=== PATIENT | male | born 1960 | race Caucasian/White ===

== ENCOUNTER 2017-12-19 15:18 | Inpatient (IN) | payer MEDICAID ==
[~2017-12-19] VITALS: Ht 172.7 cm; Wt 83.1 kg
[2017-12-19] MEDS ORDERED: NS IV 1000 ML 1,000 ML IV ONE ×2 (15:52→17:15)
[2017-12-19 16:07] LABS: BASOPHILS % (AUTO) 0 % (0-10); EOSINOPHILS # (AUTO) 0.1 10^3/uL (0.0-0.3); EOSINOPHILS % (AUTO) 1 % (0-10); HEMATOCRIT 43 % (40-54); HEMOGLOBIN 14.9 G/DL (13.3-17.7); LYMPHOCYTES # (AUTO) 0.7 X 10^3 (1.0-4.0); LYMPHOCYTES % (AUTO) 6 % (12-44); MEAN CORPUSCULAR HEMOGLOBIN 32 PG (25-34); MEAN CORPUSCULAR HGB CONC 35 G/DL (32-36); MEAN CORPUSCULAR VOLUME 91 FL (80-99); MEAN PLATELET VOLUME 11.5 FL (7.4-10.4); MONOCYTES # (AUTO) 1.5 X 10^3 (0.0-1.0); MONOCYTES % (AUTO) 13 % (0-12); NEUTROPHILS # (AUTO) 9.3 X 10^3 (1.8-7.8); NEUTROPHILS % (AUTO) 80 % (42-75); PLATELET COUNT 139 10^3/uL (130-400); RED BLOOD COUNT 4.66 10^6/uL (4.35-5.85); RED CELL DISTRIBUTION WIDTH 13.7 % (10.0-14.5); WHITE BLOOD COUNT 11.6 10^3/uL (4.3-11.0)
[2017-12-19 16:24] LABS: PROTHROMBIN TIME PATIENT 13.7 SEC (12.2-14.7)
--- NOTE | 2017-12-19 16:31 | Diagnostic Imaging Report ---
INDICATION: Preop for hip fracture. FINDINGS: Portable chest shows the lungs to be well-aerated. There are no infiltrates. Heart is not enlarged. No pulmonary edema. No hilar adenopathy. No pneumothorax or pleural effusion. IMPRESSION: Normal portable chest. Dictated by: Dictated on workstation # [id number]
[2017-12-19 16:32] LABS: ALANINE AMINOTRANSFERASE 11 U/L (0-55); ALBUMIN 3.6 GM/DL (3.2-4.5); ALKALINE PHOSPHATASE 57 U/L (40-136); BILIRUBIN,TOTAL 0.6 MG/DL (0.1-1.0); BUN/CREATININE RATIO 36; CALCIUM 9.6 MG/DL (8.5-10.1); CARBON DIOXIDE 27 MMOL/L (21-32); CHLORIDE 104 MMOL/L (98-107); CREATININE SERUM 0.78 MG/DL (0.60-1.30); GFR ESTIMATED > 60; GLUCOSE 128 MG/DL (70-105); SODIUM 141 MMOL/L (135-145)
[2017-12-19 16:34] LABS: EOSINOPHILS % (MANUAL) 2 %; LYMPHOCYTES % (MANUAL) 11 %; MONOCYTES % (MANUAL) 9 %; NEUTROPHILS % (MANUAL) 78 %; RBC MORPH NORMAL
[2017-12-19 16:35] LABS: BILIRUBIN,URINE NEGATIVE (NEGATIVE); CLARITY,URINE CLEAR; GLUCOSE, URINE (UA) NEGATIVE (NEGATIVE); KETONES,URINE 3+ (NEGATIVE); LEUKOCYTE ESTERASE ,URINE 1+ (NEGATIVE); NITRITE,URINE NEGATIVE (NEGATIVE); PH,URINE 6 (5-9); PROTEIN,URINE 2+ (NEGATIVE); UROBILINOGEN,URINE 1 MG/DL (NORMAL)
[2017-12-19 16:43] LABS: BACTERIA,URINE TRACE /HPF; COLOR,URINE ORANGE; WBC,URINE 0-2 /HPF
--- NOTE | 2017-12-19 18:04 | Diagnostic Imaging Report ---
PROCEDURE: CT head and CT cervical spine without contrast. TECHNIQUE: Multiple contiguous axial images were obtained through the brain and cervical spine without the use of intravenous contrast. Sagittal and coronal reformations through the cervical spine were then performed. INDICATION: Fall at half-way. FINDINGS: CT HEAD: There is no evidence of intracranial hemorrhage. There is no mass effect. There is generalized cortical atrophy. Ventricles are not dilated. Basal cisterns are clear. Mastoid air cells and paranasal sinuses are clear. No calvarial fractures. IMPRESSION: No acute intracranial abnormalities. CT CERVICAL SPINE. Sagittal and coronal images show good alignment. Body height is well maintained. Disc spaces are relatively well-maintained as well. Facets are in good alignment. The atlantoaxial joint appears normal. No fracture demonstrated. IMPRESSION: Mild degenerative changes with no acute abnormalities of the cervical spine. Dictated by: Dictated on workstation # [id number]
[2017-12-19 19:29] VITALS: BP 132/98
[2017-12-19] MEDS ORDERED: cefTRIAXone INJECTION 1,000 MG in NS (IVPB) 50 ML IV ONE (19:45)
--- NOTE | 2017-12-19 19:56 | ED Hip Pain/Injury ---
General Chief Complaint: Hip/Pelvic Problems Stated Complaint: L HIP FX Nursing Triage Note: PT TO ED FROM X-RAY PT HAD L HIP FX ON OUTPATIENT X-RAY. PT BROUGHT BY [facility] IN [place]/C. PT HAS POOR RESPONSE BY VERBAL, EYES CLOSED. [facility] STATES HAVE HAD PT FOR ONLY 3 DAYS LIVED AT HOME W BROTHER TAKING CARE OF HIM Source: patient, other ([place] staff) Exam Limitations: physical impairment (nonverbal, dementia with behavioral disturbances, schizophrenia, Parkinson's disease) History of Present Illness Date Seen by Provider: Dec 19, 2017 Allergies and Home Medications Allergies Coded Allergies: No Known Drug Allergies (Unverified , 12/19/17) Past [place]-Kwltar-Ehdmcb Hx Patient Social History Alcohol Use: Denies Use Recreational Drug Use: No Smoking Status: Unknown if Ever Smoked Recent Foreign Travel: No Contact w/Someone Who Travel: No Recent Infectious Disease Expo: No Recent Hopitalizations: No (unknown) Physical Abuse: No Sexual Abuse: No Seasonal Allergies Seasonal Allergies: No Psychosocial Suicide Risk Score: 0 Physical Exam Vital Signs Vital Signs - First Documented 12/19/17 12/19/17 15:43 19:29 Temp 100.3 Pulse 83 Resp 18 B/P (MAP) 133/81 (98) Pulse Ox 95 O2 Delivery Room Air Capillary Refill : Less Than 3 Seconds Progress/Results/Core Measures Results/Orders Lab Results Laboratory Tests Test 12/19/17 15:56 12/19/17 16:30 Range/Units White Blood Count 11.6 H 4.3-11.0 10^3/uL Red Blood Count 4.66 4.35-5.85 10^6/uL Hemoglobin 14.9 13.3-17.7 G/DL Hematocrit 43 40-54 % Mean Corpuscular Volume 91 80-99 FL Mean Corpuscular Hemoglobin 32 25-34 PG Mean Corpuscular Hemoglobin Concent 35 32-36 G/DL Red Cell Distribution Width 13.7 10.0-14.5 % Platelet Count 139 130-400 10^3/uL Mean Platelet Volume 11.5 H 7.4-10.4 FL Neutrophils (%) (Auto) 80 H 42-75 % Lymphocytes (%) (Auto) 6 L 12-44 % Monocytes (%) (Auto) 13 H 0-12 % Eosinophils (%) (Auto) 1 0-10 % Basophils (%) (Auto) 0 0-10 % Neutrophils # (Auto) 9.3 H 1.8-7.8 X 10^3 Lymphocytes # (Auto) 0.7 L 1.0-4.0 X 10^3 Monocytes # (Auto) 1.5 H 0.0-1.0 X 10^3 Eosinophils # (Auto) 0.1 0.0-0.3 10^3/uL Basophils # (Auto) 0.0 0.0-0.1 10^3/uL Neutrophils % (Manual) 78 % Lymphocytes % (Manual) 11 % Monocytes % (Manual) 9 % Eosinophils % (Manual) 2 % Blood Morphology Comment NORMAL Prothrombin Time 13.7 12.2-14.7 SEC INR Comment 1.0 0.8-1.4 Activated Partial Thromboplast Time 28 24-35 SEC Sodium Level 141 135-145 MMOL/L Potassium Level 4.0 3.6-5.0 MMOL/L Chloride Level 104 98-107 MMOL/L Carbon Dioxide Level 27 21-32 MMOL/L Anion Gap 10 5-14 MMOL/L Blood Urea Nitrogen 28 H 7-18 MG/DL Creatinine 0.78 0.60-1.30 MG/DL Estimat Glomerular Filtration Rate > 60 BUN/Creatinine Ratio 36 Glucose Level 128 H 70-105 MG/DL Lactic Acid Level 0.85 0.50-2.00 MMOL/L Calcium Level 9.6 8.5-10.1 MG/DL Magnesium Level 2.0 1.8-2.4 MG/DL Total Bilirubin 0.6 0.1-1.0 MG/DL Aspartate Amino Transf (AST/SGOT) 40 H 5-34 U/L Alanine Aminotransferase (ALT/SGPT) 11 0-55 U/L Alkaline Phosphatase 57 40-136 U/L C-Reactive Protein High Sensitivity 12.32 H 0.00-0.50 MG/DL Total Protein 7.0 6.4-8.2 GM/DL Albumin 3.6 3.2-4.5 GM/DL Valproic Acid (Depakene) Level 76.6 50.0-100.0 UG/ML Urine Color ORANGE Urine Clarity CLEAR Urine pH 6 5-9 Urine Specific [place] 1.025 H 1.016-1.022 Urine Protein 2+ H NEGATIVE Urine Glucose (UA) NEGATIVE NEGATIVE Urine Ketones 3+ H NEGATIVE Urine Nitrite NEGATIVE NEGATIVE Urine Bilirubin NEGATIVE NEGATIVE Urine Urobilinogen 1 NORMAL MG/DL Urine Leukocyte Esterase 1+ H NEGATIVE Urine RBC (Auto) 2+ H NEGATIVE Urine RBC NONE /HPF Urine WBC 0-2 /HPF Urine Squamous Epithelial Cells 2-5 /HPF Urine Crystals NONE /LPF Urine Bacteria TRACE /HPF Urine Casts NONE /LPF Urine Mucus LARGE H /LPF Urine Culture Indicated NO Micro Results Microbiology 12/19/17 Influenza Types A,B Antigen (ALLAN) - Final, Complete My Orders Orders - GRAZYNA CASPER Ns Iv 1000 Ml (Sodium Chloride 0.9%) (12/19/17 17:15) Valproic Acid (12/19/17 17:18) Ct Head/Cervical Spine Wo (12/19/17 17:21) Ceftriaxone Injection (Rocephin Injectio (12/19/17 19:45) Medications Given in ED Current Medications Medications Dose Ordered Sig/Ivelisse Route Start Time Stop Time Status Last Admin Dose Admin Ceftriaxone Sodium 1000 mg/ Sodium Chloride 50 ml @ 100 mls/hr ONCE ONCE IV 12/19/17 19:45 12/19/17 20:14 12/19/17 19:48 100 MLS/HR Sodium Chloride 1,000 ml @ 0 mls/hr Q0M ONCE IV 12/19/17 15:52 12/19/17 15:53 DC 12/19/17 16:10 1,000 MLS/HR Sodium Chloride 1,000 ml @ 0 mls/hr Q0M ONCE IV 12/19/17 17:15 12/19/17 17:16 DC 12/19/17 17:24 1,000 MLS/HR Vital Signs/I&O Vital Sign - Last 12Hours 12/19/17 12/19/17 15:43 19:29 Temp 100.3 Pulse 83 98 Resp 18 18 B/P (MAP) 133/81 (98) 132/98 (109) Pulse Ox 95 95 O2 Delivery Room Air Blood Pressure Mean: 109 Departure Impression Disposition: ADMITTED INPATIENT Condition: Stable Admissions Decision to Admit Reason: Admit from ER (General) Decision to Admit/Date: Dec 19, 2017 Time/Decision to Admit Time: 19:30 Departure-Patient Inst. Referrals: YOLY FAITH DO (PCP/Family) Primary Care Physician GRAZYNA CASPER Dec 19, 2017 19:56
[2017-12-19 21:12] VITALS: BP 152/92
[2017-12-19 21:24] VITALS: BP 152/92
[2017-12-19] MEDS ORDERED: ONDANSETRON 4 MG/2 ML (SDV) Z0FRAN IV PRN (21:30)
[2017-12-19] MEDS ORDERED: ACETAMINOPHEN 650 MG SUPP (TYLENOL) PR PRN (21:30)
[2017-12-19] MEDS: NS IV 1000 ML 1,000 ML IV SCH (22:43)
[2017-12-20] VITALS: BP 148/82
[2017-12-20] MEDS: morphine INJ 4 MG/ML 1 ML (VIAL/SYRINGE) IV PRN ×2 (02:24→20:24)
[2017-12-20 04:00] VITALS: BP 140/82
[2017-12-20] MEDS: NS IV 1000 ML 1,000 ML IV SCH ×4 (05:47→20:15)
[2017-12-20 06:21] LABS: BASOPHILS % (AUTO) 0 % (0-10); EOSINOPHILS # (AUTO) 0.1 10^3/uL (0.0-0.3); EOSINOPHILS % (AUTO) 2 % (0-10); HEMATOCRIT 39 % (40-54); HEMOGLOBIN 13.5 G/DL (13.3-17.7); LYMPHOCYTES # (AUTO) 0.5 X 10^3 (1.0-4.0); LYMPHOCYTES % (AUTO) 7 % (12-44); MEAN CORPUSCULAR HEMOGLOBIN 32 PG (25-34); MEAN CORPUSCULAR HGB CONC 35 G/DL (32-36); MEAN CORPUSCULAR VOLUME 92 FL (80-99); MEAN PLATELET VOLUME 11.7 FL (7.4-10.4); MONOCYTES # (AUTO) 1.1 X 10^3 (0.0-1.0); MONOCYTES % (AUTO) 14 % (0-12); NEUTROPHILS # (AUTO) 6.1 X 10^3 (1.8-7.8); NEUTROPHILS % (AUTO) 78 % (42-75); PLATELET COUNT 130 10^3/uL (130-400); RED BLOOD COUNT 4.24 10^6/uL (4.35-5.85); RED CELL DISTRIBUTION WIDTH 13.5 % (10.0-14.5); WHITE BLOOD COUNT 7.9 10^3/uL (4.3-11.0)
[2017-12-20 06:44] LABS: ALANINE AMINOTRANSFERASE 39 U/L (0-55); ALBUMIN 3.1 GM/DL (3.2-4.5); ALKALINE PHOSPHATASE 49 U/L (40-136); BILIRUBIN,TOTAL 0.7 MG/DL (0.1-1.0); BUN/CREATININE RATIO 33; CARBON DIOXIDE 22 MMOL/L (21-32); CHLORIDE 109 MMOL/L (98-107); GFR ESTIMATED > 60; GLUCOSE 95 MG/DL (70-105); POTASSIUM 3.9 MMOL/L (3.6-5.0); SODIUM 140 MMOL/L (135-145); TOTAL PROTEIN 5.9 GM/DL (6.4-8.2)
[2017-12-20] MEDS ORDERED: INFLUENZA TRIvalent 2017-2018 0.5 ML/45 MCG SYR IM ONE (07:30)
[2017-12-20 08:00] VITALS: BP 149/77
[2017-12-20] MEDS ORDERED: ceFAZolin 2 GM IV Premixed 50 ML IV ONE (08:00)
[2017-12-20] MEDS ORDERED: fentaNYL INJECTION 100 MCG/2 ML AMP ONE ×3 (08:14→10:19)
[2017-12-20] MEDS ORDERED: HYDROmorphone (DILAUDID) 2 MG/ML VIAL ONE (08:14)
[2017-12-20] MEDS ORDERED: morphine INJ 10 MG/ML 1ML (SYR OR VIAL) ONE (08:14)
[2017-12-20] MEDS ORDERED: LIDOCAINE PF 2% 5 ML (XYLOCAINE) VIAL ONE (08:17)
[2017-12-20] MEDS ORDERED: SEVOFLURANE (ULTANE) 15 ML INHAL SOLN ONE ×9 (08:17→11:26)
[2017-12-20] MEDS ORDERED: proPOfol 200 MG/20 ML (DIPRIVAN) VIAL IV ONE (08:17)
[2017-12-20] MEDS ORDERED: ONDANSETRON 4 MG/2 ML (SDV) Z0FRAN ONE (08:21)
[2017-12-20] MEDS ORDERED: DEXAMETHASONE 10 MG/ML (DECADRON) 1 ML VIAL ONE (08:21)
[2017-12-20] MEDS: FAMOTIDINE 20MG/2ML IV (PEPCID) IVP SCH ×2 (08:31→20:14)
--- NOTE | 2017-12-20 08:46 | Diagnostic Imaging Report ---
INDICATION: Fracture. FINDINGS: There is a displaced left femoral neck fracture without dislocation. Colonic fecal load elevated consistent with constipation. No small bowel dilatation. IMPRESSION: Displaced left femoral neck fracture and colonic constipation. Dictated by: Dictated on workstation # [id number]
--- NOTE | 2017-12-20 08:51 | History & Physical-Hospitalist ---
HPI History of Present Illness: HPI/Chief Complaint The patient is a 57-year-old white male with apparent schizophrenia recently admitted to a local senior care who apparently fell with progressive left hip pain. Upon presentation to the emergency room he had external rotation and foreshortening of the leg with a displaced intertrochanteric hip fracture. He is unable to give any meaningful history during the interview but does not appear to be in acute distress. He has no reported past history of cardiovascular or pulmonary disease. He is asking to be fed and wanting to go home. Date Seen 12/20/17 Time Seen by Provider: 07:30 Attending Physician Marko Logan Richard A DO Referring Physician Date of Admission Dec 19, 2017 at 20:41 Home Medications & Allergies Home Medications Reviewed patient Home Medication Reconciliation Form Allergies Allergies Coded Allergies No Known Drug Allergies (Unverified12/19/17) Past Ncnblbr-Dbbmmj-Ehhbcg Hx Patient Social History Alcohol Use: Denies Use Smoking Status: Unknown if Ever Smoked Recent Foreign Travel: No Contact w/other who traveled: No Recent Hopitalizations: No (unknown) Recent Infectious Disease Expo: No Seasonal Allergies Seasonal Allergies: No Cardiovascular Yes Neurological Yes Psychosocial Behavioral Health Disorders: Anxiety, Schizophrenia, Depression Blood Transfusions History of Blood Disorders: No Adverse Reaction to a Blood Tr: No Review of Systems Constitutional: no symptoms reported Physical Exam Physical Exam Vital Signs Vital Signs - First Documented 12/19/17 12/19/17 15:43 19:29 Temp 100.3 Pulse 83 Resp 18 B/P (MAP) 133/81 (98) Pulse Ox 95 O2 Delivery Room Air Capillary Refill : Less Than 3 SecondsLess Than 3 Seconds General Appearance: Anxious (Confused asking for food and states he wants help getting up.) Neck: Full Range of Motion, Normal Inspection, Non Tender, Supple Respiratory: Chest Non Tender, Lungs Clear, Normal Breath Sounds, No Accessory Muscle Use, No Respiratory Distress Cardiovascular: Regular Rate, Rhythm, No Edema, No Gallop, No JVD, No Murmur, Normal Peripheral Pulses Gastrointestinal: Normal Bowel Sounds, No Organomegaly, No Pulsatile Mass, Non Tender, Soft Extremity: No Pedal Edema, Other (Left lower extremity foreshortened and externally rotated with mild left hip swelling and no evidence for purpura extremities are warm normal capillary refill) Neurologic/Psychiatric: Disoriented x3 Results Results/Procedures Lab Laboratory Tests 12/19/17 15:56 12/20/17 06:07 Assessment/Plan Admission Diagnosis 1. Left displaced femoral neck fracture patient scheduled for repair per Dr. Strauss later today. There are no medical contraindications to proceeding with planned procedure. 2. Reported history of schizophrenia patient unable to give any history currently. We are still waiting on home medication list. We will review when available. No other information available this time. Clinical Quality Measures DVT/VTE Risk/Contraindication: Risk Factor Score Per Nursin RFS Level Per Nursing on Admit: 4+=Very High ANT AL MD Dec 20, 2017 08:51
--- NOTE | 2017-12-20 08:54 | Diagnostic Imaging Report ---
EXAM: HIP, LEFT (SINGLE VIEW) INDICATION: LEFT HIP FRACTURE, LATERAL VIEW ONLY COMPARISON: Left hip radiographs 12/19/2017. FINDINGS/IMPRESSION: The known subcapital left hip fracture is not well seen due to overlapping tissues. This could be better evaluated with repeat radiographs versus CT. Dictated by: Dictated on workstation # [id number]
[2017-12-20] MEDS ORDERED: ROCURONIUM 50 MG/5 ML (ZEMURON) VIAL IV ONE (09:36)
[2017-12-20] MEDS: LACTATED RINGERS 1,000 ML IV PRN ×2 (09:40→10:45)
[2017-12-20] MEDS ORDERED: MIDAZOLAM 2 MG/2 ML (VERSED) VIAL ONE (09:42)
--- NOTE | 2017-12-20 09:46 | Consultation ---
History of Present Illness History of Present Illness Patient Consulted On(india/time) 12/19/17 Date Seen by Provider: Dec 20, 2017 Time Seen by Provider: 07:20 Reason for Visit: Left hip fracture History of Present Illness Mr. Dumont is a 57 y/o male local [facility] resident with h/o dementia that sustained a mechanical GLF onto his Left hip approximately 3 days ago. History obtained from patient's family and medical record as patient is not a reliable historian secondary to his baseline mental status. The patient began c/o severe Left hip pain and an inability to ambulate on his LLE. He was transferred to a local urgent care for evaluation where XRs demonstrated a left femoral neck fracture. He was subsequently transferred to [facility] for definitive treatment. The patient c/o left hip pain. He has no other musculoskeletal complaints. Allergies and Home Medications Allergies Coded Allergies: No Known Drug Allergies (Unverified , 12/19/17) Past Qeuxsfn-Mwfhqc-Bbgmri Hx Patient Social History Alcohol Use: Denies Use Smoking Status: Unknown if Ever Smoked Recent Foreign Travel: No Contact w/Someone Who Travel: No Recent Infectious Disease Expo: No Recent Hopitalizations: No (unknown) Physical Abuse: No Sexual Abuse: No Seasonal Allergies Seasonal Allergies: No Cardiovascular History of Cardiac Disorders: Yes Neurological History of Neurological Disord: Yes Psychosocial Behavioral Health Disorders: Anxiety, Schizophrenia, Depression Suicide Risk Score: 0 Blood Transfusions History of Blood Disorders: No Adverse Reaction to a Blood Tr: No Review of Systems-General Constitutional: no symptoms reported EENTM: no symptoms reported Respiratory: no symptoms reported Cardiovascular: no symptoms reported Gastrointestinal: no symptoms reported Genitourinary: no symptoms reported Musculoskeletal: joint pain, other (Left hip pain) Skin: no symptoms reported Psychiatric/Neurological: Other (Dementia) Physical Exam-General Problems Physical Exam Vital Signs Vital Signs - First Documented 12/19/17 12/19/17 15:43 19:29 Temp 100.3 Pulse 83 Resp 18 B/P (MAP) 133/81 (98) Pulse Ox 95 O2 Delivery Room Air Capillary Refill : Less Than 3 SecondsLess Than 3 Seconds General Appearance: no apparent distress Eyes: Bilateral Eye Normal Inspection, Bilateral Eye PERRL, Bilateral Eye EOMI HEENT: normal ENT inspection Neck: full range of motion, supple Respiratory: no respiratory distress, no accessory muscle use Cardiovascular: normal peripheral pulses, regular rate, rhythm Peripheral Pulses: 3+ Femoral (L), 3+ Dorsalis Pedis (R) Gastrointestinal: non tender, soft Extremities: other (LLE: shortened/externally rotated; motor/sensation grossly intact, foot well perfused, skin intact, no open wounds) Skin: warm/dry Assessment/Plan Assessment/Plan Admission Diagnosis/Plan A/P: Displaced fracture Left femoral neck s/p mechanical GLF Unstable injury that will require surgical stabilization. Given the patient's physical/mental condition and the chronicity of the injury he is not a candidate for ORIF or total hip arthroplasty. As such I have recommended proceeding with bipolar arthroplasty. The surgical plan has been discussed in detail with the patient's brother/POA including the risks, benefits, potential complications and expected outcomes. All questions have been answered. Informed written consent has been obtained to proceed as planned. Clinical Quality Measures DVT/VTE Risk/Contraindication: Risk Factor Score Per Nursin RFS Level Per Nursing on Admit: 4+=Very High NYASIA MATIAS DO Dec 20, 2017 09:46
[2017-12-20] MEDS ORDERED: PROMETHAZINE INJ 25 MG/ML (PHENERGAN) AMP ONE (10:40)
[2017-12-20] MEDS ORDERED: ENTA200T6 PO (10:44)
[2017-12-20] MEDS ORDERED: PARO-49 PO (10:44)
[2017-12-20] MEDS ORDERED: TRAZ-28 PO (10:44)
[2017-12-20] MEDS ORDERED: DIVA500T15 PO ×2 (10:44)
[2017-12-20] MEDS ORDERED: CARB1TAB6 PO (10:44)
[2017-12-20] MEDS ORDERED: ACET325T38 PO (10:44)
[2017-12-20] MEDS ORDERED: DILT120T3 PO (10:44)
[2017-12-20] MEDS ORDERED: RISP0.5T21 PO (10:44)
[2017-12-20] MEDS ORDERED: PHENYLEPHRINE INJ 10 MG/ML (NEO-SYNEPHRINE 1%) ONE (11:25)
--- NOTE | 2017-12-20 11:30 | Progress Note-Post Operative ---
Post-Operative Progess Note Surgeon (s)/Human Relations Professor (s) Surgeon NYASIA MATIAS DO Human Relations Professor: Jeb Bruno PA-C Pre-Operative Diagnosis Displaced subcapital fracture Left femoral neck Post-Operative Diagnosis Same Procedure & Operative Findings Date of Procedure 12/20/17 Procedure Performed/Findings Uncemented bipolar hemiarthroplasty Left hip/as above Anesthesia Type General Estimated Blood Loss Estimated blood loss (mL): 250 mL Specimens/Packing Specimens Removed None NYASIA MATIAS DO Dec 20, 2017 11:30
[2017-12-20] MEDS ORDERED: ROPIVACAINE 5MG/ML 30ML VIAL ONE (11:32)
[2017-12-20] MEDS ORDERED: KETOROLAC 30 MG/ML VIAL ONE (11:32)
[2017-12-20 12:00] VITALS: BP 122/92
[2017-12-20] MEDS ORDERED: SINEMET 25/100 (CARBIDOPA/LEVODOPA) TAB PO SCH (12:00)
[2017-12-20] MEDS ORDERED: ONDANSETRON 4 MG/2 ML (SDV) Z0FRAN IVP PRN (12:15)
[2017-12-20] MEDS ORDERED: morphine INJ 10 MG/ML 1ML (SYR OR VIAL) IVP PRN (12:15)
[2017-12-20] MEDS ORDERED: KETOROLAC 30 MG/ML VIAL IVP ONE (12:15)
[2017-12-20] MEDS: DIVALPROEX 500 MG DELAYED RELEASE (DEPAKOTE) TAB PO SCH ×2 (12:20→20:14)
--- NOTE | 2017-12-20 12:47 | Diagnostic Imaging Report ---
EXAM: PELVIS INDICATION: Left hip fracture. COMPARISON: Left hip radiographs 12/19/2017. FINDINGS: Interval left total hip arthroplasty. Components appear intact and well seated on this single image. No radiopaque foreign bodies. No periprosthetic fractures. IMPRESSION: Left ELIZABETH. Negative for postoperative purposes. Dictated by: Dictated on workstation # [id number]
--- NOTE | 2017-12-20 13:40 | Physical Therapy Progress Note ---
Therapy Progress Note PT orders received. Pt currently in surgery. PT eval to be done 12/21/17 HALEY MON PT Dec 20, 2017 13:40
[2017-12-20] MEDS: SINEMET 25/100 (CARBIDOPA/LEVODOPA) TAB PO SCH ×2 (14:00→17:03)
[2017-12-20] MEDS ORDERED: ceFAZolin 2 GM/50 ML NS 50 ML IV SCH (15:30)
[2017-12-20 15:45] VITALS: BP 160/84
[2017-12-20] MEDS: RIVAROXABAN 10 MG TABLET (XARELTO) PO SCH (17:03)
[2017-12-20] MEDS: ceFAZolin 2 GM IV Premixed 50 ML IV SCH ×2 (17:04→22:10)
[2017-12-20 19:32] VITALS: BP 131/69
[2017-12-20] MEDS: risperiDONE 1 MG (RisperDAL) TAB PO SCH (20:14)
[2017-12-20] MEDS ORDERED: PATIENT MAY USE OWN MED,SINGLE MED PO SCH ×4 (21:00)
[2017-12-21] VITALS: BP 138/77
[2017-12-21 04:00] VITALS: BP 168/80
[2017-12-21] MEDS: NS IV 1000 ML 1,000 ML IV SCH ×3 (04:23→17:23)
[2017-12-21] MEDS: ceFAZolin 2 GM IV Premixed 50 ML IV SCH ×2 (04:23→09:39)
[2017-12-21] MEDS: morphine INJ 4 MG/ML 1 ML (VIAL/SYRINGE) IV PRN (04:32)
[2017-12-21 05:29] LABS: HEMOGLOBIN 12.3 G/DL (13.3-17.7)
[2017-12-21] MEDS: SINEMET 25/100 (CARBIDOPA/LEVODOPA) TAB PO SCH ×3 (05:37→17:23)
[2017-12-21 08:00] VITALS: BP 148/81
--- OUTSIDE RECORDS SUMMARY | 2017-12-21 09:27 | XMS REPORT ---
Author Author Terri Moon Organization [employer] Address Unknown Phone Unavailable Care Team Providers Care Edge Drummer Name Role Phone Terri Moon CP Unavailable Allergies No Known Allergies Problems Problem Type Condition Code Onset Dates Condition Status Problem Schizoaffective disorder, unspecified F25.9 Active Medications No Known Medications Results No Known Results Summary Purpose [employer] Submission
--- OUTSIDE RECORDS SUMMARY | 2017-12-21 09:28 | XMS REPORT ---
Author Terri More [facility] [employer] Address Unknown Phone Unavailable Care Team Providers Care Rail Equipment Operator Name Role Phone Terri Moon CP Unavailable Allergies, Adverse Reactions, Alerts Substance Reaction Event Type N.K.D.A. Info Not Available Non Drug Allergy Problems Problem Type Condition Code Onset Dates Condition Status Assessment Schizoaffective disorder, unspecified F25.9 Active Problem Schizoaffective disorder, unspecified F25.9 Active Medications Medication Code System Code Instructions Start Date End Date Status Dosage Dilt-CD [facility] [address]-45 120 MG Orally Once a day 1 capsule Docusate Sodium [facility] [address]-13 100 MG Orally twice daily 1 capsule as needed Folic Acid [facility] [address]-29 1 MG Orally Once a day 1 tablet Paroxetine HCl [facility] [address]-90 40 MG Orally Once a day 1 tablet in the morning Restoril [facility] [address]-30 15 MG Orally Once a day 1 capsule at bedtime as needed Carbidopa-Levodopa CR [facility] 0 by mouth twice daily one tablet Depakote [facility] [address]-05 500 MG Orally Twice a day 1 tablet Entacapone [facility] [address]-47 200 MG Orally Twice a day 1 tablet Seroquel [facility] [address]-07 200 MG Orally Twice a day 1 tablet Trihexyphenidyl HCl [facility] [address]-77 2 MG Orally Two times a day 1 tablet with meals Bisacodyl [facility] [address]-14 10 MG Rectal Once a day 1 suppository as needed Lorazepam [facility] [address]-09 1 MG Orally or injection every 6 hrs PRN 1 tablet Aricept [facility] [address]-47 10 MG Orally Once a day 1 tablet at bedtime Amantadine HCl [facility] [address]-59 100 MG Orally daily 1 capsule Sinemet [facility] [address]-71 25-100 MG Orally four times a day 2 tablets Quetiapine Fumarate [facility] [address]-45 100 MG Orally Once a day 1 tablet at bedtime MiraLax [facility] [address]-34 Orally Once a day 1 packet mixed with 8 ounces of fluid Tramadol HCl [facility] [address]-24 50 MG Orally every 6 hrs 1 tablet as needed Milk of Magnesia [facility] [address]-65 Orally daily as needed 30ml Procedures Procedure Coding System Code Date OFFICE VISIT, POACHER WRINGER OPERATOR-MOD. COMPLEXITY (45 MIN.) CPT-4 82302 Nov 14, 2015 Vital Signs Date/Time: Nov 14, 2015 Height 71.25 in Weight 198.75 lbs Temperature 97.6 F Blood Pressure Diastolic 76 mm Hg Blood Pressure Systolic 120 mm Hg Cardiac Monitoring Heart Rate 80 /min BMI 27.52 Index Respiratory Rate 20 /min Results No Known Results Summary Purpose [employer] Submission
--- OUTSIDE RECORDS SUMMARY | 2017-12-21 09:28 | XMS REPORT ---
Author Author GENERATED, SYSTEM Organization Unknown Address Unknown Phone Unavailable Care Team Providers Care Financial Reporting Accountant Name Role Phone PP Unavailable Reason For Visit Chief Complaint UA Social History Functional Status Vital Signs Results Problems Encounter Diagnosis No relevant problems exist. Encounters Encounter Diagnosis No relevant problems exist. Plan of Care Procedures No relevant procedures performed. Immunizations No immunizations administered or ordered. Hospital Course Hospital Discharge Instructions Allergies, Adverse Reactions, Alerts * Latex Allergy has not been assessed. * IV Contrast Allergy has not been assessed. Medication Medication reconciliation has not been performed.
--- OUTSIDE RECORDS SUMMARY | 2017-12-21 09:28 | XMS REPORT ---
Author Terri More [facility] [employer] Address Unknown Phone Unavailable Care Team Providers Care Product Support Engineer Name Role Phone Terri Moon Unavailable Allergies No Known Allergies Problems Problem Type Condition Code Onset Dates Condition Status Problem Parkinson's disease G20 Active Problem Schizoaffective disorder, bipolar type F25.0 Active Medications Medication Code System Code Instructions Start Date End Date Status Dosage MiraLax [facility] [address]-11 Orally Once a day 1 packet mixed with 8 ounces of fluid Folic Acid [facility] [address]-30 1 MG Orally Once a day 1 tablet Carbidopa-Levodopa [facility] [address]-60 25-100 MG Orally four times a day Jun 11, 2016 1 tablet Lorazepam [facility] [address]-89 1 MG Orally or injection every 6 hrs PRN 1 tablet Carbidopa-Levodopa ER [facility] [address]-67 50-200 MG Orally daily Jun 11, 2016 1 tablet Aricept [facility] [address]-02 10 MG Orally Once a day 1 tablet at bedtime Doxycycline Hyclate [facility] [address]-25 100 MG Orally Twice a day Jun 11, 2016 Jun 16, 2016 1 tablet on an empty stomach Amoxicillin [facility] [address]-48 500 MG Orally every 8 hrs Jun 11, 2016 Jun 15, 2016 1 capsule Restoril [facility] [address]-53 15 MG Orally Once a day 1 capsule at bedtime as needed Seroquel [facility] [address]-06 300 MG Orally Once a day May 06, 2016 1 tablet at bedtime Dilt-CD [facility] [address]-75 120 MG Orally Once a day 1 capsule Paroxetine HCl [facility] [address]-72 40 MG Orally Once a day 1 tablet at bedtime Nuplazid (pimavanserin) [facility] [address]-58 17mg oral daily (with or without food) Jun 12, 2016 Aug 11, 2016 2 tablets Docusate Sodium [facility] [address]-60 100 MG Orally twice daily 1 capsule as needed Tramadol HCl [facility] [address]-32 50 MG Orally every 6 hrs 1 tablet as needed Depakote [facility] [address]-93 500 MG Orally Twice a day 1 tablet Results No Known Results Summary Purpose [employer] Submission
--- OUTSIDE RECORDS SUMMARY | 2017-12-21 09:28 | XMS REPORT | Referral Summary ---
Author Author [facility] Organization [facility] Address Unknown Phone Unavailable Care Team Providers Care Insert Molding Operator Name Role Phone Joe Plasencia V PCP Encounter VC Date(s): 05/09/15 - 05/09/15 [facility] [address] [place] [address]- Discharge Diagnosis: Schizophrenia Discharge Diagnosis: Hypertension Discharge Diagnosis: Parkinson's disease Discharge Disposition: 01-Home or Self Care Attending Physician: Joe Plasencia MD Admitting Physician: Joe Plasencia MD Vital Signs Most recent to 1 oldest [Reference Range]: Temperature Tympanic 37.5 degC [36.6-38.1 degC] (05/09/15 10:16 AM) Peripheral Pulse 76 bpm Rate [60-100 bpm] (05/09/15 10:16 AM) Blood Pressure 118/84 mmHg [90-140/60-90 mmHg] (05/09/15 10:16 AM) Problem List Condition Effective Dates Status Health Status Informant Anxiety(Confirmed) < 06/27/14 Resolved Anxiety state Active (finding)(Confirmed) Hypertension(Confirm Active ed) Parkinson's(Confirme < 06/27/14 Resolved d) Parkinson's disease Active (disorder)(Confirmed ) Schizophrenia(Confir < 06/27/14 Resolved med) Schizophrenia Active (disorder)(Confirmed ) Allergies, Adverse Reactions, Alerts No Known Medication Allergies Medications amantadine 100 mg oral capsule 1 caps, Oral, Daily, # 30 caps, 0 Refill(s) Start Date: 02/06/15 Status: Ordered Aricept 10 mg oral tablet 1 tabs, Oral, Bedtime (once a day), # 30 tabs, 0 Refill(s) Start Date: 02/06/15 Status: Ordered Comtan 200 mg oral tablet See Instructions, Take 1 tablet (200 MG) by oral route 4 times every day in combination with carbidopa and levodopa, 0 Refill(s) Start Date: 06/27/14 Status: Ordered Depakote 250 mg oral delayed release tablet 250 mg 1 tabs, Oral, TID, 0 Refill(s) Start Date: 08/07/15 Status: Ordered Depakote 500 mg oral delayed release tablet 500 mg 1 tabs, Oral, BID, 0 Refill(s) Start Date: 08/07/15 Status: Ordered folic acid 1 mg oral tablet 1 mg 1 tabs, Oral, Daily, 0 Refill(s) Start Date: 08/07/15 Status: Ordered Mirapex 1 mg oral tablet See Instructions, TAKE ONE TABLET BY MOUTH 2 TIMES PER DAY AT 0800 AND NOON, # 56 tabs, 1 Refill(s), eRx: [facility], TAKE ONE TABLET BY MOUTH 2 TIMES PER DAY AT 0800 AND NOON Start Date: 04/28/14 Status: Ordered Paxil 40 mg oral tablet 40 mg 1 tabs, Oral, Daily, 0 Refill(s) Start Date: 08/07/15 Status: Ordered SEROquel 200 mg oral tablet 200 mg 1 tabs, Oral, Daily, 0 Refill(s) Start Date: 08/07/15 Status: Ordered Sinemet 25 mg-100 mg oral tablet 2 tabs, Oral, QID, 0 Refill(s) Start Date: 06/27/14 Status: Ordered Sinemet CR 50 mg-200 mg oral tablet, extended release See Instructions, Take 1 tablet by oral route at 10 am and 6 pm., 0 Refill(s) Start Date: 06/27/14 Status: Ordered Tiazac 120 mg/24 hours oral capsule, extended release See Instructions, TAKE ONE CAPSULE BY MOUTH EVERY MORNING AT 0800, # 28 caps, 0 Refill(s), Pharmacy: [facility], TAKE ONE CAPSULE BY MOUTH EVERY MORNING AT 0800 Start Date: 06/03/14 Status: Ordered trihexyphenidyl 2 mg oral tablet 1 tabs, Oral, BID, 0 Refill(s) Start Date: 06/27/14 Status: Ordered Results No data available for this section Immunizations Vaccine Date Refusal Reason tetanus/diphth/pertuss (Tdap) adult/adol 04/03/10 pneumococcal 23-polyvalent vaccine 04/03/10 Procedures Procedure Date Related Diagnosis Body Site Hernia repair 1980 Social History Social History Type Response Smoking Status Former smoker1 1dc 1989 Assessment and Plan Extracted from: Title: Office Visit Note Author: Joe Plasencia MD Date: 05/09/15 Assessment/Plan Hypertension Parkinson's disease Schizophrenia Overall he seems to be stable and we will mostly continue current medications. In the interest of reducing his pill burden, we changed both Colace and tramadol to when necessary dosing. Follow-up per assisted requirements, or otherwise when necessary. We will send copies of the dictation [place], Dr. Lima, and Dr. Cortez.
--- OUTSIDE RECORDS SUMMARY | 2017-12-21 09:28 | XMS REPORT | Referral Summary ---
Author Author [facility] Organization [facility] Address Unknown Phone Unavailable Care Team Providers Care Licensed Nursing Assistant Name Role Phone Joe Plasencia V PCP Encounter VC Date(s): 10/28/16 - 10/28/16 [facility], [address] [place] [id number] Discharge Diagnosis: Parkinson's disease Discharge Diagnosis: Schizophrenia Discharge Diagnosis: Chronic constipation Discharge Diagnosis: Urine frequency Discharge Disposition: 01-Home or Self Care Attending Physician: Joe Plasencia MD Admitting Physician: Joe Plasencia MD Vital Signs Most recent to 1 oldest [Reference Range]: Temperature Tympanic 36.3 degC [36.6-38.1 degC] *LOW* (10/28/16 10:41 AM) Peripheral Pulse 73 bpm Rate [60-100 bpm] (10/28/16 10:41 AM) Blood Pressure 113/79 mmHg [90-140/60-90 mmHg] (10/28/16 10:41 AM) Problem List Condition Effective Dates Status Health Status Informant Anxiety state Active (finding)(Confirmed) Anxiety(Confirmed) < 06/27/14 Resolved Hypertension(Confirm Active ed) Parkinson's(Confirme < 06/27/14 Resolved d) Parkinson's disease Active (disorder)(Confirmed ) Schizophrenia Active (disorder)(Confirmed ) Schizophrenia(Confir < 06/27/14 Resolved med) Chronic venous Active stasis dermatitis(Confirmed ) Allergies, Adverse Reactions, Alerts No Known Medication Allergies Medications Aricept 10 mg oral tablet 1 tabs, Oral, Bedtime (once a day), # 30 tabs, 0 Refill(s) Start Date: 02/06/15 Status: Ordered Ativan 1 mg oral tablet 1 mg 1 tabs, Oral, q6hr, as needed for anxiety, Fax to [facility], # 90 tabs, 0 Refill(s) Start Date: 06/06/16 Status: Ordered Colace 100 mg oral capsule 100 mg 1 caps, Oral, BID, as needed for constipation, # 20 caps, 0 Refill(s) Start Date: 11/30/15 Status: Ordered Comtan 200 mg oral tablet See Instructions, Take 1 tablet (200 MG) by oral route 2 times every day in combination with carbidopa and levodopa, 0 Refill(s) Start Date: 06/27/14 Status: Ordered divalproex sodium 500 mg oral delayed release tablet See Instructions, TAKE 1 TABLET BY MOUTH TWICE DAILY, # 56 tabs, 2 Refill(s), eRx: [facility], TAKE 1 TABLET BY MOUTH TWICE DAILY Start Date: 04/29/16 Status: Ordered folic acid 1 mg oral tablet 1 mg 1 tabs, Oral, Daily, 0 Refill(s) Start Date: 08/07/15 Status: Ordered MiraLax oral powder for reconstitution 17 g, Oral, Daily, dissolve in water before taking, # 255 g, 0 Refill(s) Start Date: 11/30/15 Status: Ordered PARoxetine 40 mg oral tablet See Instructions, TAKE 1 TABLET BY MOUTH DAILY AT BEDTIME, # 28 tabs, 2 Refill(s ), eRx: [facility], TAKE 1 TABLET BY MOUTH DAILY AT BEDTIME Start Date: 04/29/16 Status: Ordered Sinemet 25 mg-100 mg oral tablet 1 tabs, Oral, QID, 0 Refill(s) Start Date: [...] 0800, # 28 caps, 0 Refill(s), Pharmacy: [facility], TAKE ONE CAPSULE BY MOUTH EVERY MORNING AT 0800 Start Date: 06/03/14 Status: Ordered traMADol 50 mg oral tablet 50 mg 1 tabs, Oral, q6hr, Fax to [facility], # 90 tabs, 0 Refill(s) Start Date: 06/06/16 Status: Ordered Results Urinalysis Most recent to 1 oldest [Reference Range]: UA Color DkYellow (10/28/16 11:36 AM) UA Appear Clear (10/28/16 11:36 AM) UA pH [5.0-8.0] 6.0 (10/28/16 11:36 AM) UA Leuk Est Negative [Negative] (10/28/16 11:36 AM) UA Nitrite Negative [Negative] (10/28/16 11:36 AM) UA Protein Negative [Negative] (10/28/16 11:36 AM) UA Glucose Negative [Negative] (10/28/16 11:36 AM) UA Ketones Pos 1+ [Negative] *ABN* (10/28/16 11:36 AM) UA Urobilinogen 1.0 mg/dL [<1.0 mg/dL] (10/28/16 11:36 AM) UA Bili [Negative] Negative (10/28/16 11:36 AM) UA Blood [Negative] Negative (10/28/16 11:36 AM) UA Spec Grav 1.028 [1.003-1.030] (10/28/16 11:36 AM) Type Clean Catch (10/28/16 11:36 AM) Immunizations Given and Recorded Vaccine Date Status Refusal Reason tetanus/diphth/pertuss (Tdap) adult/adol 04/03/10 Recorded pneumococcal 23-polyvalent vaccine 04/03/10 Recorded Procedures Procedure Date Related Diagnosis Body Site Hernia repair 1980 Social History Social History Type Response Smoking Status Former smoker1 1d 1989 Assessment and Plan Extracted from: Title: CDM OV Author: Joe Plasencia MD Date: 10/28/16 Impression and Plan Diagnosis Chronic constipation ([id number]-JJ K59.09, Discharge, Medical). Parkinson's disease ([id number] G20, Discharge, Medical). Schizophrenia (VQY51-GT F20.9, Discharge, Medical). Urine frequency (COA97-ER R35.0, Discharge, Medical). Orders Orders (Selected) Outpatient Orders Ordered (Pending Collection) Urinalysis with Culture if Indicated: .
--- OUTSIDE RECORDS SUMMARY | 2017-12-21 09:28 | XMS REPORT | Referral Summary ---
Author Author [facility] Organization [facility] Address Unknown Phone Unavailable Care Team Providers Care Lead Driver Name Role Phone Joe Plasencia V PCP Encounter VC Date(s): 05/09/15 - 05/09/15 [facility] [address] [place] [address]- Discharge Diagnosis: Schizophrenia Discharge Diagnosis: Hypertension Discharge [...] 0800, # 28 caps, 0 Refill(s), Pharmacy: [facility], TAKE ONE CAPSULE [...] tramadol to when necessary dosing. Follow-up per group home requirements, or otherwise when necessary. We will send copies of the dictation [place], Dr. Lima, and Dr. Cortez.
--- OUTSIDE RECORDS SUMMARY | 2017-12-21 09:28 | XMS REPORT ---
Author Author GENERATED, SYSTEM Organization Unknown Address Unknown Phone Unavailable Care Team Providers Care Program Director Name Role Phone PP Unavailable Reason For Visit Chief Complaint G20, S81.809D, K59.00, F41.9, E56.9 Social History Functional Status Vital Signs Results Problems Encounter Diagnosis No relevant problems exist. Encounters Encounter Diagnosis No relevant problems exist. Plan of Care Procedures No relevant procedures performed. Immunizations No immunizations administered or ordered. Hospital Course Hospital Discharge Instructions Allergies, Adverse Reactions, Alerts This section is risk control field representative of the current allergy information, at the time of the CCD generation. In the case of regeneration of the CCD, the allergy information may not reflect the state of known allergies at the time of the CCD' s subject visit. * Latex Allergy has not been assessed. * IV Contrast Allergy has not been assessed. Medication Medication reconciliation has not been performed.
--- OUTSIDE RECORDS SUMMARY | 2017-12-21 09:28 | XMS REPORT ---
Author Author GENERATED, SYSTEM Organization Unknown Address Unknown Phone Unavailable Care Team Providers Care Director [place] Sales Name Role Phone PP Unavailable Reason For Visit Chief Complaint BILAT LEGS Social History Functional Status Vital Signs Results Chemistry from 07/20/2016 8:50 AMCHOLESTEROL 150 MG/DL (50-199 MG/DL) TRIGLYCERIDES 96 MG/DL (0-149 MG/DL) HDL CHOLESTEROL 42 MG/DL (40-60 MG/DL) *LDL (CALCULATED) CHOL 89 MG/DL (0-99 MG/DL) VALPROIC ACID 56 MCG/ML (50-100 MCG/ML) Problems Encounter Diagnosis No relevant problems exist. [...]
--- OUTSIDE RECORDS SUMMARY | 2017-12-21 09:29 | XMS REPORT ---
Author Author GENERATED, SYSTEM Organization Unknown Address Unknown Phone Unavailable Care Team Providers Care Check Writer Salesperson Name Role Phone PP Unavailable Reason For Visit Chief Complaint Z79.899 Social History Functional Status Vital Signs Results [...]
--- OUTSIDE RECORDS SUMMARY | 2017-12-21 09:29 | XMS REPORT | Referral Summary ---
Author Author [facility] Organization [facility] Address Unknown Phone Unavailable Care Team Providers Care Tensioning Machine Operator Name Role Phone Joe Plasencia V PCP Encounter VC Date(s): 07/16/16 - 07/16/16 [facility], [address] [place] [address] Discharge Diagnosis: Parkinson's disease Discharge Diagnosis: Pressure ulcer of left buttock, stage 2 Discharge Diagnosis: Schizophrenia Discharge Disposition: 01-Home or Self Care Attending Physician: Joe Plasencia MD Admitting Physician: Joe Plasencia MD Vital Signs Most recent to 1 oldest [Reference Range]: Temperature Tympanic 36.4 degC [36.6-38.1 degC] *LOW* (07/16/16 10:11 AM) Peripheral Pulse 68 bpm Rate [60-100 bpm] (07/16/16 10:11 AM) Blood Pressure 129/78 mmHg [90-140/60-90 mmHg] (07/16/16 10:11 AM) Problem List Condition Effective Dates Status [...] AT BEDTIME Start Date: 04/29/16 Status: Ordered Restoril 15 mg oral capsule 15 mg 1 caps, Oral, Bedtime (once a day), as needed for sleep, Fax to [facility], # 30 caps, 0 Refill(s) Start Date: 06/06/16 Status: Ordered Sinemet 25 mg-100 mg oral [...] 0800, # 28 caps, 0 Refill(s), Pharmacy: [facility], TAKE ONE CAPSULE BY MOUTH EVERY MORNING AT 0800 Start Date: 06/03/14 Status: Ordered traMADol 50 mg oral tablet 50 mg 1 tabs, Oral, q6hr, Fax to [facility], # 90 tabs, 0 Refill(s) Start Date: 06/06/16 Status: Ordered Results No data available for this section Immunizations Vaccine Date Refusal Reason tetanus/diphth/pertuss (Tdap) adult/adol 04/03/10 pneumococcal 23-polyvalent vaccine 04/03/10 Procedures Procedure Date Related Diagnosis Body Site Hernia repair 1980 Social History Social History Type Response Smoking Status Former smoker1 1d 1989 Assessment and Plan Extracted from: Title: OV-Acute Buttock Wound* Author: Joe Plasencia MD Date: 07/16/16 Impression and Plan Diagnosis Parkinson's disease ([id number] G20, Discharge, Medical). Pressure ulcer of left buttock, stage 2 ([id number]-BT L89.322, Discharge, Medical). Schizophrenia ([id number]-OB F20.9, Discharge, Medical).
--- OUTSIDE RECORDS SUMMARY | 2017-12-21 09:29 | XMS REPORT ---
Author Author GENERATED, SYSTEM Organization Unknown Address Unknown Phone Unavailable Care Team Providers Care Oracle Erp Architect Name Role Phone UNASSIGNED DOCTOR , DOCTOR PP Reason For Visit Reason for Visit from 09/27/2017 4:35 AM:* Pt Stated Reason for Adm : Pneymonia Chief Complaint PNA, SEPSIS, SCHIZOPHRENIA Social History Social History from 10/07/2017 1:29 PM:* Tobacco Use? : Unknown if Ever Smoked Social History from 09/27/2017 4:35 AM:* Tobacco Use? : Unknown if Ever Smoked Functional Status Functional Status from 10/07/2017 12:17 PM:* LOC : Alert * Oriented To : Unable to Assess * Weight Bearing Status : Full * Assist Level : Partial * # Assists : 1 Functional Status from 10/07/2017 9:29 AM:* # Assists : 2 Functional Status from 10/06/2017 10:07 PM:* LOC : Alert * Oriented To : Person * Weight Bearing Status : Full * Assist Level : Partial * # Assists : 2 Functional Status from 10/06/2017 4:15 PM:* LOC : Alert * Oriented To : Person * Weight Bearing Status : Full * Assist Level : Partial * # Assists : 2 Functional Status from 10/06/2017 2:04 PM:* Oriented To : Person Functional Status from 10/06/2017 9:16 AM:* Oriented To : Person,Place,Time Functional Status from 10/06/2017 8:45 AM:* # Assists : 2 Functional Status from 10/06/2017 7:05 AM:* LOC : Confused * Oriented To : Person * Weight Bearing Status : Partial * Assist Level : Partial * # Assists : 2 Functional Status from 10/05/2017 9:30 PM:* LOC : Alert * Oriented To : Person,Place * Weight Bearing Status : Full * Assist Level : Partial * # Assists : 2 Functional Status from 10/05/2017 9:09 AM:* # Assists : 2 Functional Status from 10/05/2017 7:28 AM:* LOC : Alert * Oriented To : Person,Place * Weight Bearing Status : Full * Assist Level : Partial * # Assists : 2 Functional Status from 10/04/2017 10:48 PM:* LOC : Alert * Oriented To : Person,Place * Weight Bearing Status : Full * Assist Level : Partial * # Assists : 2 Functional Status from 10/04/2017 12:32 PM:* # Assists : 2 Functional Status from 10/04/2017 7:40 AM:* LOC : Alert * Oriented To : Other - See Comments * Weight Bearing Status : Full * Assist Level : Partial * # Assists : 1 Functional Status from 10/03/2017 8:30 PM:* LOC : Alert * Oriented To : Person,Place,Time * Weight Bearing Status : Full * Assist Level : Dependent * # Assists : 2 Functional Status from 10/03/2017 9:30 AM:* LOC : Confused * Oriented To : Person * Weight Bearing Status : Full * Assist Level : Partial * # Assists : 1 Functional Status from 10/03/2017 8:15 AM:* # Assists : 3 Functional Status from 10/02/2017 7:15 PM:* LOC : Confused * Oriented To : Unable to Assess * Weight Bearing Status : No wt bearing * Assist Level : Dependent * # Assists : 2 Functional Status from 10/02/2017 1:00 PM:* # Assists : 2 Functional Status from 10/02/2017 10:12 AM:* # Assists : 2 Functional Status from 10/02/2017 8:15 AM:* # Assists : 2 Functional Status from 10/02/2017 7:34 AM:* LOC : Alert * Oriented To : Other - See Comments * Weight Bearing Status : Full * Assist Level : Partial * # Assists : 2 Functional Status from 10/01/2017 8:00 PM:* LOC : Alert * Oriented To : Person * Weight Bearing Status : Full * Assist Level : Partial * # Assists : 2 Functional Status from 10/01/2017 9:18 AM:* LOC : Confused * Oriented To : Person * Weight Bearing Status : Full * Assist Level : Partial * # Assists : 3 Functional Status from 09/30/2017 8:56 PM:* LOC : Alert * Oriented To : Person * Weight Bearing Status : Full * Assist Level : Partial * # Assists : 2 Functional Status from 09/30/2017 6:58 PM:* # Assists : 3 Functional Status from 09/30/2017 4:45 PM:* # Assists : 2 Functional Status from 09/30/2017 4:38 PM:* # Assists : 3 Functional Status from 09/30/2017 9:05 AM:* # Assists : 3 Functional Status from 09/30/2017 9:04 AM:* # Assists : 2 Functional Status from 09/30/2017 8:37 AM:* LOC : Confused * Oriented To : Person * Weight Bearing Status : Full * Assist Level : Partial * # Assists : 2 Functional Status from 09/30/2017 8:21 AM:* # Assists : 2 Functional Status from 09/29/2017 8:50 PM:* LOC : Confused * Oriented To : Person * Weight Bearing Status : Full * Assist Level : Partial * # Assists : 2 Functional Status from 09/29/2017 7:38 AM:* LOC : Confused * Oriented To : Other - See Comments * Weight Bearing Status : Full * Assist Level : Partial * # Assists : 2 Functional Status from 09/28/2017 8:22 PM:* LOC : Alert * Oriented To : Person,Place * Weight Bearing Status : Full * Assist Level : Partial * # Assists : 1 Functional Status from 09/28/2017 8:33 AM:* LOC : Alert * Oriented To : Person,Place * Weight Bearing Status : Full * Assist Level : Partial * # Assists : 2 Functional Status from 09/27/2017 8:06 PM:* LOC : Alert * Oriented To : Person,Place,Event * Weight Bearing Status : Full * Assist Level : Partial * # Assists : 1 Functional Status from 09/27/2017 4:19 PM:* # Assists : 2 Functional Status from 09/27/2017 1:03 PM:* # Assists : 2 Functional Status from 09/27/2017 10:54 AM:* # Assists : 2 Functional Status from 09/27/2017 10:41 AM:* LOC : Alert * Oriented To : Person,Place * Weight Bearing Status : Full * Assist Level : Partial * # Assists : 2 Functional Status from 09/27/2017 9:07 AM:* # Assists : 2 Functional Status from 09/27/2017 4:35 AM:* LOC : Drowsy * Oriented To : Person,Place * Weight Bearing Status : Other (See reason in Comments) * Assist Level : Dependent * # Assists : 2 Vital Signs Hospital Vital Signs from 10/07/2017 2:37 PM:* Height : 6/1 ft,in * Temperature : 97.9 F * Pulse : 100 * Respirations : 18 * BP : 136/80 Hospital Vital Signs from 10/07/2017 11:20 AM:* Height : 6/1 ft,in * Temperature : 95.6 F * Pulse : 95 * Respirations : 18 * BP : 158/91 Hospital Vital Signs from 10/07/2017 7:56 AM:* Height : 6/1 ft,in * Temperature : 97.6 F * Pulse : 79 * Respirations : 18 * BP : 111/67 Hospital Vital Signs from 10/07/2017 6:35 AM:* Weight : 85.2/ kg * Height : 6/1 ft,in Hospital Vital Signs from 10/07/2017 2:59 AM:* Height : 6/1 ft,in * Temperature : 97.3 F * Pulse : 101 * Respirations : 18 * BP : 162/98 Hospital Vital Signs from 10/06/2017 11:24 PM:* Height : 6/1 ft,in * Temperature : 96.6 F * Pulse : 83 * Respirations : 18 * BP : 135/79 Hospital Vital Signs from 10/06/2017 6:32 PM:* Height : 6/1 ft,in * Temperature : 97.8 F * Pulse : 108 * Respirations : 18 * BP : 148/85 Hospital Vital Signs from 10/06/2017 3:30 PM:* Height : 6/1 ft,in * Temperature : 97.7 F * Pulse : 84 * Respirations : 18 * BP : 131/75 Hospital Vital Signs from 10/06/2017 12:04 PM:* Height : 6/1 ft,in * Temperature : 96.9 F * Pulse : 99 * Respirations : 18 * BP : 142/74 Hospital Vital Signs from 10/06/2017 8:43 AM:* Height : 6/1 ft,in * Temperature : 96.4 F * Pulse : 105 * Respirations : 18 * BP : 175/90 Hospital Vital Signs from 10/06/2017 12:53 AM:* Weight : 88.6/ kg * Height : 6/1 ft,in Hospital Vital Signs from 10/05/2017 11:07 PM:* Height : 6/1 ft,in * Temperature : 98.5 F * Pulse : 99 * Respirations : 20 * BP : 132/90 Hospital Vital Signs from 10/05/2017 8:00 PM:* Height : 6/1 ft,in * Temperature : 98.7 F * Pulse : 92 * Respirations : 20 * BP : 110/78 Hospital Vital Signs from 10/05/2017 4:39 PM:* Height : 6/1 ft,in * Temperature : 98.4 F * Pulse : 87 * Respirations : 18 * BP : 111/79 Hospital Vital Signs from 10/05/2017 11:48 AM:* Height : 6/1 ft,in * Temperature : 98.1 F * Pulse : 98 * Respirations : 18 * BP : 138/90 Hospital Vital Signs from 10/05/2017 9:06 AM:* Height : 6/1 ft,in * Temperature : 98.0 F * Pulse : 79 * Respirations : 16 * BP : 123/70 Hospital Vital Signs from 10/04/2017 10:32 PM:* Height : 6/1 ft,in * Temperature : 97.6 F * Pulse : 88 * Respirations : 18 * BP : 131/78 Hospital Vital Signs from 10/04/2017 7:29 PM:* Height : 6/1 ft,in * Temperature : 98.4 F * Pulse : 92 * Respirations : 18 * BP : 136/90 Hospital Vital Signs from 10/04/2017 4:02 PM:* Height : 6/1 ft,in * Temperature : 98.8 F * Pulse : 97 * Respirations : 18 * BP : 113/65 Hospital Vital Signs from 10/04/2017 8:00 AM:* Height : 6/1 ft,in * Temperature : 97.4 F * Pulse : 81 * Respirations : 17 * BP : 121/78 Hospital Vital Signs from 10/03/2017 8:01 PM:* Height : 6/1 ft,in * Temperature : 97.4 F * Pulse : 84 * Respirations : 18 * BP : 129/74 Hospital Vital Signs from 10/03/2017 2:16 PM:* Height : 6/1 ft,in * Temperature : 97.2 F * Pulse : 86 * Respirations : 18 * BP : 159/89 Hospital Vital Signs from 10/03/2017 7:25 AM:* Height : 6/1 ft,in * Temperature : 98.4 F * Pulse : 76 * Respirations : 18 * BP : 148/76 Hospital Vital Signs from 10/03/2017 12:13 AM:* Weight : 89.1/ kg * Height : 6/1 ft,in Hospital Vital Signs from 10/02/2017 10:56 PM:* Height : 6/1 ft,in * Temperature : 97.5 F * Pulse : 79 * Respirations : 20 * BP : 128/79 Hospital Vital Signs from 10/02/2017 6:19 PM:* Height : 6/1 ft,in * Temperature : 97.3 F * Pulse : 91 * Respirations : 18 * BP : 128/71 Hospital Vital Signs from 10/02/2017 2:11 PM:* Height : 6/1 ft,in * Temperature : 98.4 F * Pulse : 89 * Respirations : 18 * BP : 158/93 Hospital Vital Signs from 10/02/2017 11:26 AM:* Height : 6/1 ft,in * Temperature : 98.6 F * Pulse : 92 * Respirations : 18 * BP : 165/99 Hospital Vital Signs from 10/02/2017 7:29 AM:* Height : 6/1 ft,in * Temperature : 98.0 F * Pulse : 91 * Respirations : 18 * BP : 136/80 Hospital Vital Signs from 10/02/2017 3:05 AM:* Weight : 88.0/ kg * Height : 6/1 ft,in Hospital Vital Signs from 10/01/2017 9:26 PM:* Height : 6/1 ft,in * Temperature : 97.5 F * Pulse : 91 * Respirations : 16 * BP : 136/74 Hospital Vital Signs from 10/01/2017 7:06 PM:* Height : 6/1 ft,in * Temperature : 97.9 F * Pulse : 84 * Respirations : 16 * BP : 127/69 Hospital Vital Signs from 10/01/2017 2:49 PM:* Height : 6/1 ft,in * Temperature : 98.0 F * Pulse : 84 * Respirations : 18 * BP : 139/81 Hospital Vital Signs from 10/01/2017 10:22 AM:* Height : 6/1 ft,in * Temperature : 98.9 F * Pulse : 85 * Respirations : 18 * BP : 141/85 Hospital Vital Signs from 10/01/2017 9:18 AM:* Heart Rate : 88 Hospital Vital Signs from 10/01/2017 8:42 AM:* Weight : 87.7/ kg * Height : 6/1 ft,in Hospital Vital Signs from 10/01/2017 7:37 AM:* Height : 6/1 ft,in * Temperature : 97.2 F * Pulse : 80 * Respirations : 18 * BP : 118/68 Hospital Vital Signs from 10/01/2017 3:06 AM:* Height : 6/1 ft,in * Temperature : 97.1 F * Pulse : 84 * Respirations : 18 * BP : 131/84 Hospital Vital Signs from 10/01/2017 12:44 AM:* Weight : 87.7/ kg * Height : 6/1 ft,in Hospital Vital Signs from 09/30/2017 10:09 PM:* Height : 6/1 ft,in * Temperature : 98.1 F * Pulse : 93 * Respirations : 18 * BP : 150/84 Hospital Vital Signs from 09/30/2017 7:36 PM:* Height : 6/1 ft,in * Temperature : 98.3 F * Pulse : 92 * Respirations : 18 * BP : 113/59 Hospital Vital Signs from 09/30/2017 4:17 PM:* Height : 6/1 ft,in * Temperature : 100.6 F * Pulse : 98 * Respirations : 18 * BP : 95/55 Hospital Vital Signs from 09/30/2017 3:16 PM:* Temperature : 100.6 F Hospital Vital Signs from 09/30/2017 10:15 AM:* Height : 6/1 ft,in * Temperature : 100.1 F * Pulse : 100 * Respirations : 18 * BP : 139/70 Hospital Vital Signs from 09/30/2017 8:37 AM:* Heart Rate : 110 Hospital Vital Signs from 09/30/2017 7:00 AM:* Height : 6/1 ft,in * Temperature : 99.1 F * Pulse : 93 * Respirations : 20 * BP : 127/70 Hospital Vital Signs from 09/30/2017 2:12 AM:* Height : 6/1 ft,in * Temperature : 99.6 F * Pulse : 101 * Respirations : 20 * BP : 138/86 Hospital Vital Signs from 09/29/2017 10:44 PM:* Height : 6/1 ft,in * Temperature : 102.2 F * Pulse : 103 * Respirations : 20 * BP : 130/70 Hospital Vital Signs from 09/29/2017 9:19 PM:* Height : 6/1 ft,in * Temperature : 101.3 F Hospital Vital Signs from 09/29/2017 7:01 PM:* Height : 6/1 ft,in * Temperature : 100.7 F * Pulse : 109 * Respirations : 18 * BP : 149/85 Hospital Vital Signs from 09/29/2017 3:10 PM:* Height : 6/1 ft,in * Temperature : 102.5 F * Pulse : 48 * Respirations : 18 * BP : 182/72 Hospital Vital Signs from 09/29/2017 11:21 AM:* Height : 6/1 ft,in * Temperature : 100.8 F * Pulse : 89 * Respirations : 20 * BP : 151/88 Hospital Vital Signs from 09/29/2017 8:18 AM:* Weight : 87.5/ kg * Height : 6/1 ft,in Hospital Vital Signs from 09/29/2017 7:23 AM:* Height : 6/1 ft,in * Temperature : 100.3 F * Pulse : 97 * Respirations : 20 * BP : 143/78 Hospital Vital Signs from 09/29/2017 2:59 AM:* Weight : 87.5/ kg * Height : 6/1 ft,in * Temperature : 100.4 F * Pulse : 94 * Respirations : 20 * BP : 131/81 Hospital Vital Signs from 09/28/2017 10:24 PM:* Height : 6/1 ft,in * Temperature : 100.6 F * Pulse : 98 * Respirations : 20 * BP : 135/87 Hospital Vital Signs from 09/28/2017 6:02 PM:* Height : 6/1 ft,in * Temperature : 101.3 F * Pulse : 94 * Respirations : 18 * BP : 109/57 Hospital Vital Signs from 09/28/2017 4:00 PM:* Height : 6/1 ft,in * Temperature : 101.5 F * Pulse : 110 * Respirations : 22 * BP : 143/73 Hospital Vital Signs from 09/28/2017 1:56 PM:* Height : 6/1 ft,in * Temperature : 99.4 F * Pulse : 95 * Respirations : 18 * BP : 127/71 Hospital Vital Signs from 09/28/2017 10:48 AM:* Height : 6/1 ft,in * Temperature : 100.4 F * Pulse : 107 * Respirations : 18 * BP : 123/82 Hospital Vital Signs from 09/28/2017 7:21 AM:* Height : 6/1 ft,in * Temperature : 98.9 F * Pulse : 106 * Respirations : 18 * BP : 135/81 Hospital Vital Signs from 09/27/2017 11:01 PM:* Height : 6/1 ft,in * Temperature : 98.7 F * Pulse : 98 * Respirations : 16 * BP : 125/65 Hospital Vital Signs from 09/27/2017 7:40 PM:* Height : 6/1 ft,in * Temperature : 99.0 F * Pulse : 69 * Respirations : 18 * BP : 107/58 Hospital Vital Signs from 09/27/2017 4:02 PM:* Height : 6/1 ft,in * Temperature : 99.8 F Hospital Vital Signs from 09/27/2017 2:39 PM:* Height : 6/1 ft,in * Temperature : 97.4 F * Pulse : 100 * Respirations : 18 * BP : 126/82 Hospital Vital Signs from 09/27/2017 1:01 PM:* Height : 6/1 ft,in * Temperature : 100.4 F * Pulse : 112 * Respirations : 18 * BP : 156/85 Hospital Vital Signs from 09/27/2017 6:50 AM:* Height : 6/1 ft,in * Temperature : 98.5 F * Pulse : 85 * Respirations : 18 * BP : 139/81 Hospital Vital Signs from 09/27/2017 4:59 AM:* Weight : 91.3/ kg * Height : 6/1 ft,in * Temperature : 98.9 F * Pulse : 89 * Respirations : 16 * BP : 139/82 Hospital Vital Signs from 09/27/2017 4:35 AM:* Weight : 91.3/ kg * Height : 6/1 ft,in Results Blood Gas from 09/28/2017 4:39 PM*ARTERIAL PH 7.487 H (7.350-7.450 ) *ARTERIAL PC02 33.1 MM HG L (35.0-45.0 MM HG) *ART. PO2 63 MM HG L (80-95 MM HG) *ART. TOTAL CO2 21.3 mmol/L (20.0-30.0 mmol/L) *ART. BICARBONATE 24.8 MEQ/L (19.0-29.0 MEQ/L) *ART. BASE EXCESS 2.4 (-2.5-2.5 ) ART. O2 SATURATION 92.5 % (91.0-97.0 %) *PATIENT ATMOSPHERE ROOM AIR (Reference Range: not available) *SPECIMEN SITE ARTERIAL (Reference Range: not available) Chemistry from 10/04/2017 1:31 PMSODIUM 137 MMOL/L (136-145 MMOL/L) POTASSIUM 3.6 MMOL/L (3.5-5.1 MMOL/L) CHLORIDE 102 MMOL/L (98-107 MMOL/L) TCO2 25.2 MMOL/L (21.0-32.0 MMOL/L) *ANION GAP 9.8 MMOL/L (8.0-16.0 MMOL/L) BUN 15 MG/DL (7-18 MG/DL) CREATININE 0.69 MG/DL L (0.70-1.30 MG/DL) *BUN/CREATININE RATIO 21.7 H (9.1-17.0 ) GLUCOSE 132 MG/DL H (65-99 MG/DL) *GFR EST NON AFR MALTESE >90 ML/MIN (Reference Range: not available) *GFR EST AFR AMER >90 ML/MIN (Reference Range: not available) CALCIUM 8.8 MG/DL (8.5-10.1 MG/DL) BILIRUBIN TOTAL 0.30 MG/DL (0.20-1.00 MG/DL) TOTAL PROTEIN 6.7 GM/DL (6.4-8.2 GM/DL) ALBUMIN 2.6 GM/DL L (3.4-5.0 GM/DL) *GLOBULIN 4.1 GM/DL H (2.3-3.5 GM/DL) *A/G RATIO 0.6 L (1.5-2.2 ) ALK PHOS 45 U/L L (46-116 U/L) ALT (SGPT) 48 U/L (14-59 U/L) AST (SGOT) 59 U/L H (15-37 U/L) Chemistry from 09/30/2017 6:07 AMSODIUM 138 MMOL/L (136-145 MMOL/L) POTASSIUM 4.3 MMOL/L (3.5-5.1 MMOL/L) CHLORIDE 101 MMOL/L (98-107 MMOL/L) TCO2 28.2 MMOL/L (21.0-32.0 MMOL/L) *ANION GAP 8.8 MMOL/L (8.0-16.0 MMOL/L) BUN 21 MG/DL H (7-18 MG/DL) CREATININE 0.83 MG/DL (0.70-1.30 MG/DL) *BUN/CREATININE RATIO 25.3 H (9.1-17.0 ) GLUCOSE 113 MG/DL H (65-99 MG/DL) *GFR EST NON AFR MALTESE >90 ML/MIN (Reference Range: not available) *GFR EST AFR AMER >90 ML/MIN (Reference Range: not available) CALCIUM 9.1 MG/DL (8.5-10.1 MG/DL) MAGNESIUM 2.1 MG/DL (1.8-2.4 MG/DL) Chemistry from 09/29/2017 1:39 PMPROCALCITONIN 0.49 NG/ML (0.05-0.50 NG/ML) Chemistry from 09/28/2017 7:06 AMSODIUM 134 MMOL/L L (136-145 MMOL/L) POTASSIUM 3.9 MMOL/L (3.5-5.1 MMOL/L) CHLORIDE 98 MMOL/L (98-107 MMOL/L) TCO2 25.7 MMOL/L (21.0-32.0 MMOL/L) *ANION GAP 10.3 MMOL/L (8.0-16.0 MMOL/L) BUN 14 MG/DL (7-18 MG/DL) CREATININE 0.73 MG/DL (0.70-1.30 MG/DL) *BUN/CREATININE RATIO 19.2 H (9.1-17.0 ) GLUCOSE 114 MG/DL H (65-99 MG/DL) *GFR EST NON AFR MALTESE >90 ML/MIN (Reference Range: not available) *GFR EST AFR AMER >90 ML/MIN (Reference Range: not available) CALCIUM 8.6 MG/DL (8.5-10.1 MG/DL) ALBUMIN 3.2 GM/DL L (3.4-5.0 GM/DL) MAGNESIUM 1.8 MG/DL (1.8-2.4 MG/DL) PHOSPHORUS 2.4 MG/DL L (2.6-4.7 MG/DL) Hematology from 10/04/2017 1:32 PMWBC 8.5 X10e3/UL (3.6-11.2 X10e3/UL) RBC 4.62 X10e6/UL (4.06-5.63 X10e6/UL) HEMOGLOBIN 14.7 G/DL (12.5-16.3 G/DL) HEMATOCRIT 42.7 % (36.7-47.1 %) *MCV 92.4 FL (80.0-100.0 FL) *MCH 31.7 PG (27.0-33.0 PG) *MCHC 34.3 G/DL (32.0-36.0 G/DL) *RDW 14.0 % (12.3-17.0 %) *RDWSD 45.5 (37.1-47.8 ) PLATELET 287 X10e3/UL (159-386 X10e3/UL) *MPV 8.7 FL (7.4-10.4 FL) Hematology from 10/01/2017 5:33 AMWBC 5.9 X10e3/UL (3.6-11.2 X10e3/UL) RBC 4.43 X10e6/UL (4.06-5.63 X10e6/UL) HEMOGLOBIN 13.9 G/DL (12.5-16.3 G/DL) HEMATOCRIT 41.0 % (36.7-47.1 %) *MCV 92.5 FL (80.0-100.0 FL) *MCH 31.5 PG (27.0-33.0 PG) *MCHC 34.0 G/DL (32.0-36.0 G/DL) *RDW 13.9 % (12.3-17.0 %) *RDWSD 45.1 (37.1-47.8 ) PLATELET 147 X10e3/UL L (159-386 X10e3/UL) *MPV 9.7 FL (7.4-10.4 FL) AUTOMATED DIFF PERFORMED (Reference Range: not available) SEGS 85.5 % (Reference Range: not available) *LYMPHOCYTES 5.4 % (Reference Range: not available) *MONOCYTES 8.9 % (Reference Range: not available) *EOSINOPHILS 0.1 % (Reference Range: not available) *BASOPHILS 0.1 % (Reference Range: not available) *ABSOLUTE NEUTROPHILS 5.10 X10e3/UL (1.80-7.80 X10e3/UL) *ABSOLUTE LYMPHOCYTES 0.30 X10e3/UL L (1.00-3.00 X10e3/UL) *ABSOLUTE MONOCYTES 0.50 X10e3/UL (0.30-1.00 X10e3/UL) *ABSOLUTE EOSINOPHILS 0.00 X10e3/UL (0.00-0.50 X10e3/UL) *ABSOLUTE BASOPHILS 0.00 X10e3/UL (0.00-0.20 X10e3/UL) Hematology from 09/30/2017 6:07 AMWBC 11.4 X10e3/UL H (3.6-11.2 X10e3/UL) RBC 4.77 X10e6/UL (4.06-5.63 X10e6/UL) HEMOGLOBIN 15.1 G/DL (12.5-16.3 G/DL) HEMATOCRIT 44.2 % (36.7-47.1 %) *MCV 92.5 FL (80.0-100.0 FL) *MCH 31.6 PG (27.0-33.0 PG) *MCHC 34.1 G/DL (32.0-36.0 G/DL) *RDW 13.8 % (12.3-17.0 %) *RDWSD 44.2 (37.1-47.8 ) PLATELET 142 X10e3/UL L (159-386 X10e3/UL) *MPV 9.1 FL (7.4-10.4 FL) Reference Lab from 09/30/2017 1:10 PMLEGIONELLA PNEUMO URINE AG Negative ( Negative ) DX Radiology from 10/01/2017 5:14 AMCHEST 1 VIEW History: Pneumonia Priors: Chest x-ray dated 09/28/2017 Findings: There has been mild interval improvement in right upper right lower lobe infiltrates. There has been slight interval progression in a left basilar infiltrate. No significant pleural effusion or pneumothorax is seen. The heart size and pulmonary vasculature are within normal limits. Impression: Improving right upper and right lower lobe pneumonia and slight interval progression in left basilar infiltrate, suspicious for pneumonia. Electronically signed by: Reva Botello MD Dictated: 10/01/2017 08:10 (Reference Range: not available) DX Radiology from 09/28/2017 4:36 PMCHEST 1 VIEW History: tachypnea Priors: Chest x-ray dated 09/27/2017 Findings: Since the prior study there has been interval progression in a right upper lobe infiltrate and development of a right basilar infiltrate, suggestive of pneumonia. There has also been development of a subtle left basilar infiltrate. No significant pleural effusion or pneumothorax is seen. Impression: Worsening right upper lobe pneumonia and development of right basilar pneumonia. Development of a mild left basilar infiltrate which may reflect atelectasis versus additional pneumonia. Electronically signed by: Reva Botello MD Dictated: 09/29/2017 07:51 (Reference Range: not available) Problems Encounter Diagnosis * Mobility Impairment Status:Active. * Nutritional Deficiency Status:Active. Encounters Encounter Diagnosis * Mobility Impairment Status:Active. * Nutritional Deficiency Status:Active. Plan of Care Treatment Plan from 10/07/2017 3:52 PM:* Care Management Note : BODY,TD,TH, BUTTON,INPUT,SELECT,TEXTAREA{FONT-SIZE: 10pt; FONT-FAMILY: [place],Helvetica; COLOR: black;} P,DIV,UL,OL,BLOCKQUOTE{MARGIN-BOTTOM: 0px; MARGIN-TOP: 0px;} BODY {MARGIN: 5px;} [facility] called back, stating they will be here around 1615 to pick up man patient to take back to their facility. I left voice message for patient's brother, Jayesh, to inform him. Treatment Plan from 10/07/2017 2:45 PM:* Care Management Note : BODY,TD,TH, BUTTON,INPUT,SELECT,TEXTAREA{FONT-SIZE: 10pt; FONT-FAMILY: [place],Helvetica; COLOR: black;} P,DIV,UL,OL,BLOCKQUOTE{MARGIN-BOTTOM: 0px; MARGIN-TOP: 0px;} BODY {MARGIN: 5px;} Patient's dpoa, Jayesh, called and gave me permission to make referral to [facility] in [place], [place], stating "I guess this is the next step". [facility] administrator did not call me this a.m so I contacted her at 1030. She asked if I made referral. I requested contact info to facility so referral can be made. I asked her what plan is if that facility will not accept today since patient has discharge orders since yesterday. She stated, "I guess we have no choice but to take him back". I then called and left voice message with Nikki at [facility] at [phone] requesting she call me back. I then faxed referral info and have confirmation it was sent at 1119. I then called again at 1400 and left another voice message with Nikki asking her to call me regarding referral. At 1430 I contacted [facility] to inform them I have not received any call back from [facility]. Ripsaw Operator, Trinity, stated that [place] called them and can take patient tomorrow because they did not receive my fax until 1345 today. I informed Trinity this was inaccurate info. I asked that they take patient back today and then he can transfer tomorrow to [place]. She stated she is between a rock and a hard place because facility will probably be cited regardless of what decision they make. She states she will be talking to HAND HARDENER about what to do and will call me right back. Treatment Plan from 10/07/2017 1:00 PM:* Care Management Note : BODY,TD,TH, BUTTON,INPUT,SELECT,TEXTAREA{FONT-SIZE: 10pt; FONT-FAMILY: [place],Helvetica; COLOR: black;} P,DIV,UL,OL,BLOCKQUOTE{MARGIN-BOTTOM: 0px; MARGIN-TOP: 0px;} BODY {MARGIN: 5px;} Patient discharging back to [facility]. Rekha with [facility] notified. Treatment Plan from 10/06/2017 4:18 PM:* Care Management Note : BODY,TD,TH, BUTTON,INPUT,SELECT,TEXTAREA{FONT-SIZE: 10pt; FONT-FAMILY: [place],Helvetica; COLOR: black;} P,DIV,UL,OL,BLOCKQUOTE{MARGIN-BOTTOM: 0px; MARGIN-TOP: 0px;} BODY {MARGIN: 5px;} [facility] check on status of [facility] returning since they did not call back. I was informed by district court administrator that they cannot accept today, that they are still awaiting to hear from [facility]. When I asked why they have not given a 30 day notice if this has been an ongoing issue, I was told that it wouldn't do any good because no place will take patient. Ripsaw Operator also stated they spoke with vida who is not giving permission to make referral to any agency at this time. At this time, dismissal for today will not occur and district court administrator will call me tomorrow after she hears from [facility]. Due to this issue, report filed with [facility]. Treatment Plan from 10/06/2017 2:45 PM:* Care Management Note : BODY,TD,TH, BUTTON,INPUT,SELECT,TEXTAREA{FONT-SIZE: 10pt; FONT-FAMILY: [place],[employer]; COLOR: black;} P,DIV,UL,OL,BLOCKQUOTE{MARGIN-BOTTOM: 0px; MARGIN-TOP: 0px;} BODY {MARGIN: 5px;} I have not heard back from [facility] so left voice mail on district court administrator's phone to call me. I also called patient's brother, Jayesh, to see if he was aware of situation that [facility]. He stated he just found this out today and said Sherry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
--- OUTSIDE RECORDS SUMMARY | 2017-12-21 09:29 | XMS REPORT ---
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
--- OUTSIDE RECORDS SUMMARY | 2017-12-21 09:29 | XMS REPORT ---
Author Terri More [facility] eClinicalWorks Address Unknown Phone Unavailable Care Team Providers Care Senior Geotechnical Engineer Name Role Phone Terri Moon Unavailable Allergies No Known Allergies Problems Problem Type Condition Code Onset Dates Condition Status Problem Parkinson's disease G20 Active Problem Schizoaffective disorder, bipolar type F25.0 Active Medications Medication Code System Code Instructions Start Date End Date Status Dosage Folic Acid [facility] [address]-47 1 MG Orally Once a day 1 tablet MiraLax [facility] [address]-45 Orally Once a day 1 packet mixed with 8 ounces of fluid Tramadol HCl [facility] [address]-47 50 MG Orally every 6 hrs 1 tablet as needed Restoril [facility] [address]-91 15 MG Orally Once a day 1 capsule at bedtime as needed Carbidopa-Levodopa [facility] [address]-41 25-100 MG Orally four times a day Jun 11, 2016 1 tablet Dilt-CD [facility] [address]-23 120 MG Orally Once a day 1 capsule Nuplazid (pimavanserin) [facility] [address]-34 17mg oral daily (with or without food) Jun 12, 2016 Aug 11, 2016 2 tablets Docusate Sodium [facility] [address]-45 100 MG Orally twice daily 1 capsule as needed Lorazepam [facility] [address]-33 1 MG Orally or injection every 6 hrs PRN 1 tablet Doxycycline Hyclate [facility] [address]-34 100 MG Orally Twice a day Jun 11, 2016 Jun 16, 2016 1 tablet on an empty stomach Carbidopa-Levodopa ER [facility] [address]-89 50-200 MG Orally daily Jun 11, 2016 1 tablet Paroxetine HCl [facility] [address]-17 40 MG Orally Once a day 1 tablet at bedtime Depakote [facility] [address]-71 500 MG Orally Twice a day 1 tablet Amoxicillin [facility] [address]-12 500 MG Orally every 8 hrs Jun 11, 2016 Jun 15, 2016 1 capsule Aricept [facility] [address]-59 10 MG Orally Once a day 1 tablet at bedtime Seroquel [facility] [address]-66 300 MG Orally Once a day May 06, 2016 1 tablet at bedtime Results No Known Results Summary Purpose eClinicalWorks Submission
--- OUTSIDE RECORDS SUMMARY | 2017-12-21 09:29 | XMS REPORT ---
Author Terri More [facility] eClinicalWorks Address Unknown Phone Unavailable Care Team Providers Care President [employer] Name Role Phone Terri Moon Unavailable Allergies, Adverse Reactions, Alerts Substance Reaction Event Type N.K.D.A. Info Not Available Non Drug Allergy Problems Problem Type Condition Code Onset Dates Condition Status Assessment Schizoaffective disorder, unspecified F25.9 Active Problem Schizoaffective disorder, unspecified F25.9 Active Medications Medication Code System Code Instructions Start Date End Date Status Dosage Restoril [facility] [address]-57 15 MG Orally Once a day 1 capsule at bedtime as needed Amantadine HCl [facility] [address]-31 100 MG Orally daily 1 capsule Depakote [facility] [address]-81 500 MG Orally Twice a day 1 tablet Bisacodyl [facility] [address]-62 10 MG Rectal Once a day 1 suppository as needed Folic Acid [facility] [address]-44 1 MG Orally Once a day 1 tablet Trihexyphenidyl HCl [facility] [address]-64 2 MG Orally Two times a day 1 tablet with meals Sinemet [facility] [address]-80 25-100 MG Orally four times a day 2 tablets Paroxetine HCl [facility] [address]-95 40 MG Orally Once a day 1 tablet in the morning Milk of Magnesia [facility] [address]-13 Orally daily as needed 30ml Docusate Sodium [facility] [address]-83 100 MG Orally twice daily 1 capsule as needed Entacapone [facility] [address]-35 200 MG Orally Twice a day 1 tablet Aricept [facility] [address]-50 10 MG Orally Once a day 1 tablet at bedtime Lorazepam [facility] [address]-73 1 MG Orally or injection every 6 hrs PRN 1 tablet Quetiapine Fumarate [facility] [address]-74 100 MG Orally Twice a day (in the PM- take with 200mg tab) 1 tablet Tramadol HCl [facility] [address]-95 50 MG Orally every 6 hrs 1 tablet as needed MiraLax [facility] [address]-89 Orally Once a day 1 packet mixed with 8 ounces of fluid Carbidopa-Levodopa CR NDC 0 by mouth twice daily one tablet Seroquel [facility] [address]-00 200 MG Orally Once a day at bedtime 1 tablet Dilt-CD [facility] [address]-44 120 MG Orally Once a day 1 capsule Procedures Procedure Coding System Code Date OFFICE VISIT, EST-MOD. COMPLEXITY (25 MIN) CPT-4 30906 Dec 12, 2015 Vital Signs Date/Time: Dec 12, 2015 Height 71.25 in Weight 209 lbs Temperature 98.4 F Blood Pressure Diastolic 80 mm Hg Blood Pressure Systolic 128 mm Hg Cardiac Monitoring Heart Rate 78 /min BMI 28.94 Index Respiratory Rate 20 /min Results No Known Results Summary Purpose eClinicalWorks Submission
--- OUTSIDE RECORDS SUMMARY | 2017-12-21 09:30 | XMS REPORT ---
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
--- OUTSIDE RECORDS SUMMARY | 2017-12-21 09:30 | XMS REPORT ---
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
--- OUTSIDE RECORDS SUMMARY | 2017-12-21 09:30 | XMS REPORT ---
Author Author Terri Moon Organization eClinicalWorks Address Unknown Phone Unavailable Care Team Providers Care Frit Mixer Name Role Phone Terri Moon CP Unavailable Allergies No Known Allergies Problems Problem Type Condition Code Onset Dates Condition Status Problem Parkinson's disease G20 Active Problem Schizoaffective disorder, bipolar type F25.0 Active Medications No Known Medications Results No Known Results Summary Purpose eClinicalWorks Submission
--- OUTSIDE RECORDS SUMMARY | 2017-12-21 09:30 | XMS REPORT | Summary of Care ---
Author Author Garrett Amezquita M.D. Organization Unknown Address [address] [place] [address] [place] [address] Phone Unavailable Care Team Providers Care Subcontracts Manager Name Role Phone Garrett Amezquita M.D. Unavailable Unavailable Joe Plasencia Unavailable Unavailable Functional Status Name Dates Details Functional status health issues are not documented Status: Name Dates Details Cognitive status health issues are not documented Status: Problems Name Dates Details Anxiety (300.00, F41.9) Status: Active Chronic venous stasis dermatitis (454.1, I83.10) Status: Active Hypertension (401.9, I10) Status: Active Schizophrenia (295.90, F20.9) Status: Active Chronic constipation (564.00, K59.09) Status: Active Vitamin deficiency (269.2, E56.9) Status: Active Nocturia (788.43, R35.1) Status: Active Parkinson disease, symptomatic (332.0, G20) Status: Active Suprapubic pain (789.09, R10.2) Status: Active Incomplete bladder emptying (788.21, R33.9) Status: Active Increased urinary frequency (788.41, R35.0) Status: Active Medications Name Dates Details Aricept 10 MG Oral Tablet TAKE 1 TABLET DAILY DIRECTED. Alirio Jefferson.Sarah Beth.Garrett * Start 26-Dec-2016 Active Ativan 1 MG Oral Tablet TAKE 1 TABLET EVERY 6 TO 8 HOURS NEEDED NAUSEA. * Refills: 0 Cho M.D., Garrett * Start 26-Dec-2016 Active Colace 100 MG Oral Capsule TAKE 1 CAPSULE TWICE DAILY NEEDED. * Refills: 0 Cho M.D., Garrett * Start 26-Dec-2016 Active Comtan 200 MG Oral Tablet TAKE 1 TABLET 3 TIMES DAILY. * Refills: 0 Cho M.D., Garrett * Start 26-Dec-2016 Active Divalproex Sodium 500 MG Oral Tablet Delayed Release TAKE 1 TABLET 3 TIMES DAILY AFTER MEALS. * Refills: 0 Cho M.D., Garrett * Start 26-Dec-2016 Active Folic Acid 1 MG Oral Tablet ONE TABLET BY MOUTH DAILY * Quantity: 90 Refills: 1 Cho M.D., Garrett * Start 26-Dec-2016 Active MiraLax Oral Powder MIX 1 CAPFUL (17GM) IN 8 OUNCES OF WATER, JUICE, OR TEA AND DRINK DAILY. * Quantity: 527 Refills: 11 Cho M.D., Garrett * Start 26-Dec-2016 Active PARoxetine HCl - 40 MG Oral Tablet TAKE 1 TABLET DAILY DIRECTED. * Refills: 0 Cho M.D., Garrett * Start 26-Dec-2016 Active Restoril 15 MG Oral Capsule TAKE 1 CAPSULE AT BEDTIME NEEDED FOR SLEEP. * Refills: 0 Cho M.D., Garrett * Start 26-Dec-2016 Active Sinemet 25-100 MG Oral Tablet Take 1 tablet daily * Refills: 0 Cho M.D., Garrett * Start 26-Dec-2016 Active Sinemet CR 50-200 MG Oral Tablet Extended Release TAKE 1 TABLET 3 TIMES DAILY. * Refills: 0 Cho M.D., Garrett * Start 26-Dec-2016 Active Tiazac 120 MG Oral Capsule Extended Release 24 Hour TAKE 1 CAPSULE EVERY MORNING DAILY. * Refills: 0 Cho M.D., Garrett * Start 26-Dec-2016 Active TraMADol HCl - 50 MG Oral Tablet TAKE 1 TABLET EVERY 6 HOURS NEEDED FOR PAIN. * Refills: 0 Cho M.D., Garrett * Start 26-Dec-2016 Active DiltiaZEM CD 120 MG Oral Capsule Extended Release 24 Hour TAKE 1 CAPSULE ONCE DAILY. * Refills: 0 Cho M.D., Garrett * Start 30-Dec-2016 Active Tylenol 325 MG Oral Tablet TAKE 1 TO 2 TABLETS EVERY 4 HOURS NEEDED * Refills: 0 Cho M.D., Garrett * Start 30-Dec-2016 Active Allergies and Adverse Reactions Name Dates Details No Known Drug Allergies (Allergy) Status: Active Procedures Procedure Dates Details History of Hernia Repair Procedures not documented Immunization Name Dates Details Immunizations not documented Family History Name Dates Details Family history of cerebrovascular accident (CVA) (V17.1, Z82.3) Status: Active Name Dates Details Family history of cardiac disorder (V17.49, Z82.49) Status: Active Family history of Coronary artery disease (414.00, I25.10) Status: Active Name Dates Details Family history of hypertension (V17.49, Z82.49) Status: Active Family history of malignant neoplasm of breast (V16.3, Z80.3) Status: Active Family history of diabetes mellitus (V18.0, Z83.3) Status: Active Name Dates Details Family history of hypertension (V17.49, Z82.49) Status: Active Family history of depression (V17.0, Z81.8) Status: Active Family history of malignant neoplasm of prostate (V16.42, Z80.42) Status: Active Name Dates Details Family history of malignant neoplasm of uterus (V16.49, Z80.49) Status: Active Social History Name Dates Details - Status: Name Dates Details Former smoker Vital Signs Date Test Result Details 30-Dec-2016 13:10 BP Systolic 116 mm[Hg] Status: Comments: Location: ; Position: BP Diastolic 60 mm[Hg] Status: Comments: Location: ; Position: Heart Rate 72 /min Status: Comments: Location: ; Weight 196 lb Status: Results Date Description Value Details 13-Jan-2017 16:40 CT AB/ PEL WITHOUT IV CONTRAST (FOR KIDNEY STONE) Comments : Exam Date: 01/13/2017 14:27Dictation Date: 01/13/2017 16:40 XC ABD PEL W/O (RENAL STONE) Plan of Care Name Dates Details Planned Observations Planned Goals not documented Instructions Name Dates Details Instructions not documented Encounters Appointment; Garrett Amezquita M.D. Encounter Diagnosis: Problem not documented On 06-Jan-2017 13:15 Appointment; Garrett Amezquita M.D. Encounter Diagnosis: Problem not documented On 30-Dec-2016 13:15
--- OUTSIDE RECORDS SUMMARY | 2017-12-21 09:30 | XMS REPORT | Summary of Care ---
Author Author Garrett Amezquita M.D. Organization Unknown Address [address] [place] [address] [place] [address] Phone Unavailable Care Team Providers Care Grain Merchandising Manager Name Role Phone Garrett Amezquita M.D. [...] Active Vitamin deficiency (269.2, E56.9) Status: Active Suprapubic pain (789.09, R10.2) Status: Active Increased urinary frequency (788.41, R35.0) Status: Active Nocturia (788.43, R35.1) Status: Active Parkinson disease, symptomatic (332.0, G20) Status: Active Incomplete bladder emptying (788.21, R33.9) Status: Active Medications Name Dates Details Aricept [...] Procedure Dates Details History of Hernia Repair CT AB/ PEL WITHOUT IV CONTRAST (FOR KIDNEY STONE) Ordered: 06-Jan-2017 Immunization Name Dates Details Immunizations not documented [...] lb Status: Results Date Description Value Details Results not documented Plan of Care Name Dates Details Planned Observations Planned Goals not documented Instructions Name Dates Details Instructions not documented Encounters Appointment; Garrett Amezquita M.D. Encounter Diagnosis: Problem not documented On 30-Dec-2016 13:15
--- OUTSIDE RECORDS SUMMARY | 2017-12-21 09:30 | XMS REPORT ---
Author Author Terri Moon Organization e[employer] Address Unknown Phone Unavailable Care Team Providers Care Motorcycle Maker Name Role Phone Terri Moon Unavailable Allergies No Known Allergies Problems Problem Type Condition Code Onset Dates Condition Status Problem Parkinson's disease G20 Active Problem Schizoaffective disorder, bipolar type F25.0 Active Medications Medication Code System Code Instructions Start Date End Date Status Dosage Seroquel [facility] [address]-16 50 MG Orally Twice a day May 21, 2016 1 tablet at breakfast and lunch Results No Known Results Summary Purpose eClinicalWorks Submission
--- OUTSIDE RECORDS SUMMARY | 2017-12-21 09:30 | XMS REPORT | Referral Summary ---
Author Author [facility] Organization [facility] Address Unknown Phone Unavailable Care Team Providers Care Demographic Analyst Name Role Phone Amy Moy PCP Encounter VC Date(s): 05/09/15 - 05/09/15 [facility] [address] [place] [address]- Discharge Diagnosis: Schizophrenia Discharge Diagnosis: Hypertension Discharge Diagnosis: Parkinson's disease Discharge Disposition: 01-Home or Self Care Attending Physician: Joe Plasnecia MD Admitting Physician: Joe Plasencia MD Vital [...] (disorder)(Confirmed ) Schizophrenia(Confir < 06/27/14 Resolved med) Allergies, Adverse Reactions, Alerts No Known Medication [...] NOON, # 56 tabs, 1 Refill(s), eRx: [facility], TAKE ONE TABLET BY [...] 0 Refill(s) Start Date: 06/27/14 Status: Ordered temazepam 7.5 mg oral capsule 7.5 mg 1 caps, Oral, Bedtime (once a day), # 30 caps, 0 Refill(s) Start Date: 10/24/15 Status: Ordered Tiazac 120 mg/24 hours oral capsule, extended release See Instructions, TAKE ONE CAPSULE BY MOUTH EVERY MORNING AT 0800, # 28 caps, 0 Refill(s), Pharmacy: [facility], TAKE ONE CAPSULE BY MOUTH EVERY MORNING AT 0800 Start Date: 06/03/14 Status: Ordered traMADol 50 mg oral tablet 50 mg 1 tabs, Oral, q6hr, [phone], # 120 tabs, 0 Refill(s) Start Date: 11/14/15 Status: Ordered trihexyphenidyl 2 mg oral tablet [...] tramadol to when necessary dosing. Follow-up per longterm requirements, or otherwise when necessary. We will send copies of the dictation to [facility], Dr. Lima, and Dr. Cortez.
--- OUTSIDE RECORDS SUMMARY | 2017-12-21 09:30 | XMS REPORT | Summary of Care ---
Author Author Carlos A CARLSON, Tran Organization Unknown Address [address], [place] [id number] Phone Unavailable Care Team Providers Care Supervisor Power Reactor Name Role Phone Garrett Amezquita M.D. Unavailable Unavailable Joe Plasencia Unavailable Unavailable Functional Status Name Dates Details Functional status health issues are not documented Status: Name Dates Details Cognitive status health issues are not documented Status: Problems Name Dates Details Anxiety (300.00, F41.9) Status: Active Chronic venous stasis dermatitis (454.1, I87.2) Status: Active Hypertension (401.9, I10) Status: Active Schizophrenia (295.90, F20.9) Status: Active Chronic constipation (564.00, K59.09) Status: Active Vitamin deficiency (269.2, E56.9) Status: Active Nocturia (788.43, R35.1) Status: Active Parkinson disease, symptomatic (332.0, G20) Status: Active Incomplete bladder emptying (788.21, R33.9) Status: Active Increased urinary frequency (788.41, R35.0) Status: Active Inflammation of bladder (595.9, N30.90) Status: Active Suprapubic pain (789.09, R10.2) Status: Active Medications Name Dates Details Aricept 10 MG Oral Tablet TAKE 1 TABLET DAILY DIRECTED. Alirio M.D.Garrett Start 26-Dec-2016 Active Ativan 1 MG Oral Tablet TAKE 1 TABLET EVERY 6 TO 8 HOURS NEEDED NAUSEA. * Refills: 0 Cho M.D., Garrett Quintanilla Start 26-Dec-2016 Active Colace 100 MG Oral Capsule TAKE 1 CAPSULE TWICE DAILY NEEDED. * Refills: 0 Cho M.D., Garrett Quintanilla Start 26-Dec-2016 Active Comtan 200 MG Oral Tablet TAKE 1 TABLET 3 TIMES DAILY. * Refills: 0 Cho M.D., Garrett Quintanilla Start 26-Dec-2016 Active Divalproex Sodium 500 MG Oral Tablet Delayed Release TAKE 1 TABLET 3 TIMES DAILY AFTER MEALS. * Refills: 0 Cho M.D., Garrett Quintanilla Start 26-Dec-2016 Active Folic Acid 1 MG [...] DAILY. * Refills: 0 Cho M.D., Garrett Quintanilla Start 26-Dec-2016 Active TraMADol HCl - 50 MG Oral Tablet TAKE 1 TABLET EVERY 6 HOURS NEEDED FOR PAIN. * Refills: 0 Cho M.D., Garrett * Start 26-Dec-2016 Active DilTIAZem CD 120 MG Oral Capsule Extended Release 24 Hour TAKE 1 CAPSULE ONCE DAILY. * Refills: 0 Cho M.D., Garrett * Start 30-Dec-2016 Active Tylenol 325 MG Oral Tablet TAKE 1 TO 2 TABLETS EVERY 4 HOURS NEEDED * Refills: 0 Cho M.D., Garrett Start 30-Dec-2016 Active Allergies and Adverse Reactions Name Dates Details No Known Drug Allergies (Allergy) Status: Active Procedures Procedure Dates Details History of Hernia Repair History of Cystoscopy With Biopsy Procedures not documented Immunization Name Dates Details [...] smoker Vital Signs Date Test Result Details No Known Vitals to report Results Date Description Value Details Results not documented Plan of Care Name Dates Details Planned Observations Planned Goals not documented Instructions Name Dates Details Instructions not documented Encounters Appointment; Garrett Amezquita M.D. Encounter Diagnosis: Problem not documented On 27-Jan-2017 14:30 Appointment; Garrett Amezquita M.D. Encounter Diagnosis: Problem not documented On 06-Jan-2017 13:15 Appointment; Garrett Amezquita M.D. Encounter Diagnosis: Problem not documented On 30-Dec-2016 13:15
--- OUTSIDE RECORDS SUMMARY | 2017-12-21 09:31 | XMS REPORT ---
Author Author GENERATED, SYSTEM Organization Unknown Address Unknown Phone Unavailable Care Team Providers Care Mental Health Consultant Name Role Phone UNASSIGNED DOCTOR , DOCTOR PP Reason For Visit Chief Complaint CONFUSION/AGITATION Social History Functional Status Vital Signs Results Problems Encounter Diagnosis No relevant problems exist. Additional Problems * Mobility Impairment Comment:Problem resolved by [facility] Workflow upon Discharge, Status:Resolved. * Nutritional Deficiency Comment:Problem resolved by [facility] Work[employer] upon Discharge, Status:Resolved. Encounters Encounter Diagnosis No relevant problems exist. Plan of Care Procedures No relevant procedures performed. Immunizations No immunizations administered or ordered. Hospital Course Hospital Discharge Instructions Allergies, Adverse Reactions, Alerts This section is accounts receivable representative of the current allergy information, at the time of the CCD generation. In the case of regeneration of the CCD, the allergy information may not reflect the state of known allergies at the time of the CCD' s subject visit. * Latex Allergy has not been assessed. * IV Contrast Allergy has not been assessed. * No Known Drug Allergies. Medication Medication reconciliation has not been performed.
--- OUTSIDE RECORDS SUMMARY | 2017-12-21 09:31 | XMS REPORT | Referral Summary ---
Author Author [facility] Organization [facility] Address Unknown Phone Unavailable Care Team Providers Care Coffee Shop Attendant Name Role Phone Joe Plasencia V PCP Encounter VC Date(s): 05/07/16 - 05/07/16 [facility] [address] [place] [address] Discharge Diagnosis: Chronic venous stasis dermatitis Discharge Diagnosis: Cellulitis of right lower leg Discharge Diagnosis: Parkinson's disease Discharge Diagnosis: Schizophrenia Discharge Disposition: 01-Home or Self Care Attending Physician: Joe Plasencia MD Admitting Physician: Joe Plasencia MD Vital Signs Most recent to 1 oldest [Reference Range]: Temperature Tympanic 36.4 degC [36.6-38.1 degC] *LOW* (05/07/16 9:15 AM) Peripheral Pulse 60 bpm Rate [60-100 bpm] (05/07/16 9:15 AM) Blood Pressure 135/70 mmHg [90-140/60-90 mmHg] (05/07/16 9:15 AM) Problem List Condition Effective Dates Status [...] tabs, Oral, q6hr, as needed for anxiety, 0 Refill(s) Start Date: 11/30/15 Status: Ordered Colace 100 mg oral capsule [...] 0 Refill(s) Start Date: 08/07/15 Status: Ordered Milk of Magnesia 30 mL, Oral, Bedtime (once a day), 0 Refill(s) Start Date: 11/30/15 Status: Ordered MiraLax oral powder for reconstitution [...] AT BEDTIME Start Date: 04/29/16 Status: Ordered QUEtiapine 100 mg oral tablet 100 mg 1 tabs, Oral, Daily, 0 Refill(s) Start Date: 11/30/15 Status: Ordered Restoril 15 mg oral capsule 15 mg 1 caps, Oral, Bedtime (once a day), as needed for sleep, 0 Refill(s) Start Date: 11/30/15 Status: Ordered SEROquel 300 mg oral tablet 300 mg 1 tabs, Oral, Daily, 0 Refill(s) Start Date: 12/29/15 Status: Ordered Sinemet 25 mg-100 mg oral [...] 0800, # 28 caps, 0 Refill(s), Pharmacy: [facility], TAKE ONE CAPSULE BY MOUTH EVERY MORNING AT 0800 Start Date: 06/03/14 Status: Ordered traMADol 50 mg oral tablet 50 mg 1 tabs, Oral, q6hr, [facility] [phone], # 120 tabs, 0 Refill(s) Start Date: 11/14/15 Status: Ordered trihexyphenidyl 2 mg oral tablet See Instructions, TAKE 1 TABLET BY MOUTH TWICE DAILY, # 56 tabs, 2 Refill(s), eRx: [facility], TAKE 1 TABLET BY MOUTH TWICE DAILY Start Date: 04/29/16 Status: Ordered Results No data available for this section Immunizations Vaccine Date Refusal Reason tetanus/diphth/pertuss (Tdap) adult/adol 04/03/10 pneumococcal 23-polyvalent vaccine 04/03/10 Procedures Procedure Date Related Diagnosis Body Site Hernia repair 1980 Social History Social History Type Response Smoking Status Former smoker1 1d 1989 Assessment and Plan Extracted from: Title: Office Visit Note Author: Joe Plasencia MD Date: 05/07/16 Assessment/Plan 1.Schizophrenia 2.Left inguinal hernia 3.Chronic venous stasis dermatitis 4.Cellulitis of right lower leg 5.Parkinson's disease We discussed venous stasis dermatitis and I recommended compression devices. He refuses compression stockings and we talked about ABELARDO wraps as an alternative but he declines that for now too . I advised close observation of the open wound. He is certainly at risk for poor healing and developing a more significant wound. Advised that controlling edema as part of what is needed to help allow this to heal more quickly. I extended his cephalexin for a full 10 days because of probable mild cellulitis. We changed docusate to when necessary because of the loose stools. We will send a copy of the dictation to [facility].
--- OUTSIDE RECORDS SUMMARY | 2017-12-21 09:31 | XMS REPORT ---
Author Author GENERATED, SYSTEM Organization Unknown Address Unknown Phone Unavailable Care Team Providers Care Public Relations Manager Name Role Phone PP Unavailable Reason For Visit Chief Complaint F25.9, F06.0 Social History Functional Status Vital Signs Results Problems Encounter Diagnosis No relevant problems exist. Encounters Encounter Diagnosis No relevant problems exist. Plan of Care Procedures No relevant procedures performed. Immunizations No immunizations administered or ordered. Hospital Course Hospital Discharge Instructions Allergies, Adverse Reactions, Alerts This section is pharmaceutical sales representative of the current allergy information, at [...]
--- OUTSIDE RECORDS SUMMARY | 2017-12-21 09:31 | XMS REPORT ---
Author Author GENERATED, SYSTEM Organization Unknown Address Unknown Phone Unavailable Care Team Providers Care Water Analyst Name Role Phone PP Unavailable Reason For [...]
--- OUTSIDE RECORDS SUMMARY | 2017-12-21 09:31 | XMS REPORT | Summary of Care ---
Author Author Garrett Amezquita M.D. Organization Unknown Address [address] [place] [address] [place] [address] Phone Unavailable Care Team Providers Care Crown And Bridge Technician Name Role Phone Garrett Amezquita M.D. Unavailable [...] to report Results Date Description Value Details 13-Jan-2017 16:40 CT AB/ PEL WITHOUT IV CONTRAST (FOR KIDNEY STONE) Comments : Exam Date: 01/13/2017 14:27Dictation Date: 01/13/2017 16:40 XC ABD PEL W/O (RENAL STONE) 27-Jan-2017 17:09 CYTOLOGY - URINE [id number] CYTOLOGY Specimen referred to [facility]. Report to follow. Plan of Care Name Dates Details Planned Observations Planned Goals not documented Instructions Name Dates Details Instructions not documented Encounters Appointment; Garrett Amezquita M.D. Encounter Diagnosis: Problem not documented On 27-Jan-2017 14:30 Appointment; Garrett Amezquita M.D. Encounter Diagnosis: Problem not documented On 06-Jan-2017 13:15 Appointment; Garrett Amezquita M.D. Encounter Diagnosis: Problem not documented On 30-Dec-2016 13:15
--- OUTSIDE RECORDS SUMMARY | 2017-12-21 09:31 | XMS REPORT | Referral Summary ---
Author Author [facility] Organization [facility] Address Unknown Phone Unavailable Care Team Providers Care Podiatry Assistant Name Role Phone Joe Plasencia V PCP Encounter VC Date(s): 12/29/15 - 12/29/15 [facility], [address] [place] [address]- Discharge Disposition: 01-Home or Self Care Attending Physician: Juan Carlos Diaz APRN Admitting Physician: Juan Carlos Diaz APRN Vital Signs Most recent to 1 oldest [Reference Range]: Peripheral Pulse 64 bpm Rate [60-100 bpm] (12/29/15 10:10 AM) Respiratory Rate 18 br/min [14-20 br/min] (12/29/15 10:10 AM) Blood Pressure 120/80 mmHg [90-140/60-90 mmHg] (12/29/15 10:10 AM) SpO2 97 % (12/29/15 10:10 AM) Problem List Condition Effective Dates Status [...] Refill(s) Start Date: 06/27/14 Status: Ordered Depakote 500 mg oral delayed [...] 0 Refill(s) Start Date: 11/30/15 Status: Ordered Paxil 40 mg oral tablet 40 mg 1 tabs, Oral, Daily, 0 Refill(s) Start Date: 08/07/15 Status: Ordered QUEtiapine 100 mg oral tablet [...] # 28 caps, 0 Refill(s), Pharmacy: [facility], TAKE ONE CAPSULE BY MOUTH EVERY MORNING AT 0800 Start Date: 06/03/14 Status: Ordered traMADol 50 mg oral tablet 50 mg 1 tabs, Oral, q6hr, [facility] [phone], # 120 tabs, 0 Refill(s) Start Date: [...] Former smoker1 1dc 1989 Assessment and Plan No data available for this section
--- OUTSIDE RECORDS SUMMARY | 2017-12-21 09:31 | XMS REPORT ---
Author Terri More [facility] eClinicalWorks Address Unknown Phone Unavailable Care Team Providers Care Ore Digger Name Role Phone Terri Moon Unavailable Allergies, Adverse Reactions, Alerts Substance Reaction Event Type N.K.D.A. 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 Problem Parkinson's disease G20 Active Assessment Parkinson's disease G20 Active Assessment Schizoaffective disorder, bipolar type F25.0 Active Medications Medication Code System Code Instructions Start Date End Date Status Dosage Carbidopa-Levodopa [facility] [address]-02 25-100 MG Orally four times a day Jun 11, 2016 1 tablet Aricept [facility] [address]-17 10 MG Orally Once a day 1 tablet at bedtime Carbidopa-Levodopa ER [facility] [address]-52 50-200 MG Orally Twice a day Jun 1 tablet Dilt-CD [facility] [address]-56 120 MG Orally Once a day 1 capsule Docusate Sodium [facility] [address]-87 100 MG Orally twice daily 1 capsule as needed Tramadol HCl [facility] [address]-43 50 MG Orally every 6 hrs 1 tablet as needed Folic Acid [facility] [address]-81 1 MG Orally Once a day 1 tablet Lorazepam [facility] [address]-78 1 MG Orally or injection every 6 hrs PRN 1 tablet Seroquel [facility] [address]-75 100 MG Orally Once a day May 06, 2016 1 tablet at bedtime Nuplazid (pimavanserin) [facility] [address]-76 17mg oral daily (with or without food) Jun 12, 2016 Aug 11, 2016 2 tablets MiraLax [facility] [address]-22 Orally Once a day 1 packet mixed with 8 ounces of fluid Depakote [facility] [address]-48 500 MG Orally Twice a day 1 tablet Paroxetine HCl [facility] [address]-33 40 MG Orally Once a day 1 tablet at bedtime Restoril [facility] [address]-08 15 MG Orally Once a day 1 capsule at bedtime as needed Procedures Procedure Coding System Code Date OFFICE VISIT, EST-LOW COMPLEXITY (15 MIN.) CPT-4 21473 Jul 02, 2016 Vital Signs Date/Time: Jul 02, 2016 Temperature 98.7 F Height 71.25 in Weight 204.7 lbs Blood Pressure Diastolic 72 mm Hg Blood Pressure Systolic 132 mm Hg Cardiac Monitoring Heart Rate 82 /min BMI 28.35 Index Respiratory Rate 20 /min Results No Known Results Summary Purpose eClinicalWorks Submission
--- OUTSIDE RECORDS SUMMARY | 2017-12-21 09:31 | XMS REPORT | Referral Summary ---
Author Author [facility] Organization [facility] Address Unknown Phone Unavailable Care Team Providers Care Charter Pilot Name Role Phone Joe Plasencia V PCP Encounter VC Date(s): 07/24/15 - 07/24/15 [facility] [address] [place] [address]- Discharge Diagnosis: Schizophrenia Discharge Diagnosis: Parkinson's disease Discharge Diagnosis: Hypertension Discharge Disposition: 01-Home or Self Care Attending Physician: Joe Plasencia MD Admitting Physician: Joe Plasencia MD Vital Signs Most recent to 1 oldest [Reference Range]: Temperature Tympanic 36.5 degC [36.6-38.1 degC] *LOW* (07/24/15 10:12 AM) Peripheral Pulse 66 bpm Rate [60-100 bpm] (07/24/15 10:12 AM) Blood Pressure 118/64 mmHg [90-140/60-90 mmHg] (07/24/15 10:12 AM) Problem List Condition Effective Dates Status [...] 0800, # 28 caps, 0 Refill(s), Pharmacy: [facility], TAKE ONE CAPSULE BY MOUTH EVERY MORNING AT 0800 Start Date: 06/03/14 Status: Ordered traMADol 50 mg oral tablet 50 mg 1 tabs, Oral, q6hr, [facility] [phone], # 120 tabs, 0 Refill(s) Start Date: [...] Visit Note Author: Joe Plasencia MD Date: 07/24/15 Assessment/Plan Hypertension Parkinson's disease Schizophrenia My overall perception is that things are pretty stable. Many of these same concerns were voiced at his previous visits and I'm not sure how many are new or different. Stand feels that he is tone down his behaviors after chencho talked to him about the inappropriateness of these. We decided not to do any new medication at this time. Rather, we'll observe and hopefully the counseling/talking to will help him to control behaviors. I think he should have ongoing psychiatric care and neurology care. I encouraged appointment set both Prair[facility] and with Dr. Cortez. We will send a copy of this dictation to [facility], Dr. Cortez, and 2 per
--- OUTSIDE RECORDS SUMMARY | 2017-12-21 09:31 | XMS REPORT ---
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
--- OUTSIDE RECORDS SUMMARY | 2017-12-21 09:31 | XMS REPORT ---
Author Author GENERATED, SYSTEM Organization Unknown Address Unknown Phone Unavailable Care Team Providers Care Tire Mold Engraver Name Role Phone PP Unavailable Reason For [...]
--- OUTSIDE RECORDS SUMMARY | 2017-12-21 09:32 | XMS REPORT | Summary of Care ---
Author Author Garrett Amezquita M.D. Organization Unknown Address [address] [place] [address] [place] [address] Phone Unavailable Care Team Providers Care Spray Drier Operator Name Role Phone Garrett Amezquita M.D. Unavailable Unavailable Joe Plasencia Unavailable Unavailable Functional Status Name Dates Details Functional status health issues are not documented Status: Name Dates Details Cognitive status health issues are not documented Status: Problems Name Dates Details Parkinson disease, symptomatic (332.0, G20) Status: Active Anxiety (300.00, F41.9) Status: Active Chronic venous stasis dermatitis (454.1, I83.10) Status: Active Hypertension (401.9, I10) Status: Active Schizophrenia (295.90, F20.9) Status: Active Chronic constipation (564.00, K59.09) Status: Active Vitamin deficiency (269.2, E56.9) Status: Active Suprapubic pain (789.09, R10.2) Status: Active Increased urinary frequency (788.41, R35.0) Status: Active Nocturia (788.43, R35.1) Status: Active Medications Name Dates Details Aricept 10 MG Oral Tablet TAKE 1 TABLET DAILY DIRECTED. Alirio Jefferson.Garrett Flores Start 26-Dec-2016 Active Ativan 1 MG Oral [...] Quantity: 90 Refills: 1 Cho M.D., Garrett Quintanilla Start 26-Dec-2016 Active MiraLax Oral Powder MIX [...] PAIN. * Refills: 0 Cho M.D., Garrett Quintanilla Start 26-Dec-2016 Active DiltiaZEM CD 120 MG Oral Capsule Extended Release 24 Hour TAKE 1 CAPSULE ONCE DAILY. * Refills: 0 Cho M.D., Garrett Quintanilla Start 30-Dec-2016 Active Tylenol 325 MG Oral Tablet TAKE 1 TO 2 TABLETS EVERY 4 HOURS NEEDED * Refills: 0 Cho M.D., Garrett Quintanilla Start 30-Dec-2016 Active Allergies and Adverse Reactions [...] Details Planned Observations Planned Goals not documented Planned Encounters Appointment; Provider: Garrett Amezquita M.D. On 06-Jan-2017 13:15 Instructions Name Dates Details Instructions not documented Encounters Appointment; Garrett Amezquita M.D. Encounter Diagnosis: Problem not documented On 30-Dec-2016 13:15
--- OUTSIDE RECORDS SUMMARY | 2017-12-21 09:32 | XMS REPORT ---
Author Author GENERATED, SYSTEM Organization Unknown Address Unknown Phone Unavailable Care Team Providers Care Mechanical Maintenance Engineer Name Role Phone PP Unavailable Reason For Visit Chief Complaint 07/05/16 LE EDEMA Social History Functional Status Functional Status from 07/23/2016 12:14 PM:* Oriented To : Person,Place,Time, Event Vital Signs Results Problems Encounter Diagnosis No [...]
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
--- OUTSIDE RECORDS SUMMARY | 2017-12-21 09:32 | XMS REPORT | Referral Summary ---
Author Author [facility] Organization [facility] Address Unknown Phone Unavailable Care Team Providers Care Associate Counsel Name Role Phone Joe Plasencia V PCP Encounter VC Date(s): 02/27/16 - 02/27/16 [facility] [address] [place] [address]- Discharge Diagnosis: Parkinson's disease Discharge Diagnosis: Healing skin ulcer Discharge Disposition: 01-Home or Self Care Attending Physician: Joe Plasencia MD Admitting Physician: Joe Plasencia MD Vital Signs Most recent to 1 oldest [Reference Range]: Temperature Tympanic 36.6 degC [36.6-38.1 degC] (02/27/16 2:49 PM) Peripheral Pulse 66 bpm Rate [60-100 bpm] (02/27/16 2:49 PM) Blood Pressure 119/74 mmHg [90-140/60-90 mmHg] (02/27/16 2:49 PM) Problem List Condition Effective Dates Status Health [...] 0800, # 28 caps, 0 Refill(s), Pharmacy: [facility], TAKE ONE CAPSULE BY MOUTH EVERY MORNING AT 0800 Start Date: 06/03/14 Status: Ordered traMADol 50 mg oral tablet 50 mg 1 tabs, Oral, q6hr, [facility] [phone], # 120 tabs, 0 Refill(s) Start Date: [...] Visit Note Author: Joe Plasencia MD Date: 02/27/16 Assessment/Plan Healing skin ulcer Parkinson's disease Overall he is doing well and I think we should just continue present care and follow how this heels. Regarding other aspects of care this also seems to be stable. Follow-up in 2 months/per detention requirements , or as needed. We will send a copy of the dictation to [facility] and [facility].
--- OUTSIDE RECORDS SUMMARY | 2017-12-21 09:33 | XMS REPORT ---
Author Author GENERATED, SYSTEM Organization Unknown Address Unknown Phone Unavailable Care Team Providers Care Share Dairy Farmer Name Role Phone PP Unavailable Reason For Visit Chief Complaint No relevant chief complaints exist. Social History Functional Status Vital Signs Results [...]
--- OUTSIDE RECORDS SUMMARY | 2017-12-21 09:33 | XMS REPORT ---
Author Author Terri Moon Organization [employer] Address Unknown Phone Unavailable Care Team Providers Care Manager Transport Name Role Phone Terri Moon CP Unavailable Allergies No Known Allergies Problems Problem Type Condition Code Onset Dates Condition Status Problem Parkinson's disease G20 Active Problem Schizoaffective disorder, bipolar type F25.0 Active Medications No Known Medications Results No Known Results Summary Purpose [employer] Submission
--- OUTSIDE RECORDS SUMMARY | 2017-12-21 09:33 | XMS REPORT | Summary of Care ---
Author Author Garrett Amezquita M.D. Organization Unknown Address [address] [place] [address] [place] [address] Phone Unavailable Care Team Providers Care Cougar Hunter Name Role Phone Garrett Amezquita M.D. Unavailable [...] Encounters Appointment; Provider: Garrett Amezquita M.D. On 27-Jan-2017 14:30 Instructions Name Dates Details Instructions not documented Encounters Appointment; Garrett Amezuqita M.D. Encounter Diagnosis: Problem not documented On 06-Jan-2017 13:15 Appointment; Garrett Amezquita M.D. Encounter Diagnosis: Problem not documented On 30-Dec-2016 13:15
--- OUTSIDE RECORDS SUMMARY | 2017-12-21 09:33 | XMS REPORT | Referral Summary ---
Author Author [facility] Organization [facility] Address Unknown Phone Unavailable Care Team Providers Care Ep Technologist Name Role Phone Joe Plasencia V PCP Encounter VC Date(s): 11/30/15 - 11/30/15 [facility] [address] [place] [id number]- Discharge Disposition: 01-Home or Self Care Attending Physician: Juan Carlos Diaz APRN Admitting Physician: Juan Carlos Diaz APRN Vital Signs Most recent to 1 oldest [Reference Range]: Peripheral Pulse 75 bpm Rate [60-100 bpm] (11/30/15 10:51 AM) Respiratory Rate 18 br/min [14-20 br/min] (11/30/15 10:51 AM) Blood Pressure 132/74 mmHg [90-140/60-90 mmHg] (11/30/15 10:51 AM) SpO2 97 % (11/30/15 10:51 AM) Problem List Condition Effective Dates Status [...] Refill(s) Start Date: 11/30/15 Status: Ordered SEROquel 200 mg oral tablet 200 mg 1 tabs, Oral, BID, 0 Refill(s) [...] 0800, # 28 caps, 0 Refill(s), Pharmacy: [facility], TAKE ONE CAPSULE BY MOUTH EVERY MORNING AT 0800 Start Date: 06/03/14 Status: Ordered traMADol 50 mg oral tablet 50 mg 1 tabs, Oral, q6hr, [facility] [phone], # 120 tabs, 0 Refill(s) Start Date: [...]
--- OUTSIDE RECORDS SUMMARY | 2017-12-21 09:33 | XMS REPORT ---
Author Author Terri Moon Organization [employer] Address Unknown Phone Unavailable Care Team Providers Care Insights Strategist Name Role Phone Terri Moon CP Unavailable Allergies No Known Allergies Problems Problem Type Condition Code Onset Dates Condition Status Problem Parkinson's disease G20 Active Problem Schizoaffective disorder, bipolar type F25.0 Active Medications No Known Medications Results No Known Results Summary Purpose [employer] Submission
--- OUTSIDE RECORDS SUMMARY | 2017-12-21 09:33 | XMS REPORT ---
Author Author GENERATED, SYSTEM Organization Unknown Address Unknown Phone Unavailable Care Team Providers Care Rn Delivery Name Role Phone PP Unavailable Reason For [...]
--- OUTSIDE RECORDS SUMMARY | 2017-12-21 09:33 | XMS REPORT | Referral Summary ---
Author Author [facility] Organization [facility] Address Unknown Phone Unavailable Care Team Providers Care Gastroenterology Teacher Name Role Phone Joe Plasencia V PCP Encounter VC Date(s): 05/09/15 - 05/09/15 [facility] [address] [place] [phone]- Discharge Diagnosis: Schizophrenia Discharge Diagnosis: Hypertension Discharge [...] 0800, # 28 caps, 0 Refill(s), Pharmacy: [facility], TAKE ONE CAPSULE BY [...] tramadol to when necessary dosing. Follow-up per [place] [facility] requirements, or otherwise when necessary. We will send copies of the dictation to [place] [facility] [place], Dr. Lima, and Dr. Cortez.
--- OUTSIDE RECORDS SUMMARY | 2017-12-21 09:34 | XMS REPORT | Continuity of Care Document ---
Author Author [facility] Organization [facility] Address Unknown Phone Unavailable Allergies Active Description Code Type Severity Reaction Onset Reported/Identified Relationship to Patient Clinical Status Yes No Known Medication Allergies NKMA N/A N/A 06/28/2014 Medications There is no data. 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 05/07/2016 Marquis Plasencia V Final L03.115 Cellulitis of right lower limb 07/16/2016 Marquis Plasencia V Final F20.9 Schizophrenia, unspecified 07/16/2016 Marquis Plasencia V Final G20 Parkinson''s disease 07/16/2016 Marquis Plasencia V Final L89.322 Pressure ulcer of left buttock, stage 2 08/09/2016 MARQUIS PLASENCIA I872 Venous insufficiency (chronic) (peripheral) 08/09/2016 MARQUIS PLASENCIA R600 Localized edema 10/28/2016 Marquis Plasencia V Final F20.9 Schizophrenia, unspecified 10/28/2016 Marquis Plasencia V Final G20 Parkinson''s disease 10/28/2016 Marquis Plasencia V Final K59.09 Other constipation 10/28/2016 Marquis Plasencia V Final R35.0 Frequency of micturition 02/10/2017 Marquis Plasencia V Final F20.9 Schizophrenia, unspecified 02/10/2017 Marquis Plasencia V Final F41.1 Generalized anxiety disorder 02/10/2017 Marquis Plasencia V Final G20 Parkinson''s disease 02/10/2017 Marquis Plasencia V Final I10 Essential (primary) hypertension 02/10/2017 Marquis Plasencia V Final L81.9 Disorder of pigmentation, unspecified 02/10/2017 Marquis Plasencia V Final Z51.81 Encounter for therapeutic drug level monitoring 07/22/2017 Marquis Plasencia V Final F20.9 Schizophrenia, unspecified 07/22/2017 Marquis Plasencia V Final G20 Parkinson''s disease 07/22/2017 Marquis Plasencia V Final S63.502A Unspecified sprain of left wrist, initial encounter 07/22/2017 Marquis Plasencia V Final F03.90 Unspecified dementia without behavioral disturbance 10/14/2017 ROBERT YIN D696 Thrombocytopenia, unspecified 10/14/2017 ROBERT YIN E870 Hyperosmolality and hypernatremia 10/14/2017 ROBERT YIN 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 10/14/2017 ROBERT YIN F209 Schizophrenia, unspecified 10/14/2017 ROBERT YIN F329 Major depressive disorder, single episode, unspecified 10/14/2017 ROBERT YIN F419 Anxiety disorder, unspecified 10/14/2017 ROBERT YIN F919 Conduct disorder, unspecified 10/14/2017 ROBERT YIN G20 Parkinson's disease 10/14/2017 ROBERT YIN I119 Hypertensive heart disease without heart failure 10/14/2017 ROBERT YIN J123 Human metapneumovirus pneumonia 10/14/2017 ROBERT YIN J159 Unspecified bacterial pneumonia 10/14/2017 ROBERT YIN Z23 Encounter for immunization 10/15/2017 ROBERT YIN D696 Thrombocytopenia, unspecified 10/15/2017 ROBERT YIN E870 Hyperosmolality and hypernatremia 10/15/2017 ROBERT YIN 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 10/15/2017 ROBERT YIN F209 Schizophrenia, unspecified 10/15/2017 ROBERT YIN F329 Major depressive disorder, single episode, unspecified 10/15/2017 ROBERT YIN F419 Anxiety disorder, unspecified 10/15/2017 ROBERT YIN F919 Conduct disorder, unspecified 10/15/2017 ROBERT YIN G20 Parkinson's disease 10/15/2017 ROBERT YIN I119 Hypertensive heart disease without heart failure 10/15/2017 ROBERT YIN J123 Human metapneumovirus pneumonia 10/15/2017 ROBERT YIN J159 Unspecified bacterial pneumonia 10/15/2017 ROBERT YIN Z23 Encounter for immunization Procedures Code Description [place] [address] Office or other outpatient visit for the evaluation and management of an established patient, which requires at least 2 of these 3 holland components: A detailed history; A detailed examination; Medical d 05/07/201624196 Office or other outpatient visit for the evaluation and management of an established patient, which requires at least 2 of these 3 holland components: An expanded problem focused history; An expanded prob 07/16/201619760 Office or other outpatient visit for the evaluation and management of an established patient, which requires at least 2 of these 3 holland components: An expanded problem focused history; An expanded prob 10/28/2016 63342 Excision, benign lesion including margins, except skin tag (unless listed elsewhere), trunk, arms or legs; excised diameter 1.1 to 2.0 cm 2016 32415 Level IV - Surgical pathology, gross and microscopic examination - spontaneous/missed Artery, biopsy Bone marrow, biopsy Bone exostosis Brain/meninges, other than for tumor resection Breast, 02/10/201765677 Office or other outpatient visit for the evaluation and management of an established patient, which requires at least 2 of these 3 holland components: A detailed history; A detailed examination; Medical d 02/10/2017 22646 Radiologic examination, wrist; complete, minimum of 3 views [id number] Office or other outpatient visit for the evaluation and management of an established patient, which requires at least 2 of these 3 holland components: A detailed history; A detailed examination; Medical d 07/22/2017 [id number] 09/28/2017 Results Test Result Range URINALYSIS (CULTURE PRN) - 09/17/16 16:05 *URINE APPEARANCE CLEAR CLEAR *URINE BILIRUBIN NEGATIVE NEGATIVE *URINE BLOOD NEGATIVE NEGATIVE *URINE GLUCOSE NEGATIVE NEGATIVE *URINE KETONES TRACE NEGATIVE *URINE LEUKOCYTES NEGATIVE NEGATIVE *URINE NITRITES NEGATIVE NEGATIVE URINE PH 6.0 5.0-8.0 *URINE PROTEIN NEGATIVE NEGATIVE URINE SPECIFIC GRAVITY >1.030 <=1.005->=1.030 *URINE UROBILINOGEN 0.2 0.2-1.0 *URINE COLOR YELLOW STRAW/YELL/DK YELL URINALYSIS (CULTURE PRN) - 11/01/16 15:30 *URINE APPEARANCE CLOUDY CLEAR *URINE BILIRUBIN NEGATIVE NEGATIVE *URINE BLOOD NEGATIVE NEGATIVE *URINE GLUCOSE NEGATIVE NEGATIVE *URINE KETONES 15 NEGATIVE *URINE LEUKOCYTES NEGATIVE NEGATIVE *URINE NITRITES NEGATIVE NEGATIVE URINE PH 7.5 5.0-8.0 *URINE PROTEIN NEGATIVE NEGATIVE URINE SPECIFIC GRAVITY 1.020 <=1.005->=1.030 *URINE UROBILINOGEN 1.0 0.2-1.0 *URINE COLOR YELLOW STRAW/YELL/DK YELL CULTURE URINE - 11/01/16 15:30 CULTURE URINE No growth at 48 hrs NRG URINALYSIS, AUTOMATED WITH MICROSCOPY - 11/20/16 10:20 *URINE APPEARANCE CLEAR CLEAR *URINE BILIRUBIN NEGATIVE NEGATIVE *URINE BLOOD NEGATIVE NEGATIVE *URINE GLUCOSE NEGATIVE NEGATIVE *URINE KETONES TRACE NEGATIVE *URINE LEUKOCYTES NEGATIVE NEGATIVE *URINE NITRITES NEGATIVE NEGATIVE URINE PH 6.0 5.0-8.0 *URINE PROTEIN NEGATIVE NEGATIVE URINE SPECIFIC GRAVITY >1.030 <=1.005->=1.030 *URINE UROBILINOGEN 1.0 0.2-1.0 *URINE COLOR STRAW STRAW/YELL/DK YELL VALPROIC ACID - 02/14/17 08:54 VALPROIC ACID 46 50-100 LIPID PANEL W/O REFLEX - 07/15/17 14:45 TRIGLYCERIDES 73 0-149 CHOLESTEROL 140 50-199 HDL CHOLESTEROL 49 40-60 LDL (CALCULATED CHOL 76 0-99 CBC WITH PLATELET AND DIFFERENTIAL - 09/26/17 22:00 SEGS 80.5 % NRG *BASOPHILS 0.7 % NRG *EOSINOPHILS 0.0 % NRG AUTOMATED DIFF PERFORMED NRG *LYMPHOCYTES 5.8 % NRG *MONOCYTES 13.0 % NRG *ABSOLUTE BASOPHILS 0.10 10*3/uL 0.00-0.20 *ABSOLUTE EOSINOPHILS 0.00 10*3/uL 0.00-0.50 *ABSOLUTE LYMPHOCYTES 0.40 10*3/uL 1.00-3.00 *ABSOLUTE MONOCYTES 1.00 10*3/uL 0.30-1.00 *ABSOLUTE NEUTROPHILS 6.00 10*3/uL 1.80-7.80 MPV 9.7 fL 7.4-10.4 PLATELETS 145 10*3/uL 159-386 WBC 7.4 10*3/uL 3.6-11.2 RBC 4.38 4.06-5.63 HEMOGLOBIN 13.8 12.5-16.3 HEMATOCRIT 40.0 % 36.7-47.1 MCV 91.4 fL 80.0-100.0 MCH 31.5 pg 27.0-33.0 MCHC 34.5 32.0-36.0 RDW 13.8 % 12.3-17.0 RDWSD 44.2 37.1-47.8 COMPREHENSIVE METABOLIC PANEL - 09/26/17 22:00 BILIFUBIN TOTAL 0.40 0.20-1.00 TOTAL PROTEIN 6.8 6.4-8.2 ALBUMIN 3.5 3.4-5.0 *GLOBULIN 3.3 2.3-3.5 *A/G RATIO 1.1 1.5-2.2 ALK PHOS 59 U/L 46-116 ALT (SGPT) 9 U/L 14-59 AST (SGOT) 21 U/L 15-37 GFR ESTIMATION - 09/26/17 22:00 *GFR EST NON AFR TRINIDADIAN >90 mL/min NRG *GRFA EST AFR AMER >90 mL/min NRG DRUG SCREEN PLASMA - 09/26/17 22:00 ALCOHOL <0.003 NRG ACETAMINOPHEN <2 10-30 SALICYLATE 1.6 2.8-20.0 TSH - 09/26/17 22:00 TSH 0.758 u[IU]/L 0.340-4.820 MAGNESIUM - 09/26/17 22:00 MAGNESIUM 1.7 1.8-2.4 LIPASE - 09/26/17 22:00 LIPASE 131 U/L 73-393 URINALYSIS (CULTURE PRN) - 09/27/17 00:25 *URINE APPEARANCE CLEAR CLEAR *URINE BILIRUBIN NEGATIVE NEGATIVE *URINE BLOOD TRACE-INTACT NEGATIVE *URINE GLUCOSE NEGATIVE NEGATIVE *URINE KETONES TRACE NEGATIVE *URINE LEUKOCYTES NEGATIVE NEGATIVE *URINE NITRITES NEGATIVE NEGATIVE URINE PH 7.0 5.0-8.0 *URINE PROTEIN NEGATIVE NEGATIVE URINE SPECIFIC GRAVITY 1.015 <=1.005->=1.030 *URINE UROBILINOGEN 0.2 0.2-1.0 *URINE COLOR YELLOW STRAW/YELL/DK YELL URINE MICROSCOPIC - 09/27/17 00:25 WBC 0-1 /[HPF] 0-5 RBC 0-1 /[HPF] 0-1 MUCOUS THREADS FEW /[LPF] NEGATIVE MICROSCOPIC EXAM PERFORMED PERFORMED [facility] LACTIC ACID - 09/27/17 00:40 LACTIC ACID 0.8 0.9-1.7 CULTURE BLOOD - 09/27/17 00:40 CULTURE BLOOD No growth after 5 days of incubation. NRG CULTURE BLOOD - 09/27/17 00:52 CULTURE BLOOD No growth after 5 days of incubation. NR GFR ESTIMATION - 09/28/17 07:06 *GFR EST NON AFR TRINIDADIAN >90 mL/min NR *GRFA EST AFR AMER >90 mL/min [facility] RENAL FUNCTION PANEL - 09/28/17 07:06 SODIUM 134 mmol/L 136-145 POTASSIUM 3.9 mmol/L 3.5-5.1 CHLORIDE 98 mmol/L 98-107 TCO2 25.7 mmol/L 21.0-32.0 *ANION GAP 10.3 mmol/L 8.0-16.0 BUN 14 7-18 CREATININE 0.73 0.70-1.30 *BUN/CREATININE RATIO 19.2 9.1-17.0 GLUCOSE 114 65-99 CALCIUM 8.6 8.5-10.1 ALBUMIN 3.2 3.4-5.0 PHOSPHORUS 2.4 2.6-4.7 MAGNESIUM - 09/28/17 07:06 MAGNESIUM 1.8 1.8-2.4 ARTERIAL BLOOD GAS - 09/28/17 16:39 *ART. BASE EXCESS 2.4 -2.5-2.5 *ART. BICARBONATE 24.8 meq/L 19.0-29.0 ART. O2 SATURATION 92.5 % 91.0-97.0 *ART. PO2 63 mm[Hg] 80-95 *ART. TOTAL CO2 21.3 20.0-30.0 *ARTERIAL PC02 33.1 mm[Hg] 35.0-45.0 *ARTERIAL PH 7.487 7.350-7.450 PROCALCITONIN - 09/29/17 13:39 PROCALCITONIN 0.49 ng/mL 0.05-0.50 CBC WITH PLATELET NO DIFFERENTIAL - 09/30/17 06:07 MPV 9.1 fL 7.4-10.4 PLATELETS 142 10*3/uL 159-386 WBC 11.4 10*3/uL 3.6-11.2 RBC 4.77 4.06-5.63 HEMOGLOBIN 15.1 12.5-16.3 HEMATOCRIT 44.2 % 36.7-47.1 MCV 92.5 fL 80.0-100.0 MCH 31.6 pg 27.0-33.0 MCHC 34.1 32.0-36.0 RDW 13.8 % 12.3-17.0 RDWSD 44.2 37.1-47.8 BASIC METABOLIC PANEL - 09/30/17 06:07 SODIUM 138 mmol/L 136-145 POTASSIUM 4.3 mmol/L 3.5-5.1 CHLORIDE 101 mmol/L 98-107 TCO2 28.2 mmol/L 21.0-32.0 *ANION GAP 8.8 mmol/L 8.0-16.0 BUN 21 7-18 CREATININE 0.83 0.70-1.30 *BUN/CREATININE RATIO 25.3 9.1-17.0 GLUCOSE 113 65-99 CALCIUM 9.1 8.5-10.1 MAGNESIUM - 09/30/17 06:07 MAGNESIUM 2.1 1.8-2.4 GFR ESTIMATION - 09/30/17 06:07 *GFR EST NON AFR TRINIDADIAN >90 mL/min NRG *GRFA EST AFR AMER >90 mL/min NRG LEGIONELLA PNEUMO URINE AG - 09/30/17 13:10 LEGIONELLA PNEUMO URINE AG Negative Negative CBC WITH PLATELET AND DIFFERENTIAL - 10/01/17 05:33 SEGS 85.5 % NRG *BASOPHILS 0.1 % NRG *EOSINOPHILS 0.1 % NRG AUTOMATED DIFF PERFORMED NRG *LYMPHOCYTES 5.4 % NRG *MONOCYTES 8.9 % NRG *ABSOLUTE BASOPHILS 0.00 10*3/uL 0.00-0.20 *ABSOLUTE EOSINOPHILS 0.00 10*3/uL 0.00-0.50 *ABSOLUTE LYMPHOCYTES 0.30 10*3/uL 1.00-3.00 *ABSOLUTE MONOCYTES 0.50 10*3/uL 0.30-1.00 *ABSOLUTE NEUTROPHILS 5.10 10*3/uL 1.80-7.80 MPV 9.7 fL 7.4-10.4 PLATELETS 147 10*3/uL 159-386 WBC 5.9 10*3/uL 3.6-11.2 RBC 4.43 4.06-5.63 HEMOGLOBIN 13.9 12.5-16.3 HEMATOCRIT 41.0 % 36.7-47.1 MCV 92.5 fL 80.0-100.0 MCH 31.5 pg 27.0-33.0 MCHC 34.0 32.0-36.0 RDW 13.9 % 12.3-17.0 RDWSD 45.1 37.1-47.8 COMPREHENSIVE METABOLIC PANEL - 10/04/17 13:31 SODIUM 137 mmol/L 136-145 POTASSIUM 3.6 mmol/L 3.5-5.1 CHLORIDE 102 mmol/L 98-107 TCO2 25.2 mmol/L 21.0-32.0 *ANION GAP 9.8 mmol/L 8.0-16.0 BUN 15 7-18 CREATININE 0.69 0.70-1.30 *BUN/CREATININE RATIO 21.7 9.1-17.0 GLUCOSE 132 65-99 CALCIUM 8.8 8.5-10.1 BILIFUBIN TOTAL 0.30 0.20-1.00 TOTAL PROTEIN 6.7 6.4-8.2 ALBUMIN 2.6 3.4-5.0 *GLOBULIN 4.1 2.3-3.5 *A/G RATIO 0.6 1.5-2.2 ALK PHOS 45 U/L 46-116 ALT (SGPT) 48 U/L 14-59 AST (SGOT) 59 U/L 15-37 GFR ESTIMATION - 10/04/17 13:31 *GFR EST NON AFR TRINIDADIAN >90 mL/min NRG *GRFA EST AFR AMER >90 mL/min NRG CBC WITH PLATELET NO DIFFERENTIAL - 10/04/17 13:32 MPV 8.7 fL 7.4-10.4 PLATELETS 287 10*3/uL 159-386 WBC 8.5 10*3/uL 3.6-11.2 RBC 4.62 4.06-5.63 HEMOGLOBIN 14.7 12.5-16.3 HEMATOCRIT 42.7 % 36.7-47.1 MCV 92.4 fL 80.0-100.0 MCH 31.7 pg 27.0-33.0 MCHC 34.3 32.0-36.0 RDW 14.0 % 12.3-17.0 RDWSD 45.5 37.1-47.8 Encounters ACCT No. Visit Date/Time Discharge Status Pt. 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 [id number] 05/07/2016 09:09:00 05/07/2016 23:59:00 DIS Outpatient GoMarquis beal V [facility] New FM 60 day follow up from 4-19 [id number] 02/27/2016 14:45:00 02/27/2016 23:59:00 DIS Outpatient Marquis Plasencia V [facility] New FM sore in his croxsis [id number] 12/29/2015 10:01:00 12/29/2015 23:59:00 DIS Outpatient Juan Carlos Diaz [facility] New FM lower leg adema [id number] 11/30/2015 10:42:00 11/30/2015 23:59:00 DIS Outpatient Juan Carlos Diaz [facility] New FM 2 week follow up post hospital [id number] 07/24/2015 10:05:00 07/24/2015 23:59:00 DIS Outpatient GoMarquis beal V [facility] New FM SOV [id number] 05/09/2015 10:01:00 05/09/2015 23:59:00 DIS Outpatient GoMarquis beal V [facility] New FM 3MTH RCK [facility] [id number] 02/19/2016 13:10:00 Document Registration [id number] 02/14/2017 08:37:00 02/15/2017 03:30:00 DIS Outpatient SHELLYMARQUIS Parker F25.9, F06.0, [id number] 11/20/2016 12:04:00 11/20/2016 12:05:41 DIS Outpatient MARQUIS PLASENCIA V UA [id number] 11/01/2016 15:24:00 11/01/2016 15:25:14 DIS Outpatient MARQUIS PLASENCIA V UA [id number] 09/18/2016 09:55:00 09/18/2016 09:59:27 DIS Outpatient CARL PLASENCIAALL Parker [id number] 08/19/2016 14:12:00 08/19/2016 23:59:59 CLS Outpatient CABRERA CRUZ Z79.899 [id number] 07/11/2016 00:01:00 08/09/2016 08:44:16 DIS Outpatient MIRZA JOHNSON BILER[facility]O LEGS [id number] 07/23/2016 10:25:00 08/07/2016 10:44:36 DIS Outpatient MARQUIS PLASENCIA V <PV2.3.2>Localized edema</PV2.3.2><PV2.3.2>07/05/16 LE EDEMA </PV2.3.2><PV2.3.2>Localized edema</PV2.3.2><PV2.3.2>Venous insufficiency ( chronic) (peripheral)</PV2.3.2> [id number] 07/20/2016 08:30:00 07/21/2016 03:30:00 DIS Outpatient RAHAT RAMIREZ Z79.899 [id number] 06/26/2016 10:21:00 07/11/2016 00:14:54 DIS Outpatient MIRZA JOHNSON [facility] LEGS [id number] 09/26/2017 19:45:00 10/08/2017 16:39:49 DIS Outpatient UNASSIGNED DOCTOR, DOCTOR CONFUSION/AGITATION [id number] 09/27/2017 03:51:00 10/07/2017 18:13:23 DIS Inpatient ROBERT YIN <PV2.3.2>Human metapneumovirus pneumonia</PV2.3.2><PV2.3.2>PNA, SEPSIS, SCHIZOPHRENIA</PV2.3.2><PV2.3.2>Human metapneumovirus pneumonia</PV2.3.2 ><PV2.3.2>Hyperosmolality and hypernatremia</PV2.3.2><PV2.3.2>Unspecified bacterial pneumonia</PV2.3.2><PV2.3.2>Parkinson's disease</PV2.3.2><PV2.3.2> Dementia in oth diseases classd elswhr w/o behavrl disturb</PV2.3.2><PV2.3.2> Hypertensive heart disease without heart failure</PV2.3.2><PV2.3.2>Schizophrenia , unspecified</PV2.3.2><PV2.3.2>Anxiety disorder, unspecified</PV2.3.2><PV2.3.2> Major depressive disorder, single episode, unspecified</PV2.3.2><PV2.3.2> Conduct disorder, unspecified</PV2.3.2><PV2.3.2>Encounter for immunization</ PV2.3.2><PV2.3.2>Thrombocytopenia, unspecified</PV2.3.2> [id number] 07/15/2017 14:28:00 07/16/2017 03:30:00 DIS Outpatient CABRERA CRUZ <PV2.3.2>G20, S81.809D, K59.00, F41.9, E56.9,</PV2.3.2><PV2.3.2 >G47.00, F32.9, I10, F25.9, F06.0</PV2.3.2>
[2017-12-21] MEDS: FAMOTIDINE 20MG/2ML IV (PEPCID) IVP SCH ×2 (09:36→20:24)
[2017-12-21] MEDS: risperiDONE 1 MG (RisperDAL) TAB PO SCH ×2 (09:36→20:24)
[2017-12-21] MEDS: DIVALPROEX 500 MG DELAYED RELEASE (DEPAKOTE) TAB PO SCH ×2 (09:37→20:35)
[2017-12-21] MEDS: RIVAROXABAN 10 MG TABLET (XARELTO) PO SCH (09:37)
[2017-12-21] MEDS: oxyCODONE/APAP 5/325MG (PERCOCET 5) TABLET PO PRN ×2 (09:52→17:22)
--- OUTSIDE RECORDS SUMMARY | 2017-12-21 10:46 | XMS REPORT | Continuity of Care Document ---
Author Author [facility] Organization [facility] Address Unknown Phone Unavailable Allergies [...] Procedures Code Description [place] [address] Office or other outpatient visit for the evaluation and management of an established patient, which requires at least 2 of these 3 holland components: A detailed history; A detailed examination; Medical d 05/07/201642318 Office or other outpatient visit for the evaluation and management of an established patient, which requires at least 2 of these 3 holland components: An expanded problem focused history; An expanded prob 07/16/201618967 Office or other outpatient visit for the evaluation and management of an established patient, which requires at least 2 of these 3 holland components: An expanded problem focused history; An expanded prob 10/28/2016 72803 Excision, benign lesion including margins, except skin tag (unless listed elsewhere), trunk, arms or legs; excised diameter 1.1 to 2.0 cm 2016 77054 Level IV - Surgical pathology, gross and microscopic examination - spontaneous/missed Artery, biopsy Bone marrow, biopsy Bone exostosis Brain/meninges, other than for tumor resection Breast, 02/10/201782450 Office or other outpatient visit for the evaluation and management of an established patient, which requires at least 2 of these 3 holland components: A detailed history; A detailed examination; Medical d 02/10/2017 83007 Radiologic examination, wrist; complete, minimum of 3 views [id number] Office or other outpatient visit for the evaluation and management of an established patient, which requires at least 2 of these 3 holland components: A detailed history; A detailed examination; Medical d 07/22/2017 [id number] 09/28/2017 Results Test Result Range URINALYSIS (CULTURE [...] - 09/26/17 22:00 *GFR EST NON AFR SCOTTISH >90 mL/min NRG *GRFA EST AFR AMER [...] FEW /[LPF] NEGATIVE MICROSCOPIC EXAM PERFORMED PERFORMED [facility] LACTIC ACID - 09/27/17 00:40 LACTIC ACID 0.8 0.9-1.7 CULTURE BLOOD - 09/27/17 00:40 CULTURE BLOOD No growth after 5 days of incubation. NRG CULTURE BLOOD - 09/27/17 00:52 CULTURE BLOOD No growth after 5 days of incubation. NR GFR ESTIMATION - 09/28/17 07:06 *GFR EST NON AFR SCOTTISH >90 mL/min NR *GRFA EST AFR AMER >90 mL/min [facility] RENAL FUNCTION PANEL - 09/28/17 07:06 SODIUM [...] - 09/30/17 06:07 *GFR EST NON AFR SCOTTISH >90 mL/min NRG *GRFA EST AFR AMER [...] - 10/04/17 13:31 *GFR EST NON AFR SCOTTISH >90 mL/min NRG *GRFA EST AFR AMER [...] Status Pt. 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 [id number] 05/07/2016 09:09:00 05/07/2016 23:59:00 DIS Outpatient GoMarquis beal V [facility] FM 60 day follow up from 4-19 [id number] 02/27/2016 14:45:00 02/27/2016 23:59:00 DIS Outpatient Marquis Plasencia V [facility] FM sore in his croxsis [id number] 12/29/2015 10:01:00 12/29/2015 23:59:00 DIS Outpatient Juan Carlos Diaz [facility] FM lower leg adema [id number] 11/30/2015 10:42:00 11/30/2015 23:59:00 DIS Outpatient Juan Carlos Diaz [facility] FM 2 week follow up post hospital [id number] 07/24/2015 10:05:00 07/24/2015 23:59:00 DIS Outpatient GoMarquis beal V [facility] FM SOV [id number] 05/09/2015 10:01:00 05/09/2015 23:59:00 DIS Outpatient GoMarquis beal V [facility] FM 3MTH RCK [facility] [id number] 02/19/2016 13:10:00 Document Registration [id number] 02/14/2017 08:37:00 02/15/2017 03:30:00 DIS Outpatient SHELLYMARQUIS Parker F25.9, F06.0, [id number] 11/20/2016 12:04:00 11/20/2016 12:05:41 DIS Outpatient MARQUIS PLASENCIA V UA [id number] 11/01/2016 15:24:00 11/01/2016 15:25:14 DIS Outpatient MARQUIS PLASENCIA V UA [id number] 09/18/2016 09:55:00 09/18/2016 09:59:27 DIS Outpatient CARL PLASENCIAALL Parker [id number] 08/19/2016 14:12:00 08/19/2016 23:59:59 CLS Outpatient CABRERA CRUZ Z79.899 [id number] 07/11/2016 00:01:00 08/09/2016 08:44:16 DIS Outpatient MIRZA JOHNSON [facility] LEGS [id number] 07/23/2016 10:25:00 08/07/2016 10:44:36 DIS Outpatient MARQUIS PLASENCIA V <PV2.3.2>Localized edema</PV2.3.2><PV2.3.2>07/05/16 LE EDEMA </PV2.3.2><PV2.3.2>Localized edema</PV2.3.2><PV2.3.2>Venous insufficiency ( chronic) (peripheral)</PV2.3.2> [id number] 07/20/2016 08:30:00 07/21/2016 03:30:00 DIS Outpatient RAHAT RAMIREZ Z79.899 [id number] 06/26/2016 10:21:00 07/11/2016 00:14:54 DIS Outpatient MIRZA JOHNSON [facility] [id number] 09/26/2017 19:45:00 10/08/2017 16:39:49 DIS Outpatient UNASSIGNED DOCTOR, DOCTOR CONFUSION/AGITATION [id number] 09/27/2017 03:51:00 10/07/2017 18:13:23 DIS Inpatient ROBERT YIN <PV2.3.2>Human metapneumovirus pneumonia</PV2.3.2><PV2.3.2>PNA, SEPSIS, SCHIZOPHRENIA</PV2.3.2><PV2.3.2>Human metapneumovirus pneumonia</PV2.3.2 ><PV2.3.2>Hyperosmolality and hypernatremia</PV2.3.2><PV2.3.2>Unspecified bacterial pneumonia</PV2.3.2><PV2.3.2>Parkinson's disease</PV2.3.2><PV2.3.2> Dementia in oth diseases classd elswhr w/o behavrl disturb</PV2.3.2><PV2.3.2> Hypertensive heart disease without heart failure</PV2.3.2><PV2.3.2>Schizophrenia , unspecified</PV2.3.2><PV2.3.2>Anxiety disorder, unspecified</PV2.3.2><PV2.3.2> Major depressive disorder, single episode, unspecified</PV2.3.2><PV2.3.2> Conduct disorder, unspecified</PV2.3.2><PV2.3.2>Encounter for immunization</ PV2.3.2><PV2.3.2>Thrombocytopenia, unspecified</PV2.3.2> [id number] 07/15/2017 14:28:00 07/16/2017 03:30:00 DIS Outpatient CABRERA CRUZ <PV2.3.2>G20, S81.809D, K59.00, F41.9, E56.9,</PV2.3.2><PV2.3.2 >G47.00, F32.9, I10, F25.9, F06.0</PV2.3.2>
--- NOTE | 2017-12-21 11:14 | Progress Note-Hospitalist ---
Subjective HPI/CC On Admission Date Seen by Provider: Dec 21, 2017 Time Seen by Provider: 08:00 The patient is a 57-year-old white male with apparent schizophrenia recently admitted to a local halfway who apparently fell with progressive left hip pain. Upon presentation to the emergency room he had external rotation and foreshortening of the leg with a displaced intertrochanteric hip fracture. He is unable to give any meaningful history during the interview but does not appear to be in acute distress. He has no reported past history of cardiovascular or pulmonary disease. He is asking to be fed and wanting to go home. Subjective/Events-last exam Patient awake and alert but does not respond to verbal cueing. He was eating solids without difficulty and appeared to be in no acute distress. Objective Exam Vital Signs Vital Signs Date Time Temp Pulse Resp B/P (MAP) Pulse Ox O2 Delivery O2 Flow Rate FiO2 12/19/17 15:43 100.3 83 18 133/81 (98) 95 12/19/17 19:29 Room Air 12/20/17 15:34 2.00 Capillary Refill : Less Than 3 SecondsLess Than 3 Seconds General Appearance: No Apparent Distress Respiratory: Chest Non Tender, Lungs Clear, Normal Breath Sounds, No Accessory Muscle Use, No Respiratory Distress Cardiovascular: Regular Rate, Rhythm, No Edema, No Gallop, No JVD, No Murmur, Normal Peripheral Pulses Extremity: Other (Normal amount of postoperative left hip swelling with trace pedal edema on the left none on the right.) Results/Procedures Lab Laboratory Tests 12/21/17 05:13 Assessment/Plan Assessment and Plan Assess & Plan/Chief Complaint 1. Postop day 1 status post left total hip replacement for femoral neck fracture doing well. 2. 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 ANT AL MD Dec 21, 2017 11:14
[2017-12-21 12:00] VITALS: BP 155/80
--- NOTE | 2017-12-21 12:02 | Physical Therapy Evaluation ---
PT Evaluation-General Medical Diagnosis Admission Date Dec 19, 2017 at 20:41 Medical Diagnosis: left hip fracture Onset Date: Dec 20, 2017 Therapy Diagnosis Therapy Diagnosis: weakness Height/Weight Height (Feet): 5 Height (Inches): 8.00 Weight (Pounds): 183 Weight (Ounces): 3.0 Precautions Precautions/Isolations: Fall Prevention Weight Bear Status Right Lower Extremity: Right Full Weight Bearing Left Lower Extremity: Left Weight Bearing/Tolerated Referral Physician: Carlos A Reason for Referral: Evaluation/Treatment Referral Comments wBAT left; anterior hip precautions Medical History Additional Medical History anxiety, schizophrenia, depression Current History Pt sustained a fall at [facility]. It was found that he had a left hip fracture. Post repair Uncemented bipolar hemiarthroplasty Left hip Reviewed History: Yes Social History Home: [facility] (recent admit) Prior/Core FIM Prior Level of Function Functional [place] Measure 0=Not Assessed/NA 4=Minimal Assistance 1=Total Assistance 5=Supervision or Setup 2=Maximal Assistance 6=Modified [place] 3=Moderate Assistance 7=Complete [place] Phoned the NH from which he was admitted. He was a new resident there and the nurse indicated that he fell within the first 30 minutes of arrival to the facility. She is unsure of his exact prior mobility level but notes his family reported he was able to ambulate with assist. PT Evaluation-Current Subjective Eyes closed through most of treatment. no verbalization Objective Patient Orientation: Unable to Assess Problem Solving: Poor Attachments: [place] Catheter, IV ROM/Strength ROM Lower Extremities WFL--stiff through all ranges Strength Lower Extremities unable to test Integumentary/Posture Integumentary refer to nursing notes Bladder Incontinence: [place] Cath Posture unable to assess Neuromuscular (Tone, Coordination, Reflexes) unable to assess Transfers Functional [place] Measure 0=Not Assessed/NA 4=Minimal Assistance 1=Total Assistance 5=Supervision or Setup 2=Maximal Assistance 6=Modified [place] 3=Moderate Assistance 7=Complete [place] Transfers (B, C, W/C) (FIM): 1 Dependent of 2 to transfer sup to/from sit EOB. Pt sat EOB x 15 minutes with max assist. While sitting, pt ate his lunch with full assist to feed him. Unsafe to attempt standing or transfer to the chair. Pt in bed post treatment with SCD's in place, and needs met. Gait Comments/Gait Description unable to test Balance Sitting Static: Poor Sitting Dynamic: Poor Treatment Sat EOB to eat; max assist to sit with heavy lean to his right. Dep for feeding. Assessment/Needs Post repair of left hip fracture. Limited ability to communicate or actively participate with skilled therapy. Will beneift from PT to follow to address and define best transfer technique. Rehab Potential: Fair PT Correction Goals Internet Marketing Director Goals PT Correction Goals Time Frame: Dec 26, 2017 Transfers (B,C,W/C) (FIM): 3 PT Plan Problem List Problem List: Activity Tolerance, Functional Strength, Safety, Balance, Gait, Transfer, Bed Mobility Treatment/Plan Treatment Plan: Continue Plan of Care Treatment Plan: Bed Mobility, Education, Functional Activity [place], Functional Strength, Gait, Safety, Therapeutic Exercise, Transfers Treatment Duration: Dec 26, 2017 Frequency: 6 times per week Estimated Hrs Per Day: .5 hour per day Patient and/or Family Agrees t: Yes Safety Risks/Education Spoke with pt throughout treatment regarding the need for therapy and participation; pt does not seem to understand Discharge Recommendations Therapy D/C Recommendations: [facility] ([facility] Time/GCodes Time In: 1130 Time Out: 1155 Total Billed Treatment Time: 25 Total Billed Treatment visit HALEY MEZA PT Dec 21, 2017 12:02
--- NOTE | 2017-12-21 15:33 | Anesthesia-General Post-Op ---
General Patient Condition Mental Status/LOC: Same as Preop Cardiovascular: Satisfactory Nausea/Vomiting: Absent Respiratory: Satisfactory Pain: Controlled Complications: Absent Post Op Complications Complications None Follow Up Care/Instructions Patient Instructions None needed. Anesthesia/Patient Condition Patient Condition Patient is sleeping upon me entering the room. Appears to be comfortable and without acute distress. From report, I know the patient has a history of schizophrenia and dementia, thus has a hard time communicating. Rather than wake the patient up, if I was unlikely to gather much information from talking with him, I spoke to PHOENIX Braswell who has taken care of him today. She states the patient doesn't appear to be in pain but is stiff and PT helped her get him up to the side of the bed and feed him, but they were unable to do other therapy with him today. She confirmed that it would not be helpful to wake him up at this time. We will be available for further consultation if needed. MANJEET CHEUNG CRNA Dec 21, 2017 15:33
[2017-12-21 16:00] VITALS: BP 137/77
--- NOTE | 2017-12-21 16:54 | Progress Note (SOAP) ---
Subjective Date Seen by Provider: Dec 21, 2017 Time Seen by Provider: 16:48 Subjective/Events-last exam Pt DEWAYNE, pain controlled, no complaints Objective Exam Vital Signs Date Time Temp Pulse Resp B/P (MAP) Pulse Ox O2 Delivery O2 Flow Rate FiO2 12/21/17 16:00 99.6 102 17 137/77 (97) 96 Room Air 12/21/17 12:00 99.4 113 16 155/80 (105) 95 Room Air 12/21/17 09:00 Room Air 12/21/17 08:00 99.0 112 16 148/81 (103) 93 Room Air 12/21/17 04:00 99.5 112 20 168/80 (109) 95 Room Air 12/21/17 00:00 98.2 103 12 138/77 (97) 93 Room Air 12/20/17 21:00 Room Air 12/20/17 19:32 98.4 98 16 131/69 (89) 93 Room Air I & O 12/21/17 06:59 Intake Total 2390 ml Output Total 2025 ml Balance 365 ml Capillary Refill : Less Than 3 SecondsLess Than 3 Seconds General Appearance: No Apparent Distress HEENT: Normal ENT Inspection Neck: Normal Inspection Respiratory: No Accessory Muscle Use, No Respiratory Distress Cardiovascular: Regular Rate, Rhythm, Normal Peripheral Pulses Gastrointestinal: non tender, soft Extremity: Other (LLE: dressings left hip c/d/i, all compartments soft, motor/ sensation grossly intact, foot well perfused.) Results Lab Laboratory Tests 12/21/17 05:13: Hemoglobin 12.3L, Hematocrit 35L Microbiology 12/19/17 Blood Culture - Preliminary, Resulted No growth 12/19/17 MRSA Screen - Final, Complete Assessment/Plan Assessment/Plan Assess & Plan/Chief Complaint A/P: Displaced fracture Left femoral neck secondary mechanical GLF, s/p bipolar hemiarthroplasty Left hip POD #1 Post-op pelvic XR reviewed, stable Left hip prosthesis Orthopedically stable PT/OT, WBAT LLE, anterior hip precautions as able Current pain control regimen Xarelto 10mg q day for 3 weeks for VTE prophylaxis Case management for d/c planning Clinical Quality Measures DVT/VTE Risk/Contraindication: Risk Factor Score Per Nursin RFS Level Per Nursing on Admit: 4+=Very High NYASIA MATIAS DO Dec 21, 2017 16:54
[2017-12-21] MEDS: MUPIROCIN 2% OINT 22 GM (BACTROBAN) TUBE NSEACH SCH (17:18)
[2017-12-22] VITALS: BP 148/84
[2017-12-22] MEDS: NS IV 1000 ML 1,000 ML IV SCH ×4 (00:34→18:30)
[2017-12-22] MEDS: oxyCODONE/APAP 5/325MG (PERCOCET 5) TABLET PO PRN ×3 (00:52→20:36)
[2017-12-22] MEDS: SINEMET 25/100 (CARBIDOPA/LEVODOPA) TAB PO SCH ×3 (05:41→16:34)
[2017-12-22 08:00] VITALS: BP 160/75
--- NOTE | 2017-12-22 08:08 | Progress Note (SOAP) ---
Subjective Time Seen by Provider: 08:05 Subjective/Events-last exam Patient awake today. Patient unable to give any history. Displaced left femoral hip fracture. Dementia. Schizophrenia. MRSA positive. Patient stable Objective Exam Vital Signs Date Time Temp Pulse Resp B/P (MAP) Pulse Ox O2 Delivery O2 Flow Rate FiO2 12/22/17 00:00 99.6 94 18 148/84 (105) 93 Room Air 12/21/17 21:00 Room Air 12/21/17 16:00 99.6 102 17 137/77 (97) 96 Room Air 12/21/17 12:00 99.4 113 16 155/80 (105) 95 Room Air 12/21/17 09:00 Room Air I & O 12/22/17 07:00 Intake Total 2785 ml Output Total 725 ml Balance 2060 ml Capillary Refill : Less Than 3 SecondsLess Than 3 Seconds General Appearance: No Apparent Distress, WD/WN HEENT: Normal ENT Inspection Neck: Full Range of Motion, Normal Inspection Cardiovascular: Regular Rate, Rhythm, No Murmur Gastrointestinal: non tender, soft Results Lab Microbiology 12/19/17 Blood Culture - Preliminary, Resulted No growth 12/19/17 MRSA Screen - Final, Complete Assessment/Plan Assessment/Plan Assess & Plan/Chief Complaint Left hip fracture. Dementia. Schizophrenia. Unable to get any history from patient. Patient stable Clinical Quality Measures DVT/VTE Risk/Contraindication: Risk Factor Score Per Nursin RFS Level Per Nursing on Admit: 4+=Very High YOLY FAITH DO Dec 22, 2017 08:08
--- NOTE | 2017-12-22 08:10 | OPERATIVE REPORT ---
DATE OF SERVICE: 12/20/2017 PREOPERATIVE DIAGNOSIS: Displaced subcapital fracture of left femoral neck. POSTOPERATIVE DIAGNOSIS: Displaced subcapital fracture of left femoral neck. PROCEDURE PERFORMED: Uncemented bipolar hemiarthroplasty, left hip. IMPLANTS USED: 1. The DePuy Synthes uncemented femoral stem, a size #9 with standard offset. 2. The DePuy Synthes bipolar femoral head, size 53 mm. 3. The DePuy Synthes ARTICUL/MATILDE femoral head, size 28 mm with a standard offset. ATTENDING SURGEON: Dr. Nyasia Matias. MOUNTER CLARINETS: Jeb Bruno PA-C; Mr. Bruno's assistance was required secondary to the complexity of the case, in order to hold retractors for vital neurovascular structures, and to increase the efficiency and efficacy of the case. ANESTHESIA: General. ESTIMATED BLOOD LOSS: 250 mL. COMPLICATIONS: None. SPECIMENS: None. DRAINS: None. BRIEF HISTORY AND INDICATIONS: The patient is a 57-year-old male who has been residing in a local long term facility secondary to mental disability, who apparently sustained a mechanical ground level fall landing on to his left hip. He began complaining of severe left hip pain and inability to ambulate or bear weight on his left lower extremity. He was taken to a local urgent care center where plain radiographs of the patient's left hip demonstrated a left femoral neck fracture. As such, he was transferred to [facility] for definitive management of his injury. Upon presentation, the patient complained of only left hip pain, there was no evidence of any additional musculoskeletal injuries. Orthopedic Services were consulted for definitive management of his injury after the patient was admitted to the hospital under the hospitalist medicine service. On exam preoperatively, the patient had difficulty participating in an exam secondary to his mental disability. His left lower extremity was shortened and externally rotated. Skin was intact, there were no open wounds. There was significant pain with any attempt at range of motion of the left hip, motor and sensory function was grossly intact throughout and all compartments were soft. I did review the images of the left hip preoperatively, which demonstrated a completely displaced subcapital fracture of the left femoral neck. I did not believe the patient was a good candidate for primary fixation secondary to the complete displacement and chronicity of the injury which apparently had occurred at least 3 days prior to his presentation to the hospital. Also, I did not believe the patient was an appropriate candidate for total hip arthroplasty secondary to his mental disability. As such, I recommended bipolar hemiarthroplasty of the left hip. I discussed the operative plan in detail with the patient's power of assistant prosecuting attorney which included the risks, benefits, potential complications and expected outcomes. All questions were answered to the satisfaction of the POA and informed written consent was obtained to proceed as planned with the procedure. PROCEDURE NOTE: After correctly identifying the patient up in the preoperative holding area and after his left hip was appropriately marked, he was transferred to the operating room. Once in the operating room, he had successful induction of general anesthesia, the knee was transferred to a standard OR table and placed in the lateral recumbent position with left hip up and right hip down. Soft axillary roll was placed on the right-sided chest wall. All bony prominences were meticulously padded. The left leg was then prepped and draped in the routine sterile fashion. Prior to beginning the case, we completed an operating room timeout with all parties involved in the case in agreement and verified appropriate infusion of prophylactic antibiotics. Using a 10-blade scalpel, I made an incision centered over the greater trochanter of the left hip incising through the skin and subcutaneous tissue. Bovie cautery was then used to dissect through the fascia of the IT band and the gluteus penny to gain access to the gluteus medius. I then dissected through the anterior one-third of the gluteus medius bluntly to expose the fascia of the gluteus minimus. Fascia of the gluteus minimus was then dissected using Bovie cautery and this dissection was extended distally releasing the abductors off the anterolateral aspect of the proximal femur. A full-thickness myofascial and capsular flap was made in the dissection and tagged with #1 Vicryl stitch. The leg was then externally rotated to deliver the subcapital femoral neck fracture into the wound. Standard femoral neck osteotomy was then completed with oscillating bone saw approximately 10 mm proximal to the lesser trochanter. The fractured femoral head was then removed from the acetabulum and measured to be approximately 53 mm. A bipolar femoral head trial was placed in the acetabulum, size 53 mm and this fit perfectly, so we decided to go with that for the final bipolar head size. Inspection of the acetabular cartilage revealed it to be stable with no significant articular surface damage. I then began to prepare the proximal femur for the uncemented femoral stem. This was first accomplished by using box osteotome to lateralize the proximal femur followed by sequential broaches preparing the femoral canal until we were getting very good fit and fill with a size #9 broach. As such, we decided to go with this as the final prosthesis size. The final uncemented femoral stem was then inserted into the femoral canal with light taps of the mallet to the appropriate position and depth. We then trialled with a size 53 bipolar head with standard offset and this recreated the leg lengths quite well and provided very good stability. Therefore, we decided to go with these femoral heads for the final implants. The final bipolar implant was inserted on to the trunnion of the femoral stem and Hall taper mechanism was secured with light taps of the mallet. The prosthesis was then reduced into the acetabulum without complications and then final range of motion testing confirmed very good stability of the prosthesis and the leg lengths had been recreated adequately. The wound was then irrigated with copious amounts of sterile saline followed by closure. Closure was completed by using an Ethibond stitch for the anterolateral capsulotomy. The abductors were repaired back to the proximal femur with Ethibond stitch through bone tunnels in the greater trochanter. Fascia of the gluteus penny and IT band was repaired with #1 Vicryl, 2-0 Vicryl for the subcutaneous tissue and rosa for the skin. The patient has sterile dressing applied and then was awakened from general anesthesia without complications. He was then transferred to the PACU in stable condition. All counts were correct at the end of the case and the patient tolerated the procedure quite well. Job ID: [id number] DocumentID: [id number] Dictated Date: 12/21/2017 17:19:40 Fish Icer Date: 12/22/2017 00:58:32 Dictated By: NYASIA MATIAS
[2017-12-22] MEDS: FAMOTIDINE 20MG/2ML IV (PEPCID) IVP SCH (09:02)
[2017-12-22] MEDS: MUPIROCIN 2% OINT 22 GM (BACTROBAN) TUBE NSEACH SCH ×2 (09:02→20:36)
[2017-12-22] MEDS: risperiDONE 1 MG (RisperDAL) TAB PO SCH ×2 (09:03→20:35)
[2017-12-22] MEDS: RIVAROXABAN 10 MG TABLET (XARELTO) PO SCH (09:03)
[2017-12-22] MEDS: DIVALPROEX 500 MG DELAYED RELEASE (DEPAKOTE) TAB PO SCH ×2 (09:08→20:35)
--- NOTE | 2017-12-22 10:29 | Physical Therapy Daily Note ---
PT Daily Note-Current Subjective No verbalization. Eyes closed throughout most of treatment. Mental Status Patient Orientation: Unable to Assess Attachments: IV Transfers Functional [place] Measure 0=Not Assessed/NA 4=Minimal Assistance 1=Total Assistance 5=Supervision or Setup 2=Maximal Assistance 6=Modified [place] 3=Moderate Assistance 7=Complete IndependenceIRFPAI Quality Coding Scale 6 Independent with activity with or without an assistive device 5 Patient requires set up or clean up by helper. Patient completes activity by themselves 4 Supervision or touching assist (CGA). Rush provide cues , steadying assist 3 The helper provides less than half the effort to complete the activity 2 The helper provides more than half the effort to complete the activity 1 Dependent. The helper does all the effort to complete an activity 7 Patient refused to complete or attempt activity 9 The patient did not perform the activity before the current illness or injury 88 Not attempted due to Medical conditions or safety concerns Weight Bearing Right Lower Extremity: Right Full Weight Bearing Left Lower Extremity: Left Weight Bearing/Tolerated Treatments Pt incont of urine. Changed depend, cleaned pt. Pt was dep for rolling and scooting in bed. Dep to transfer to sit EOB and dep to maintain seated balance. Used the sit to stand lift to transfer to the chair. Pt did initiate holding onto the left and was able to stand to participate in the transfer. Pt up in chair with pillow to support UE, chair alarm, reclined and feet elevated. Nurse and nurse tech notified that he is up in chair. Assessment Limited ability to actively participate with skilled PT intervnetion; however he does benefit from PT to assist with transfers to allow position changes, OOB activity with hopes that his awareness will improve and his ability to partciipate will increase. PT Prison Goals Plastic Battery Assembler Goals PT Plastic Battery Assembler Goals Time Frame: Dec 26, 2017 Transfers (B,C,W/C) (FIM): 3 PT Plan Problem List Problem List: Activity Tolerance, Functional Strength, Safety Treatment/Plan Treatment Plan: Continue Plan of Care Treatment Plan: Bed Mobility, Education, Functional Activity [place], Functional Strength, Gait, Safety, Therapeutic Exercise, Transfers Treatment Duration: Dec 26, 2017 Frequency: 6 times per week Estimated Hrs Per Day: .5 hour per day Patient and/or Family Agrees t: Yes Safety Risks/Education Talked pt through the steps of the transfer and educated on what our plan is but do not think he understands. Time/GCodes Time In: 940 Time Out: 1005 Total Billed Treatment Time: 25 Total Billed Treatment visit FA 25 HALEY MON PT Dec 22, 2017 10:29
--- NOTE | 2017-12-22 15:50 | Occ Therapy Progress Note ---
Therapy Progress Note Pt seen in room this afternoon. He is able to mumble his name but not follow directions foe simple task of washing face. he could get a drink of water when it was handed to him but had difficulty letting go of device. Per PT notes, he is incontinent, dependant for transfers and dependant for eating. Unable to follow directions for any UE movement. No skilled needs identified at this time. Should his status change, I would be happy to reassess him. BINTA OT. JOHN DEVI OT Dec 22, 2017 15:50
[2017-12-22 16:25] VITALS: BP 155/89
[2017-12-22 23:55] VITALS: BP 159/85
[2017-12-23] MEDS: oxyCODONE/APAP 5/325MG (PERCOCET 5) TABLET PO PRN (03:59)
[2017-12-23] MEDS: SINEMET 25/100 (CARBIDOPA/LEVODOPA) TAB PO SCH ×3 (05:44→18:31)
[2017-12-23 08:00] VITALS: BP 154/98
--- NOTE | 2017-12-23 08:03 | Progress Note (SOAP) ---
Subjective Time Seen by Provider: 08:00 Subjective/Events-last exam Patient having congestion in his chest this a.m. Patient having confusion more according to his brother. Tests ordered. Objective Exam Vital Signs Date Time Temp Pulse Resp B/P (MAP) Pulse Ox O2 Delivery O2 Flow Rate FiO2 12/22/17 23:55 99.8 102 16 159/85 (109) 97 Room Air 12/22/17 20:30 Room Air 12/22/17 16:25 99.0 98 20 155/89 (111) 96 Room Air 12/22/17 09:00 95 Room Air 12/22/17 08:00 99.9 106 24 160/75 (103) 95 Room Air I & O 12/23/17 07:00 Intake Total 4075 ml Balance 4075 ml Capillary Refill : Less Than 3 SecondsLess Than 3 Seconds General Appearance: No Apparent Distress, WD/WN HEENT: Normal ENT Inspection Neck: Normal Inspection Respiratory: Other (Chest congestion) Cardiovascular: Regular Rate, Rhythm, No Murmur Gastrointestinal: non tender, soft Results Lab Microbiology 12/19/17 Blood Culture - Preliminary, Resulted No growth 12/19/17 MRSA Screen - Final, Complete Assessment/Plan Assessment/Plan Assess & Plan/Chief Complaint Left hip fracture. Dementia. Schizophrenia. Unable to get any history from patient. Patient stable. . 12/23/17. Left hip fracture. Dementia. Schizophrenia. Brother feels patient is not as lucid as before area Patient has some congestion in his chest Patient needs further evaluation Clinical Quality Measures DVT/VTE Risk/Contraindication: Risk Factor Score Per Nursin RFS Level Per Nursing on Admit: 4+=Very High YOLY FAITH DO Dec 23, 2017 08:02
[2017-12-23 08:25] LABS: BASOPHILS % (AUTO) 0 % (0-10); EOSINOPHILS # (AUTO) 0.1 10^3/uL (0.0-0.3); EOSINOPHILS % (AUTO) 1 % (0-10); HEMATOCRIT 35 % (40-54); HEMOGLOBIN 12.6 G/DL (13.3-17.7); LYMPHOCYTES # (AUTO) 0.5 X 10^3 (1.0-4.0); LYMPHOCYTES % (AUTO) 6 % (12-44); MEAN CORPUSCULAR HEMOGLOBIN 32 PG (25-34); MEAN CORPUSCULAR HGB CONC 36 G/DL (32-36); MEAN CORPUSCULAR VOLUME 89 FL (80-99); MEAN PLATELET VOLUME 10.8 FL (7.4-10.4); MONOCYTES % (AUTO) 12 % (0-12); NEUTROPHILS # (AUTO) 7.3 X 10^3 (1.8-7.8); NEUTROPHILS % (AUTO) 81 % (42-75); PLATELET COUNT 208 10^3/uL (130-400); RED BLOOD COUNT 3.97 10^6/uL (4.35-5.85); RED CELL DISTRIBUTION WIDTH 12.9 % (10.0-14.5)
[2017-12-23] MEDS: MUPIROCIN 2% OINT 22 GM (BACTROBAN) TUBE NSEACH SCH ×2 (08:36→20:19)
[2017-12-23] MEDS: risperiDONE 1 MG (RisperDAL) TAB PO SCH ×2 (08:38→20:19)
[2017-12-23] MEDS: FAMOTIDINE 20 MG (PEPCID) TABLET PO SCH (08:38)
[2017-12-23] MEDS: DIVALPROEX 500 MG DELAYED RELEASE (DEPAKOTE) TAB PO SCH ×2 (08:38→20:19)
[2017-12-23] MEDS: RIVAROXABAN 10 MG TABLET (XARELTO) PO SCH (08:38)
[2017-12-23 08:42] LABS: BUN/CREATININE RATIO 22; CALCIUM 8.8 MG/DL (8.5-10.1); CARBON DIOXIDE 23 MMOL/L (21-32); CHLORIDE 102 MMOL/L (98-107); CREATININE SERUM 0.54 MG/DL (0.60-1.30); GFR ESTIMATED > 60; GLUCOSE 108 MG/DL (70-105); SODIUM 135 MMOL/L (135-145)
[2017-12-23] MEDS ORDERED: FUROSEMIDE 40 MG/4 ML INJ (LASIX) IVP NR (09:00)
--- NOTE | 2017-12-23 09:32 | Diagnostic Imaging Report ---
INDICATION: Worsening breath sounds. COMPARISON: 12/19/2017 FINDINGS: Single frontal view of the chest demonstrates normal heart size and pulmonary vascularity. The lungs are well aerated and clear. No large pleural effusion or pneumothorax is seen. The visualized osseous structures show no acute abnormalities. IMPRESSION: 1. No acute cardiopulmonary process. Dictated by: Dictated on workstation # [id number]
--- NOTE | 2017-12-23 11:38 | Physical Therapy Daily Note ---
PT Daily Note-Current Subjective Patient is in bed and incontinent urine requiring dependent assist to change and cleanse. Pain Numeric Pain Scale: 0-No Pain Location: No Pain Reported Mental Status Patient Orientation: Confused, Mumbles, Listless Transfers Functional [place] Measure 0=Not Assessed/NA 4=Minimal Assistance 1=Total Assistance 5=Supervision or Setup 2=Maximal Assistance 6=Modified [place] 3=Moderate Assistance 7=Complete IndependenceIRFPAI Quality Coding Scale 6 Independent with activity with or without an assistive device 5 Patient requires set up or clean up by helper. Patient completes activity by themselves 4 Supervision or touching assist (CGA). [place] provide cues , steadying assist 3 The helper provides less than half the effort to complete the activity 2 The helper provides more than half the effort to complete the activity 1 Dependent. The helper does all the effort to complete an activity 7 Patient refused to complete or attempt activity 9 The patient did not perform the activity before the current illness or injury 88 Not attempted due to Medical conditions or safety concerns Transfers (B, C, W/C) (FIM): 1 Scootin Rollin Supine to/from Sit: 1 Sit to/from Stand: 1 Bed to/from Chair: 1 dependent assist with all mobility and sit to stand transfer with sit to stand lift bed to recliner. Weight Bearing Right Lower Extremity: Right Full Weight Bearing Left Lower Extremity: Left Weight Bearing/Tolerated Assessment Patient is resistive with all movement due to lethargy and confusion. Patient requires dependent assist with all and is up in recliner with needs met. PT [facility] Goals Patient Escort Goals PT Patient Escort Goals Time Frame: Dec 26, 2017 Transfers (B,C,W/C) (FIM): 3 PT Plan Treatment/Plan Treatment Plan: Continue Plan of Care Treatment Plan: Bed Mobility, Education, Functional Activity [place], Functional Strength, Gait, Safety, Therapeutic Exercise, Transfers Treatment Duration: Dec 26, 2017 Frequency: 6 times per week Estimated Hrs Per Day: .5 hour per day Patient and/or Family Agrees t: Yes Time/GCodes Time In: 1057 Time Out: 1121 Total Billed Treatment Time: 23 Total Billed Treatment 1 visit FA x 2 23 min WADE AMBROCIO PT Dec 23, 2017 11:38
[2017-12-23 16:00] VITALS: BP 146/84
[2017-12-23] MEDS ORDERED: cefTRIAXone 1 GM (ROCEPHIN) VIAL ONE (21:19)
[2017-12-23] MEDS ORDERED: D5W 100 ML IVPB 100 ML IV ONE (21:20)
[2017-12-23] MEDS: morphine INJ 4 MG/ML 1 ML (VIAL/SYRINGE) IV PRN (21:41)
[2017-12-23 22:04] LABS: BASOPHILS % (AUTO) 0 % (0-10); EOSINOPHILS # (AUTO) 0.1 10^3/uL (0.0-0.3); EOSINOPHILS % (AUTO) 1 % (0-10); HEMATOCRIT 36 % (40-54); HEMOGLOBIN 12.8 G/DL (13.3-17.7); LYMPHOCYTES # (AUTO) 0.6 X 10^3 (1.0-4.0); LYMPHOCYTES % (AUTO) 6 % (12-44); MEAN CORPUSCULAR HEMOGLOBIN 32 PG (25-34); MEAN CORPUSCULAR HGB CONC 35 G/DL (32-36); MEAN CORPUSCULAR VOLUME 90 FL (80-99); MEAN PLATELET VOLUME 10.8 FL (7.4-10.4); MONOCYTES # (AUTO) 1.4 X 10^3 (0.0-1.0); MONOCYTES % (AUTO) 15 % (0-12); NEUTROPHILS # (AUTO) 7.4 X 10^3 (1.8-7.8); NEUTROPHILS % (AUTO) 78 % (42-75); PLATELET COUNT 229 10^3/uL (130-400); RED BLOOD COUNT 4.06 10^6/uL (4.35-5.85); RED CELL DISTRIBUTION WIDTH 13.2 % (10.0-14.5); WHITE BLOOD COUNT 9.6 10^3/uL (4.3-11.0)
[2017-12-23] MEDS: NS IV 1000 ML 1,000 ML IV SCH (22:31)
[2017-12-23 22:35] LABS: BAND NEUTROPHILS 0 %; BASOPHILS % (MANUAL) 0 %; EOSINOPHILS % (MANUAL) 4 %; LYMPHOCYTES % (MANUAL) 7 %; MONOCYTES % (MANUAL) 8 %; NEUTROPHILS % (MANUAL) 81 %; RBC MORPH NORMAL
[2017-12-23 23:03] VITALS: BP 145/85
[2017-12-23 23:09] VITALS: BP 146/84
[2017-12-23] MEDS ORDERED: RT-ALBUTEROL SULF 2.5 MG/3 ML PRE-MIX VIAL INH PRN (23:30)
[2017-12-24 00:57] VITALS: BP 156/75
[2017-12-24 01:36] VITALS: BP 147/80
[2017-12-24 02:20] VITALS: BP 143/86
[2017-12-24 04:20] VITALS: BP 131/71
[2017-12-24 06:08] LABS: BASOPHILS % (AUTO) 0 % (0-10); EOSINOPHILS # (AUTO) 0.2 10^3/uL (0.0-0.3); EOSINOPHILS % (AUTO) 2 % (0-10); HEMATOCRIT 34 % (40-54); HEMOGLOBIN 11.9 G/DL (13.3-17.7); LYMPHOCYTES # (AUTO) 0.6 X 10^3 (1.0-4.0); LYMPHOCYTES % (AUTO) 7 % (12-44); MEAN CORPUSCULAR HEMOGLOBIN 32 PG (25-34); MEAN CORPUSCULAR HGB CONC 35 G/DL (32-36); MEAN CORPUSCULAR VOLUME 91 FL (80-99); MEAN PLATELET VOLUME 10.6 FL (7.4-10.4); MONOCYTES # (AUTO) 1.1 X 10^3 (0.0-1.0); MONOCYTES % (AUTO) 13 % (0-12); NEUTROPHILS # (AUTO) 6.4 X 10^3 (1.8-7.8); NEUTROPHILS % (AUTO) 78 % (42-75); PLATELET COUNT 211 10^3/uL (130-400); RED BLOOD COUNT 3.73 10^6/uL (4.35-5.85); RED CELL DISTRIBUTION WIDTH 13.1 % (10.0-14.5); WHITE BLOOD COUNT 8.2 10^3/uL (4.3-11.0)
[2017-12-24 06:26] LABS: ALANINE AMINOTRANSFERASE 21 U/L (0-55); ALBUMIN 2.6 GM/DL (3.2-4.5); ALKALINE PHOSPHATASE 46 U/L (40-136); BILIRUBIN,TOTAL 0.6 MG/DL (0.1-1.0); BUN/CREATININE RATIO 33; CALCIUM 8.4 MG/DL (8.5-10.1); CARBON DIOXIDE 24 MMOL/L (21-32); CHLORIDE 104 MMOL/L (98-107); CREATININE SERUM 0.54 MG/DL (0.60-1.30); GFR ESTIMATED > 60; GLUCOSE 103 MG/DL (70-105); POTASSIUM 4.3 MMOL/L (3.6-5.0); SODIUM 136 MMOL/L (135-145); TOTAL PROTEIN 4.8 GM/DL (6.4-8.2)
[2017-12-24] MEDS: SINEMET 25/100 (CARBIDOPA/LEVODOPA) TAB PO SCH ×3 (06:53→14:31)
[2017-12-24] MEDS: RT-ALBUTEROL SULF 2.5 MG/3 ML PRE-MIX VIAL INH SCH ×2 (07:14→19:34)
--- NOTE | 2017-12-24 07:19 | Diagnostic Imaging Report ---
INDICATION: Decreased O2 sat. Comparison with 12/23/2017. FINDINGS: Portable chest show the lungs to be well-aerated. There are no infiltrates or masses. Heart is not enlarged. There is no pulmonary edema. No hilar adenopathy. No pneumothorax or pleural effusion. IMPRESSION: Normal portable chest. Dictated by: Dictated on workstation # [id number]
[2017-12-24 08:00] VITALS: BP 152/8
--- NOTE | 2017-12-24 08:00 | Progress Note (SOAP) ---
Subjective Time Seen by Provider: 07:55 Subjective/Events-last exam Patient spiked a fever last night. Patient's pulse ox went down. Patient was gurgly in the neck and chest. X-rays and blood tests normal. Patient is morning much clearer in the chest. Patient to be evaluated today for aspiration by speech therapy Objective Exam Vital Signs Date Time Temp Pulse Resp B/P (MAP) Pulse Ox O2 Delivery O2 Flow Rate FiO2 12/24/17 07:20 98 Nasal Cannula 1.00 12/24/17 04:20 98.2 89 16 131/71 (91) 97 Nasal Cannula 2.00 12/24/17 02:20 98.0 97 16 143/86 (105) 97 Nasal Cannula 2.00 12/24/17 01:36 98.1 82 18 147/80 (102) 96 Nasal Cannula 2.00 12/24/17 00:57 97.6 75 17 156/75 (102) 97 Nasal Cannula 2.00 12/23/17 23:21 98 Nasal Cannula 1.00 12/23/17 23:09 101 98 12/23/17 23:03 99.7 103 22 145/85 (105) 97 Nasal Cannula 2.00 12/23/17 22:42 99.8 12/23/17 21:30 100.3 12/23/17 21:00 93 Room Air 12/23/17 20:35 101.5 12/23/17 16:00 99.0 101 17 146/84 (104) 96 Room Air 12/23/17 09:00 93 Room Air 12/23/17 08:00 98.2 101 20 154/98 (116) 93 Room Air I & O 12/24/17 07:00 Intake Total 1112 ml Balance 1112 ml Capillary Refill : Less Than 3 SecondsLess Than 3 Seconds General Appearance: No Apparent Distress, WD/WN HEENT: Normal ENT Inspection Neck: Normal Inspection Respiratory: Lungs Clear, Normal Breath Sounds, No Accessory Muscle Use, No Respiratory Distress Cardiovascular: Regular Rate, Rhythm, No Murmur Gastrointestinal: non tender, soft Results Lab Laboratory Tests 12/23/17 08:17 12/23/17 21:48 12/24/17 06:00 Laboratory Tests 12/23/17 08:17: White Blood Count 9.0, Red Blood Count 3.97L, Hemoglobin 12.6L, Hematocrit 35L, Mean Corpuscular Volume 89, Mean Corpuscular Hemoglobin 32, Mean Corpuscular Hemoglobin Concent 36, Red Cell Distribution Width 12.9, Platelet Count 208, Mean Platelet Volume 10.8H, Neutrophils (%) (Auto) 81H, Lymphocytes (%) (Auto) 6L, Monocytes (%) (Auto) 12, Eosinophils (%) (Auto) 1, Basophils (%) (Auto) 0, Neutrophils # (Auto) 7.3, Lymphocytes # (Auto) 0.5L, Monocytes # (Auto) 1.0, Eosinophils # (Auto) 0.1, Basophils # (Auto) 0.0, Sodium Level 135, Potassium Level 4.0, Chloride Level 102, Carbon Dioxide Level 23, Anion Gap 10, Blood Urea Nitrogen 12, Creatinine 0.54L, Estimat Glomerular Filtration Rate > 60, BUN /Creatinine Ratio 22, Glucose Level 108H, Calcium Level 8.8, B-Type Natriuretic Peptide 30.2, Valproic Acid (Depakene) Level 60.7 12/23/17 21:48: White Blood Count 9.6, Red Blood Count 4.06L, Hemoglobin 12.8L, Hematocrit 36L, Mean Corpuscular Volume 90, Mean Corpuscular Hemoglobin 32, Mean Corpuscular Hemoglobin Concent 35, Red Cell Distribution Width 13.2, Platelet Count 229, Mean Platelet Volume 10.8H, Neutrophils (%) (Auto) 78H, Lymphocytes (%) (Auto) 6L, Monocytes (%) (Auto) 15H, Eosinophils (%) (Auto) 1, Basophils (%) (Auto) 0, Neutrophils # (Auto) 7.4, Lymphocytes # (Auto) 0.6L, Monocytes # (Auto) 1.4H, Eosinophils # (Auto) 0.1, Basophils # (Auto) 0.0, Neutrophils % (Manual) 81, Lymphocytes % (Manual) 7, Monocytes % (Manual) 8, Eosinophils % (Manual) 4, Basophils % (Manual) 0, Band Neutrophils 0, Blood Morphology Comment NORMAL, Lactic Acid Level 1.23 12/24/17 06:00: White Blood Count 8.2, Red Blood Count 3.73L, Hemoglobin 11.9L, Hematocrit 34L, Mean Corpuscular Volume 91, Mean Corpuscular Hemoglobin 32, Mean Corpuscular Hemoglobin Concent 35, Red Cell Distribution Width 13.1, Platelet Count 211, Mean Platelet Volume 10.6H, Neutrophils (%) (Auto) 78H, Lymphocytes (%) (Auto) 7L, Monocytes (%) (Auto) 13H, Eosinophils (%) (Auto) 2, Basophils (%) (Auto) 0, Neutrophils # (Auto) 6.4, Lymphocytes # (Auto) 0.6L, Monocytes # (Auto) 1.1H, Eosinophils # (Auto) 0.2, Basophils # (Auto) 0.0, Sodium Level 136, Potassium Level 4.3, Chloride Level 104, Carbon Dioxide Level 24, Anion Gap 8, Blood Urea Nitrogen 18, Creatinine 0.54L, Estimat Glomerular Filtration Rate > 60, BUN/ Creatinine Ratio 33, Glucose Level 103, Calcium Level 8.4L, Total Bilirubin 0.6 , Aspartate Amino Transf (AST/SGOT) 28, Alanine Aminotransferase (ALT/SGPT) 21, Alkaline Phosphatase 46, Total Protein 4.8L, Albumin 2.6L Microbiology 12/19/17 Blood Culture - Preliminary, Resulted No growth 12/19/17 MRSA Screen - Final, Complete Assessment/Plan Assessment/Plan Assess & Plan/Chief Complaint Left hip fracture. Dementia. Schizophrenia. Unable to get any history from patient. Patient stable. . 12/23/17. Left hip fracture. Dementia. Schizophrenia. Brother feels patient is not as lucid as before area Patient has some congestion in his chest Patient needs further evaluation. . 12/24/17. Left hip fracture. Dementia. Schizophrenia. Patient running an elevated temperature last night and pulse ox lower. Patient needs speech therapy for aspiration. Patient this morning sounds better than yesterday and looks better Clinical Quality Measures DVT/VTE Risk/Contraindication: Risk Factor Score Per Nursin RFS Level Per Nursing on Admit: 4+=Very High YOLY FAITH DO Dec 24, 2017 08:00
[2017-12-24] MEDS: RIVAROXABAN 10 MG TABLET (XARELTO) PO SCH (08:27)
[2017-12-24] MEDS: MUPIROCIN 2% OINT 22 GM (BACTROBAN) TUBE NSEACH SCH ×2 (08:27→22:28)
[2017-12-24] MEDS: FAMOTIDINE 20 MG (PEPCID) TABLET PO SCH (08:27)
[2017-12-24] MEDS: risperiDONE 1 MG (RisperDAL) TAB PO SCH ×2 (08:27→22:29)
[2017-12-24] MEDS: DIVALPROEX 500 MG DELAYED RELEASE (DEPAKOTE) TAB PO SCH ×2 (08:41→22:28)
[2017-12-24] MEDS: oxyCODONE/APAP 5/325MG (PERCOCET 5) TABLET PO PRN ×2 (09:33→14:32)
--- NOTE | 2017-12-24 10:02 | Physical Therapy Daily Note ---
PT Daily Note-Current Subjective Pt sitting up in bed upon arrival. Pt very lethargic and nonverbal for TECHNICIAN when asking for tx. Pt still running temp. presently. Pain Location: No Pain Reported Mental Status Patient Orientation: Person, Unresponsive Transfers Functional [place] Measure 0=Not Assessed/NA 4=Minimal Assistance 1=Total Assistance 5=Supervision or Setup 2=Maximal Assistance 6=Modified [place] 3=Moderate Assistance 7=Complete IndependenceIRFPAI Quality Coding Scale 6 Independent with activity with or without an assistive device 5 Patient requires set up or clean up by helper. Patient completes activity by themselves 4 Supervision or touching assist (CGA). [place] provide cues , steadying assist 3 The helper provides less than half the effort to complete the activity 2 The helper provides more than half the effort to complete the activity 1 Dependent. The helper does all the effort to complete an activity 7 Patient refused to complete or attempt activity 9 The patient did not perform the activity before the current illness or injury 88 Not attempted due to Medical conditions or safety concerns Weight Bearing Right Lower Extremity: Right Full Weight Bearing Left Lower Extremity: Left Weight Bearing/Tolerated Exercises Supine Ex: Ankle pumps, Quad Set, Heel Slides, Straight leg raise, Hip abd/add Supine Reps: 15 Treatments Pt is very lethargic and unresponsive during most of tx. TECHNICIAN completes Supine Ex in bed at [facility]. Pt rests in bed at end of tx with all needs met. Assessment Current Status: Fair Progress Pt is very lethargic and doesn't assist much with EX. PT Dish Washer Goals [facility] Goals PT [facility] Goals Time Frame: Dec 26, 2017 Transfers (B,C,W/C) (FIM): 3 PT Plan Problem List Problem List: Activity Tolerance, Functional Strength, Safety, Balance, Gait, Transfer, Bed Mobility, ROM Treatment/Plan Treatment Plan: Continue Plan of Care Treatment Plan: Bed Mobility, Education, Functional Activity [place], Functional Strength, Gait, Safety, Therapeutic Exercise, Transfers Treatment Duration: Dec 26, 2017 Frequency: 6 times per week Estimated Hrs Per Day: .5 hour per day Patient and/or Family Agrees t: Yes Safety Risks/Education Patient Education: Correct Positioning, Safety Issues Teaching Recipient: Patient Teaching Methods: Discussion Response to Teaching: Reinforcement Needed Time/GCodes Time In: 916 Time Out: 936 Total Billed Treatment Time: 20 Total Billed Treatment 1, EX (20m) CAYDEN MARIA TECHNICIAN Dec 24, 2017 10:02
--- NOTE | 2017-12-24 10:13 | ST Dysphagia Evaluation ---
Speech Evaluation-General Medical Diagnosis left hip fracture Onset Date: Dec 20, 2017 Therapy Diagnosis Therapy Diagnosis: Mild Oral Dysphagia Precautions Precautions: Aspiration Precautions/Isolations: Fall Prevention Referral Referring Physician: Dr. Marko Logan Reason for Referral: Evaluation/Treatment Clinical Bedside Swallowing Evaluation Medical History Pertinent Medical History: Dementia Schizophrenia Current History The patient was recently admitted with a left hip fracture. Throughout the evening, the patient demonstrated increased congestion, "gurgly" throat sounds, and a spiked fever. Due to this, the physician requested a clinical bedside swallowing evaluation to evaluate for possible aspiration. Reviewed History: Yes Speech PLF/Current-Dysphagia Prior Level of Function The patient was unable to provide prior level of function information to the clinician. Subjective The patient was seated upright in bed upon entrance. The patient kept his eyes shut throughout the evaluation, however, did mumble and attempt conversation with the clinician. The patient did not open eyes regardless of maximum prompting. 12/23/2017: Normal portable chest. Cognitive Status The patient did not respond to orientation questions. Oral Motor Skills Dentition: Natural (Sparse, poor condition.) Current Food Consistancy: Regular, Thin Liquids Ability to Follow Directions: Poor Oral Expression Ability: Severe Impairment Voice Voice Phonatory-Based Quality: Normal Voice Pitch: Normal Voice Loudness: Normal Face Facial Symmetry: Symmetrical The patient did not follow prompts for completion of the oral mechanism examination. Due to this, the patient's oral lingual strength and range of motion were evaluated informally throughout the session. Oral-Facial Assessment Oral-Facial Dentition: Normal Labial Seal Description: Normal Volitional Dry Swallow: Yes Dysphagia Evaluation Consistencies Presented: Regular, Thin Liquid, Pureed Oral Phase: Absent Oral Transit (Solid), Reduced Oral Transit (Solid) The patient was unable to masticate the cracker and allowed the cracker to fall anteriorly from the mouth. - No pharyngeal impairments were noted throughout the evaluation. - Thin Liquid (straw, teaspoon), Puree, Solid: No signs/symptoms of aspiration were demonstrated with multiple boluses of thin liquid (via teaspoon or straw drink), puree, or solid consistencies tested. Dietary Recommendations: Mechanical Soft (Due to reduced mastication ability.) Liquid Recommendations: Thin Crush medication and place in puree for administration. Swallowing Precautions: Small Bites and Sips, Sitting 90 Degrees 30 Post Intake Dysphagia Evaluation Summary The patient demonstrated mild oral dysphagia characterized by reduced mastication of solid consistencies. Barriers to Learning Cognition Speech-Plan Treatment Plan Speech Therapy Treatment Plan: Discontinue ST Evaluation, only. Frequency: 1 time per week Estimated Hrs Per Day: Other Rehab Potential: Fair Safety Risks/Education Teaching Recipient: Patient (Patient's RN) Teaching Methods: Discussion Response to Teaching: Unable to Comprehend Education Topics Provided: Results, Recommendations, Plan of Care, Signs/Symptoms of Aspiration Time Speech Therapy Time In: 08:55 Speech Therapy Time Out: 09:10 Total Billed Time: 15 Billed Treatment Time 1GIFTY ELIZABETH ST Dec 24, 2017 10:13
[2017-12-24] MEDS ORDERED: DIVA500T7 PO ×2 (14:18)
[2017-12-24] MEDS: NS IV 1000 ML 1,000 ML IV SCH (15:00)
[2017-12-24 16:32] VITALS: BP 112/63
[2017-12-24] MEDS ORDERED: cefTRIAXone INJECTION 1,000 MG in NS (IVPB) 50 ML IV SCH (21:00)
[2017-12-25] VITALS: BP 130/69
[2017-12-25] MEDS: SINEMET 25/100 (CARBIDOPA/LEVODOPA) TAB PO SCH ×2 (06:17→12:53)
[2017-12-25 06:22] LABS: BASOPHILS % (AUTO) 0 % (0-10); EOSINOPHILS # (AUTO) 0.2 10^3/uL (0.0-0.3); EOSINOPHILS % (AUTO) 3 % (0-10); HEMATOCRIT 34 % (40-54); HEMOGLOBIN 11.6 G/DL (13.3-17.7); LYMPHOCYTES # (AUTO) 0.7 X 10^3 (1.0-4.0); LYMPHOCYTES % (AUTO) 10 % (12-44); MEAN CORPUSCULAR HEMOGLOBIN 32 PG (25-34); MEAN CORPUSCULAR HGB CONC 34 G/DL (32-36); MEAN CORPUSCULAR VOLUME 92 FL (80-99); MEAN PLATELET VOLUME 10.8 FL (7.4-10.4); MONOCYTES # (AUTO) 1.1 X 10^3 (0.0-1.0); MONOCYTES % (AUTO) 16 % (0-12); NEUTROPHILS # (AUTO) 4.8 X 10^3 (1.8-7.8); NEUTROPHILS % (AUTO) 71 % (42-75); PLATELET COUNT 281 10^3/uL (130-400); RED BLOOD COUNT 3.68 10^6/uL (4.35-5.85); RED CELL DISTRIBUTION WIDTH 13.5 % (10.0-14.5); WHITE BLOOD COUNT 6.7 10^3/uL (4.3-11.0)
[2017-12-25] MEDS: RT-ALBUTEROL SULF 2.5 MG/3 ML PRE-MIX VIAL INH SCH (06:52)
[2017-12-25 07:02] LABS: BUN/CREATININE RATIO 38; CALCIUM 8.7 MG/DL (8.5-10.1); CARBON DIOXIDE 22 MMOL/L (21-32); CHLORIDE 105 MMOL/L (98-107); CREATININE SERUM 0.56 MG/DL (0.60-1.30); GFR ESTIMATED > 60; GLUCOSE 107 MG/DL (70-105); POTASSIUM 4.3 MMOL/L (3.6-5.0); SODIUM 139 MMOL/L (135-145)
--- NOTE | 2017-12-25 07:12 | Progress Note-Standard ---
Standard Progress Note Progress Notes/Assess & Plan Date Seen by Provider: Dec 25, 2017 Time Seen by Provider: 07:09 Progress/Assessment & Plan Pt DEWAYNE, appears at baseline MS, barely participates in exam, appears stable. VSSAF LLE: incision left hip c/d/i; all compartments soft/NT, motor/sensation grossly intact, foot well perfused. S/P Bipolar Hemiarthroplasty Left Hip, POD #5 Orthopedically stable Continue to mobilize OOB with PT/OT daily, anterior hip precautions as able, WBAT LLE Xarelto for 3 weeks for VTE prophylaxis Current pain control regimen Follow-up outpatient in 2 weeks. NYASIA MATIAS DO Dec 25, 2017 07:12
[2017-12-25 08:00] VITALS: BP 129/70
--- NOTE | 2017-12-25 08:06 | Progress Note (SOAP) ---
Subjective Time Seen by Provider: 08:05 Subjective/Events-last exam Left hip fracture. Patient resting comfortably. Patient to be discharged today Objective Exam Vital Signs Date Time Temp Pulse Resp B/P (MAP) Pulse Ox O2 Delivery O2 Flow Rate FiO2 12/25/17 06:50 Room Air 12/25/17 00:00 98.9 92 20 130/69 (89) 94 Room Air 12/24/17 20:00 94 Room Air 1.00 12/24/17 19:34 96 Room Air 12/24/17 16:32 98.2 102 16 112/63 (79) 93 Room Air 12/24/17 09:00 95 Nasal Cannula 1.00 I & O 12/25/17 07:00 Intake Total 880 ml Balance 880 ml Capillary Refill : Less Than 3 SecondsLess Than 3 Seconds General Appearance: No Apparent Distress, WD/WN Results Lab Laboratory Tests 12/25/17 05:25 Laboratory Tests 12/25/17 05:25: White Blood Count 6.7, Red Blood Count 3.68L, Hemoglobin 11.6L, Hematocrit 34L, Mean Corpuscular Volume 92, Mean Corpuscular Hemoglobin 32, Mean Corpuscular Hemoglobin Concent 34, Red Cell Distribution Width 13.5, Platelet Count 281, Mean Platelet Volume 10.8H, Neutrophils (%) (Auto) 71, Lymphocytes (%) (Auto) 10L, Monocytes (%) (Auto) 16H, Eosinophils (%) (Auto) 3, Basophils (%) (Auto) 0 , Neutrophils # (Auto) 4.8, Lymphocytes # (Auto) 0.7L, Monocytes # (Auto) 1.1H, Eosinophils # (Auto) 0.2, Basophils # (Auto) 0.0, Sodium Level 139, Potassium Level 4.3, Chloride Level 105, Carbon Dioxide Level 22, Anion Gap 12, Blood Urea Nitrogen 21H, Creatinine 0.56L, Estimat Glomerular Filtration Rate > 60, BUN/Creatinine Ratio 38, Glucose Level 107H, Calcium Level 8.7 Microbiology 12/23/17 Blood Culture - Preliminary, Resulted No growth 12/19/17 MRSA Screen - Final, Complete Assessment/Plan Assessment/Plan Assess & Plan/Chief Complaint Left hip fracture. Dementia. Schizophrenia. Unable to get any history from patient. Patient stable. . 12/23/17. Left hip fracture. Dementia. Schizophrenia. Brother feels patient is not as lucid as before area Patient has some congestion in his chest Patient needs further evaluation. . 12/24/17. Left hip fracture. Dementia. Schizophrenia. Patient running an elevated temperature last night and pulse ox lower. Patient needs speech therapy for aspiration. Patient this morning sounds better than yesterday and looks better. . 12/25/17. Left hip fracture. Dementia. Schizophrenic. Patient resting comfortably. Patient be discharged today area Patient to be 3 weeks on blood thinners Clinical Quality Measures DVT/VTE Risk/Contraindication: Risk Factor Score Per Nursin RFS Level Per Nursing on Admit: 4+=Very High YOLY FAITH DO Dec 25, 2017 08:06
[2017-12-25] MEDS: risperiDONE 1 MG (RisperDAL) TAB PO SCH (09:04)
[2017-12-25] MEDS: MUPIROCIN 2% OINT 22 GM (BACTROBAN) TUBE NSEACH SCH (09:07)
[2017-12-25] MEDS: FAMOTIDINE 20 MG (PEPCID) TABLET PO SCH (09:07)
[2017-12-25] MEDS: RIVAROXABAN 10 MG TABLET (XARELTO) PO SCH (09:07)
[2017-12-25] MEDS: DIVALPROEX 500 MG DELAYED RELEASE (DEPAKOTE) TAB PO SCH (09:07)
[2017-12-25] MEDS: NS IV 1000 ML 1,000 ML IV SCH (09:08)
[2017-12-25] MEDS ORDERED: RIVA10TA PO (09:38)
--- NOTE | 2017-12-25 11:03 | Physical Therapy Daily Note ---
PT Daily Note-Current Subjective Pt sitting up in bed but is slumped toward R side upon arrival. Aide asked for MOLD YARN SUPERVISOR assist to transfer to EOB to clean up. Mental Status Patient Orientation: Person, Mumbles Transfers Functional [place] Measure 0=Not Assessed/NA 4=Minimal Assistance 1=Total Assistance 5=Supervision or Setup 2=Maximal Assistance 6=Modified [place] 3=Moderate Assistance 7=Complete IndependenceIRFPAI Quality Coding Scale 6 Independent with activity with or without an assistive device 5 Patient requires set up or clean up by helper. Patient completes activity by themselves 4 Supervision or touching assist (CGA). [place] provide cues , steadying assist 3 The helper provides less than half the effort to complete the activity 2 The helper provides more than half the effort to complete the activity 1 Dependent. The helper does all the effort to complete an activity 7 Patient refused to complete or attempt activity 9 The patient did not perform the activity before the current illness or injury 88 Not attempted due to Medical conditions or safety concerns Scootin Rollin Supine to/from Sit: 1 Sit to/from Stand: 1 Bed to/from Chair: 1 Weight Bearing Right Lower Extremity: Right Full Weight Bearing Left Lower Extremity: Left Weight Bearing/Tolerated Treatments MOLD YARN SUPERVISOR & Aide assist pt at Max A from Supine to EOB to wipe down & change gown before using Sit to Stand lift to transfer to recliner. Pt positioned & recliner in recliner at end of transfer with all needs met. Assessment Current Status: Poor Progress Pt fought/pushed back against transferring from supine to EOB and sitting at EOB. MOLD YARN SUPERVISOR sees this as both weakness and behavioral. PT Retirement Goals Plant Floor Automation Manager Goals PT Retirement Goals Time Frame: Dec 26, 2017 Transfers (B,C,W/C) (FIM): 3 PT Plan Problem List Problem List: Activity Tolerance, Functional Strength, Safety, Balance, Gait, Transfer, Bed Mobility, ROM Treatment/Plan Treatment Plan: Continue Plan of Care Treatment Plan: Bed Mobility, Education, Functional Activity [place], Functional Strength, Gait, Safety, Therapeutic Exercise, Transfers Treatment Duration: Dec 26, 2017 Frequency: 6 times per week Estimated Hrs Per Day: .5 hour per day Patient and/or Family Agrees t: Yes Safety Risks/Education Patient Education: Correct Positioning, Safety Issues Teaching Recipient: Patient Teaching Methods: Discussion Response to Teaching: Reinforcement Needed Time/GCodes Time In: 940 Time Out: 1000 Total Billed Treatment Time: 20 Total Billed Treatment 1, FA (20m) CAYDEN MARIA MOLD YARN SUPERVISOR Dec 25, 2017 11:03
== END 2017-12-25 16:40 | DRG 470 ==
LOC: EDUNIT# 15:18 → ER 15:19 → 4TH 20:41
PROVIDERS: ADMIT Internal Medicine; ATTEND Family Medicine
PROC: 0SRB0JA Replacement of Left Hip Joint with Synthetic Substitute, Uncemented, Open Approach (ICD-10-PCS; principal; 2017-12-21)
DX: S72.012A Unspecified intracapsular fracture of left femur, initial encounter for closed fracture (principal); F31.9 Bipolar disorder, unspecified; F41.9 Anxiety disorder, unspecified; F03.90 Unspecified dementia, unspecified severity, without behavioral disturbance, psychotic disturbance, mood disturbance, and anxiety; G20 Parkinson's disease; R09.89 Other specified symptoms and signs involving the circulatory and respiratory systems; Z66 Do not resuscitate; W19.XXXA Unspecified fall, initial encounter; Y92.129 Unspecified place in nursing home as the place of occurrence of the external cause
CPT/HCPCS: 36415; 51702; 70450; 71045; 72125; 72170; 73501; 73502; 74019; 80048; 80053; 80164; 81000; 83605; 83735; 83880; 85007; 85014; 85018; 85025; 85027; 85610; 85730; 86141; 87040; 87070; 87081; 87205; 87804; 93005; 94640; 94664; 94760; 96361; 96365

== ENCOUNTER → 2017-12-19 | Outpatient (CLI) | payer MEDICAID ==
[~2017-12-19] MED LIST: ACET325T38 PO; CARB1TAB6 PO; DILT120T3 PO; DIVA500T15 PO; ENTA200T6 PO; PARO-49 PO; RISP0.5T21 PO; TRAZ-28 PO
--- NOTE | 2017-12-19 17:00 | Diagnostic Imaging Report ---
EXAMINATION: Left hip radiographs, two views. COMPARISON: None. HISTORY: 57-year-old male, fall. Left hip pain. FINDINGS: There is a displaced left femoral neck fracture. The primary distal fracture fragment is displaced superiorly by approximately 1.8 cm. The left hip is not dislocated. There is no pronounced joint space loss of the left hip, osteophyte formation, or subchondral cystic change. The pubic symphysis is normally aligned. There is no identified radiopaque foreign body. IMPRESSION: 1. Displaced fracture of the left femoral neck. Report was called to nurse Dee in the [facility] ER at 4:59 p.m., by carlos (for KATTY). Dictated by: Dictated on workstation # [id number]
== END ==
LOC: RAD 14:33
PROVIDERS: ATTEND Family Medicine
DX: S72.002A Fracture of unspecified part of neck of left femur, initial encounter for closed fracture (principal); W19.XXXA Unspecified fall, initial encounter
CPT/HCPCS: 73502

== ENCOUNTER → 2019-08-03 | Outpatient (CLI) | payer MEDICAID ==
[~2019-08-03] MED LIST changes: +DIVA-76 PO; +RIVA10T PO; +TRAZ-222 PO; -TRAZ-28 PO
--- NOTE | 2019-08-03 16:13 | Diagnostic Imaging Report ---
INDICATION: Cellulitis of the left elbow. COMPARISON: None. FINDINGS: Three radiographic views of the left elbow were obtained and show asymmetric soft tissue swelling posterior to the distal humerus. Underlying osseous structures appear to be intact without evidence of convincing osteolysis. There is no evidence of acute fracture or dislocation. Joint spaces are maintained. No unexpected radiopaque foreign bodies are seen. IMPRESSION: 1. Soft tissue swelling over the posterior left elbow. Correlation with underlying cellulitis is recommended. 2. No convincing evidence of an osteolytic process to suggest osteomyelitis. Please note, however, that osteomyelitis cannot be excluded based on radiographs alone. If there is concern for osteomyelitis, MRI is recommended. Dictated by: Dictated on workstation # [id number]
== END ==
LOC: RAD 14:33
PROVIDERS: ATTEND Family Medicine
DX: L03.114 Cellulitis of left upper limb (principal)
CPT/HCPCS: 73080; 87070; 87077; 87186; 87205

== ENCOUNTER 2020-07-02 16:41 | Inpatient (IN) | payer MEDICAID ==
[~2020-07-02] VITALS: Ht 180 cm; Wt 78.4 kg
[~2020-07-02 16:41] MED LIST changes: -TRAZ-222 PO; +TRZ50T PO
[2020-07-02] MEDS ORDERED: LACTATED RINGERS 1,000 ML IV ONE ×2 (16:53→20:46)
--- NOTE | 2020-07-02 17:01 | ED General ---
General Stated Complaint: COUGH/FEVER Source of Information: EMS Exam Limitations: Physical Impairments History of Present Illness Date Seen by Provider: Jul 02, 2020 Time Seen by Provider: 16:49 Initial Comments To ER by EMS from [facility] with reports of a cough and fever. There are currently no COVID cases at [facility] and he hasn't traveled and they're not allowing visitors. Patient is unable to contribute to history of present illness. PCP is Dr Faith, he is DNR status. Timing/Duration: 1-2 Days Associated Systoms: Cough Allergies and Home Medications Allergies Coded Allergies: No Known Drug Allergies (Unverified , 12/19/17) Home Medications Acetaminophen 325 Mg Tablet, 650 MG PO Q4H PRN for PAIN-MILD, (Reported) TAKES 2 (325 MG) TABLETS Carbidopa/Levodopa 1 Each Tablet, 1 TAB PO TID, (Reported) Diltiazem HCl 120 Mg Tablet, 120 MG PO DAILY, (Reported) Divalproex Sodium 500 Mg Tablet.dr, 500 MG PO HS, (Reported) Divalproex Sodium 500 Mg Tablet.dr, 1,000 MG PO DAILY, (Reported) Entacapone 200 Mg Tablet, 200 MG PO BID, (Reported) Paroxetine HCl 20 Mg Tablet, 20 MG PO DAILY, (Reported) Risperidone 0.5 Mg Tablet, 0.5 MG PO BID, (Reported) Rivaroxaban 10 Mg Tablet, 10 MG PO DAILY x 3 weeks, then stop Prescribed by: SUBHA ZAMAN on 12/25/17 0938 Trazodone HCl 50 Mg Tablet, 50 MG PO HS, (Reported) Patient Home Medication List Home Medication List Reviewed: Yes Review of Systems Review of Systems Constitutional: see HPI, other (Unable unable to obtain due to baseline dementia +/- acute delirium) Past Qornofq-Qlckdo-Ogrwqx Hx Patient Social History Recent Hopitalizations: No (unknown) Seasonal Allergies Seasonal Allergies: No Past Medical History Respiratory: No Cardiac: No Neurological: Yes Dementia, Parkinson's Disease Gastrointestinal: No Musculoskeletal: No Psychosocial: Yes (MANIPULATIVE BEHAVIORS, SEXUAL INAPROPRIATENESS) Schizophrenia Blood Disorders: No Adverse Reaction/Blood Tranf: No Family Medical History No Pertinent Family Hx Physical Exam Vital Signs Vital Signs - First Documented 07/02/20 07/02/20 07/02/20 16:45 16:57 18:20 Temp 37.3 Pulse 96 Resp 18 B/P (MAP) 120/81 (94) Pulse Ox 93 O2 Delivery Room Air O2 Flow Rate 2.00 Capillary Refill : Height, Weight, BMI Height: 5'8.00" Weight: 183lbs. 3.0oz. 83.230933jh; 27.9 BMI Method:Estimated General Appearance: No Apparent Distress, WD/WN, Other (then. Bedridden. Mumbles incoherently. Lungs are clear with good air movement except for the left base which is diminished.) Respiratory: Normal Breath Sounds, No Accessory Muscle Use, No Respiratory Distress, Other (95% on room air) Cardiovascular: Regular Rate, Rhythm, Normal Peripheral Pulses Gastrointestinal: Normal Bowel Sounds, Non Tender, Soft Extremity: Normal Capillary Refill, Normal Inspection Neurologic/Psychiatric: Alert, Other (eyes open looking around the room, does not follow commands, mumbles incoherently. ) Skin: Normal Color, Warm/Dry Focused Exam Lactate Level 07/02/20 16:54: Lactic Acid Level 1.10 Lactic Acid Level Laboratory Tests Test 07/02/20 16:54 Lactic Acid Level 1.10 MMOL/L (0.50-2.00) Progress/Results/Core Measures Suspected Sepsis SIRS Temperature: Pulse: Respiratory Rate: Laboratory Tests 07/02/20 16:54: White Blood Count 10.5 Blood Pressure / Mean: 07/02/20 16:54: Lactic Acid Level 1.10 Laboratory Tests 07/02/20 16:54: Creatinine 0.66, INR Comment 1.2, Platelet Count 456H, Total Bilirubin 0.3 Results/Orders Lab Results Laboratory Tests Test 07/02/20 16:54 07/02/20 17:22 07/02/20 20:15 Range/Units White Blood Count 10.5 4.3-11.0 10^3/uL Red Blood Count 3.90 L 4.35-5.85 10^6/uL Hemoglobin 11.8 L 13.3-17.7 G/DL Hematocrit 35 L 40-54 % Mean Corpuscular Volume 90 80-99 FL Mean Corpuscular Hemoglobin 30 25-34 PG Mean Corpuscular Hemoglobin Concent 34 32-36 G/DL Red Cell Distribution Width 13.7 10.0-14.5 % Platelet Count 456 H 130-400 10^3/uL Mean Platelet Volume 10.0 7.4-10.4 FL Neutrophils (%) (Auto) 73 42-75 % Lymphocytes (%) (Auto) 11 L 12-44 % Monocytes (%) (Auto) 14 H 0-12 % Eosinophils (%) (Auto) 3 0-10 % Basophils (%) (Auto) 0 0-10 % Neutrophils # (Auto) 7.7 1.8-7.8 X 10^3 Lymphocytes # (Auto) 1.1 1.0-4.0 X 10^3 Monocytes # (Auto) 1.5 H 0.0-1.0 X 10^3 Eosinophils # (Auto) 0.3 0.0-0.3 10^3/uL Basophils # (Auto) 0.0 0.0-0.1 10^3/uL Prothrombin Time 15.2 H 12.2-14.7 SEC INR Comment 1.2 0.8-1.4 Activated Partial Thromboplast Time 39 H 24-35 SEC Sodium Level 137 135-145 MMOL/L Potassium Level 4.5 3.6-5.0 MMOL/L Chloride Level 104 98-107 MMOL/L Carbon Dioxide Level 22 21-32 MMOL/L Anion Gap 11 5-14 MMOL/L Blood Urea Nitrogen 18 7-18 MG/DL Creatinine 0.66 0.60-1.30 MG/DL Estimat Glomerular Filtration Rate > 60 BUN/Creatinine Ratio 27 Glucose Level 123 H 70-105 MG/DL Lactic Acid Level 1.10 0.50-2.00 MMOL/L Calcium Level 8.8 8.5-10.1 MG/DL Corrected Calcium 9.5 8.5-10.1 MG/DL Total Bilirubin 0.3 0.1-1.0 MG/DL Aspartate Amino Transf (AST/SGOT) 34 5-34 U/L Alanine Aminotransferase (ALT/SGPT) 24 0-55 U/L Alkaline Phosphatase 141 H 40-136 U/L Lactate Dehydrogenase 367 H 125-220 U/L B-Type Natriuretic Peptide 18.4 <100.0 PG/ML Total Protein 6.9 6.4-8.2 GM/DL Albumin 3.1 L 3.2-4.5 GM/DL Procalcitonin 0.05 <0.10 NG/ML Urine Color ORANGE Urine Clarity CLEAR Urine pH 6.5 5-9 Urine Specific [place] 1.020 1.016-1.022 Urine Protein TRACE H NEGATIVE Urine Glucose (UA) NEGATIVE NEGATIVE Urine Ketones TRACE H NEGATIVE Urine Nitrite NEGATIVE NEGATIVE Urine Bilirubin NEGATIVE NEGATIVE Urine Urobilinogen 4.0 < = 1.0 MG/DL Urine Leukocyte Esterase NEGATIVE NEGATIVE Urine RBC (Auto) NEGATIVE NEGATIVE Urine RBC NONE /HPF Urine WBC RARE /HPF Urine Squamous Epithelial Cells NONE /HPF Urine Crystals NONE /LPF Urine Bacteria NEGATIVE /HPF Urine Casts NONE /LPF Urine Mucus SMALL H /LPF Urine Culture Indicated CULTURE PENDING My Orders Orders - GYPSY DUNLAP DONOR SUPPORT TECHNICIAN Cbc With Automated Diff (07/02/20 16:53) Comprehensive Metabolic Panel (07/02/20 16:53) Blood Culture (07/02/20 16:53) Sputum Culture (07/02/20 16:53) Urinalysis (07/02/20 16:53) Urine Culture (07/02/20 16:53) Protime With Inr (07/02/20 16:53) Partial Thromboplastin Time (07/02/20 16:53) Chest 1 View, Ap/Pa Only (07/02/20 16:53) Ed Iv/Invasive Line Start (07/02/20 16:53) Ed Iv/Invasive Line Start (07/02/20 16:53) Vital Signs Adult Sepsis Patie Q15M (07/02/20 16:53) O2 (07/02/20 16:53) Remove Rings In Anticipation O (07/02/20 16:53) Lactic Acid Analyzer (07/02/20 16:53) Lactated Ringers (Lr 1000 Ml Iv Solution (07/02/20 16:53) Coronavirus Sars-Cov-2 So 2019 (07/02/20 17:09) Procalcitonin (Pct) (07/02/20 17:56) Ct Angio Chest W (07/02/20 17:59) Fentanyl Injection (Sublimaze Injection (07/02/20 18:15) Iohexol Injection (Omnipaque 350 Mg/Ml 1 (07/02/20 18:15) Received Contrast (Hold Metformin- Contr (07/02/20 18:15) Ns (Ivpb) (Sodium Chloride 0.9% Ivpb Bag (07/02/20 18:15) Ceftriaxone For Iv Use (Rocephin For I (07/02/20 18:45) Fentanyl Injection (Sublimaze Injection (07/02/20 19:00) Lidocaine/Epi 2% 1:100,000 (Xylocaine/Ep (07/02/20 19:00) Cefepime Injection (Maxipime Injection) (07/02/20 19:00) Body Fluid Ph (07/02/20 19:12) Body Fluid Culture (07/02/20 19:12) Body Fluid Cell Count (07/02/20 19:12) Body Fluid Collection (07/02/20 19:12) Ldh,Body Fluid (07/02/20 19:12) Total Protein,Body Fluid (07/02/20 19:12) Glucose,Body Fluid (07/02/20 19:12) BNP (07/02/20 19:12) LDH (07/02/20 19:12) Lorazepam Injection (Ativan Injection) (07/02/20 19:45) Chest 1 View, Ap/Pa Only (07/02/20 20:25) Medications Given in ED Current Medications Medications Dose Ordered Sig/Ivelisse Route Start Time Stop Time Status Last Admin Dose Admin Fentanyl Citrate 25 mcg ONCE PRN IVP 07/02/20 18:15 07/02/20 18:18 25 MCG Iohexol 100 ml ONCE ONCE IV 07/02/20 18:15 07/02/20 18:16 DC 07/02/20 18:39 74 ML Lactated Ringer's 1,000 ml @ 0 mls/hr Q0M ONCE IV 07/02/20 16:53 07/02/20 16:54 DC 07/02/20 17:14 0 MLS/HR Sodium Chloride 100 ml ONCE ONCE IV 07/02/20 18:15 07/02/20 18:16 DC 07/02/20 18:39 80 ML Vital Signs/I&O 07/02/20 07/02/20 07/02/20 16:45 16:57 18:20 Temp 37.3 Pulse 96 Resp 18 B/P (MAP) 120/81 (94) Pulse Ox 93 98 O2 Delivery Room Air Room Air Nasal Cannula O2 Flow Rate 2.00 Capillary Refill : Diagnostic Imaging Diagonstic Imaging: CT Comments NAME: DORIAN VIDAL [facility] REC#: [id number] PT STATUS: REG ER : 1960 PHYSICIAN: GYPSY DUNLAP DONOR SUPPORT TECHNICIAN ADMIT DATE: 07/02/20/ER Draft Date of Exam:07/02/20 CT ANGIO CHEST W Clinical indication: Patient presents to ED via EMS for fever, cough and generalized weakness. Exam: CT angiogram of the chest performed with 74 cc Omnipaque 350 IV contrast. Coronal and oblique MIP images of the vasculature were created to better evaluate anatomy. Auto Exposure Controls were utilized during the CT exam to meet ALARA standards for radiation dose reduction. Comparison: Chest x-ray dated 07/02/2020. Chest x-ray dated 12/23/2017. Findings: There is a large left pleural effusion with significant compressive atelectasis involving the left lung. All of the left lower lobe, middle lobe and a significant portion of the left upper lobe is atelectatic and consolidated. There is associated left right midline shift of the mediastinal structures due to this pleural effusion. There is minimal high density layering in the costophrenic angle region posteriorly and anteriorly. There is no nodular pleural mass seen. There is no gross lung parenchymal mass, mediastinal mass or hilar mass seen. There is no significant axillary or mediastinal lymphadenopathy. There is atelectasis involving the middle lobe and right lower lobe region. There is minimal atelectasis/consolidation involving the posterior aspect of the right lower lobe. There is no right pleural effusion. There is no pneumothorax. There is no thoracic aortic aneurysm or dissection. There is dense contrast bolus within the superior vena cava which causes streak artifact obscuring portions of the aortic arch and pulmonary vasculature and mediastinal structures. There is also breathing motion artifact limiting evaluation. The left and right main pulmonary arteries are patent with no evidence of pulmonary embolism. There is no gross evidence of pulmonary embolism involving the proximal left segmental and subsegmental pulmonary arteries. The left pulmonary arteries are limited regarding evaluation due to atelectasis. There is significant motion and streak artifact obscuring the right pulmonary arteries making evaluation of the right pulmonary arteries distal to the right main pulmonary artery uninterpretable. Partially visualized 11 mm cyst involving the midportion of the left kidney. Otherwise visualized upper abdominal structures are unremarkable. There are degenerative spurs involving the thoracic spine. Impression: 1: There is a large left pleural effusion which causes left to right mediastinal shift. There is a small amount of high density material layering in the costophrenic angle regions anteriorly and posteriorly. There is no measurable pleural mass seen. Thoracentesis with fluid analysis would better evaluate. 2: There is no lung mass, mediastinal mass, or lymphadenopathy seen on this exam. 3: There is near complete atelectasis/collapse of the left lung with sparing of some of the left upper lobe. 4: There is no definite evidence of pulmonary embolism seen on this exam. Of note, this exam is greatly limited due to motion/breathing artifact and atelectasis in the left lung, as described above. Dictated on workstation # [id number] Dict: 07/02/201849 Trans: 07/02/201914 [facility] [id number] Interpreted by: ELVIN RICCI MD Electronically signed by: Departure Communication (Admissions) Time/Spoke to Admitting Phy: 19:[address] Langston, we'll admit. I spoke with Dr. Conner, he'll be down to do thoracentesis at the bedside. I did obtain phone consent from the patient's sister Haydee Templeton. Attempted to contact brother Ebenezer and brother Yaw but no answer. 2026-Dr Conner here, has done left thoracentesis, 2500ml dark tea colored pleural fluid obtained. Impression Primary Impression: Pleural effusion, left Disposition: ADMITTED INPATIENT Condition: Stable Admissions Decision to Admit Reason: Admit from ER (General) Decision to Admit/Date: Jul 02, 2020 Time/Decision to Admit Time: 19:08 Departure-Patient Inst. Referrals: YOLY FAITH DO (PCP) Primary Care Physician GYPSY DUNLAP APRN Jul 02, 2020 17:01
[2020-07-02 17:05] LABS: BASOPHILS % (AUTO) 0 % (0-10); EOSINOPHILS # (AUTO) 0.3 10^3/uL (0.0-0.3); EOSINOPHILS % (AUTO) 3 % (0-10); HEMATOCRIT 35 % (40-54); HEMOGLOBIN 11.8 G/DL (13.3-17.7); LYMPHOCYTES # (AUTO) 1.1 X 10^3 (1.0-4.0); LYMPHOCYTES % (AUTO) 11 % (12-44); MEAN CORPUSCULAR HEMOGLOBIN 30 PG (25-34); MEAN CORPUSCULAR HGB CONC 34 G/DL (32-36); MEAN CORPUSCULAR VOLUME 90 FL (80-99); MONOCYTES # (AUTO) 1.5 X 10^3 (0.0-1.0); MONOCYTES % (AUTO) 14 % (0-12); NEUTROPHILS # (AUTO) 7.7 X 10^3 (1.8-7.8); NEUTROPHILS % (AUTO) 73 % (42-75); PLATELET COUNT 456 10^3/uL (130-400); RED CELL DISTRIBUTION WIDTH 13.7 % (10.0-14.5); WHITE BLOOD COUNT 10.5 10^3/uL (4.3-11.0)
[2020-07-02 17:15] LABS: INR 1.2 (0.8-1.4); PROTHROMBIN TIME PATIENT 15.2 SEC (12.2-14.7)
[2020-07-02 17:22] LABS: ALANINE AMINOTRANSFERASE 24 U/L (0-55); ALBUMIN 3.1 GM/DL (3.2-4.5); ALKALINE PHOSPHATASE 141 U/L (40-136); BILIRUBIN,TOTAL 0.3 MG/DL (0.1-1.0); BUN/CREATININE RATIO 27; CALCIUM 8.8 MG/DL (8.5-10.1); CARBON DIOXIDE 22 MMOL/L (21-32); CHLORIDE 104 MMOL/L (98-107); CREATININE SERUM 0.66 MG/DL (0.60-1.30); GFR ESTIMATED > 60; GLUCOSE 123 MG/DL (70-105); POTASSIUM 4.5 MMOL/L (3.6-5.0); SODIUM 137 MMOL/L (135-145); TOTAL PROTEIN 6.9 GM/DL (6.4-8.2)
[2020-07-02 17:28] LABS: BILIRUBIN,URINE NEGATIVE (NEGATIVE); CLARITY,URINE CLEAR; COLOR,URINE ORANGE; GLUCOSE, URINE (UA) NEGATIVE (NEGATIVE); KETONES,URINE TRACE (NEGATIVE); LEUKOCYTE ESTERASE ,URINE NEGATIVE (NEGATIVE); NITRITE,URINE NEGATIVE (NEGATIVE); PH,URINE 6.5 (5-9); PROTEIN,URINE TRACE (NEGATIVE)
[2020-07-02 17:40] LABS: BACTERIA,URINE NEGATIVE /HPF; WBC,URINE RARE /HPF
[2020-07-02] MEDS ORDERED: IOHEXOL 350 MG/ML 100 ML (OMNIPAQUE 350) VIAL IV ONE (18:15)
[2020-07-02] MEDS ORDERED: NS 100 ML (IVPB) BAG IV ONE (18:15)
[2020-07-02] MEDS ORDERED: fentaNYL INJECTION 100 MCG/2 ML AMP IVP PRN (18:15)
[2020-07-02] MEDS ORDERED: HOLD METFORMIN - RECEIVED CONTRAST 20 ML VIAL IV SCH (18:15)
--- NOTE | 2020-07-02 18:37 | Diagnostic Imaging Report ---
Clinical indication: Patient with cough. Exam: Portable chest x-ray upright view. Comparisons: Chest x-ray dated 12/23/2017. Findings: There is interval development of near complete consolidation of the left hemithorax. There are air filled portions of the left upper lobe. This is concerning for large left pleural effusion. Evaluation for lung pathology in this left hemithorax region is limited. There is no right pleural effusion. There is no pneumothorax. There is interval cardiomegaly. There is no significant pulmonary vascular congestion. Impression: 1: Interval development of a large left-sided pleural effusion. Due to the pleural effusion, evaluation of left lung pathology is limited. CT scan of the chest with contrast is suggested for further evaluation. 2: There is interval cardiomegaly with no significant pulmonary vascular congestion. Dictated by: Dictated on workstation # [id number]
[2020-07-02] MEDS ORDERED: cefTRIAXone FOR IV USE 1,000 MG in WATER (STERILE) FOR INJECTION 10 ML IV ONE (18:45)
[2020-07-02] MEDS ORDERED: CEFEPIME INJECTION 2,000 MG in WATER (STERILE) FOR INJECTION 20 ML IV ONE (19:00)
[2020-07-02] MEDS ORDERED: fentaNYL INJECTION 100 MCG/2 ML AMP IVP ONE (19:00)
[2020-07-02] MEDS ORDERED: LIDOCAINE/EPI 2% 1:100,00 (XYLOCAINE) 20 ML VIAL INJ ONE (19:00)
--- NOTE | 2020-07-02 19:00 | NUR ---
Oliverio DUNLAP APRN OBTAINED PHONE CONSENT FOR LEFT THORACENTESIS FROM PT SISTER DEVIN AND WITNESSED BY Namita PIZANO RN.
--- NOTE | 2020-07-02 19:16 | Diagnostic Imaging Report ---
Clinical indication: Patient presents to ED via EMS for fever, cough and generalized weakness. Exam: CT angiogram of the chest performed with 74 cc Omnipaque 350 IV contrast. Coronal and oblique MIP images of the vasculature were created to better evaluate anatomy. Auto Exposure Controls were utilized during the CT exam to meet ALARA standards for radiation dose reduction. Comparison: Chest x-ray dated 07/02/2020. Chest x-ray dated 12/23/2017. Findings: There is a large left pleural effusion with significant compressive atelectasis involving the left lung. All of the left lower lobe, middle lobe and a significant portion of the left upper lobe is atelectatic and consolidated. There is associated left right midline shift of the mediastinal structures due to this pleural effusion. There is minimal high density layering in the costophrenic angle region posteriorly and anteriorly. There is no nodular pleural mass seen. There is no gross lung parenchymal mass, mediastinal mass or hilar mass seen. There is no significant axillary or mediastinal lymphadenopathy. There is atelectasis involving the middle lobe and right lower lobe region. There is minimal atelectasis/consolidation involving the posterior aspect of the right lower lobe. There is no right pleural effusion. There is no pneumothorax. There is no thoracic aortic aneurysm or dissection. There is dense contrast bolus within the superior vena cava which causes streak artifact obscuring portions of the aortic arch and pulmonary vasculature and mediastinal structures. There is also breathing motion artifact limiting evaluation. The left and right main pulmonary arteries are patent with no evidence of pulmonary embolism. There is no gross evidence of pulmonary embolism involving the proximal left segmental and subsegmental pulmonary arteries. The left pulmonary arteries are limited regarding evaluation due to atelectasis. There is significant motion and streak artifact obscuring the right pulmonary arteries making evaluation of the right pulmonary arteries distal to the right main pulmonary artery uninterpretable. Partially visualized 11 mm cyst involving the midportion of the left kidney. Otherwise visualized upper abdominal structures are unremarkable. There are degenerative spurs involving the thoracic spine. Impression: 1: There is a large left pleural effusion which causes left to right mediastinal shift. There is a small amount of high density material layering in the costophrenic angle regions anteriorly and posteriorly. There is no measurable pleural mass seen. Thoracentesis with fluid analysis would better evaluate. 2: There is no lung mass, mediastinal mass, or lymphadenopathy seen on this exam. 3: There is near complete atelectasis/collapse of the left lung with sparing of some of the left upper lobe. 4: There is no definite evidence of pulmonary embolism seen on this exam. Of note, this exam is greatly limited due to motion/breathing artifact and atelectasis in the left lung, as described above. Dictated by: Dictated on workstation # [id number]
[2020-07-02] MEDS ORDERED: LORazepam INJ 2 MG/ML (ATIVAN) VIAL IVP PRN (19:45)
--- NOTE | 2020-07-02 20:15 | NUR ---
2014- PLEURX DRAINS CONTAINING A TOTAL OF 2500ML PLEURAL FLUID COLLECTED BY DR. RING WITH ASSIST OF Oliverio DUNLAP APRN AND THIS PSYCHOLOGICAL OPERATIONS/RN DURING THORACENTESIS AND TAKEN TO LAB BY Oliverio DUNLAP APRN.
[2020-07-02 20:44] LABS: BODY FLUID APPEARENCE CLEAR; BODY FLUID COLOR YELLOW; BODY FLUID SOURCE THORACENTESIS
[2020-07-02 21:00] VITALS: BP 131/84
[2020-07-02 21:06] LABS: GLUCOSE,BODY FLUID 106 MG/DL; LDH,BODY FLUID 338 U/L; TOTAL PROTEIN,BODY FLUID 4.6 G/DL
[2020-07-02 21:15] VITALS: BP 90/58
--- NOTE | 2020-07-02 21:24 | Diagnostic Imaging Report ---
Clinical indication: Postthoracentesis. Exam: Portable chest x-ray upright view. Comparisons: Chest x-ray dated 07/02/2020. Findings: There is interval significant decrease in the previously seen large left pleural effusion with small to moderate amount remaining. There is no pneumothorax. There is groundglass opacification involving the left lung and left lung base patchy airspace opacities. These findings may be related to atelectasis and/or infiltrate. Right lung is clear. There is cardiomegaly with no significant pulmonary vascular congestion. The remainder of this exam shows no significant interval change compared to the prior study of comparison. Impression: 1: Interval decreased size of the left pleural effusion with small to moderate amount remaining. There is no pneumothorax. 2: There is residual left lung atelectasis and/or infiltrate. 3: Stable cardiomegaly with no significant pulmonary vascular congestion. Dictated by: Dictated on workstation # [id number]
[2020-07-02 21:30] VITALS: BP 88/57
[2020-07-02 21:45] VITALS: BP 91/62
[2020-07-02] MEDS ORDERED: IBUPROFEN 600 MG (MOTRIN) TAB PO PRN (21:45)
[2020-07-02] MEDS ORDERED: ACETAMINOPHEN 325 MG TABLET PO PRN (21:45)
[2020-07-02 21:52] LABS: BODY FLUID RBC COUNT 2750 /uL; BODY FLUID WBC TOTAL COUNT 875 /uL; LYMPHOCYTES,BODY FLUID 34 %
[2020-07-02 22:00] VITALS: BP 93/62
[2020-07-02] MEDS: LACTATED RINGERS 1,000 ML IV SCH (22:00)
[2020-07-02] MEDS ORDERED: fentaNYL INJECTION 100 MCG/2 ML AMP IV PRN (22:00)
[2020-07-02] MEDS: CEFEPIME 1,000 MG/SWFI 10 ML IV PUSH IV SCH ×2 (22:24)
[2020-07-02 23:00] VITALS: BP 109/78
[2020-07-03] VITALS (9 sets, daily range): BP systolic 90–118; BP diastolic 55–79
--- NOTE | 2020-07-03 03:35 | OPERATIVE REPORT ---
DATE OF SERVICE: 07/02/2020 PREOPERATIVE DIAGNOSIS: Left pleural effusion. POSTOPERATIVE DIAGNOSIS: Left pleural effusion. PROCEDURE: Ultrasound-guided left thoracentesis. SURGEON: Chris Conner DO. ANESTHESIA: A 1% lidocaine. ESTIMATED BLOOD LOSS: Minimal. COMPLICATIONS: None. INDICATIONS: The patient is a 59-year-old male with large left pleural effusion that is symptomatic. He understands risks and benefits of procedure. Consent was obtained for procedure. DESCRIPTION OF PROCEDURE: The patient was placed in the supine position with the left arm elevated above his head. The ultrasound was used to isolate the largest pocket to be visualized, left mid axillary line approximately nipple line level was the best pocket visualized, the area was then prepped and draped and local anesthetic was infiltrated. An 11 blade scalpel was used to make a small skin incision and the [id number] needle and catheter were advanced through the chest wall until straw-colored fluid was withdrawn and the catheter was inserted. The needle was removed. A total of 2500 mL of straw-colored fluid was able to be withdrawn and once removed, the catheter was then removed and sterile bandage was applied. The patient tolerated procedure well without any complications. Chest x-ray pending. Job ID: [id number] DocumentID: [id number] Dictated Date: 07/02/2020 21:26:28 Merchandise Flow Team Member Date: 07/03/2020 01:11:19 Dictated By: CHRIS CONNER DO
[2020-07-03 04:01] LABS: BASOPHILS % (AUTO) 0 % (0-10); EOSINOPHILS # (AUTO) 0.2 10^3/uL (0.0-0.3); EOSINOPHILS % (AUTO) 2 % (0-10); HEMATOCRIT 30 % (40-54); LYMPHOCYTES # (AUTO) 0.9 X 10^3 (1.0-4.0); LYMPHOCYTES % (AUTO) 11 % (12-44); MEAN CORPUSCULAR HEMOGLOBIN 30 PG (25-34); MEAN CORPUSCULAR HGB CONC 33 G/DL (32-36); MEAN CORPUSCULAR VOLUME 91 FL (80-99); MEAN PLATELET VOLUME 9.9 FL (7.4-10.4); MONOCYTES # (AUTO) 1.3 X 10^3 (0.0-1.0); MONOCYTES % (AUTO) 15 % (0-12); NEUTROPHILS # (AUTO) 6.1 X 10^3 (1.8-7.8); NEUTROPHILS % (AUTO) 72 % (42-75); PLATELET COUNT 380 10^3/uL (130-400); RED CELL DISTRIBUTION WIDTH 13.5 % (10.0-14.5); WHITE BLOOD COUNT 8.4 10^3/uL (4.3-11.0)
[2020-07-03 04:20] LABS: ALANINE AMINOTRANSFERASE 50 U/L (0-55); ALBUMIN 2.4 GM/DL (3.2-4.5); ALKALINE PHOSPHATASE 107 U/L (40-136); BILIRUBIN,TOTAL 0.3 MG/DL (0.1-1.0); BUN/CREATININE RATIO 33; CARBON DIOXIDE 23 MMOL/L (21-32); CHLORIDE 105 MMOL/L (98-107); CREATININE SERUM 0.55 MG/DL (0.60-1.30); GFR ESTIMATED > 60; GLUCOSE 114 MG/DL (70-105); POTASSIUM 3.9 MMOL/L (3.6-5.0); SODIUM 136 MMOL/L (135-145); TOTAL PROTEIN 5.4 GM/DL (6.4-8.2)
[2020-07-03] MEDS: CEFEPIME 1,000 MG/SWFI 10 ML IV PUSH IV SCH ×6 (05:47→18:01)
[2020-07-03] MEDS: LACTATED RINGERS 1,000 ML IV SCH ×2 (05:50→12:59)
[2020-07-03] MEDS ORDERED: DIVA125C10 PO (08:53)
[2020-07-03] MEDS ORDERED: BISA10SU8 RC (08:53)
[2020-07-03] MEDS ORDERED: RISP0.5T3 PO (08:53)
[2020-07-03] MEDS ORDERED: DOCU100C37 PO (08:53)
[2020-07-03] MEDS ORDERED: LOPE2TAB34 PO (08:53)
[2020-07-03] MEDS ORDERED: NA P133E22 RC (08:53)
[2020-07-03] MEDS ORDERED: MUPI22OI2 TP (08:53)
[2020-07-03] MEDS ORDERED: DIVA125C PO (08:53)
[2020-07-03] MEDS ORDERED: MOM10U PO (08:53)
--- NOTE | 2020-07-03 08:55 | NUR ---
MED REC WAS ENTERED USING THE ORDER SUMMARY REPORT FROM [facility]
--- NOTE | 2020-07-03 09:48 | History & Physical-Hospitalist ---
History of Present Illness HPI/Chief Complaint Pt is a 59yoCM with a PMH of advanced dementia who presented to the ER due to cough and fever. He is unable to provide me any history. He was able to say "I'm working on it." when asked how he was doing but otherwise only mumbled or did not respond to verbal cues. All history is obtained from the chart. Apparently he lives at [facility], [place] and was noticed to have a cough and fever. I am unsure for how long or how high of a fever. He was swabbed for COVID in the ER but has not had any exposures or cases at [facility]. He was found to have a large left pleural effusion and was admitted for PNA. Thoracentesis was done in the ER with 2500mL of fluid drained. Exam Limitations: clinical condition Date Seen 07/03/20 Time Seen by a Provider: 08:30 Attending Physician Fara Langston MD PCP Marko Logan DO Referring Physician Date of Admission Jul 02, 2020 at 18:51 Home Medications & Allergies Home Medications Reviewed patient Home Medication Reconciliation performed by pharmacy medication reconciliations termite control technician and/or nursing. Patients Allergies have been reviewed. Allergies Allergies Coded Allergies No Known Drug Allergies (Unverified12/19/17) Past Nsiyedv-Cvjtfk-Qytmqx Hx Past Med/Social Hx: Reviewed Nursing Past Med/Soc Hx Patient Social History Employed/Student: unemployed Alcohol Use: Denies Use Recreational Drug Use: No Smoking Status: Unknown if Ever Smoked Recent Foreign Travel: No Contact w/other who traveled: No Recent Hopitalizations: No (unknown) Recent Infectious Disease Expo: No Seasonal Allergies Seasonal Allergies: No Past Medical History Neurological: Dementia, Parkinson's Disease Gastrointestinal: Chronic Constipation Psychosocial: Schizophrenia, Depression History of Blood Disorders: No Adverse Reaction to Blood Alvarado: No Family History Reviewed Nursing Family Hx No Pertinent Family Hx Review of Systems ROS-Unable to Obtain: limited by dementia Constitutional: fever Respiratory: cough Physical Exam Physical Exam Vital Signs Vital Signs - First Documented 07/02/20 07/02/20 07/02/20 16:45 16:57 18:20 Temp 37.3 Pulse 96 Resp 18 B/P (MAP) 120/81 (94) Pulse Ox 93 O2 Delivery Room Air O2 Flow Rate 2.00 Capillary Refill : Less Than 3 Seconds Height, Weight, BMI Height: 5'8.00" Weight: 183lbs. 3.0oz. 83.696888jv; 23.88 BMI Method:Estimated General Appearance: No Apparent Distress, Chronically ill HEENT: PERRL/EOMI, Moist Mucous Membranes; No Scleral Icterus (L), No Scleral Icterus (R) Neck: Normal Inspection, Supple Respiratory: No Accessory Muscle Use, No Respiratory Distress Cardiovascular: Regular Rate, Rhythm, No Murmur Gastrointestinal: Normal Bowel Sounds, Non Tender, Soft Extremity: No Calf Tenderness, No Pedal Edema, Other (right great toe with dressing on it, no underlying wound) Neurologic/Psychiatric: Disoriented, Other (arouses to verbal stimuli, answered one question appropriately) Skin: Normal Color, Warm/Dry; No Mottled Results Results/Procedures Labs Laboratory Tests 07/04/20 04:40 Patient resulted labs reviewed. Imaging: Reviewed Imaging Report Imaging [facility], [place] NAME: DORIAN VIDAL [facility] REC#: [id number] PT STATUS: ADM IN : 1960 PHYSICIAN: GYPSY DUNLAP APRN ADMIT DATE: 07/02/20/ICU Signed Date of Exam:07/02/20 CT ANGIO CHEST W Clinical indication: Patient presents to ED via EMS for fever, cough and generalized weakness. Exam: CT angiogram of the chest performed with 74 cc Omnipaque 350 IV contrast. Coronal and oblique MIP images of the vasculature were created to better evaluate anatomy. Auto Exposure Controls were utilized during the CT exam to meet ALARA standards for radiation dose reduction. Comparison: Chest x-ray dated 07/02/2020. Chest x-ray dated 12/23/2017. Findings: There is a large left pleural effusion with significant compressive atelectasis involving the left lung. All of the left lower lobe, middle lobe and a significant portion of the left upper lobe is atelectatic and consolidated. There is associated left right midline shift of the mediastinal structures due to this pleural effusion. There is minimal high density layering in the costophrenic angle region posteriorly and anteriorly. There is no nodular pleural mass seen. There is no gross lung parenchymal mass, mediastinal mass or hilar mass seen. There is no significant axillary or mediastinal lymphadenopathy. There is atelectasis involving the middle lobe and right lower lobe region. There is minimal atelectasis/consolidation involving the posterior aspect of the right lower lobe. There is no right pleural effusion. There is no pneumothorax. There is no thoracic aortic aneurysm or dissection. There is dense contrast bolus within the superior vena cava which causes streak artifact obscuring portions of the aortic arch and pulmonary vasculature and mediastinal structures. There is also breathing motion artifact limiting evaluation. The left and right main pulmonary arteries are patent with no evidence of pulmonary embolism. There is no gross evidence of pulmonary embolism involving the proximal left segmental and subsegmental pulmonary arteries. The left pulmonary arteries are limited regarding evaluation due to atelectasis. There is significant motion and streak artifact obscuring the right pulmonary arteries making evaluation of the right pulmonary arteries distal to the right main pulmonary artery uninterpretable. Partially visualized 11 mm cyst involving the midportion of the left kidney. Otherwise visualized upper abdominal structures are unremarkable. There are degenerative spurs involving the thoracic spine. Impression: 1: There is a large left pleural effusion which causes left to right mediastinal shift. There is a small amount of high density material layering in the costophrenic angle regions anteriorly and posteriorly. There is no measurable pleural mass seen. Thoracentesis with fluid analysis would better evaluate. 2: There is no lung mass, mediastinal mass, or lymphadenopathy seen on this exam. 3: There is near complete atelectasis/collapse of the left lung with sparing of some of the left upper lobe. 4: There is no definite evidence of pulmonary embolism seen on this exam. Of note, this exam is greatly limited due to motion/breathing artifact and atelectasis in the left lung, as described above. Dictated by: Dictated on workstation # [id number] Dict: 07/02/20 185 Trans: 07/02/[id number] [facility] [id number] Interpreted by: ELVIN RICCI MD Electronically signed by: ELVIN RICCI MD 07/02/20 8900 Assessment/Plan Admission Diagnosis Pneumonia with pleural effusion Admission Status: Inpatient Order (span 2 midnights) Reason for Inpatient Admission: see below Assessment and Plan Pneumonia Pleural Effusion Not sepsis s/p thoracentesis in ER with 2500mL - fluid consistent with exudative effusion Await cultures from fluid Continue abx COVID pending Parkinson's Dementia Dysphagia Seizure disorder Rn reports difficulty swallowing OIM CONSULTANT consulted placed Attempted to call family to address baseline mentation and goals of care, awaiting response Continue home meds after swallow eval HTN Continue home meds Clinical Quality Measures DVT/VTE Risk/Contraindication: Risk Factor Score Per Nursin RFS Level Per Nursing on Admit: 4+=Very High ANISA ORTIZ MD Jul 03, 2020 09:48
[2020-07-03] MEDS ORDERED: ACETAMINOPHEN 325 MG TABLET PO PRN (10:15)
[2020-07-03] MEDS ORDERED: BISACODYL 10 MG SUPP (DULCOLAX) RC PRN (10:15)
--- NOTE | 2020-07-03 10:23 | Consultation - Surgery ---
History of Present Illness History of Present Illness Patient Consulted On(india/time) 07/02/20 20:18 Date Seen by Provider: Jul 02, 2020 Time Seen by Provider: 20:18 History of Present Illness Consult requested by Austen Walsh for left pleural effusion. Seen and evaluated in ED. Patient not able to provide any history has advanced dementia. Patient in [facility]. Reported to have cough and fever. He had chest x ray and ct scan that found to have large left pleural effusion. No care providers present with him. Allergies and Home Medications Allergies Coded Allergies: No Known Drug Allergies (Unverified , 12/19/17) Home Medications Acetaminophen 325 Mg Tablet, 650 MG PO Q4H PRN for PAIN-MILD, (Reported) TAKES 2 (325 MG) TABLETS Bisacodyl 10 Mg Supp.rect, 10 MG RC DAILY PRN for CONSTIPATION-4TH LINE, (Reported) USE IF NO BM IN 3 DAYS IF MOM NOT EFFECTIVE Carbidopa/Levodopa 1 Each Tablet, 1 TAB PO TID, (Reported) Diltiazem HCl 120 Mg Tablet, 120 MG PO DAILY, (Reported) Divalproex Sodium 125 Mg Cap.sprink, 250 MG PO BID, (Reported) TAKES 2 (125MG) CAPS Divalproex Sodium 125 Mg Cap, 125 MG PO 1400, (Reported) Docusate Sodium 100 Mg Capsule, 100 MG PO DAILY, (Reported) Entacapone 200 Mg Tablet, 200 MG PO BID, (Reported) Loperamide HCl 2 Mg Tablet, 2-4 MG PO TID PRN for DIARRHEA, (Reported) GIVE 2 TABS NEEDED AFTER LOOSE STOOL, THEN 1 TAB AFTER EACH LOOSE STOOL Magnesium Hydroxide 2,400 Mg/10 Ml Oral.susp, 30 ML PO DAILY PRN for CONSTIPATION-7TH LINE, (Reported) Mupirocin 22 Gm Oint...g., 1 APPLIC TP BID, (Reported) APPLY TO THE RIGHT GREAT TOE AND WRAP WITH GAUZE DRESSING Na Phos,M-B/Na Phos,Di-Ba 133 Ml Enema, 133 ML RC DAILY PRN for CONSTIPATION-8TH LINE, (Reported) GIVE IF NO BM IN 5 DAYS Paroxetine HCl 20 Mg Tablet, 20 MG PO DAILY, (Reported) Risperidone 0.5 Mg Tablet, 0.5 MG PO DAILY, (Reported) Patient Home Medication List Home Medication List Reviewed: Yes Past Zzfaydx-Kfndrm-Sgjlxm Hx Patient Social History Alcohol Use: Denies Use Recreational Drug Use: No Smoking Status: Unknown if Ever Smoked Recent Foreign Travel: No Contact w/Someone Who Travel: No Recent Infectious Disease Expo: No Recent Hopitalizations: No (unknown) Seasonal Allergies Seasonal Allergies: No Respiratory History of Respiratory Disorde: No Cardiovascular History of Cardiac Disorders: No Neurological History of Neurological Disord: Yes Neurological Disorders: Dementia, Parkinson's Disease Gastrointestinal History of Gastrointestinal Di: Yes Gastrointestinal Disorders: Chronic Constipation Musculoskeletal History of Musculoskeletal Dis: No Psychosocial History of Psychiatric Problem: Yes (MANIPULATIVE BEHAVIORS, SEXUAL INAPROPRIATENESS) Behavioral Health Disorders: Schizophrenia, Depression Blood Transfusions History of Blood Disorders: No Adverse Reaction to a Blood Tr: No Reviewed Nursing Assessment Reviewed/Agree w Nursing PMH: Yes Family Medical History Significant Family History: No Pertinent Family Hx Review of Systems-General ROS-Unable to Obtain: patient unable to provide due to medical condition Physical Exam-General Problems Physical Exam Vital Signs Vital Signs - First Documented 07/02/20 07/02/20 07/02/20 16:45 16:57 18:20 Temp 37.3 Pulse 96 Resp 18 B/P (MAP) 120/81 (94) Pulse Ox 93 O2 Delivery Room Air O2 Flow Rate 2.00 Capillary Refill : Less Than 3 Seconds General Appearance: mild distress HEENT: PERRL/EOMI, normal ENT inspection Neck: non-tender, supple Respiratory: chest non-tender, other (slightly labored breathing) Cardiovascular: regular rate, rhythm, no edema Gastrointestinal: non tender, soft Rectal: deferred Back: normal inspection, no CVA tenderness Extremities: non-tender, normal inspection, other (some rigidity in range of motion) Neurologic/Psychiatric: alert Skin: normal color, warm/dry Lymphatic: no adenopathy Data Review Labs Laboratory Tests 07/02/20 16:54: White Blood Count 10.5, Red Blood Count 3.90L, Hemoglobin 11.8L, Hematocrit 35L, Mean Corpuscular Volume 90, Mean Corpuscular Hemoglobin 30, Mean Corpuscular Hemoglobin Concent 34, Red Cell Distribution Width 13.7, Platelet Count 456H, Mean Platelet Volume 10.0, Neutrophils (%) (Auto) 73, Lymphocytes (%) (Auto) 11L , Monocytes (%) (Auto) 14H, Eosinophils (%) (Auto) 3, Basophils (%) (Auto) 0, Neutrophils # (Auto) 7.7, Lymphocytes # (Auto) 1.1, Monocytes # (Auto) 1.5H, Eosinophils # (Auto) 0.3, Basophils # (Auto) 0.0, Prothrombin Time 15.2H, INR Comment 1.2, Activated Partial Thromboplast Time 39H, Sodium Level 137, Potassium Level 4.5, Chloride Level 104, Carbon Dioxide Level 22, Anion Gap 11, Blood Urea Nitrogen 18, Creatinine 0.66, Estimat Glomerular Filtration Rate > 60, BUN/Creatinine Ratio 27, Glucose Level 123H, Lactic Acid Level 1.10, Calcium Level 8.8, Corrected Calcium 9.5, Total Bilirubin 0.3, Aspartate Amino Transf (AST/SGOT) 34, Alanine Aminotransferase (ALT/SGPT) 24, Alkaline Phosphatase 141H , Lactate Dehydrogenase 367H, B-Type Natriuretic Peptide 18.4, Total Protein 6.9, Albumin 3.1L, Procalcitonin 0.05 07/02/20 17:22: Urine Color ORANGE, Urine Clarity CLEAR, Urine pH 6.5, Urine Specific [place] 1.020, Urine Protein TRACEH, Urine Glucose (UA) NEGATIVE, Urine Ketones TRACEH, Urine Nitrite NEGATIVE, Urine Bilirubin NEGATIVE, Urine Urobilinogen 4.0, Urine Leukocyte Esterase NEGATIVE, Urine RBC (Auto) NEGATIVE, Urine RBC NONE, Urine WBC RARE, Urine Squamous Epithelial Cells NONE, Urine Crystals NONE, Urine Bacteria NEGATIVE, Urine Casts NONE, Urine Mucus SMALLH, Urine Culture Indicated CULTURE PENDING 07/02/20 20:15: Body Fluid Source THORACENTESIS, Body Fluid Color YELLOW, Body Fluid Appearance CLEAR, Body Fluid pH 8.0, Body Fluid WBC 875, Body Fluid RBC 2750, Body Fluid Polynuclear WBCs 52, Body Fluid Mononuclear WBCs 14, Body Fluid Lymphocytes 34, Body Fluid Other Cells NA, Body Fluid Glucose 106, Body Fluid Total Protein 4.6, Body Fluid Lactate Dehydrogenase 338 07/03/20 03:30: White Blood Count 8.4, Red Blood Count 3.32L, Hemoglobin 10.0L, Hematocrit 30L, Mean Corpuscular Volume 91, Mean Corpuscular Hemoglobin 30, Mean Corpuscular Hemoglobin Concent 33, Red Cell Distribution Width 13.5, Platelet Count 380, Mean Platelet Volume 9.9, Neutrophils (%) (Auto) 72, Lymphocytes (%) (Auto) 11L, Monocytes (%) (Auto) 15H, Eosinophils (%) (Auto) 2, Basophils (%) (Auto) 0, Neutrophils # (Auto) 6.1, Lymphocytes # (Auto) 0.9L, Monocytes # (Auto) 1.3H, Eosinophils # (Auto) 0.2, Basophils # (Auto) 0.0, Sodium Level 136, Potassium Level 3.9, Chloride Level 105, Carbon Dioxide Level 23, Anion Gap 8, Blood Urea Nitrogen 18, Creatinine 0.55L, Estimat Glomerular Filtration Rate > 60, BUN/Creatinine Ratio 33, Glucose Level 114H, Calcium Level 8.0L, Corrected Calcium 9.3, Total Bilirubin 0.3, Aspartate Amino Transf (AST/SGOT) 17, Alanine Aminotransferase (ALT/SGPT) 50, Alkaline Phosphatase 107, Total Protein 5.4L, Albumin 2.4L Assessment/Plan Assessment/Plan Assessment/Plan cough fever large left pleural effusion needs left u/s guided thoracentesis will do at bedside consent was obtained will send for analysis and cytology admitted to medicine, will sign off, if needed please call Clinical Quality Measures DVT/VTE Risk/Contraindication: Risk Factor Score Per Nursin RFS Level Per Nursing on Admit: 4+=Very High CHRIS RING DO Jul 03, 2020 10:23
[2020-07-03] MEDS ORDERED: IOHEXOL 350 MG/ML 100 ML (OMNIPAQUE 350) VIAL IV ONE (11:15)
[2020-07-03] MEDS ORDERED: NS 100 ML (IVPB) BAG IV ONE (11:15)
[2020-07-03] MEDS ORDERED: HOLD METFORMIN - RECEIVED CONTRAST 20 ML VIAL IV SCH (11:15)
--- NOTE | 2020-07-03 11:16 | Pulmonary Consultation ---
History of Present Illness History of Present Illness Date Seen by Provider: Jul 03, 2020 Time Seen by Provider: 11:14 Date of Admission Allergies and Home Medications Allergies Coded Allergies: No Known Drug Allergies (Unverified , 12/19/17) Home Medications Acetaminophen 325 Mg Tablet, 650 MG PO Q4H PRN for PAIN-MILD, (Reported) TAKES 2 (325 MG) TABLETS Bisacodyl 10 Mg Supp.rect, 10 MG RC DAILY PRN for CONSTIPATION-4TH LINE, (Reported) USE IF NO BM IN 3 DAYS IF MOM NOT EFFECTIVE Carbidopa/Levodopa 1 Each Tablet, 1 TAB PO TID, (Reported) Diltiazem HCl 120 Mg Tablet, 120 MG PO DAILY, (Reported) Divalproex Sodium 125 Mg Cap.sprink, 250 MG PO BID, (Reported) TAKES 2 (125MG) CAPS Divalproex Sodium 125 Mg Cap, 125 MG PO 1400, (Reported) Docusate Sodium 100 Mg Capsule, 100 MG PO DAILY, (Reported) Entacapone 200 Mg Tablet, 200 MG PO BID, (Reported) Loperamide HCl 2 Mg Tablet, 2-4 MG PO TID PRN for DIARRHEA, (Reported) GIVE 2 TABS NEEDED AFTER LOOSE STOOL, THEN 1 TAB AFTER EACH LOOSE STOOL Magnesium Hydroxide 2,400 Mg/10 Ml Oral.susp, 30 ML PO DAILY PRN for CONSTIPATION-7TH LINE, (Reported) Mupirocin 22 Gm Oint...g., 1 APPLIC TP BID, (Reported) APPLY TO THE RIGHT GREAT TOE AND WRAP WITH GAUZE DRESSING Na Phos,M-B/Na Phos,Di-Ba 133 Ml Enema, 133 ML RC DAILY PRN for CONSTIPATION-8TH LINE, (Reported) GIVE IF NO BM IN 5 DAYS Paroxetine HCl 20 Mg Tablet, 20 MG PO DAILY, (Reported) Risperidone 0.5 Mg Tablet, 0.5 MG PO DAILY, (Reported) Past Yzowunh-Jmtckl-Otyfol Hx Patient Social History Alcohol Use: Denies Use Recreational Drug Use: No Smoking Status: Unknown if Ever Smoked Recent Foreign Travel: No Contact w/Someone Who Travel: No Recent Infectious Disease Expo: No Recent Hopitalizations: No (unknown) Seasonal Allergies Seasonal Allergies: No Past Medical History Respiratory: No Cardiac: No Neurological: Yes Dementia, Parkinson's Disease Gastrointestinal: Yes Chronic Constipation Musculoskeletal: No Psychosocial: Yes (MANIPULATIVE BEHAVIORS, SEXUAL INAPROPRIATENESS) Schizophrenia, Depression Blood Disorders: No Adverse Reaction/Blood Tranf: No Family Medical History No Pertinent Family Hx Review of Systems Time Seen by Provider: 11:15 Sepsis Event Evaluation Height, Weight, BMI Height: 5'8.00" Weight: 183lbs. 3.0oz. 83.962028lo; 23.88 BMI Method:Estimated Exam Exam Vital Signs Date Time Temp Pulse Resp B/P (MAP) Pulse Ox O2 Delivery O2 Flow Rate FiO2 07/03/20 10:35 Nasal Cannula 3.00 07/03/20 09:00 96 Nasal Cannula 3.00 07/03/20 08:00 94 Nasal Cannula 2.00 07/03/20 08:00 78 14 92/55 (67) 95 Nasal Cannula 2.00 07/03/20 06:44 79 07/03/20 04:00 94 Nasal Cannula 2.00 07/03/20 04:00 36.0 07/03/20 04:00 77 19 90/57 (68) 93 Nasal Cannula 2.00 07/03/20 03:25 83 14 107/76 (86) 94 Nasal Cannula 2.00 07/03/20 02:14 76 35 97/69 (78) 95 Nasal Cannula 2.00 07/03/20 01:00 96 13 105/74 (84) 93 Nasal Cannula 2.00 07/03/20 01:00 101 07/03/20 00:00 93 Nasal Cannula 2.00 07/03/20 00:00 98 19 118/79 (92) 92 Nasal Cannula 2.00 07/02/20 23:00 81 22 109/78 (88) 95 Nasal Cannula 2.00 07/02/20 22:31 Nasal Cannula 2.00 07/02/20 22:00 76 9 93/62 (72) 95 Nasal Cannula 2.00 07/02/20 22:00 76 9 93/62 (72) 95 Nasal Cannula 2.00 07/02/20 21:45 77 15 91/62 (72) 95 Nasal Cannula 2.00 07/02/20 21:30 77 16 88/57 (67) 94 Nasal Cannula 2.00 07/02/20 21:15 80 20 90/58 (69) 95 Nasal Cannula 2.00 07/02/20 21:01 99 07/02/20 21:01 99 07/02/20 21:00 36.1 97 20 131/84 (100) 96 Nasal Cannula 2.00 07/02/20 21:00 98 131/84 (100) Nasal Cannula 2.00 07/02/20 20:44 37.3 86 16 103/65 (94) 100 Nasal Cannula 2.00 07/02/20 18:20 98 Nasal Cannula 2.00 07/02/20 16:57 37.3 96 18 120/81 (94) 93 Room Air 07/02/20 16:45 Room Air I & O 07/03/20 07:00 Intake Total 1020 ml Balance 1020 ml Height & Weight Height: 5'8.00" Weight: 183lbs. 3.0oz. 83.767593yk; 23.88 BMI Method:Estimated General Appearance: No Apparent Distress, Chronically ill HEENT: PERRL/EOMI, Moist Mucous Membranes; No Scleral Icterus (L), No Scleral Icterus (R) Neck: Normal Inspection, Supple Respiratory: No Accessory Muscle Use, No Respiratory Distress Cardiovascular: Regular Rate, Rhythm, No Murmur Capillary Refill: Less Than 3 Seconds Gastrointestinal: non tender, soft Extremity: No Calf Tenderness, No Pedal Edema, Other (right great toe with dressing on it, no underlying wound) Neurologic/Psychiatric: Disoriented, Other (arouses to verbal stimuli, answered one question appropriately) Skin: Normal Color, Warm/Dry; No Mottled Results Lab Laboratory Tests 07/02/20 16:54 07/03/20 03:30 Assessment/Plan Assessment/Plan Pneumonia with large Left pleural effusion -S/p Thoracentesis per Dr. Conner this morning -Await cytology and analysis -Continue Abx -COVID is pending -Repeat CT of chest today with contrast to r/o mass Parkinson's Dementia Dysphagia Seizure disorder Continue home meds after swallow eval HTN Continue home meds INDIO ZHANG DO Jul 03, 2020 11:16
--- NOTE | 2020-07-03 12:35 | Diagnostic Imaging Report ---
CT CHEST W TECHNIQUE: Multiple contiguous axial images were obtained through the chest with the use of intravenous contrast. All CT scans use one or more of the following dose optimizing techniques: automated exposure control, MA and/or KvP adjustment based on a patient size and exam type, or iterative reconstruction. INDICATION: Postthoracentesis. Shortness of breath. COMPARISON: CTA chest of 07/02/2020 FINDINGS: Lungs and airway: There remains slightly improved aeration within the left lung, although the entirety of the left lower lobe and portion of the lingula remain atelectatic due to the persistent large left pleural effusion. Respiratory motion artifact limits assessment of fine detail. Subpleural opacities on the right are unchanged and likely due to atelectasis. Pleura: Decreased size of the persistent large left pleural effusion. The degree of mass effect on the left hemithorax due to pleural effusion has decreased. No right pleural effusion. No pneumothorax. Heart and mediastinum: No supraclavicular or axillary lymphadenopathy. No appreciable mediastinal or juxtaphrenic lymphadenopathy. Compressive atelectasis in the left hilar region limits assessment for hilar lymphadenopathy. Unchanged bore line cardiomegaly with trace pericardial fluid. Normal caliber thoracic aorta without dissection. Upper abdomen: Stable hypodense lesion in the left kidney which meets criteria for simple cyst requiring no dedicated followup imaging. Musculoskeletal: No worrisome focal osseous lesions, allowing for motion artifact. IMPRESSION: 1. While the left-sided pleural effusion has decreased in size, there still remains a large volume of left pleural fluid resulting in complete atelectasis left lower lobe and portions of the lingula. The atelectatic lung enhances suggesting that there is no underlying mass lesion, although a small pulmonary mass cannot be entirely excluded on this exam due to the effusion. 2. No appreciable lymphadenopathy. Dictated by: Dictated on workstation # [id number]
[2020-07-03] MEDS: SINEMET 25/100 (CARBIDOPA/LEVODOPA) TAB PO SCH ×2 (12:58→20:07)
[2020-07-03] MEDS: DIVALPROX SPRINKLE 125 MG (DEPAKOTE) CAP PO SCH ×2 (12:58→20:07)
--- NOTE | 2020-07-03 13:52 | ST Dysphagia Evaluation ---
Speech Evaluation-General Medical Diagnosis Pneumonia Onset Date: Jul 03, 2020 Therapy Diagnosis Therapy Diagnosis: Oropharyngeal Dysphagia Precautions Precautions: Aspiration Referral Referring Physician: Dr. Terrazas Medical History Pertinent Medical History: Dementia Reviewed History: Yes Social History Home: [facility] Speech PLF/Current-Dysphagia Prior Level of Function Patient is a [facility]iary [facility] where he receives assistance with all of his daily needs. Subjective Patient was cooperative with the Bedside Dysphagia Evaluation. Cognitive Status Patient Orientation: Unable to Assess, Non-Verbal/Aphasic Patient has advanced stage dementia. Oral Motor Skills Dentition: Natural, Tumbled Current Food Consistancy: Mechanical Soft, Thin Liquids Ability to Follow Directions: Fair Oral Expression Ability: Severe Impairment Face Facial Symmetry: Symmetrical Oral-Facial Assessment Oral-Facial Dentition: Normal Labial Seal Description: Normal Lingual Protrusion: Normal Lingual ROM: Normal Lingual Strength: Normal Pharynx Velopharyngeal Move.: Normal Volitional Dry Swallow: Yes Dysphagia Evaluation Consistencies Presented: Regular, Thin Liquid, Mechanical Soft, Ground, Pureed Oral Phase: Reduced Oral Transit Reduced A to P transfer for regular texture only Pharyngeal Phase: Delayed Swallow Delayed swallow with regular texture only. Dietary Recommendations: Mechanical Soft Liquid Recommendations: Thin Swallowing Precautions: Alternate Liquids/Solids, Decreased Bolus 1/2 Tsp, Liquids from Straw, Liquids from Spoon, Small Bites and Sips, Sitting Upright 90 Degrees, Sitting 90 Degrees 30 Post Intake Dysphagia Evaluation Summary Patient was evaluated at bedside per physician order. Patient has advanced stage dementia and was non verbal outside of a few mumbles noted throughout the evaluation. Patient was placed on a Dysphagia II diet level prior to evaluation. Patient's breakfast was sitting in his room, untouched when I entered his room. I assisted him with intake of the meal without difficulty noted. He was also presented a trial of regular texture with decreased A to P transfer as well as delay in swallow noted. He tolerated the Dysphagia II diet level with thin without s/s of aspiration note. Patient utilized the straw without cues. Patient is recommended to continue on the Dysphagia II diet level with thin liquids. Speech-Plan Patient/Family Goals Patient/Family Goals: Patient will return to the NH upon discharge. Treatment Plan Speech Therapy Treatment Plan: Discontinue ST Treatment Duration: Jul 03, 2020 Frequency: 1 time per week Estimated Hrs Per Day: .5 hour per day Rehab Potential: Poor Barriers to Learning: Patient has advanced stage dementia Pt/Family Agrees to Plan: Yes Safety Risks/Education Teaching Recipient: Patient Teaching Methods: Discussion Response to Teaching: Reinforcement Needed Education Topics Provided: Diet level and safety strategies for intake Time Speech Therapy Time In: 10:30 Speech Therapy Time Out: 11:00 Total Billed Time: 30 Billed Treatment Time 1GIFTY DYST No WHORTON, BETHANIA ST Jul 03, 2020 13:52
--- NOTE | 2020-07-03 14:56 | NUR ---
"RD ASSESSMENT PMHx: dementia; Parkinson's disease; chronic constipation; schizophrenia PT INTERACTION: Note pt has dementia and is COVID-pending, per chart review. Note all diet history information gathered per chart review. Note avg PO intake <25% x2meal. Note no BM has been recorded, and pt currently on bowel regimen of bisacodyl PRN. Note unable to determine recent wt hx. Note pt is currently receiving diet order of DYS2 Mechanically Altered diet, for aspiration precautions. ABNORMAL NUTRITION-RELATED LAB VALUES LOW: cr 0.55; Ca 8.0; Pro 5.4; alb 2.4 HIGH: glu 114 Est. kcal needs: 1950 kcal | 25 kcal/kg Est. Pro needs: 62 g Pro | 0.8 g Pro/kg PES STATEMENT: Inadequate oral intake (NI-2.1) related to loss of appetite as evidenced by chart review | avg PO intake <25% x2meal INTERVENTION: Continue with current diet order of DYS2 Mechanically Altered diet. Continue with current supplementation order of Ensure Enlive (vary) with meals TID, for increased kcal intake. Provides 350 kcal and 13 g Pro per serving. Will continue to follow and reassess as pt needs, intake, and status change. MONITOR/EVALUATE: PO Intake; Plan of Care; Hydration Status; Weight Status; Lab Values Braxton Lambert, MS, RD, LD"
[2020-07-03] MEDS: MUPIROCIN 2% OINT 22 GM (BACTROBAN) TUBE TP SCH (20:08)
[2020-07-03] MEDS ORDERED: ENTACAPONE 200 MG PO SCH (21:00)
[2020-07-04] VITALS (8 sets, daily range): BP systolic 104–134; BP diastolic 67–86
[2020-07-04] MEDS: CEFEPIME 1,000 MG/SWFI 10 ML IV PUSH IV SCH ×10 (00:25→23:58)
[2020-07-04] MEDS: LACTATED RINGERS 1,000 ML IV SCH (00:30)
[2020-07-04 04:52] LABS: BASOPHILS % (AUTO) 0 % (0-10); EOSINOPHILS # (AUTO) 0.3 10^3/uL (0.0-0.3); EOSINOPHILS % (AUTO) 4 % (0-10); HEMATOCRIT 31 % (40-54); HEMOGLOBIN 10.3 G/DL (13.3-17.7); LYMPHOCYTES # (AUTO) 0.7 X 10^3 (1.0-4.0); LYMPHOCYTES % (AUTO) 9 % (12-44); MEAN CORPUSCULAR HEMOGLOBIN 30 PG (25-34); MEAN CORPUSCULAR HGB CONC 33 G/DL (32-36); MEAN CORPUSCULAR VOLUME 91 FL (80-99); MEAN PLATELET VOLUME 9.9 FL (7.4-10.4); MONOCYTES # (AUTO) 0.8 X 10^3 (0.0-1.0); MONOCYTES % (AUTO) 12 % (0-12); NEUTROPHILS # (AUTO) 5.3 X 10^3 (1.8-7.8); NEUTROPHILS % (AUTO) 75 % (42-75); PLATELET COUNT 403 10^3/uL (130-400); RED CELL DISTRIBUTION WIDTH 13.6 % (10.0-14.5); WHITE BLOOD COUNT 7.1 10^3/uL (4.3-11.0)
[2020-07-04 05:10] LABS: BUN/CREATININE RATIO 20; CALCIUM 8.2 MG/DL (8.5-10.1); CARBON DIOXIDE 22 MMOL/L (21-32); CHLORIDE 105 MMOL/L (98-107); CREATININE SERUM 0.56 MG/DL (0.60-1.30); GFR ESTIMATED > 60; GLUCOSE 94 MG/DL (70-105); MAGNESIUM 1.9 MG/DL (1.6-2.4); PHOSPHORUS 3.1 MG/DL (2.3-4.7); POTASSIUM 4.3 MMOL/L (3.6-5.0); SODIUM 136 MMOL/L (135-145)
--- NOTE | 2020-07-04 05:39 | Pulmonary Progress Note ---
Subjective Time Seen by a Provider: 05:34 Sepsis Event Evaluation Height, Weight, BMI Height: 5'8.00" Weight: 183lbs. 3.0oz. 83.604015dy; 23.88 BMI Method:Estimated Focused Exam Lactate Level 07/02/20 16:54: Lactic Acid Level 1.10 Exam Exam Vital Signs Date Time Temp Pulse Resp B/P (MAP) Pulse Ox O2 Delivery O2 Flow Rate FiO2 07/04/20 04:00 35.5 75 24 111/68 (82) 93 Room Air 07/04/20 03:40 93 Room Air 07/04/20 01:00 97 07/04/20 00:24 62 16 109/74 (86) 95 Room Air 07/03/20 23:00 36.2 Room Air 07/03/20 23:00 96 Room Air 07/03/20 21:00 94 Room Air 07/03/20 20:10 36.8 79 20 116/72 (87) 93 Room Air 07/03/20 20:00 85 27 116/72 (87) 92 Nasal Cannula 2.00 07/03/20 20:00 94 Room Air 07/03/20 19:00 88 07/03/20 16:00 96 Room Air 0.00 07/03/20 16:00 94 21 90 Nasal Cannula 2.00 07/03/20 12:36 73 07/03/20 12:00 94 Nasal Cannula 2.00 07/03/20 12:00 100/61 (74) 07/03/20 10:35 Nasal Cannula 3.00 07/03/20 09:00 96 Nasal Cannula 3.00 07/03/20 08:00 94 Nasal Cannula 2.00 07/03/20 08:00 78 14 92/55 (67) 95 Nasal Cannula 2.00 07/03/20 06:44 79 I & O 07/04/20 07:00 Intake Total 1155 ml Balance 1155 ml Height & Weight Height: 5'8.00" Weight: 183lbs. 3.0oz. 83.136045cw; 23.88 BMI Method:Estimated General Appearance: No Apparent Distress, Chronically ill HEENT: PERRL/EOMI, Moist Mucous Membranes; No Scleral Icterus (L), No Scleral Icterus (R) Neck: Normal Inspection, Supple Respiratory: No Accessory Muscle Use, No Respiratory Distress Cardiovascular: Regular Rate, Rhythm, No Murmur Capillary Refill: Less Than 3 Seconds Gastrointestinal: non tender, soft Extremity: No Calf Tenderness, No Pedal Edema, Other (right great toe with dressing on it, no underlying wound) Neurologic/Psychiatric: Disoriented, Other (arouses to verbal stimuli, answered one question appropriately) Skin: Normal Color, Warm/Dry; No Mottled Results Lab Laboratory Tests 07/02/20 16:54 07/03/20 03:30 07/04/20 04:40 Assessment/Plan Assessment/Plan Pneumonia with large Left pleural effusion -S/p Thoracentesis per Dr. Conner this morning -Await cytology and analysis -Continue Abx -COVID is pending -Repeat CT of chest - reviewed -Check BNP Parkinson's Dementia Dysphagia Seizure disorder Continue home meds after swallow eval HTN Continue home meds INDIO ZHANG DO Jul 04, 2020 05:39
--- NOTE | 2020-07-04 07:21 | NUR ---
SWAB RESULTED NEGATIVE. RECEIVED ORDER FROM DR. ZHANG TO REMOVE PATIENT FROM ISOLATION.
[2020-07-04] MEDS: PARoxetine 20 MG (PAXIL) TAB PO SCH (08:40)
[2020-07-04] MEDS: SINEMET 25/100 (CARBIDOPA/LEVODOPA) TAB PO SCH ×3 (08:40→20:26)
[2020-07-04] MEDS: risperiDONE 1 MG (RisperDAL) TAB PO SCH (08:41)
[2020-07-04] MEDS: DIVALPROX SPRINKLE 125 MG (DEPAKOTE) CAP PO SCH ×3 (08:44→20:29)
[2020-07-04] MEDS: MUPIROCIN 2% OINT 22 GM (BACTROBAN) TUBE TP SCH ×2 (08:44→20:29)
--- NOTE | 2020-07-04 08:55 | Progress Note - Hospitalist ---
Subjective HPI/CC On Admission Date Seen by Provider: Jul 04, 2020 Time Seen by Provider: 08:52 Pt is a 59yoCM with a PMH of advanced dementia who presented to the ER due to cough and fever. He is unable to provide me any history. He was able to say "I'm working on it." when asked how he was doing but otherwise only mumbled or did not respond to verbal cues. All history is obtained from the chart. Apparently he lives at [facility] and was noticed to have a cough and fever. I am unsure for how long or how high of a fever. He was swabbed for COVID in the ER but has not had any exposures or cases at [facility]. He was found to have a large left pleural effusion and was admitted for PNA. Thoracentesis was done in the ER with 2500mL of fluid drained. Subjective/Events-last exam Pt awake and alert. Still mostly mumbles. I wasn't able to understand any of the mumbles today. Focused Exam Lactate Level 07/02/20 16:54: Lactic Acid Level 1.10 Objective Exam Vital Signs Vital Signs Date Time Temp Pulse Resp B/P (MAP) Pulse Ox O2 Delivery O2 Flow Rate FiO2 07/04/20 08:00 95 Room Air 07/04/20 08:00 81 16 123/86 (98) 07/04/20 04:00 35.5 07/03/20 20:00 2.00 Capillary Refill : Less Than 3 Seconds General Appearance: No Apparent Distress, Chronically ill Respiratory: No Accessory Muscle Use, Decreased Breath Sounds (left) Cardiovascular: Regular Rate, Rhythm, No Murmur Gastrointestinal: Normal Bowel Sounds, Non Tender, Soft Neurologic/Psychiatric: Alert, Aphasia Results/Procedures Lab Laboratory Tests 07/04/20 04:40 Patient resulted labs reviewed. Imaging: Reviewed Imaging Report Assessment/Plan Assessment and Plan Assess & Plan/Chief Complaint Pneumonia Pleural Effusion Not sepsis s/p thoracentesis in ER with 2500mL - fluid consistent with exudative effusion Await cultures from fluid- still pending Blood culture with GPC- ?contaminant but will send for ID Continue abx COVID negative Parkinson's Dementia Dysphagia Seizure disorder Rn reports difficulty swallowing [employer] consulted placed- recommends soft diet with thin liquids Continue home meds after swallow eval Would likely benefit from hospice or palliative bridge program upon discharge HTN Continue home meds DVT ppx: lovenox Diagnosis/Problems Diagnosis/Problems (1) Pleural effusion, left Status: Acute (2) Dementia (3) Essential (primary) hypertension Clinical Quality Measures DVT/VTE Risk/Contraindication: Risk Factor Score Per Nursin RFS Level Per Nursing on Admit: 4+=Very High ANISA ORTIZ MD Jul 04, 2020 08:55
[2020-07-04] MEDS: ENOXAPARIN 40 MG/0.4 ML (LOVENOX) SYR SQ SCH (09:45)
--- NOTE | 2020-07-04 10:29 | Physical Therapy Evaluation ---
PT Evaluation-General Medical Diagnosis Admission Date Jul 02, 2020 at 18:51 Medical Diagnosis: Pneumonia Onset Date: Jul 03, 2020 Therapy Diagnosis Therapy Diagnosis: debility Height/Weight Height (Feet): 5 Height (Inches): 8.00 Weight (Pounds): 183 Weight (Ounces): 3.0 Precautions Precautions/Isolations: Airborne Isolation, Aspiration, Fall Prevention Weight Bear Status Right Lower Extremity: Right Weight Bearing/Tolerated Left Lower Extremity: Left Weight Bearing/Tolerated Referral Physician: iNni Reason for Referral: Evaluation/Treatment Medical History Pertinent Medical History: Dementia (advanced), Parkinson's (advanced) Additional Medical History schizophrenia Current History ER secondary to cough Reviewed History: Yes Social History Home: [facility] Prior Prior Level of Function SCALE: Activities may be completed with or without assistive devices. 3-Bedghqfrcs-nzfzntf completes the activity by him/herself with no assistance from a helper. 5-Set-up or Clean-up Assistance-helper sets up or cleans up; patient completes activity. [place] assists only prior to or following the activity. 4-Supervision or Touching Assistance-helper provides verbal cues and/or touching/steadying and/or contact guard assistance as patient completes activity. Assistance may be provided throughout the activity or intermittently. 3-Partial/Moderate Assistance-helper does LESS THAN HALF the effort. [place] lifts, holds or supports trunk or limbs, but provides less than half the effort. 2-Substantial/Maximal Assistance-helper does MORE THAN HALF the effort. [place] lifts or holds trunk or limbs and provides more than half the effort. 3-Ucpsymias-pqnwnt does ALL the effort. Patient does none of the effort to complete the activity. Or, the assistance of 2 or more helpers is required for the patient to complete the activity. If activity was not attempted, code reason: 7-Patient Refused. 9-Not Applicable-not attempted and the patient did not perform the activity before the current illness, exacerbation or injury. 10-Not Attempted due to Environmental Limitations-(lack of equipment, weather restraints, etc.). 88-Not Attempted due to Medical Conditions or Safety Concerns. Bed Mobility: 1 Transfers (B,C,W/C): 1 Gait: 9 Stairs: 9 Wheelchair Mobility: 1 Indoor Mobility (Ambulation): Dependent Stairs: Not Applicalbe PT Evaluation-Current Subjective Mumbles Objective Patient Orientation: Confused, Mumbles Attachments: IV ROM/Strength ROM Lower Extremities severely rigid due to advanced Parkinson's (PT unable to break tone) Strength Lower Extremities unable to test due to advanced dementia and Parkinson's Integumentary/Posture Integumentary refer to nursing notes Bowel Incontinence: Yes Bladder Incontinence: Yes Posture rigid Neuromuscular (Tone, Coordination, Reflexes) Parkinson's Sensory Vision: Unable to Assess Hearing: Unable to Assess Transfers Roll Left to Right (QC): 1 (x 2) Sit to Lying (QC): 1 (x 2) Lying to Sitting/Side of Bed(Q: 1 (x 2) Sit to Stand (QC): 1 (x 2) completely dependent with all mobility Gait Does the Patient Walk?: No and Walking Goal NOT indicated Balance Sitting Static: Poor Sitting Dynamic: Poor Standing Static: Poor Standing Dynamic: Poor Assessment/Needs 59 y.o. male, with advanced dementia and Parkinson's, is currently at OF of complete dependency with all gross motor skills and mobility. No skilled therapy indicated. Rehab Potential: Poor PT Plan Treatment/Plan Treatment Plan: Discontinue PT, goals met Treatment Duration: Jul 04, 2020 Frequency: 1 time per week Estimated Hrs Per Day: .5 hour per day Time/GCodes Time In: 1000 Time Out: 1021 Total Billed Treatment Time: 21 Total Billed Treatment 1 visit [facility] 21 min WADE AMBROCIO PT Jul 04, 2020 10:29
--- NOTE | 2020-07-04 11:30 | Occupational Therapy Eval ---
OT Evaluation-General/PLF Medical Diagnosis Admission Date Jul 02, 2020 at 18:51 Medical Diagnosis: Pneumonia Onset Date: Jul 03, 2020 Therapy Diagnosis Therapy Diagnosis: Debility Height/Weight Height (Feet): 5 Height (Inches): 8.00 Weight (Pounds): 183 Weight (Ounces): 3.0 Precautions Precautions/Isolations: Airborne Isolation, Aspiration, Fall Prevention Referral Physician: Nini Referral Reason: Activity Tolerance, Self Care, Evaluation/Treatment, S trengthening/ROM Medical History Pertinent Medical History: Dementia (advanced), Parkinson's (advanced) Additional Medical History Seizure disorder, [place] resident Current History Pt. came to ER with reports of coughing/SOA. Found to have pneumonia. Thoracentesis performed with 2500mL drained. Reviewed History: Yes Social History Home: Skilled Nursing Current Living Status: 24 hour Entry Into Home: Level Entry ADL-Prior Level of Function SCALE: Activities may be completed with or without assistive devices. 5-Xvvvguuvwp-natlbvt completes the activity by him/herself with no assistance from a helper. 5-Set-up or Clean-up Assistance-helper sets up or cleans up; patient completes activity. [place] assists only prior to or following the activity. 4-Supervision or Touching Assistance-helper provides verbal cues and/or touching/steadying and/or contact guard assistance as patient completes activity. Assistance may be provided throughout the activity or intermittently. 3-Partial/Moderate Assistance-helper does LESS THAN HALF the effort. [place] lifts, holds or supports trunk or limbs, but provides less than half the effort. 2-Substantial/Maximal Assistance-helper does MORE THAN HALF the effort. [place] lifts or holds trunk or limbs and provides more than half the effort. 4-Dmcrmprrj-nsrfsf does ALL the effort. Patient does none of the effort to complete the activity. Or, the assistance of 2 or more helpers is required for the patient to complete the activity. If activity was not attempted, code reason: 7-Patient Refused. 9-Not Applicable-not attempted and the patient did not perform the activity before the current illness, exacerbation or injury. 10-Not Attempted due to Environmental Limitations-(lack of equipment, weather restraints, etc.). 88-Not Attempted due to Medical Conditions or Safety Concerns. ADL PLOF Comments It was reported to this therapist that pt. is at previous baseline functionally. Self Care: Dependent Functional Cognition: Dependent OT Current Status Subjective Pt. keeps eyes closed throughout evaluation. Does not speak or answer questions. Does not stimulate to sternal rubs or PROM of UE. Mental Status/Objective Patient Orientation: Unresponsive Attachments: IV ADL-Treatment Pt. in bed asleep. OT attempts different methods to arouse him for occupational therapy evaluation. Pt. does not open eyes or attend in any way. OT completes sternal rubs with no awareness. OT performed bilateral UE PROM to all joints, with moderate spasticity noted. Pt's face cleansed with washcloth. Pt. still does not open eyes. OT re-positioned head/neck for comfort. No other treatment provided. Pt. not appropriate at this time for skilled therapy needs, as he is unable to attend or participate, and is at reported PLOF. Education OT Patient Education: Correct positioning, Exercise program, Rehab process Teaching Recipient: Patient Teaching Methods: Demonstration, Discussion Response to Teaching: Unable to Return Demonstration, Unable to Comprehend OT Shelter Goals Shelter Goals Time Frame: Jul 04, 2020 1=Demonstrate adherence to instructed precautions during ADL tasks. 2=Patient will verbalize/demonstrate understanding of assistive devices/modifications for ADL. 3=Patient will improve strength/tolerance for activity to enable patient to perform ADL's. No OT skilled needs identified at this time as pt. was at dependent level previously. OT Education/Plan Problem List/Assessment Assessment: No Skilled OT Needs ID'd Discharge Recommendations Plan/Recommendations: Discontinue OT Therapy Discharge Recommendati: 24 Hour Supervision Treatment Plan/Plan of Care Plan of Care: OTHER (No treatment at this time.) Treatment Duration: Jul 04, 2020 Frequency: 1 time per week Estimated Hrs Per Day: .25 hour per day Agreement: No Rehab Potential: Poor Time/GCodes Start Time: 10:50 Stop Time: 11:00 Total Time Billed (hr/min): 10 Billed Treatment Time 1, KEMAR GAITAN OT Jul 04, 2020 11:30
--- NOTE | 2020-07-04 11:40 | NUR ---
CM/SS visited with patient for discharge planning. The patient was lying in bed at time of visit. CM/SS asked how the patient was doing today, he reported "I'm just fine". The patient was able to mumble in attempt to answer this sw questions but this sw was unable to make out most the mumbles. Facility: The patient is a resident of [facility]. CM/SS attempted to contact Ange from the facility. She was unavailable at that time. Will try again later. DPOA: CM/SS contacted Jayesh the patient's power of trade mark attorney to give an update and a time frame for possible discharge back to facility. He verbalized understanding. He had questions regarding medical updates and how to speak with patient on the phone. CM/SS informed him to contact the main hospital line and be transferred to the ICU to speak with Nurse for update/ phone call. He verbalized understanding. No further questions at this time. CM/SS will continue to follow for discharge planning
--- NOTE | 2020-07-04 13:58 | NUR ---
Patient arrived to room 408 from ICU 6. Patient lying in bed at this time, voices no concerns, call light within reach. I agree with previous RN's assessment and will continue to monitor.
[2020-07-05] VITALS: BP 113/66
[2020-07-05 04:33] VITALS: BP 130/88
[2020-07-05] MEDS: CEFEPIME 1,000 MG/SWFI 10 ML IV PUSH IV SCH ×4 (06:08→13:22)
[2020-07-05 08:00] VITALS: BP 110/62
[2020-07-05] MEDS: risperiDONE 1 MG (RisperDAL) TAB PO SCH (08:47)
[2020-07-05] MEDS: PARoxetine 20 MG (PAXIL) TAB PO SCH (08:47)
[2020-07-05] MEDS: SINEMET 25/100 (CARBIDOPA/LEVODOPA) TAB PO SCH ×2 (08:47→13:22)
[2020-07-05] MEDS: ENOXAPARIN 40 MG/0.4 ML (LOVENOX) SYR SQ SCH (08:48)
[2020-07-05] MEDS: DIVALPROX SPRINKLE 125 MG (DEPAKOTE) CAP PO SCH ×2 (08:51→13:22)
[2020-07-05] MEDS: MUPIROCIN 2% OINT 22 GM (BACTROBAN) TUBE TP SCH (08:52)
--- NOTE | 2020-07-05 09:17 | NUR ---
Palliative Care RN in to see patient. He is resting with eyes closed. He responds to verbal cues. He is verbal but not intelligibly. Plan is for return to [facility] today. Dr. Terrazas to discuss with his family that hospice would be beneficial as he progresses in the dementia process.
--- NOTE | 2020-07-05 11:35 | Discharge Summary ---
Diagnosis/Chief Complaint Date of Admission Jul 02, 2020 at 18:51 Date of Discharge Admission Diagnosis Pneumonia with pleural effusion Primary Care Marko Logan Jonah DO Discharge Diagnosis (1) Pleural effusion, left Status: Acute (2) Dementia (3) Essential (primary) hypertension Discharge Summary Procedures/Consulations Dr Serrano- Pulm Dr Conner- Surgery Discharge Physical Exam Allergies: Coded Allergies: No Known Drug Allergies (Unverified , 12/19/17) Vitals & I&Os Vital Signs Date Time Temp Pulse Resp B/P (MAP) Pulse Ox O2 Delivery O2 Flow Rate FiO2 07/05/20 12:00 37.2 72 20 120/76 (91) 94 Room Air 07/03/20 20:00 2.00 General Appearance: No Apparent Distress, Chronically ill Respiratory: Lungs Clear, No Respiratory Distress Neurologic/Psychiatric: Alert, Disoriented Hospital Course Pt is a 59yoCM with a PMH of Parkinson's Dementia who presented to the ER due to low oxygen levels and was admitted due to pneumonia. He underwent thoracentesis and 2500mL was drained. He was treated with IV antibiotics and responded well. He was titrated off of oxygen. There was concern regarding aspiration and he was seen by ENVIRONMENTAL LABORATORY TECHNICIAN who recommended dysphagia 2 diet with thin liquids. I did discuss this with family and placed orders accordingly for the fdc. Discussed that if difficulties with swallowing continue or worsen could be a sign of advancing dementia and that hospice could be beneficial at that point. Labs (last 24 hrs) Microbiology 07/02/20 Gram Stain - Final, Resulted 07/02/20 Body Fluid Culture - Preliminary, Resulted No growth 07/02/20 Urine Culture - Final, Complete NO GROWTH 07/02/20 Blood Culture - Preliminary, Resulted Staphylococcus hominis Patient resulted labs reviewed. Imaging: Reviewed Imaging Report Discussion & Recommendations Discharge Planning: >30 minutes discharge planning Discharge Home Medications: Active Scripts Active Keflex (Cephalexin) 500 Mg Capsule 500 Mg PO BID Reported Bisacodyl 10 Mg Supp.rect 10 Mg RC DAILY PRN USE IF NO BM IN 3 DAYS IF MOM NOT EFFECTIVE Docusate Sodium 100 Mg Capsule 100 Mg PO DAILY Depakote Sprinkle (Divalproex Sodium) 125 Mg Cap 125 Mg PO 1400 Divalproex Sodium 125 Mg Cap.sprink 250 Mg PO BID TAKES 2 (125MG) CAPS Mupirocin 22 Gm Oint...g. 1 Applic TP BID APPLY TO THE RIGHT GREAT TOE AND WRAP WITH GAUZE DRESSING Risperidone 0.5 Mg Tablet 0.5 Mg PO DAILY Milk of Magnesia (Magnesium Hydroxide) 2,400 Mg/10 Ml Oral.susp 30 Ml PO DAILY PRN Loperamide (Loperamide HCl) 2 Mg Tablet 2-4 Mg PO TID PRN MDD 6 TABS GIVE 2 TABS NEEDED AFTER LOOSE STOOL, THEN 1 TAB AFTER EACH LOOSE STOOL Fleet Enema (Na Phos,M-B/Na Phos,Di-Ba) 133 Ml Enema 133 Ml RC DAILY PRN GIVE IF NO BM IN 5 DAYS Tylenol (Acetaminophen) 325 Mg Tablet 650 Mg PO Q4H PRN TAKES 2 (325 MG) TABLETS Sinemet 25-100 mg Tablet (Carbidopa/Levodopa) 1 Each Tablet 1 Tab PO TID Paxil (Paroxetine HCl) 20 Mg Tablet 20 Mg PO DAILY Entacapone 200 Mg Tablet 200 Mg PO BID Diltiazem HCl 120 Mg Tablet 120 Mg PO DAILY Instructions to patient/family Please see electronic discharge instructions given to patient. Clinical Quality Measures DVT/VTE Risk/Contraindication: Risk Factor Score Per Nursin RFS Level Per Nursing on Admit: 4+=Very High ANISA ORTIZ MD Jul 05, 2020 11:35
[2020-07-05 12:00] VITALS: BP 120/76
--- NOTE | 2020-07-05 12:09 | NUR ---
LULÚ/MELISSA discharge. Plan: The patient will return to [facility]. LULÚ/SS unsure if patient will leave with hospice at this time. The patient's physician has attempted to get in touch with Jayesh (SANDRINE) to discuss hospice as an option. She left voice mail. CM/SS attempted to contact Jayesh, no answer. LULÚ/MELISSA contacted [facility] and spoke with Ange to inform them of patient's discharge to facility. LULÚ/MELISSA discussed with Ange that physician still is planning to discuss Hospice with Jayesh. She verbalized understanding. LULÚ/SS set up a late crab picker time for 3:00 p.m. This time is subject to change depending on discussion with [facility]PRAE. CM/SS faxed updated clinical and will sent discharge when available. Addendum: 07/05/20 at 1502 by DANNI BARFIELD Update: Patient will not be discharging with hospice at this time. Finalized orders faxed to facility.
--- NOTE | 2020-07-05 13:39 | Discharge Inst-Simple/Standard ---
Discharge Inst-Standard Patient Instructions/Follow Up Plan of Care/Instructions/FU: Please continue to take your medicatons as written. Please follow up with your primary care doctor to follow up this hospital stay. Activity as Tolerated: Yes Discharge Diet: Soft Diet (Dysphagia level 2, mechanically altered with thin liquids) Return to The Hospital For: Chest pain, shortness of breath, fever, confusion, low oxygen saturations, if you feel you are getting worse. Planned Outpatient Orders/Ref. Pneu Vac Indicated: Yes ANISA ORTIZ MD Jul 05, 2020 13:37
[2020-07-05] MEDS ORDERED: CEPH-507 PO (13:42)
[2020-07-05 15:35] VITALS: BP 133/71
== END 2020-07-05 16:20 | DRG 194 ==
LOC: EDUNIT# 16:41 → ER 16:43 → ICU 18:51 → 4TH 07-04 13:30
PROVIDERS: ADMIT Internal Medicine; ATTEND Internal Medicine
PROC: 0W9B3ZZ Drainage of Left Pleural Cavity, Percutaneous Approach (ICD-10-PCS; principal; 2020-07-02)
DX: J18.9 Pneumonia, unspecified organism (principal); J91.8 Pleural effusion in other conditions classified elsewhere; F02.81 Dementia in other diseases classified elsewhere, unspecified severity, with behavioral disturbance; G20 Parkinson's disease; Z66 Do not resuscitate; K59.09 Other constipation; F20.9 Schizophrenia, unspecified; F32.9 Major depressive disorder, single episode, unspecified; G40.909 Epilepsy, unspecified, not intractable, without status epilepticus; I10 Essential (primary) hypertension; R13.10 Dysphagia, unspecified; Z20.828 Contact with and (suspected) exposure to other viral communicable diseases
CPT/HCPCS: 36415; 51701; 71045; 71260; 71275; 80048; 80053; 81000; 82945; 83605; 83615; 83735; 83880; 83986; 84100; 84145; 84157; 85025; 85610; 85730; 87040; 87070; 87077; 87088; 87186; 87205; 87635; 88112; 88305; 89051

== ENCOUNTER 2020-08-14 20:28 | Inpatient (IN) | payer MEDICAID ==
[~2020-08-14] VITALS: Ht 182 cm; Wt 71.7 kg
[~2020-08-14 20:28] MED LIST changes: +BISA10SU8 RC; +CEPH-507 PO; +DIVA125C PO; +DIVA125C10 PO; +DOCU100C37 PO; +LOPE2TAB34 PO; +MOM10U PO; +MUPI22OI2 TP; +NA P133E22 RC; +RISP0.5T3 PO
[2020-08-14] MEDS ORDERED: LACTATED RINGERS 1,000 ML IV ONE ×2 (20:36→23:16)
[2020-08-14 20:39] VITALS: BP 141/88
--- NOTE | 2020-08-14 20:49 | ED General ---
General Chief Complaint: General Problems/Pain Stated Complaint: FEVER Nursing Triage Note: PT ARRIVES BY EMS FROM [facility] WITH C/O FEVER. COVID + KNOWN. PT IS NON- VERBAL. Nursing Sepsis Screen: No Definite Risk Source of Information: Patient Exam Limitations: No Limitations History of Present Illness Date Seen by Provider: Aug 14, 2020 Time Seen by Provider: 20:25 Initial Comments Here by EMS from [facility] with report of increasing fever. Patient is COVID-19 positive for at least the last few days. He is certainly symptomatic with fever. Has underlying advanced dementia as well as Parkinson's disease and is nonverbal currently and is not answering questions. Apparently he is not far from baseline although his diet is thickened soft diet and apparently does feed self with assistance. Patient is unable to provide any information. Go to sleep Timing/Duration: 2-3 Days Severity: Moderate Associated Systoms: Cough, Fever/Chills; No Shortness of Air; Weakness Allergies and Home Medications Allergies Coded Allergies: No Known Drug Allergies (Unverified , 12/19/17) Home Medications Acetaminophen 325 Mg Tablet, 650 MG PO Q4H PRN for PAIN-MILD, (Reported) TAKES 2 (325 MG) TABLETS Bisacodyl 10 Mg Supp.rect, 10 MG RC DAILY PRN for CONSTIPATION-4TH LINE, (Reported) USE IF NO BM IN 3 DAYS IF MOM NOT EFFECTIVE Carbidopa/Levodopa 1 Each Tablet, 1 TAB PO TID, (Reported) Cephalexin 500 Mg Capsule, 500 MG PO BID Prescribed by: ANISA ORTIZ on 07/05/20 1342 Diltiazem HCl 120 Mg Tablet, 120 MG PO DAILY, (Reported) Divalproex Sodium 125 Mg Cap.sprink, 250 MG PO BID, (Reported) TAKES 2 (125MG) CAPS Divalproex Sodium 125 Mg Cap, 125 MG PO 1400, (Reported) Docusate Sodium 100 Mg Capsule, 100 MG PO DAILY, (Reported) Entacapone 200 Mg Tablet, 200 MG PO BID, (Reported) Loperamide HCl 2 Mg Tablet, 2-4 MG PO TID PRN for DIARRHEA, (Reported) GIVE 2 TABS NEEDED AFTER LOOSE STOOL, THEN 1 TAB AFTER EACH LOOSE STOOL Magnesium Hydroxide 2,400 Mg/10 Ml Oral.susp, 30 ML PO DAILY PRN for CONSTIPATION-7TH LINE, (Reported) Mupirocin 22 Gm Oint...g., 1 APPLIC TP BID, (Reported) APPLY TO THE RIGHT GREAT TOE AND WRAP WITH GAUZE DRESSING Na Phos,M-B/Na Phos,Di-Ba 133 Ml Enema, 133 ML RC DAILY PRN for CONSTIPATION-8TH LINE, (Reported) GIVE IF NO BM IN 5 DAYS Paroxetine HCl 20 Mg Tablet, 20 MG PO DAILY, (Reported) Risperidone 0.5 Mg Tablet, 0.5 MG PO DAILY, (Reported) Patient Home Medication List Home Medication List Reviewed: Yes Review of Systems Review of Systems Constitutional: see HPI, chills, fever Respiratory: cough Unable to complete review of systems due to altered mental status and underlying clinical condition. Past Ihiwpem-Vkvkwb-Sxoyzt Hx Past Med/Social Hx: Reviewed Nursing Past Med/Soc Hx Patient Social History Alcohol Use: Denies Use Recreational Drug Use: No 2nd Hand Smoke Exposure: No Recent Foreign Travel: No Contact w/Someone Who Travel: No Recent Infectious Disease Expo: Yes Recent Hopitalizations: No (unknown) Immunizations Up To Date Tetanus Booster (TDap): Unknown Seasonal Allergies Seasonal Allergies: No Past Medical History Respiratory: No Cardiac: No Neurological: Yes Dementia, Parkinson's Disease Gastrointestinal: Yes Chronic Constipation Musculoskeletal: No Psychosocial: Yes (MANIPULATIVE BEHAVIORS, SEXUAL INAPROPRIATENESS) Schizophrenia, Depression Blood Disorders: No Adverse Reaction/Blood Tranf: No Family Medical History Reviewed Nursing Family Hx No Pertinent Family Hx Physical Exam-Suspected Sepsis Physical Exam Vital Signs Vital Signs - First Documented 08/14/20 08/14/20 20:28 20:57 Temp 37.8 Pulse 85 Resp 17 B/P (MAP) 141/88 (105) Pulse Ox 93 O2 Delivery Room Air Capillary Refill : Less Than 3 Seconds Blood Pressure Mean: 105 Height, Weight, BMI Height: 5'8.00" Weight: 183lbs. 3.0oz. 83.495810lq; 25.00 BMI Method:Estimated General Appearance: Chronically ill, Mild Distress, Thin HEENT: Other (bilateral eyes matted. Mucous membranes dry.) Neck: Non Tender, Supple Respiratory: Crackles, Other (coarse sounds throughout) Cardiovascular: Regular Rate, Rhythm, No Murmur Gastrointestinal: Non Tender, Soft Extremity: Non Tender, No Calf Tenderness, No Pedal Edema Neurologic/Psychiatric: Other (moans but does not answer questions. Does not follow commands.) Skin: No diaphoresis; other (skin is warm) Focused Exam Lactate Level 08/14/20 20:30: Lactic Acid Level 0.80 Lactic Acid Level Laboratory Tests Test 08/14/20 20:30 Lactic Acid Level 0.80 MMOL/L (0.50-2.00) Progress/Results/Core Measures Suspected Sepsis Recent Fever Within 48 Hours: Yes Infection Criteria Present: Documented Infection New/Unexplained Altered Menta: No Sepsis Screen: No Definite Risk SIRS Temperature: Pulse: 85 Respiratory Rate: 17 Laboratory Tests 08/14/20 20:30: White Blood Count 5.0 Blood Pressure 141 /88 Mean: 105 08/14/20 20:30: Lactic Acid Level 0.80 Laboratory Tests 08/14/20 20:30: Creatinine 0.64, INR Comment 1.0, Platelet Count 320, Total Bilirubin 0.3 Results/Orders Lab Results Laboratory Tests Test 08/14/20 20:30 08/14/20 20:45 Range/Units White Blood Count 5.0 4.3-11.0 10^3/uL Red Blood Count 4.22 L 4.30-5.52 10^6/uL Hemoglobin 11.4 L 13.3-17.7 g/dL Hematocrit 36 L 40-54 % Mean Corpuscular Volume 84 80-99 fL Mean Corpuscular Hemoglobin 27 25-34 pg Mean Corpuscular Hemoglobin Concent 32 32-36 g/dL Red Cell Distribution Width 14.7 H 10.0-14.5 % Platelet Count 320 130-400 10^3/uL Mean Platelet Volume 10.7 9.0-12.2 fL Immature Granulocyte % (Auto) 0 % Neutrophils (%) (Auto) 81 H 42-75 % Lymphocytes (%) (Auto) 9 L 12-44 % Monocytes (%) (Auto) 10 0-12 % Eosinophils (%) (Auto) 0 0-10 % Basophils (%) (Auto) 0 0-10 % Neutrophils # (Auto) 4.0 1.8-7.8 10^3/uL Lymphocytes # (Auto) 0.5 L 1.0-4.0 10^3/uL Monocytes # (Auto) 0.5 0.0-1.0 10^3/uL Eosinophils # (Auto) 0.0 0.0-0.3 10^3/uL Basophils # (Auto) 0.0 0.0-0.1 10^3/uL Immature Granulocyte # (Auto) 0.0 0.0-0.1 10^3/uL Prothrombin Time 14.1 12.2-14.7 SEC INR Comment 1.0 0.8-1.4 Activated Partial Thromboplast Time 42 H 24-35 SEC D-Dimer 3.74 H 0.00-0.49 UG/ML Sodium Level 137 135-145 MMOL/L Potassium Level 3.8 3.6-5.0 MMOL/L Chloride Level 103 98-107 MMOL/L Carbon Dioxide Level 22 21-32 MMOL/L Anion Gap 12 5-14 MMOL/L Blood Urea Nitrogen 23 H 7-18 MG/DL Creatinine 0.64 0.60-1.30 MG/DL Estimat Glomerular Filtration Rate > 60 BUN/Creatinine Ratio 36 Glucose Level 97 70-105 MG/DL Lactic Acid Level 0.80 0.50-2.00 MMOL/L Calcium Level 8.6 8.5-10.1 MG/DL Corrected Calcium 9.4 8.5-10.1 MG/DL Total Bilirubin 0.3 0.1-1.0 MG/DL Aspartate Amino Transf (AST/SGOT) 27 5-34 U/L Alanine Aminotransferase (ALT/SGPT) 21 0-55 U/L Alkaline Phosphatase 133 40-136 U/L C-Reactive Protein High Sensitivity 19.83 H 0.00-0.50 MG/DL Total Protein 7.7 6.4-8.2 GM/DL Albumin 3.0 L 3.2-4.5 GM/DL Procalcitonin 0.12 H <0.10 NG/ML Urine Color KATHRYN H Urine Clarity CLEAR Urine pH 6.0 5-9 Urine Specific [place] 1.025 H 1.016-1.022 Urine Protein TRACE H NEGATIVE Urine Glucose (UA) NEGATIVE NEGATIVE Urine Ketones 2+ H NEGATIVE Urine Nitrite NEGATIVE NEGATIVE Urine Bilirubin 1+ H NEGATIVE Urine Urobilinogen >=8.0 < = 1.0 MG/DL Urine Leukocyte Esterase NEGATIVE NEGATIVE Urine RBC (Auto) NEGATIVE NEGATIVE Urine RBC NONE /HPF Urine WBC 2-5 /HPF Urine Crystals PRESENT H /LPF Urine Amorphous Sediment FEW CHERIE URATES H /LPF Urine Bacteria TRACE /HPF Urine Casts NONE /LPF Urine Mucus LARGE H /LPF Urine Culture Indicated CULTURE PENDING My Orders Orders - BENEDICT STARR MD Cbc With Automated Diff (08/14/20 20:36) Comprehensive Metabolic Panel (08/14/20 20:36) Blood Culture (08/14/20 20:36) Sputum Culture (08/14/20 20:36) Urinalysis (08/14/20 20:36) Urine Culture (08/14/20 20:36) Protime With Inr (08/14/20 20:36) Partial Thromboplastin Time (08/14/20 20:36) Chest 1 View, Ap/Pa Only (08/14/20 20:36) Ed Iv/Invasive Line Start (08/14/20 20:36) Vital Signs Adult Sepsis Patie Q15M (08/14/20 20:36) O2 (08/14/20 20:36) Remove Rings In Anticipation O (08/14/20 20:36) Lactic Acid Analyzer (08/14/20 20:36) Procalcitonin (Pct) (08/14/20 20:36) Hs C Reactive Protein (08/14/20 20:36) Fibrin Degradation Products (08/14/20 20:36) Ed Iv/Invasive Line Start (08/14/20 20:36) Lactated Ringers (Lr 1000 Ml Iv Solution (08/14/20 20:36) Catheter(Urinary) Insert & Ass 03,15 (08/14/20 20:37) Cefepime Injection (Maxipime Injection) (08/14/20 21:45) Dexamethasone Injection (Decadron Inje (08/14/20 22:00) Medications Given in ED Current Medications Medications Dose Ordered Sig/Ivelisse Route Start Time Stop Time Status Last Admin Dose Admin Cefepime HCl 1000 mg/Sterile Water 10 ml @ 200 mls/hr ONCE ONCE IV 08/14/20 21:45 08/14/20 21:47 DC 08/14/20 22:03 200 MLS/HR Dexamethasone Sodium Phosphate 6 mg ONCE ONCE IV 08/14/20 22:00 08/14/20 22:01 DC 08/14/20 22:03 6 MG Lactated Ringer's 1,000 ml @ 0 mls/hr Q0M ONCE IV 08/14/20 20:36 08/14/20 20:38 DC 08/14/20 21:03 1,000 MLS/HR Vital Signs/I&O 08/14/20 08/14/20 08/14/20 20:28 20:39 20:57 Temp 37.8 Pulse 85 85 Resp 17 17 B/P (MAP) 141/88 (105) 141/88 (105) Pulse Ox 93 93 O2 Delivery Room Air Room Air Capillary Refill : Less Than 3 Seconds Blood Pressure Mean: 105 Progress Note : Progress Note Seen and evaluated. IV, labs, UA, chest x-ray, LR 1 L bolus, [place] catheter ordered. Patient is known COVID positive. We will evaluate for pneumonia. Patient likely will need admission due to underlying medical condition and COVID status with worsening. Monitor patient. Diagnostic Imaging Diagonstic Imaging: Xray Plain Films/CT/US/NM/MRI: chest Comments NAME: DORIAN VIDAL [facility] REC#: [id number] PT STATUS: REG ER : 1960 PHYSICIAN: BENEDICT STARR MD ADMIT DATE: 08/14/20/ER Draft Date of Exam:08/14/20 CHEST 1 VIEW, AP/PA ONLY EXAMINATION: Chest 1 view HISTORY: Sepsis. Covid positive. COMPARISON: 07/02/2020. FINDINGS: Patchy and hazy opacities are seen throughout the left hemithorax, greatest in the left perihilar region. A few scattered patchy opacities are seen in the right lung base. No large pleural effusion or pneumothorax. Cardiac silhouette is stable. No acute osseous abnormalities. IMPRESSION: 1. Opacities throughout the left hemithorax with scattered opacities in the right lung base. These findings are consistent with a history of infection. The asymmetric appearance may represent superimposed atelectasis or edema. Dictated on workstation # [id number] Dict: 08/14/202123 Trans: 08/14/202125 [facility] [id number] Interpreted by: ABELINO WOLF DO Electronically signed by: Departure Communication (Admissions) Time/Spoke to Admitting Phy: 21:48 Impression Primary Impression: Pneumonia due to COVID-19 virus Additional Impression: Dehydration Disposition: ADMITTED INPATIENT Condition: Stable Admissions Decision to Admit Reason: Admit from ER (General) Decision to Admit/Date: Aug 14, 2020 Time/Decision to Admit Time: 21:48 Departure-Patient Inst. Referrals: YOLY FAITH DO (PCP/Family) Primary Care Physician BENEDICT STARR MD Aug 14, 2020 20:49
[2020-08-14 21:05] LABS: CLARITY,URINE CLEAR; COLOR,URINE AMBER; GLUCOSE, URINE (UA) NEGATIVE (NEGATIVE); KETONES,URINE 2+ (NEGATIVE); LEUKOCYTE ESTERASE ,URINE NEGATIVE (NEGATIVE); NITRITE,URINE NEGATIVE (NEGATIVE); PROTEIN,URINE TRACE (NEGATIVE)
[2020-08-14 21:11] LABS: BASOPHILS % (AUTO) 0 % (0-10); EOSINOPHILS % (AUTO) 0 % (0-10); HEMATOCRIT 36 % (40-54); HEMOGLOBIN 11.4 g/dL (13.3-17.7); LYMPHOCYTES # (AUTO) 0.5 10^3/uL (1.0-4.0); LYMPHOCYTES % (AUTO) 9 % (12-44); MEAN CORPUSCULAR HEMOGLOBIN 27 pg (25-34); MEAN CORPUSCULAR HGB CONC 32 g/dL (32-36); MEAN CORPUSCULAR VOLUME 84 fL (80-99); MEAN PLATELET VOLUME 10.7 fL (9.0-12.2); MONOCYTES # (AUTO) 0.5 10^3/uL (0.0-1.0); MONOCYTES % (AUTO) 10 % (0-12); NEUTROPHILS % (AUTO) 81 % (42-75); PLATELET COUNT 320 10^3/uL (130-400)
[2020-08-14 21:17] LABS: CHLORIDE 103 MMOL/L (98-107); POTASSIUM 3.8 MMOL/L (3.6-5.0); SODIUM 137 MMOL/L (135-145)
[2020-08-14 21:18] LABS: CALCIUM 8.6 MG/DL (8.5-10.1)
[2020-08-14 21:19] LABS: FIBRIN DEGRADATION PRODUCTS 3.74 UG/ML (0.00-0.49); GLUCOSE 97 MG/DL (70-105); PROTHROMBIN TIME PATIENT 14.1 SEC (12.2-14.7)
[2020-08-14 21:20] LABS: TOTAL PROTEIN 7.7 GM/DL (6.4-8.2)
[2020-08-14 21:21] LABS: BILIRUBIN,TOTAL 0.3 MG/DL (0.1-1.0); CARBON DIOXIDE 22 MMOL/L (21-32)
[2020-08-14 21:23] LABS: ALKALINE PHOSPHATASE 133 U/L (40-136); CREATININE SERUM 0.64 MG/DL (0.60-1.30); GFR ESTIMATED > 60
[2020-08-14 21:24] LABS: BUN/CREATININE RATIO 36
[2020-08-14 21:24] LABS: AMORPHOUS SEDIMENT,UR FEW AMOR URATES /LPF; BACTERIA,URINE TRACE /HPF
[2020-08-14 21:26] LABS: ALANINE AMINOTRANSFERASE 21 U/L (0-55)
--- NOTE | 2020-08-14 21:26 | Diagnostic Imaging Report ---
EXAMINATION: Chest 1 view HISTORY: Sepsis. Covid positive. COMPARISON: 07/02/2020. FINDINGS: Patchy and hazy opacities are seen throughout the left hemithorax, greatest in the left perihilar region. A few scattered patchy opacities are seen in the right lung base. No large pleural effusion or pneumothorax. Cardiac silhouette is stable. No acute osseous abnormalities. IMPRESSION: 1. Opacities throughout the left hemithorax with scattered opacities in the right lung base. These findings are consistent with a history of infection. The asymmetric appearance may represent superimposed atelectasis or edema. Dictated by: Dictated on workstation # [id number]
[2020-08-14 21:27] LABS: BILIRUBIN,URINE 1+ (NEGATIVE)
--- NOTE | 2020-08-14 21:31 | NUR ---
ASSUMED CARE OF THIS PATIENT AT THIS TIME. MONITORING MAINTAINED.
--- NOTE | 2020-08-14 21:32 | NUR ---
LAB STAFF TO ROOM, COLLECTED 2ND CULTURE
[2020-08-14] MEDS ORDERED: CEFEPIME INJECTION 1,000 MG in WATER (STERILE) FOR INJECTION 10 ML IV ONE (21:45)
[2020-08-14 22:17] VITALS: BP 131/78
--- NOTE | 2020-08-14 23:15 | NUR ---
SHANTI RN HERE TO TAKE PATIENT TO ROOM 422
[2020-08-14 23:30] VITALS: BP 108/58
[2020-08-14] MEDS ORDERED: ONDANSETRON 4 MG/2 ML (SDV) Z0FRAN IV PRN (23:30)
[2020-08-14] MEDS ORDERED: ACETAMINOPHEN 650 MG SUPP (TYLENOL) PR PRN (23:30)
[2020-08-14] MEDS ORDERED: ACETAMINOPHEN 325 MG TABLET PO PRN (23:30)
[2020-08-14] MEDS ORDERED: dexAMETHasone 6 MG TAB (DECADRON) PO SCH (23:30)
--- NOTE | 2020-08-14 23:30 | NUR ---
DORIAN VIDAL admitted to room 422-1, with an admitting diagnosis of COVID 19, PNA, DEHYDRATION, on 08/14/20 from [facility] via [facility], accompanied by STAFF.DORIAN VIDAL introduced to surroundings, call light, bed controls, phone, TV, temperature control, lights, meal times, smoking policy, visitor policy, side rail policy, bathrooms and showers. Patient Rights given to patient in the handbook. DORIAN VIDAL verbalizes understanding that [facility] is not responsible for the loss or damage to any personal effects or valuables that are kept in the patients possession during their hospitalization.
[2020-08-14] MEDS: LACTATED RINGERS 1,000 ML IV SCH (23:45)
[2020-08-15 03:41] VITALS: BP 102/64
[2020-08-15] MEDS ORDERED: CEFEPIME 1,000 MG/SWFI 10 ML IV PUSH IV SCH ×2 (04:00)
[2020-08-15 06:01] LABS: BASOPHILS % (AUTO) 0 % (0-10); EOSINOPHILS % (AUTO) 0 % (0-10); HEMATOCRIT 32 % (40-54); HEMOGLOBIN 10.4 g/dL (13.3-17.7); LYMPHOCYTES # (AUTO) 0.3 10^3/uL (1.0-4.0); LYMPHOCYTES % (AUTO) 5 % (12-44); MEAN CORPUSCULAR HEMOGLOBIN 27 pg (25-34); MEAN CORPUSCULAR HGB CONC 32 g/dL (32-36); MEAN CORPUSCULAR VOLUME 85 fL (80-99); MEAN PLATELET VOLUME 10.8 fL (9.0-12.2); MONOCYTES # (AUTO) 0.2 10^3/uL (0.0-1.0); MONOCYTES % (AUTO) 4 % (0-12); NEUTROPHILS # (AUTO) 4.4 10^3/uL (1.8-7.8); NEUTROPHILS % (AUTO) 91 % (42-75); PLATELET COUNT 280 10^3/uL (130-400); WHITE BLOOD COUNT 4.8 10^3/uL (4.3-11.0)
[2020-08-15 06:05] LABS: ALBUMIN 2.8 GM/DL (3.2-4.5); CHLORIDE 105 MMOL/L (98-107); POTASSIUM 3.8 MMOL/L (3.6-5.0); SODIUM 137 MMOL/L (135-145)
[2020-08-15 06:07] LABS: CALCIUM 8.4 MG/DL (8.5-10.1)
[2020-08-15 06:08] LABS: GLUCOSE 130 MG/DL (70-105)
[2020-08-15 06:09] LABS: CARBON DIOXIDE 21 MMOL/L (21-32)
[2020-08-15 06:10] LABS: BILIRUBIN,TOTAL 0.2 MG/DL (0.1-1.0)
[2020-08-15 06:11] LABS: ALKALINE PHOSPHATASE 116 U/L (40-136); CREATININE SERUM 0.63 MG/DL (0.60-1.30); GFR ESTIMATED > 60
[2020-08-15 06:12] LABS: BUN/CREATININE RATIO 40
[2020-08-15 06:14] LABS: ALANINE AMINOTRANSFERASE 23 U/L (0-55)
[2020-08-15 06:24] LABS: BAND NEUTROPHILS 3 %; LYMPHOCYTES % (MANUAL) 2 %; MONOCYTES % (MANUAL) 5 %; NEUTROPHILS % (MANUAL) 90 %
[2020-08-15 06:25] LABS: HYPOCHROMASIA MODERATE
[2020-08-15] MEDS ORDERED: FLU QUADRIvalent (3YOA+) 60 mcg/0.5 ml 2020-21 (AFLURIA) IM ONE (07:15)
[2020-08-15 08:00] VITALS: BP 132/78
[2020-08-15 12:00] VITALS: BP 115/74
[2020-08-15] MEDS ORDERED: NS IV 500 ML 500 ML IV SCH (12:22)
--- NOTE | 2020-08-15 12:31 | History & Physical-Hospitalist ---
History of Present Illness HPI/Chief Complaint Pt is a 59yoCM well known to me from recent admission who presented to the ER due to fever and known COVID19 diagnosis. He is quite demented and unable to provide any history. All history is obtained from the records. It is unclear when he tested positive but it was within the last few days and [place] a [place] at the [place] and was brought to the ER for evaluation. Fortunately he was not on any oxygen and CXR showed questionable pneumonia. He was admitted overnight and this morning is near his baseline mentation. He opened his eyes and mumbled at me and I believe he tried to say "feeling better." This is near his baseline from his previous admissions though not 100% there. Source: patient Date Seen 08/15/20 Time Seen by a Provider: 12:26 Attending Physician Donny Anderson MD PCP Marko Logan DO Referring Physician Date of Admission Aug 14, 2020 at 22:04 Home Medications & Allergies Home Medications Reviewed patient Home Medication Reconciliation performed by pharmacy medication reconciliations nail technician and/or nursing. Patients Allergies have been reviewed. Allergies Allergies Coded Allergies No Known Drug Allergies (Unverified12/19/17) Past Hwpclto-Fpfnjp-Hgilyv Hx Past Med/Social Hx: Reviewed Nursing Past Med/Soc Hx Patient Social History Employed/Student: retired Alcohol Use: Denies Use Recreational Drug Use: No 2nd Hand Smoke Exposure: No Recent Foreign Travel: No Contact w/other who traveled: No Recent Hopitalizations: No (unknown) Recent Infectious Disease Expo: Yes Immunizations Up To Date Tetanus Booster (TDap): Unknown Date of Pneumonia Vaccine: Oct 10, 2019 Date of Influenza Vaccine: Aug 10, 2019 Seasonal Allergies Seasonal Allergies: No Past Medical History Neurological: Dementia, Parkinson's Disease Gastrointestinal: Chronic Constipation Psychosocial: Schizophrenia, Depression History of Blood Disorders: No Adverse Reaction to Blood Alvarado: No Family History Reviewed Nursing Family Hx No Pertinent Family Hx Review of Systems ROS-Unable to Obtain: dementia Constitutional: see HPI Physical Exam Physical Exam Vital Signs Vital Signs - First Documented 08/14/20 08/14/20 20:28 20:57 Temp 37.8 Pulse 85 Resp 17 B/P (MAP) 141/88 (105) Pulse Ox 93 O2 Delivery Room Air Capillary Refill : Less Than 3 Seconds Height, Weight, BMI Height: 5'8.00" Weight: 183lbs. 3.0oz. 83.553479id; 21.64 BMI Method:Estimated General Appearance: No Apparent Distress, Chronically ill HEENT: Moist Mucous Membranes Neck: Normal Inspection, Supple Respiratory: Lungs Clear, No Respiratory Distress, Decreased Breath Sounds (in bases and he did not take deep breaths, no crackles or wheezing audible ) Cardiovascular: Regular Rate, Rhythm, No Murmur, Normal Peripheral Pulses Gastrointestinal: Normal Bowel Sounds, Non Tender, Soft Extremity: No Calf Tenderness, No Pedal Edema Neurologic/Psychiatric: Alert, Aphasia, Disoriented Skin: Normal Color, Warm/Dry Results Results/Procedures Labs Laboratory Tests 08/14/20 20:30 08/15/20 05:15 Patient resulted labs reviewed. Imaging: Reviewed Imaging Report Imaging [facility] [place] NAME: DORIAN VIDAL [facility] REC#: [id number] PT STATUS: REG ER : 1960 PHYSICIAN: BENEDICT STARR MD ADMIT DATE: 08/14/20/ER Signed Date of Exam:08/14/20 CHEST 1 VIEW, AP/PA ONLY EXAMINATION: Chest 1 view HISTORY: Sepsis. Covid positive. COMPARISON: 07/02/2020. FINDINGS: Patchy and hazy opacities are seen throughout the left hemithorax, greatest in the left perihilar region. A few scattered patchy opacities are seen in the right lung base. No large pleural effusion or pneumothorax. Cardiac silhouette is stable. No acute osseous abnormalities. IMPRESSION: 1. Opacities throughout the left hemithorax with scattered opacities in the right lung base. These findings are consistent with a history of infection. The asymmetric appearance may represent superimposed atelectasis or edema. Dictated by: Dictated on workstation # [id number] Dict: 08/14/202123 Trans: 08/14/202126 [facility] [id number] Interpreted by: ABELINO WOLF DO Electronically signed by: ABELINO WOLF DO 08/14/202126 Assessment/Plan Admission Diagnosis COVID19 Admission Status: Inpatient Order (span 2 midnights) Reason for Inpatient Admission: see below Assessment and Plan COVID19 PNA Not currently on oxygen- not a candidate for Remdesivir at this time Discussed with brother who is DPOA about convalescent plasma and EUA status- brother agreeable to treatment Continue Cefepime for pneumonia- does not meet sepsis criteria Continue decadron IS ordered Lovenox for DVT ppx High risk for decompensation given multiple comorbidities and poor functional status at baseline, discussed with brother my concern about this as well and he expressed understanding Parkinson's Dementia Dysphagia Dysphagia diet if able to tolerate, if not speech eval Resume home meds when med rec available and able to take PO HTN Continue home meds when med rec done DVT ppx: Lovenox Diagnosis/Problems Diagnosis/Problems (1) Pneumonia due to COVID-19 virus Status: Acute (2) Dehydration Status: Acute (3) Essential (primary) hypertension (4) Dementia Qualifiers: Dementia type: Parkinson's disease Dementia behavioral disturbance: without behavioral disturbance Qualified Codes: G20 - Parkinson's disease; F02.80 - Dementia in other diseases classified elsewhere without behavioral disturbance (5) Advanced dementia (6) Dysphagia (7) Poor prognosis Clinical Quality Measures DVT/VTE Risk/Contraindication: Risk Factor Score Per Nursin RFS Level Per Nursing on Admit: 4+=Very High ANISA ORTIZ MD Aug 15, 2020 12:31
[2020-08-15] MEDS: LACTATED RINGERS 1,000 ML IV SCH (13:15)
[2020-08-15] MEDS: CEFEPIME 1,000 MG/SWFI 10 ML IV PUSH IV SCH ×4 (13:15→20:38)
[2020-08-15] MEDS: ENOXAPARIN 40 MG/0.4 ML (LOVENOX) SYR SQ SCH (13:15)
[2020-08-15 16:00] VITALS: BP 110/65
[2020-08-15 20:07] VITALS: BP 120/65
[2020-08-15] MEDS ORDERED: dexAMETHasone 6 MG TAB (DECADRON) PO SCH (21:00)
[2020-08-16] VITALS (9 sets, daily range): BP systolic 138–152; BP diastolic 60–93
[2020-08-16] MEDS: LACTATED RINGERS 1,000 ML IV SCH ×2 (02:11→17:48)
[2020-08-16] MEDS: CEFEPIME 1,000 MG/SWFI 10 ML IV PUSH IV SCH ×8 (02:11→20:22)
--- NOTE | 2020-08-16 08:16 | Speech Therapy Progress Note ---
Therapy Progress Note ST to discharge speech order due to patient being at baseline as known to me from previous interaction at [facility] facility. Patient is non verbal and unable to participate or improve at this time. CRISTY THOMPSON Aug 16, 2020 08:16
--- NOTE | 2020-08-16 12:27 | Progress Note - Hospitalist ---
Subjective HPI/CC On Admission Date Seen by Provider: Aug 16, 2020 Time Seen by Provider: 12:20 Pt is a 59yoCM well known to me from recent admission who presented to the ER due to fever and known COVID19 diagnosis. He is quite demented and unable to provide any history. All history is obtained from the records. It is unclear when he tested positive but it was within the last few days and he developed a fever at the [place] and was brought to the ER for evaluation. Fortunately he was not on any oxygen and CXR showed questionable pneumonia. He was admitted overnight and this morning is near his baseline mentation. He opened his eyes and mumbled at me and I believe he tried to say "feeling better." This is near his baseline from his previous admissions though not 100% there. Subjective/Events-last exam Pt remains near his baseline mentation. RN states he has done well overnight. Still not requiring oxygen. Focused Exam Lactate Level 08/14/20 20:30: Lactic Acid Level 0.80 Objective Exam Vital Signs Vital Signs Date Time Temp Pulse Resp B/P (MAP) Pulse Ox O2 Delivery O2 Flow Rate FiO2 08/16/20 11:26 36.1 69 18 140/72 (94) 96 Room Air Capillary Refill : Less Than 3 Seconds General Appearance: No Apparent Distress, Chronically ill Respiratory: Lungs Clear, No Respiratory Distress Cardiovascular: Regular Rate, Rhythm, No Murmur Gastrointestinal: Normal Bowel Sounds, Non Tender, Soft Neurologic/Psychiatric: Alert, Aphasia (through), Disoriented Results/Procedures Lab Patient resulted labs reviewed. Imaging: Reviewed Imaging Report Assessment/Plan Assessment and Plan Assess & Plan/Chief Complaint COVID19 PNA Not currently on oxygen- not a candidate for Remdesivir at this time Discussed with brother 08/15 who is DPOA about convalescent plasma and EUA status- brother agreeable to treatment, pending arrival Continue Cefepime for pneumonia- does not meet sepsis criteria Continue decadron IS ordered Lovenox for DVT ppx, D-dimer elevated so CTA ordered High risk for decompensation given multiple comorbidities and poor functional status at baseline, discussed with brother my concern about this as well and he expressed understanding Parkinson's Dementia Dysphagia Speech consulted Resume home meds when med rec available and able to take PO HTN Continue home meds when med rec done DVT ppx: Lovenoxhe is covered Diagnosis/Problems Diagnosis/Problems (1) Pneumonia due to COVID-19 virus Status: Acute (2) Dehydration Status: Acute (3) Essential (primary) hypertension (4) Dementia Qualifiers: Dementia type: Parkinson's disease Dementia behavioral disturbance: without behavioral disturbance Qualified Codes: G20 - Parkinson's disease; F02.80 - Dementia in other diseases classified elsewhere without behavioral disturbance (5) Advanced dementia (6) Dysphagia (7) Poor prognosis Clinical Quality Measures DVT/VTE Risk/Contraindication: Risk Factor Score Per Nursin RFS Level Per Nursing on Admit: 4+=Very High ANISA OTRIZ MD Aug 16, 2020 12:27
--- NOTE | 2020-08-16 12:53 | NUR ---
CM/SS following with patient for discharge planning. Plan: The patient will return to [facility] at time of discharge. [facility]: CM/SS contacted Ange at the facility to give an update on the patient and discuss possible discharge for Friday the . She verbalized understanding. CM/SS faxed updated clinical to facility. DPOA: CM/SS contacted Yaw to give an update. CM/SS informed him that patient may discharge on Friday back to facility. He verbalized understanding. Yaw did not have any further questions at this time. CM/SS will continue to follow.
[2020-08-16] MEDS ORDERED: NS 100 ML (IVPB) BAG IV ONE (13:00)
[2020-08-16] MEDS ORDERED: HOLD METFORMIN - RECEIVED CONTRAST 20 ML VIAL IV SCH (13:00)
[2020-08-16] MEDS ORDERED: CATHETER FLUSH 10 ML SYR IV PRN (13:00)
[2020-08-16] MEDS ORDERED: IOHEXOL 350 MG/ML 100 ML (OMNIPAQUE 350) VIAL IV ONE (13:00)
[2020-08-16] MEDS: ENOXAPARIN 40 MG/0.4 ML (LOVENOX) SYR SQ SCH (13:18)
--- NOTE | 2020-08-16 15:07 | Diagnostic Imaging Report ---
PROCEDURE: CT angiography of the chest with contrast. TECHNIQUE: Multiple contiguous axial images were obtained through the chest after uneventful bolus administration of intravenous contrast. 3D reconstructed CTA MIP acquisitions were also performed. Auto Exposure Controls were utilized during the CT exam to meet ALARA standards for radiation dose reduction. INDICATION: Positive d-dimer, Covid positive patient, shortness of breath. COMPARISON: Chest CT from 07/03/2020. FINDINGS: Motion degradation artifact particularly limiting the peripheral pulmonary arterial branches. The adequately interrogated proximal vessels show no filling defect. No identifiable PE. No findings of right heart strain or features suggestive of an elevation of the right heart pressures. No intracardiac chamber mass or thrombus. The aorta is patent and nonaneurysmal. The left pleural effusion has decreased in volume from prior. The pericardial effusion nearly completely resolved. Dependent left lower lobe consolidative changes adjacent to the left pleural effusion have improved. The upper lobe shows scattered groundglass opacities, more pronounced than on prior and while nonspecific this infiltrative pattern is congruent with the provided history of Covid positivity. No pneumothorax. No acute chest wall pathology. The visualized upper abdomen shows no acute finding. IMPRESSION: 1. Mixed changes, progressive and new, predominantly upper lobe groundglass infiltrates; however, left pleural effusion and subjacent lower lobe atelectasis have improved and there has been near resolution of now minimal pericardial effusion. 2. Limited evaluation of the pulmonary arterial branches owing to motion. No appreciable PE. Dictated by: Dictated on workstation # [id number]
[2020-08-16] MEDS ORDERED: DEXA6TAB PO ×2 (19:04)
[2020-08-16] MEDS ORDERED: FAMO20TA3 PO ×2 (19:04)
[2020-08-16] MEDS ORDERED: ASPI-999 PO ×2 (19:04)
[2020-08-16] MEDS ORDERED: ZINC220C11 PO ×2 (19:04)
[2020-08-16] MEDS ORDERED: POLY17PO6 PO ×2 (19:04)
--- NOTE | 2020-08-16 19:05 | NUR ---
I CALLED [facility], WENT THROUGH THE MED LIST PROVIDED FROM THEM AND WENT THROUGH THE EXTERNAL MED HISTORY TO COMPLETE THIS MED REC. OTC: TYLENOL MIRALAX DOCUSATE SODIUM ASPIRIN MILK OF MAG ENEMA FAMOTIDINE BISACODYL SUPP
[2020-08-16] MEDS ORDERED: FLEET ENEMA ADULT 1 EA BTL RC PRN (19:30)
[2020-08-16] MEDS ORDERED: ACETAMINOPHEN 325 MG TABLET PO PRN (19:30)
[2020-08-16] MEDS ORDERED: NON-FORMULARY MEDICATION 1 EA EA (Magnesium Hydroxide (Milk of Magnesia) 30 ML) PO PRN (19:30)
[2020-08-16] MEDS ORDERED: BISACODYL 10 MG SUPP (DULCOLAX) RC PRN (19:30)
[2020-08-16] MEDS ORDERED: MILK OF MAGNESIA 400 MG/5 ML 30 ML UDC PO PRN (19:45)
[2020-08-16] MEDS ORDERED: ENTACAPONE 200 MG PO SCH (21:00)
--- NOTE | 2020-08-16 21:20 | NUR ---
Sent a message to Dr. Terrazas informing her that I am unable to arouse the patient enough to even sip water therefore I am unable to administer his oral medications. I let her know that patient has a temperature of 101.4 and that I will be administering the Tylenol suppository. No response at this time.
[2020-08-16] MEDS: DIVALPROX SPRINKLE 125 MG (DEPAKOTE) CAP PO SCH (21:29)
[2020-08-16] MEDS: SINEMET 25/100 (CARBIDOPA/LEVODOPA) TAB PO SCH (21:30)
[2020-08-17] VITALS (7 sets, daily range): BP systolic 111–129; BP diastolic 59–69
[2020-08-17] MEDS: CEFEPIME 1,000 MG/SWFI 10 ML IV PUSH IV SCH ×8 (01:24→19:44)
[2020-08-17] MEDS: ZINC SULFATE 220 MG CAPSULE PO SCH (08:41)
[2020-08-17] MEDS: ASPIRIN 81 MG CHEW (CHILDREN'S ASA) PO SCH (08:41)
[2020-08-17] MEDS: SINEMET 25/100 (CARBIDOPA/LEVODOPA) TAB PO SCH ×3 (08:41→21:24)
[2020-08-17] MEDS: DIVALPROX SPRINKLE 125 MG (DEPAKOTE) CAP PO SCH ×3 (08:42→21:24)
[2020-08-17] MEDS: polyethylene glycoL POWDER 17 GM (MIRALAX) PACK PO SCH (08:42)
[2020-08-17] MEDS: PARoxetine 20 MG (PAXIL) TAB PO SCH (08:42)
[2020-08-17] MEDS: risperiDONE 0.25 MG (RisperDAL) TAB PO SCH (08:42)
[2020-08-17] MEDS: FAMOTIDINE 20 MG (PEPCID) TABLET PO SCH (08:42)
[2020-08-17] MEDS ORDERED: dilTIAZem120 MG (CARDIZEM CD) CAP PO SCH (09:00)
[2020-08-17] MEDS ORDERED: NON-FORMULARY MEDICATION 1 EA EA (Risperidone 0.5 MG) PO SCH (09:00)
[2020-08-17] MEDS ORDERED: NON-FORMULARY MEDICATION 1 EA EA (Diltiazem HCl 120 MG) PO SCH (09:00)
--- NOTE | 2020-08-17 11:08 | Progress Note - Hospitalist ---
Subjective HPI/CC On Admission Date Seen by Provider: Aug 17, 2020 Time Seen by Provider: 11:01 Pt is a 59yoCM well known to me from recent admission who presented to the ER due to fever and known COVID19 diagnosis. He is quite demented and unable to provide any history. All history is obtained from the records. It is unclear when he tested positive but it was within the last few days and he developed a fever at the [place] and was brought to the ER for evaluation. Fortunately he was not on any oxygen and CXR showed questionable pneumonia. He was admitted overnight and this morning is near his baseline mentation. He opened his eyes and mumbled at me and I believe he tried to say "feeling better." This is near his baseline from his previous admissions though not 100% there. Subjective/Events-last exam Pt remains at baseline mentation. He did open his eyes and attempt to speak but it was all garbled. I spoke with brother about progress and plan to DC tomorrow if continue to do well. Focused Exam Lactate Level 08/14/20 20:30: Lactic Acid Level 0.80 Objective Exam Vital Signs Vital Signs Date Time Temp Pulse Resp B/P (MAP) Pulse Ox O2 Delivery O2 Flow Rate FiO2 08/17/20 09:00 Room Air 08/17/20 08:00 34.8 64 16 129/68 (88) 93 Capillary Refill : Less Than 3 Seconds General Appearance: No Apparent Distress, Chronically ill Respiratory: No Respiratory Distress, Decreased Breath Sounds Cardiovascular: Regular Rate, Rhythm, No Murmur Gastrointestinal: Normal Bowel Sounds, Non Tender, Soft Neurologic/Psychiatric: Disoriented, Other (opens eyes when I speak to him, mumbles, otherwise does not really respond) Results/Procedures Lab Patient resulted labs reviewed. Imaging: Reviewed Imaging Report Assessment/Plan Assessment and Plan Assess & Plan/Chief Complaint COVID19 PNA Not currently on oxygen- not a candidate for Remdesivir at this time Discussed with brother 08/15 who is DPOA about convalescent plasma and EUA status- brother agreeable to treatment, received 08/16 Continue Cefepime for pneumonia- does not meet sepsis criteria Continue decadron IS ordered Lovenox for DVT ppx, D-dimer elevated so CTA ordered High risk for decompensation given multiple comorbidities and poor functional status at baseline, discussed with brother my concern about this as well and he expressed understanding, also discussed today about concern for worsening even after discharge given his history with recurrent aspiration pneumonia, brother again expressed understanding Parkinson's Dementia Dysphagia Speech consulted Resume home meds HTN Continue home meds DVT ppx: Lovenox Diagnosis/Problems Diagnosis/Problems (1) Pneumonia due to COVID-19 virus Status: Acute (2) Dehydration Status: Acute (3) Essential (primary) hypertension (4) Dementia Qualifiers: Dementia type: Parkinson's disease Dementia behavioral disturbance: without behavioral disturbance Qualified Codes: G20 - Parkinson's disease; F02.80 - Dementia in other diseases classified elsewhere without behavioral d isturbance (5) Advanced dementia (6) Dysphagia (7) Poor prognosis Clinical Quality Measures DVT/VTE Risk/Contraindication: Risk Factor Score Per Nursin RFS Level Per Nursing on Admit: 4+=Very High ANISA ORTIZ MD Aug 17, 2020 11:08
[2020-08-17] MEDS: ENOXAPARIN 40 MG/0.4 ML (LOVENOX) SYR SQ SCH (12:44)
--- NOTE | 2020-08-17 13:15 | NUR ---
CM/SS follow up. Plan: Patient will discharge to [facility] long term tomorrow at 3:30 p.m. CM/SS contacted Ange from Facility to set up nut picker time. No further questions at this time. CM/SS contacted the patient's brother and LVJonah Tidwell to give an update and the time of planned discharge. He verbalized understanding. No further questions or needs at this time.
[2020-08-17] MEDS: LACTATED RINGERS 1,000 ML IV SCH (21:25)
[2020-08-18] MEDS: CEFEPIME 1,000 MG/SWFI 10 ML IV PUSH IV SCH ×6 (02:13→13:36)
[2020-08-18 04:42] VITALS: BP 129/72
[2020-08-18 08:25] VITALS: BP 133/69
[2020-08-18] MEDS: ASPIRIN 81 MG CHEW (CHILDREN'S ASA) PO SCH (09:20)
[2020-08-18] MEDS: SINEMET 25/100 (CARBIDOPA/LEVODOPA) TAB PO SCH ×2 (09:20→13:35)
[2020-08-18] MEDS: DIVALPROX SPRINKLE 125 MG (DEPAKOTE) CAP PO SCH ×2 (09:20→13:36)
[2020-08-18] MEDS: FAMOTIDINE 20 MG (PEPCID) TABLET PO SCH (09:20)
[2020-08-18] MEDS: PARoxetine 20 MG (PAXIL) TAB PO SCH (09:20)
[2020-08-18] MEDS: risperiDONE 0.25 MG (RisperDAL) TAB PO SCH (09:20)
[2020-08-18] MEDS: ZINC SULFATE 220 MG CAPSULE PO SCH (09:20)
[2020-08-18] MEDS: polyethylene glycoL POWDER 17 GM (MIRALAX) PACK PO SCH (09:37)
[2020-08-18 11:10] VITALS: BP 118/66
--- NOTE | 2020-08-18 11:36 | Discharge Summary ---
Diagnosis/Chief Complaint Date of Admission Aug 14, 2020 at 22:04 Date of Discharge Admission Diagnosis COVID19 Primary Care Marko Logan DO Discharge Diagnosis (1) Pneumonia due to COVID-19 virus Status: Acute (2) Dehydration Status: Acute (3) Essential (primary) hypertension (4) Dementia (5) Advanced dementia (6) Dysphagia (7) Poor prognosis Discharge Summary Discharge Physical Exam Allergies: Coded Allergies: No Known Drug Allergies (Unverified , 12/19/17) Vitals & I&Os Vital Signs Date Time Temp Pulse Resp B/P (MAP) Pulse Ox O2 Delivery O2 Flow Rate FiO2 08/18/20 11:10 37.0 72 18 118/66 (83) 92 Room Air General Appearance: Chronically ill Respiratory: Lungs Clear, No Accessory Muscle Use Neurologic/Psychiatric: Alert, Aphasia, Disoriented Hospital Course Labs (last 24 hrs) Laboratory Tests 08/18/20 11:25: Lab Scanned Report Transfusion Reaction Form Microbiology 08/14/20 Blood Culture - Preliminary, Resulted No growth 08/14/20 Urine Culture - Final, Complete NO GROWTH Patient resulted labs reviewed. Pending Labs Laboratory Tests 08/18/20 11:25: Lab Scanned Report Transfusion Reaction Form Imaging: Reviewed Imaging Report Discharge Home Medications: Active Scripts Active Reported Zinc Sulfate 220 Mg Capsule 220 Mg PO DAILY Miralax (Polyethylene Glycol 3350) 17 Gm Powd.pack 17 Gm PO DAILY Acid Seafood Farmer (FAMOTIDINE) (Famotidine) 20 Mg Tablet 20 Mg PO DAILY COVID PROTOCOL Dexamethasone 6 Mg Tablet 6 Mg PO DAILY COVID PROTOCOL Aspirin 81 Mg Tab.chew 81 Mg PO DAILY GIVE 1 TABLET BY MOUTH ONE TIME A DAY FOR COVID FOR 14 DAYS LAST DOSE WILL BE ON 08/25/2020 Bisacodyl 10 Mg Supp.rect 10 Mg RC DAILY PRN USE IF NO BM IN 3 DAYS IF MOM NOT EFFECTIVE Docusate Sodium 100 Mg Capsule 100 Mg PO DAILY Depakote Sprinkle (Divalproex Sodium) 125 Mg Cap 125 Mg PO 1400 Divalproex Sodium 125 Mg Cap.sprink 250 Mg PO BID TAKES 2 (125MG) CAPS Risperidone 0.5 Mg Tablet 0.5 Mg PO DAILY Milk of Magnesia (Magnesium Hydroxide) 2,400 Mg/10 Ml Oral.susp 30 Ml PO DAILY PRN Loperamide (Loperamide HCl) 2 Mg Tablet 2-4 Mg PO TID PRN MDD 6 TABS GIVE 2 TABS NEEDED AFTER LOOSE STOOL, THEN 1 TAB AFTER EACH LOOSE STOOL Fleet Enema (Na Phos,M-B/Na Phos,Di-Ba) 133 Ml Enema 133 Ml RC DAILY PRN GIVE IF NO BM IN 5 DAYS Tylenol (Acetaminophen) 325 Mg Tablet 650 Mg PO Q4H PRN TAKES 2 (325 MG) TABLETS Sinemet 25-100 mg Tablet (Carbidopa/Levodopa) 1 Each Tablet 1 Tab PO TID Paxil (Paroxetine HCl) 20 Mg Tablet 20 Mg PO DAILY Entacapone 200 Mg Tablet 200 Mg PO BID Diltiazem HCl 120 Mg Tablet 120 Mg PO DAILY HOLD FOR BLOOD PRESSURE LESS THAN 100/60 AND PULSE LESS THAN 60 Instructions to patient/family Please see electronic discharge instructions given to patient. Clinical Quality Measures DVT/VTE Risk/Contraindication: Risk Factor Score Per Nursin RFS Level Per Nursing on Admit: 4+=Very High Problem Qualifiers (1) Dementia: Dementia type: Parkinson's disease Dementia behavioral disturbance: without behavioral disturbance Qualified Codes: G20 - Parkinson's disease; F02.80 - Dementia in other diseases classified elsewhere without behavioral disturbance ANISA ORTIZ MD Aug 18, 2020 11:36
--- NOTE | 2020-08-18 11:42 | Discharge Inst-Simple/Standard ---
Discharge Inst-Standard Patient Instructions/Follow Up Plan of Care/Instructions/FU: Please continue to take your medications as written. Please follow up with your primary care doctor to follow up this hospital stay. Activity as Tolerated: Yes Discharge Diet: Soft Diet Return to The Hospital For: Chest pain, fever, confusion, shortness of breath, if you feel you are getting worse. ANISA ORTIZ MD Aug 18, 2020 11:42
[2020-08-18] MEDS ORDERED: CEFD300C3 PO ×2 (11:43)
--- NOTE | 2020-08-18 11:59 | NUR ---
CM/SS finalized plan. Plan: Patient is discharging back to [facility] detention today 08/18. metal mockup maker time is set for 3:30 p.m. CM/SS faxed discharge to facility. CM/SS contacted SANDRINE Tidwell to inform him that patient is able to discharge today with confirmed greens picker time. No further questions. No further needs at this time.
[2020-08-18] MEDS: ENOXAPARIN 40 MG/0.4 ML (LOVENOX) SYR SQ SCH (13:35)
[2020-08-18 15:45] VITALS: BP 120/64
--- NOTE | 2020-08-18 16:00 | NUR ---
INCONT URINE SINCE [facility] REMOVED, PATIENT WILL GET FLU VACCINE AT [facility]
[2020-08-18 16:15] VITALS: BP 118/66
--- NOTE | 2020-08-18 16:15 | NUR ---
DISMISSED TO [facility] PER W/C, REPORT CALLED TO NURSE PERALTA
== END 2020-08-18 16:15 | DRG 177 ==
LOC: EDUNIT# 20:28 → ER 20:28 → 4TH 22:04
PROVIDERS: ADMIT Internal Medicine; ATTEND Internal Medicine
DX: U07.1 COVID-19 (principal); J12.89 Other viral pneumonia; F02.81 Dementia in other diseases classified elsewhere, unspecified severity, with behavioral disturbance; R47.01 Aphasia; G20 Parkinson's disease; F91.8 Other conduct disorders; Z66 Do not resuscitate; E86.0 Dehydration; R13.10 Dysphagia, unspecified; F32.9 Major depressive disorder, single episode, unspecified; K59.09 Other constipation; I10 Essential (primary) hypertension
CPT/HCPCS: 36415; 51702; 71045; 71275; 80053; 81000; 83605; 84145; 85007; 85025; 85027; 85379; 85610; 85730; 86141; 86850; 86900; 86901; 87040; 87088

== ENCOUNTER 2020-08-18 19:03 | Emergency (ER) | payer MEDICAID ==
[~2020-08-18] VITALS: Ht 182 cm; Wt 71.0 kg
[~2020-08-18 19:03] MED LIST changes: +ASPI-999 PO; +CEFD300C3 PO; +DEXA6TAB PO; +FAMO20TA3 PO; +POLY17PO6 PO; +ZINC220C11 PO
[2020-08-18] MEDS ORDERED: NS IV 1000 ML 1,000 ML ONE (19:05)
[2020-08-18] MEDS ORDERED: IBUPROFEN SUSP 100MG/5ML (MOTRIN) UDC ONE (19:06)
[2020-08-18] MEDS ORDERED: NS IV 1000 ML 1,000 ML IV SCH (19:12)
[2020-08-18] MEDS ORDERED: IBUPROFEN SUSP 100MG/5ML (MOTRIN) UDC PO ONE (19:15)
--- NOTE | 2020-08-18 19:26 | ED Respiratory ---
General Stated Complaint: COVID +/PNEUMONIA Source: EMS, old records Exam Limitations: other (PT SEMI-OBTUNDED. KEEPS EYES CLOSED AND IS NOT TALKING OR FOLLOWING COMMANDS) History of Present Illness Date Seen by Provider: Aug 18, 2020 Time Seen by Provider: 19:00 Initial Comments PT ARRIVES VIA EMS FROM [facility] PT WITH KNOWN COVID-19 PNEUMONIA AND HAS BEEN HOSPITALIZED FROM 08/14 AND DISMISSED BACK TO [facility] THIS AFTERNOON PT WAS AFEBRILE AND HAD O2 SAT OF 92% ON ROOM AIR AT DISMISSAL, WITH CLEAR LUNGS AND NON-LABORED RESPIRATIONS [facility] CALLED EMS, BECAUSE PT SPIKED A TEMP OF 104 JUST PRIOR TO ARRIVAL AND IMMEDIATELY CALLED EMS. GAVE TYLENOL JUST PRIOR TO ARRIVAL O2 SAT WAS 90% ON ROOM AIR ON EMS ARRIVAL, UP TO 93% ON 3L/NC PT HAS ADVANCED DEMENTIA AND IS ESSENTIALLY BED BOUND AND NON-VERBAL. PT IS DNR PCP: DR. FAITH Allergies and Home Medications Allergies Coded Allergies: No Known Drug Allergies (Unverified , 12/19/17) Home Medications Acetaminophen 325 Mg Tablet, 650 MG PO Q4H PRN for PAIN-MILD, (Reported) TAKES 2 (325 MG) TABLETS Aspirin 81 Mg Tab.chew, 81 MG PO DAILY, (Reported) GIVE 1 TABLET BY MOUTH ONE TIME A DAY FOR COVID FOR 14 DAYS LAST DOSE WILL BE ON 08/25/2020 Bisacodyl 10 Mg Supp.rect, 10 MG RC DAILY PRN for CONSTIPATION-4TH LINE, (Reported) USE IF NO BM IN 3 DAYS IF MOM NOT EFFECTIVE Carbidopa/Levodopa 1 Each Tablet, 1 TAB PO TID, (Reported) Cefdinir 300 Mg Capsule, 300 MG PO BID Prescribed by: ANISA ORTIZ on 08/18/20 1143 Dexamethasone 6 Mg Tablet, 6 MG PO DAILY, (Reported) COVID PROTOCOL Diltiazem HCl 120 Mg Tablet, 120 MG PO DAILY, (Reported) HOLD FOR BLOOD PRESSURE LESS THAN 100/60 AND PULSE LESS THAN 60 Divalproex Sodium 125 Mg Cap.sprink, 250 MG PO BID, (Reported) TAKES 2 (125MG) CAPS Divalproex Sodium 125 Mg Cap, 125 MG PO 1400, (Reported) Docusate Sodium 100 Mg Capsule, 100 MG PO DAILY, (Reported) Entacapone 200 Mg Tablet, 200 MG PO BID, (Reported) Famotidine 20 Mg Tablet, 20 MG PO DAILY, (Reported) COVID PROTOCOL Loperamide HCl 2 Mg Tablet, 2-4 MG PO TID PRN for DIARRHEA, (Reported) GIVE 2 TABS NEEDED AFTER LOOSE STOOL, THEN 1 TAB AFTER EACH LOOSE STOOL Magnesium Hydroxide 2,400 Mg/10 Ml Oral.susp, 30 ML PO DAILY PRN for CONSTIPATION-7TH LINE, (Reported) Na Phos,M-B/Na Phos,Di-Ba 133 Ml Enema, 133 ML RC DAILY PRN for CONSTIPATION-8TH LINE, (Reported) GIVE IF NO BM IN 5 DAYS Paroxetine HCl 20 Mg Tablet, 20 MG PO DAILY, (Reported) Polyethylene Glycol 3350 17 Gm Powd.pack, 17 GM PO DAILY, (Reported) Risperidone 0.5 Mg Tablet, 0.5 MG PO DAILY, (Reported) Zinc Sulfate 220 Mg Capsule, 220 MG PO DAILY, (Reported) Patient Home Medication List Home Medication List Reviewed: Yes Review of Systems Review of Systems Constitutional: see HPI, fever, other (PT UNABLE TO ANSWER QUESTIONS OR FOLLOW COMMANDS) Respiratory: see HPI; No short of breath Past Pbpzfho-Wszpvs-Vomblz Hx Patient Social History 2nd Hand Smoke Exposure: No Recent Hopitalizations: No (unknown) Immunizations Up To Date Tetanus Booster (TDap): Unknown Date of Pneumonia Vaccine: Oct 10, 2019 Date of Influenza Vaccine: Aug 10, 2019 Seasonal Allergies Seasonal Allergies: No Past Medical History Surgeries: Yes (L THORACENTESIS 07/02/20;L HIP FX/REPLACEMENT 12/2017) Joint Replacement, Orthopedic Respiratory: Yes (COVID-19 PNEUMONIA 08/2020;L PLEURAL EFF / THORACENTESIS 07/02/20) Pneumonia Cardiac: Yes Hypertension Neurological: Yes (ADVANCED DEMENTIA, ESSENTIALLY BED BOUND AND NON-VERBAL) Dementia, Parkinson's Disease Genitourinary: Yes (INCONTINENCE) Gastrointestinal: Yes Chronic Constipation Musculoskeletal: Yes (L HIP FX/REPLACEMENT 12/2017; FALLS; ESS BEDBOUND) Fractures Psychosocial: Yes (MANIPULATIVE BEHAVIORS, SEXUAL INAPROPRIATENESS) Sleep Difficulties, Anxiety, Schizophrenia, Depression Blood Disorders: No Adverse Reaction/Blood Tranf: No Family Medical History No Pertinent Family Hx Physical Exam Vital Signs - First Documented 08/18/20 08/18/20 19:03 19:15 Temp 38.2 Pulse 90 Resp 18 B/P (MAP) 135/83 (100) Pulse Ox 96 O2 Delivery Nasal Cannula O2 Flow Rate 2.00 Capillary Refill : Height: 5'8.00" Weight: 183lbs. 3.0oz. 83.996237hb; 21.64 BMI Method:Estimated General Appearance: WD/WN, no apparent distress, other (RESPIRATIONS EVEN AND UNLABORED, SITTING UP WITH EYES CLOSED, MOANING AT TIMES. DOES NOT TALK OR FOLLOW COMMANDS. BILATERAL HEEL PROTECTORS) Neck: normal inspection Respiratory: normal breath sounds, no respiratory distress, no accessory muscle use Cardiovascular: regular rate, rhythm, no murmur Gastrointestinal: soft Extremities: no pedal edema Neurologic/Psychiatric: other (NOT TALKING OR FOLLOWING COMMANDS, KEEPS EYES CL OSED. ) Skin: normal color, warm/dry Focused Exam Lactate Level 08/18/20 19:14: Lactic Acid Level 0.85 Lactic Acid Level Laboratory Tests Test 08/18/20 19:14 Lactic Acid Level 0.85 MMOL/L (0.50-2.00) Progress/Results/Core Measures Suspected Sepsis SIRS Temperature: Pulse: Respiratory Rate: Laboratory Tests 08/18/20 19:14: White Blood Count 9.2 Blood Pressure / Mean: 08/18/20 19:14: Lactic Acid Level 0.85 Laboratory Tests 08/18/20 19:14: Creatinine 0.56L, INR Comment 1.2, Platelet Count 348, Total Bilirubin 0.6 Results/Orders Lab Results Laboratory Tests Test 08/18/20 19:14 Range/Units White Blood Count 9.2 4.3-11.0 10^3/uL Red Blood Count 3.90 L 4.30-5.52 10^6/uL Hemoglobin 10.5 L 13.3-17.7 g/dL Hematocrit 33 L 40-54 % Mean Corpuscular Volume 83 80-99 fL Mean Corpuscular Hemoglobin 27 25-34 pg Mean Corpuscular Hemoglobin Concent 32 32-36 g/dL Red Cell Distribution Width 14.7 H 10.0-14.5 % Platelet Count 348 130-400 10^3/uL Mean Platelet Volume 10.7 9.0-12.2 fL Immature Granulocyte % (Auto) 1 % Neutrophils (%) (Auto) 88 H 42-75 % Lymphocytes (%) (Auto) 6 L 12-44 % Monocytes (%) (Auto) 5 0-12 % Eosinophils (%) (Auto) 0 0-10 % Basophils (%) (Auto) 0 0-10 % Neutrophils # (Auto) 8.1 H 1.8-7.8 10^3/uL Lymphocytes # (Auto) 0.5 L 1.0-4.0 10^3/uL Monocytes # (Auto) 0.5 0.0-1.0 10^3/uL Eosinophils # (Auto) 0.0 0.0-0.3 10^3/uL Basophils # (Auto) 0.0 0.0-0.1 10^3/uL Immature Granulocyte # (Auto) 0.1 0.0-0.1 10^3/uL Neutrophils % (Manual) 90 % Lymphocytes % (Manual) 5 % Monocytes % (Manual) 5 % Eosinophils % (Manual) 0 % Basophils % (Manual) 0 % Band Neutrophils 0 % Anisocytosis SLIGHT Prothrombin Time 15.6 H 12.2-14.7 SEC INR Comment 1.2 0.8-1.4 Activated Partial Thromboplast Time 40 H 24-35 SEC Sodium Level 138 135-145 MMOL/L Potassium Level 3.5 L 3.6-5.0 MMOL/L Chloride Level 104 98-107 MMOL/L Carbon Dioxide Level 21 21-32 MMOL/L Anion Gap 13 5-14 MMOL/L Blood Urea Nitrogen 17 7-18 MG/DL Creatinine 0.56 L 0.60-1.30 MG/DL Estimat Glomerular Filtration Rate > 60 BUN/Creatinine Ratio 30 Glucose Level 109 H 70-105 MG/DL Lactic Acid Level 0.85 0.50-2.00 MMOL/L Calcium Level 8.2 L 8.5-10.1 MG/DL Corrected Calcium 9.2 8.5-10.1 MG/DL Magnesium Level 1.8 1.6-2.4 MG/DL Total Bilirubin 0.6 0.1-1.0 MG/DL Aspartate Amino Transf (AST/SGOT) 34 5-34 U/L Alanine Aminotransferase (ALT/SGPT) 20 0-55 U/L Alkaline Phosphatase 122 40-136 U/L Total Protein 7.2 6.4-8.2 GM/DL Albumin 2.8 L 3.2-4.5 GM/DL Valproic Acid (Depakene) Level 15.4 L 50.0-100.0 UG/ML My Orders Orders - REJI DAVIS DO Ns Iv 1000 Ml (Sodium Chloride 0.9%) (08/18/20 19:05) Ibuprofen Suspension (Motrin Suspension) (08/18/20 19:06) Ed Iv/Invasive Line Start (08/18/20 19:12) O2 (08/18/20 19:12) Monitor-Rhythm Ecg Trace Only (08/18/20 19:12) Chest 1 View, Ap/Pa Only (08/18/20 19:12) Cbc With Automated Diff (08/18/20 19:12) Comprehensive Metabolic Panel (08/18/20 19:12) Lactic Acid Analyzer (08/18/20 19:12) Magnesium (08/18/20 19:12) Protime With Inr (08/18/20 19:12) Partial Thromboplastin Time (08/18/20 19:12) Blood Culture (08/18/20 19:12) Ed Iv/Invasive Line Start (08/18/20 19:12) Ns Iv 1000 Ml (Sodium Chloride 0.9%) (08/18/20 19:12) Ibuprofen Suspension (Motrin Suspension) (08/18/20 19:15) Cefepime Injection (Maxipime Injection) (08/18/20 19:30) Valproic Acid (08/18/20 19:21) Manual Differential (08/18/20 19:14) Medications Given in ED Current Medications Medications Dose Ordered Sig/Ivelisse Route Start Time Stop Time Status Last Admin Dose Admin Cefepime HCl 2000 mg/Sterile Water 20 ml @ 240 mls/hr ONCE ONCE IV 08/18/20 19:30 08/18/20 19:34 DC 08/18/20 19:35 240 MLS/HR Ibuprofen 800 mg ONCE ONCE PO 08/18/20 19:15 08/18/20 19:16 DC 08/18/20 19:34 800 MG Vital Signs/I&O 08/18/20 08/18/20 08/18/20 19:03 19:15 22:55 Temp 38.2 Pulse 90 72 Resp 18 18 B/P (MAP) 135/83 (100) 117/77 Pulse Ox 96 96 95 O2 Delivery Nasal Cannula Nasal Cannula Room Air O2 Flow Rate 2.00 08/19/20 00:00 Intake Total 1000 ml Balance 1000 ml Capillary Refill : Progress Note : Progress Note PLACED IN ISOLATION ROOM, PPE WORN AT ALL TIMES O2 SATS 98% ON 3L/NC 2100--NOW ON ROOM AIR--O2 SATS REMAINED A CONSTANT 93% FOR REMAINDER OF ER STAY NO DYSPNEA NO COUGH NOTED AT ANY TIME OTHER VITALS STABLE NO DETERIORATION IN PT'S CONDITION DURING ER STAY Diagnostic Imaging Comments CXR--PER RADIOLOGIST REPORT FINDINGS: Increasing infiltrate in the left hemithorax, new infiltrates in the right hemithorax. There is no pneumothorax or effusion. The heart size is prominent but stable. Osseous structures are normal. IMPRESSION: Increasing infiltrates in the left hemithorax, new infiltrates right hemithorax. Reviewed: Reviewed by Me Departure Communication (Admissions) 2099--SPOKE WITH DR. ORTIZ, WILL GO TRIAL OF TAKING PT OFF O2 AND WILL CALL HER BACK 2204--SPOKE WITH DR. ORTIZ, PT HAS MAINTAINED O2 SAT 93% ON ROOM AIR FOR OVER AN HOUR,SO WILL SEND BACK TO [facility] AND CONTINUE ALL PREVIOUS ORDERS Impression Primary Impression: Pneumonia due to COVID-19 virus Additional Impression: Advanced dementia Disposition: 03 XFER SNF Condition: Stable Departure-Patient Inst. Referrals: YOLY FAITH DO (PCP/Family) Primary Care Physician Patient Instructions: Coronavirus Disease 2019 (COVID-19) (DC) Add. Discharge Instructions: CONTINUE ALL PREVIOUS ORDERS FURTHER ORDERS BY REJI MCMILLAN DO Aug 18, 2020 19:26
[2020-08-18 19:27] LABS: BASOPHILS % (AUTO) 0 % (0-10); EOSINOPHILS % (AUTO) 0 % (0-10); HEMATOCRIT 33 % (40-54); HEMOGLOBIN 10.5 g/dL (13.3-17.7); LYMPHOCYTES # (AUTO) 0.5 10^3/uL (1.0-4.0); LYMPHOCYTES % (AUTO) 6 % (12-44); MEAN CORPUSCULAR HEMOGLOBIN 27 pg (25-34); MEAN CORPUSCULAR HGB CONC 32 g/dL (32-36); MEAN CORPUSCULAR VOLUME 83 fL (80-99); MEAN PLATELET VOLUME 10.7 fL (9.0-12.2); MONOCYTES # (AUTO) 0.5 10^3/uL (0.0-1.0); MONOCYTES % (AUTO) 5 % (0-12); NEUTROPHILS # (AUTO) 8.1 10^3/uL (1.8-7.8); NEUTROPHILS % (AUTO) 88 % (42-75); PLATELET COUNT 348 10^3/uL (130-400); WHITE BLOOD COUNT 9.2 10^3/uL (4.3-11.0)
[2020-08-18] MEDS ORDERED: CEFEPIME INJECTION 2,000 MG in WATER (STERILE) FOR INJECTION 20 ML IV ONE (19:30)
--- NOTE | 2020-08-18 19:30 | NUR ---
Late entry: Pt arrives by EMS with c/o fever today; pt was discharged from this hospital today after a wk's admission for Covid pneumonia. Staff at his [place] state he had fever of 104; pt received 1G tylenol rectally just CLINICAL DIRECTOR. Pt was not more sob than bob. Pt has baseline mentation of alert to voice. Pt is febrile; Dr. Hgaan to room for eval.
[2020-08-18 19:38] LABS: INR 1.2 (0.8-1.4); PROTHROMBIN TIME PATIENT 15.6 SEC (12.2-14.7)
[2020-08-18 19:44] LABS: ANISOCYTOSIS SLIGHT; BAND NEUTROPHILS 0 %; BASOPHILS % (MANUAL) 0 %; EOSINOPHILS % (MANUAL) 0 %; LYMPHOCYTES % (MANUAL) 5 %; MONOCYTES % (MANUAL) 5 %; NEUTROPHILS % (MANUAL) 90 %
[2020-08-18 19:46] LABS: ALANINE AMINOTRANSFERASE 20 U/L (0-55); ALBUMIN 2.8 GM/DL (3.2-4.5); ALKALINE PHOSPHATASE 122 U/L (40-136); BILIRUBIN,TOTAL 0.6 MG/DL (0.1-1.0); BUN/CREATININE RATIO 30; CALCIUM 8.2 MG/DL (8.5-10.1); CARBON DIOXIDE 21 MMOL/L (21-32); CHLORIDE 104 MMOL/L (98-107); CREATININE SERUM 0.56 MG/DL (0.60-1.30); GFR ESTIMATED > 60; GLUCOSE 109 MG/DL (70-105); MAGNESIUM 1.8 MG/DL (1.6-2.4); POTASSIUM 3.5 MMOL/L (3.6-5.0); SODIUM 138 MMOL/L (135-145); TOTAL PROTEIN 7.2 GM/DL (6.4-8.2)
[2020-08-18 19:52] LABS: VALPROIC ACID 15.4 UG/ML (50.0-100.0)
--- NOTE | 2020-08-18 20:36 | Diagnostic Imaging Report ---
INDICATION: Pneumonia. COMPARISON: 08/14/2020. EXAMINATION: Single view of the chest was obtained. FINDINGS: Increasing infiltrate in the left hemithorax, new infiltrates in the right hemithorax. There is no pneumothorax or effusion. The heart size is prominent but stable. Osseous structures are normal. IMPRESSION: Increasing infiltrates in the left hemithorax, new infiltrates right hemithorax. Dictated by: Dictated on workstation # [id number]
--- NOTE | 2020-08-18 21:45 | NUR ---
Pt off 02 and doing well; no drop in sp02 noted.
[2020-08-18 22:55] VITALS: BP 117/77
--- NOTE | 2020-08-18 22:58 | NUR ---
Attempted to call report to [facility] x 2; "they can't find the nurse" but they will call when available. EMS here to transport patient back.
== END 2020-08-18 22:55 ==
LOC: EDUNIT# 19:03 → ER 19:05
DX: U07.1 COVID-19 (principal); J12.89 Other viral pneumonia; F03.90 Unspecified dementia, unspecified severity, without behavioral disturbance, psychotic disturbance, mood disturbance, and anxiety; I10 Essential (primary) hypertension; F20.9 Schizophrenia, unspecified; F41.9 Anxiety disorder, unspecified; F32.9 Major depressive disorder, single episode, unspecified; G20 Parkinson's disease; Z79.82 Long term (current) use of aspirin
CPT/HCPCS: 36415; 71045; 80053; 80164; 83605; 83735; 85007; 85027; 85610; 85730; 87040; 93041

== ENCOUNTER 2020-08-21 11:20 | Inpatient (IN) | payer MEDICAID ==
[~2020-08-21] VITALS: Ht 182.8 cm; Wt 69.2 kg
--- NOTE | 2020-08-21 11:42 | ED Cough/URI ---
General Chief Complaint: Respiratory Problems Stated Complaint: COVID+ Source: long-term records Exam Limitations: no limitations History of Present Illness Date Seen by Provider: Aug 21, 2020 Time Seen by Provider: 11:39 Initial Comments To ER by [facility] from [facility] with reports that his brother wanted to see if we could do anything more for him. He has a known left pleural effusion, he is known Covid-positive, finished an antibiotic today for associated pneumonia. He is oxygen dependent at 2 L. He has schizophrenia and advanced dementia Timing/Duration: just prior to arrival Severity/Quality: dry cough Prior Episodes/Possible Cause: no prior episodes Associated Symptoms: cough, shortness of breath Allergies and Home Medications Allergies Coded Allergies: No Known Drug Allergies (Unverified , 12/19/17) Home Medications Acetaminophen 325 Mg Tablet, 650 MG PO Q4H PRN for PAIN-MILD, (Reported) TAKES 2 (325 MG) TABLETS Aspirin 81 Mg Tab.chew, 81 MG PO DAILY, (Reported) GIVE 1 TABLET BY MOUTH ONE TIME A DAY FOR COVID FOR 14 DAYS LAST DOSE WILL BE ON 08/25/2020 Bisacodyl 10 Mg Supp.rect, 10 MG RC DAILY PRN for CONSTIPATION-4TH LINE, (Reported) USE IF NO BM IN 3 DAYS IF MOM NOT EFFECTIVE Carbidopa/Levodopa 1 Each Tablet, 1 TAB PO TID, (Reported) Cefdinir 300 Mg Capsule, 300 MG PO BID Prescribed by: ANISA ORTIZ on 08/18/20 1143 Dexamethasone 6 Mg Tablet, 6 MG PO DAILY, (Reported) COVID PROTOCOL Diltiazem HCl 120 Mg Tablet, 120 MG PO DAILY, (Reported) HOLD FOR BLOOD PRESSURE LESS THAN 100/60 AND PULSE LESS THAN 60 Divalproex Sodium 125 Mg Cap.sprink, 250 MG PO BID, (Reported) TAKES 2 (125MG) CAPS Divalproex Sodium 125 Mg Cap, 125 MG PO 1400, (Reported) Docusate Sodium 100 Mg Capsule, 100 MG PO DAILY, (Reported) Entacapone 200 Mg Tablet, 200 MG PO BID, (Reported) Famotidine 20 Mg Tablet, 20 MG PO DAILY, (Reported) COVID PROTOCOL Loperamide HCl 2 Mg Tablet, 2-4 MG PO TID PRN for DIARRHEA, (Reported) GIVE 2 TABS NEEDED AFTER LOOSE STOOL, THEN 1 TAB AFTER EACH LOOSE STOOL Magnesium Hydroxide 2,400 Mg/10 Ml Oral.susp, 30 ML PO DAILY PRN for CONSTIPATION-7TH LINE, (Reported) Na Phos,M-B/Na Phos,Di-Ba 133 Ml Enema, 133 ML RC DAILY PRN for CONSTIPATION-8TH LINE, (Reported) GIVE IF NO BM IN 5 DAYS Paroxetine HCl 20 Mg Tablet, 20 MG PO DAILY, (Reported) Polyethylene Glycol 3350 17 Gm Powd.pack, 17 GM PO DAILY, (Reported) Risperidone 0.5 Mg Tablet, 0.5 MG PO DAILY, (Reported) Zinc Sulfate 220 Mg Capsule, 220 MG PO DAILY, (Reported) Patient Home Medication List Home Medication List Reviewed: Yes Review of Systems Review of Systems Constitutional: see HPI, other (unable to obtain due to dementia) Past Bzzfnjg-Lxyvkd-Kfmdqy Hx Patient Social History 2nd Hand Smoke Exposure: No Recent Hopitalizations: No (unknown) Immunizations Up To Date Tetanus Booster (TDap): Unknown Date of Pneumonia Vaccine: Oct 10, 2019 Date of Influenza Vaccine: Aug 10, 2019 Seasonal Allergies Seasonal Allergies: No Past Medical History Surgeries: Yes (L THORACENTESIS 07/02/20;L HIP FX/REPLACEMENT 12/2017) Joint Replacement, Orthopedic Respiratory: Yes (COVID-19 PNEUMONIA 08/2020;L PLEURAL EFF / THORACENTESIS 07/02/20) Pneumonia Cardiac: Yes Hypertension Neurological: Yes (ADVANCED DEMENTIA, ESSENTIALLY BED BOUND AND NON-VERBAL) Dementia, Parkinson's Disease Genitourinary: Yes (INCONTINENCE) Gastrointestinal: Yes Chronic Constipation Musculoskeletal: Yes (L HIP FX/REPLACEMENT 12/2017; FALLS; ESS BEDBOUND) Fractures Psychosocial: Yes (MANIPULATIVE BEHAVIORS, SEXUAL INAPROPRIATENESS) Sleep Difficulties, Anxiety, Schizophrenia, Depression Blood Disorders: No Adverse Reaction/Blood Tranf: No Family Medical History No Pertinent Family Hx Physical Exam Vital Signs - First Documented 08/21/20 11:20 Temp 36.9 Pulse 90 Resp 22 B/P (MAP) 129/80 (96) Pulse Ox 92 O2 Flow Rate 4.00 Capillary Refill : Height: 5'8.00" Weight: 183lbs. 3.0oz. 83.020972op; 21.00 BMI Method:Estimated General Appearance: cachetic (chronically ill, nonverbal, 92% on 4 L), thin Eyes: Bilateral Eye Normal Inspection, Bilateral Eye PERRL Neck: non-tender, full range of motion Respiratory: no respiratory distress, no accessory muscle use, decreased breath sounds Gastrointestinal: normal bowel sounds, soft Neurologic/Psychiatric: alert Skin: normal color, warm/dry Focused Exam Lactate Level 08/21/20 11:36: Lactic Acid Level 0.86 Lactic Acid Level Laboratory Tests Test 08/21/20 11:36 Lactic Acid Level 0.86 MMOL/L (0.50-2.00) Progress/Results/Core Measures Suspected Sepsis SIRS Temperature: Pulse: Respiratory Rate: Laboratory Tests 08/21/20 11:36: White Blood Count 8.1 Blood Pressure / Mean: 08/21/20 11:36: Lactic Acid Level 0.86 Laboratory Tests 08/21/20 11:36: Creatinine 0.67, Platelet Count 500H Results/Orders Lab Results Laboratory Tests Test 08/21/20 11:36 Range/Units White Blood Count 8.1 4.3-11.0 10^3/uL Red Blood Count 4.02 L 4.30-5.52 10^6/uL Hemoglobin 10.9 L 13.3-17.7 g/dL Hematocrit 34 L 40-54 % Mean Corpuscular Volume 83 80-99 fL Mean Corpuscular Hemoglobin 27 25-34 pg Mean Corpuscular Hemoglobin Concent 33 32-36 g/dL Red Cell Distribution Width 15.0 H 10.0-14.5 % Platelet Count 500 H 130-400 10^3/uL Mean Platelet Volume 10.4 9.0-12.2 fL Immature Granulocyte % (Auto) 1 % Neutrophils (%) (Auto) 79 H 42-75 % Lymphocytes (%) (Auto) 11 L 12-44 % Monocytes (%) (Auto) 10 0-12 % Eosinophils (%) (Auto) 0 0-10 % Basophils (%) (Auto) 0 0-10 % Neutrophils # (Auto) 6.4 1.8-7.8 10^3/uL Lymphocytes # (Auto) 0.9 L 1.0-4.0 10^3/uL Monocytes # (Auto) 0.8 0.0-1.0 10^3/uL Eosinophils # (Auto) 0.0 0.0-0.3 10^3/uL Basophils # (Auto) 0.0 0.0-0.1 10^3/uL Immature Granulocyte # (Auto) 0.1 0.0-0.1 10^3/uL Sodium Level 139 135-145 MMOL/L Potassium Level 4.5 3.6-5.0 MMOL/L Chloride Level 105 98-107 MMOL/L Carbon Dioxide Level 24 21-32 MMOL/L Anion Gap 10 5-14 MMOL/L Blood Urea Nitrogen 28 H 7-18 MG/DL Creatinine 0.67 0.60-1.30 MG/DL Estimat Glomerular Filtration Rate > 60 BUN/Creatinine Ratio 42 Glucose Level 98 70-105 MG/DL Lactic Acid Level 0.86 0.50-2.00 MMOL/L Calcium Level 8.3 L 8.5-10.1 MG/DL Procalcitonin 0.05 <0.10 NG/ML My Orders Orders - GYPSY DUNLAP APRN Cbc With Automated Diff (08/21/20 11:37) Basic Metabolic Panel (08/21/20 11:37) Lactic Acid Analyzer (08/21/20 11:37) Chest 1 View, Ap/Pa Only (08/21/20 11:37) Ed Iv/Invasive Line Start (08/21/20 11:37) Procalcitonin (Pct) (08/21/20 11:44) Ns Iv 1000 Ml (Sodium Chloride 0.9%) (08/21/20 12:00) Vital Signs/I&O 08/21/20 11:20 Temp 36.9 Pulse 90 Resp 22 B/P (MAP) 129/80 (96) Pulse Ox 92 O2 Flow Rate 4.00 Capillary Refill : Departure Communication (Admissions) Time/Spoke to Admitting Phy: 13:[address] Langston, will admit 1335-I discussed with the patient's brother OLIVIA who is very pleasant and reasonable, would like to proceed with room does severe but understands the poor prognosis and if Derrick fails to improve in the next few days he would consider comfort measures. Impression Primary Impression: COVID-19 Additional Impressions: Advanced dementia Poor prognosis Disposition: ADMITTED INPATIENT Condition: Unchanged Admissions Decision to Admit Reason: Admit from ER (General) Decision to Admit/Date: Aug 21, 2020 Time/Decision to Admit Time: 13:36 Departure-Patient Inst. Referrals: YOLY FAITH DO (PCP/Family) Primary Care Physician GYPSY DUNLAP APRN Aug 21, 2020 11:41
[2020-08-21 11:48] LABS: BASOPHILS % (AUTO) 0 % (0-10); EOSINOPHILS % (AUTO) 0 % (0-10); HEMATOCRIT 34 % (40-54); HEMOGLOBIN 10.9 g/dL (13.3-17.7); LYMPHOCYTES # (AUTO) 0.9 10^3/uL (1.0-4.0); LYMPHOCYTES % (AUTO) 11 % (12-44); MEAN CORPUSCULAR HEMOGLOBIN 27 pg (25-34); MEAN CORPUSCULAR HGB CONC 33 g/dL (32-36); MEAN CORPUSCULAR VOLUME 83 fL (80-99); MEAN PLATELET VOLUME 10.4 fL (9.0-12.2); MONOCYTES # (AUTO) 0.8 10^3/uL (0.0-1.0); MONOCYTES % (AUTO) 10 % (0-12); NEUTROPHILS # (AUTO) 6.4 10^3/uL (1.8-7.8); NEUTROPHILS % (AUTO) 79 % (42-75); PLATELET COUNT 500 10^3/uL (130-400); WHITE BLOOD COUNT 8.1 10^3/uL (4.3-11.0)
[2020-08-21 11:53] LABS: CHLORIDE 105 MMOL/L (98-107); POTASSIUM 4.5 MMOL/L (3.6-5.0); SODIUM 139 MMOL/L (135-145)
[2020-08-21 11:54] LABS: CALCIUM 8.3 MG/DL (8.5-10.1); GLUCOSE 98 MG/DL (70-105)
[2020-08-21 11:56] LABS: CARBON DIOXIDE 24 MMOL/L (21-32)
[2020-08-21 11:58] LABS: CREATININE SERUM 0.67 MG/DL (0.60-1.30); GFR ESTIMATED > 60
[2020-08-21 11:59] LABS: BUN/CREATININE RATIO 42
[2020-08-21] MEDS ORDERED: NS IV 1000 ML 1,000 ML IV SCH (12:00)
--- NOTE | 2020-08-21 12:26 | Diagnostic Imaging Report ---
Indication: Fever and cough. Time of exam: 11:47 AM Correlation is made with prior radiograph from 08/18/2020. Heart size is stable. Patient has developed some infiltrate in the right upper lobe consistent with pneumonia. Left-sided infiltrate is stable. There is no effusion or pneumothorax. Impression: Worsening right-sided pulmonary infiltrate and stable left pulmonary infiltrate when compared to exam from 3 days earlier. Dictated by: Dictated on workstation # [id number]
[2020-08-21] MEDS ORDERED: REMDESIVIR INJ (NON-FORMULARY) 200 MG in NS (IVPB) 210 ML IV NR (15:00)
[2020-08-21 15:34] VITALS: BP 111/62
--- NOTE | 2020-08-21 15:35 | NUR ---
Derrick Dumont admitted to room 423-1, with an admitting diagnosis of covid positive and hypoxia, on 08/21/20 from AM via , accompanied by DERRICK JALLOH introduced to surroundings, call light, bed controls, phone, TV, temperature control, lights, meal times, smoking policy, visitor policy, side rail policy, bathrooms and showers. Patient Rights given to patient in the handbook.
[2020-08-21] MEDS ORDERED: FLU QUADRIvalent (3YOA+) 60 mcg/0.5 ml 2020-21 (AFLURIA) IM ONE (16:15)
[2020-08-21 16:21] VITALS: BP 111/62
[2020-08-21 17:07] LABS: BASOPHILS % (AUTO) 0 % (0-10); EOSINOPHILS % (AUTO) 0 % (0-10); HEMATOCRIT 32 % (40-54); HEMOGLOBIN 10.4 g/dL (13.3-17.7); LYMPHOCYTES # (AUTO) 0.8 10^3/uL (1.0-4.0); LYMPHOCYTES % (AUTO) 7 % (12-44); MEAN CORPUSCULAR HEMOGLOBIN 27 pg (25-34); MEAN CORPUSCULAR HGB CONC 32 g/dL (32-36); MEAN CORPUSCULAR VOLUME 83 fL (80-99); MEAN PLATELET VOLUME 10.2 fL (9.0-12.2); MONOCYTES # (AUTO) 0.8 10^3/uL (0.0-1.0); MONOCYTES % (AUTO) 7 % (0-12); NEUTROPHILS # (AUTO) 9.1 10^3/uL (1.8-7.8); NEUTROPHILS % (AUTO) 85 % (42-75); PLATELET COUNT 446 10^3/uL (130-400); WHITE BLOOD COUNT 10.8 10^3/uL (4.3-11.0)
[2020-08-21] MEDS: LACTATED RINGERS 1,000 ML IV SCH (17:46)
[2020-08-21 20:14] VITALS: BP 136/78
[2020-08-22] VITALS (7 sets, daily range): BP systolic 118–155; BP diastolic 74–84
[2020-08-22] MEDS: LACTATED RINGERS 1,000 ML IV SCH ×3 (01:29→17:16)
[2020-08-22 06:25] LABS: ALBUMIN 2.8 GM/DL (3.2-4.5); CHLORIDE 105 MMOL/L (98-107); SODIUM 137 MMOL/L (135-145)
[2020-08-22 06:26] LABS: CALCIUM 8.3 MG/DL (8.5-10.1)
[2020-08-22 06:27] LABS: GLUCOSE 93 MG/DL (70-105); TOTAL PROTEIN 6.8 GM/DL (6.4-8.2)
[2020-08-22 06:28] LABS: CARBON DIOXIDE 22 MMOL/L (21-32)
[2020-08-22 06:29] LABS: BILIRUBIN,TOTAL 0.5 MG/DL (0.1-1.0)
[2020-08-22 06:30] LABS: ALKALINE PHOSPHATASE 100 U/L (40-136)
[2020-08-22 06:31] LABS: CREATININE SERUM 0.53 MG/DL (0.60-1.30); GFR ESTIMATED > 60
[2020-08-22 06:32] LABS: BUN/CREATININE RATIO 45
[2020-08-22 06:34] LABS: ALANINE AMINOTRANSFERASE 26 U/L (0-55)
--- NOTE | 2020-08-22 09:20 | History & Physical-Hospitalist ---
History of Present Illness HPI/Chief Complaint Derrick Dumont is a 59 year old male with advanced Parkinson's dementia who presented with worsening hypoxia due to COVID-19. He was recently admitted with COVID and discharged. He was not requiring oxygen at that time and did not receive Remdesivir, but did receive steroids and convalescent plasma. He was discharged to [facility] where he is a long-term resident. He recently completed an antibiotic for a possible bacterial pneumonia. His brother was concerned about him and wanted him brought in to see if there was anything else we could do for him. He has dementia and dysphagia at baseline. He is awake and responsive upon my examination. He is difficult to understand, but he is able to convey that he is not in any pain. He is moaning, but he otherwise appears comfortable. Source: RN/MD Exam Limitations: clinical condition Date Seen 08/22/20 Time Seen by a Provider: 09:00 Attending Physician Fara Faria MD PCP Marko Logan DO Referring Physician Date of Admission Aug 21, 2020 at 14:50 Home Medications & Allergies Home Medications Reviewed patient Home Medication Reconciliation performed by pharmacy medication reconciliations certified hyperbaric technician and/or nursing. Patients Allergies have been reviewed. Allergies Allergies Coded Allergies No Known Drug Allergies (Unverified12/19/17) Past Zvqihiu-Tnzoid-Jztdin Hx Past Med/Social Hx: Reviewed Nursing Past Med/Soc Hx Patient Social History Alcohol Use: Denies Use Recreational Drug Use: No 2nd Hand Smoke Exposure: No Recent Foreign Travel: No Contact w/other who traveled: No Recent Hopitalizations: Yes (August, ) Recent Infectious Disease Expo: No Immunizations Up To Date Tetanus Booster (TDap): Unknown Date of Pneumonia Vaccine: Oct 10, 2019 Date of Influenza Vaccine: Aug 10, 2019 Seasonal Allergies Seasonal Allergies: No Past Medical History Surgeries: Joint Replacement, Orthopedic Cardiac: Hypertension Neurological: Dementia, Parkinson's Disease Gastrointestinal: Chronic Constipation Musculoskeletal: Fractures Psychosocial: Sleep Difficulties, Anxiety, Schizophrenia, Depression History of Blood Disorders: No Adverse Reaction to Blood Alvarado: No Family History No Pertinent Family Hx Review of Systems ROS-Unable to Obtain: severe dementia Constitutional: see HPI Physical Exam Physical Exam Vital Signs Vital Signs - First Documented 08/21/20 08/21/20 11:20 15:59 Temp 36.9 Pulse 90 Resp 22 B/P (MAP) 129/80 (96) Pulse Ox 92 O2 Delivery Nasal Cannula O2 Flow Rate 4.00 Capillary Refill : Less Than 3 Seconds Height, Weight, BMI Height: 5'8.00" Weight: 183lbs. 3.0oz. 83.325816sh; 20.70 BMI Method:Estimated General Appearance: Chronically ill, Mild Distress (moaning) HEENT: Other (EOMI, drooling) Neck: Normal Inspection, Supple Respiratory: No Accessory Muscle Use, No Respiratory Distress; No Crackles; Rhonci; No Wheezing Cardiovascular: Regular Rate, Rhythm, No Edema, No Murmur Gastrointestinal: Normal Bowel Sounds, Non Tender, Soft Extremity: Normal Inspection, Non Tender, No Pedal Edema Neurologic/Psychiatric: Alert, Disoriented, Motor Weakness, Other Skin: Normal Color, Warm/Dry Lymphatic: No Adenopathy Results Results/Procedures Labs Laboratory Tests 08/21/20 11:36 08/21/20 17:03 08/22/20 06:05 Patient resulted labs reviewed. Imaging: Reviewed Imaging Report Assessment/Plan Admission Diagnosis Acute respiratory failure due to COVID-19 Admission Status: Inpatient Order (span 2 midnights) Reason for Inpatient Admission: COVID requiring oxygen and IV medications Assessment and Plan Acute respiratory failure due to COVID-19 Severe Parkinson's dementia Dysphagia Poor prognosis Supplemental oxygen as needed, currently 3 L Decadron Remdesivir s/p 1 unit convalescent plasma on previous admission Lovenox Swallow evaluation Dysphagia diet, honey thick liquids Palliative care consult, appreciate assistance HTN Schizophrenia Continue home meds when able DVT Prophylaxis: Lovenox Diagnosis/Problems Diagnosis/Problems (1) Acute respiratory failure due to COVID-19 Status: Acute (2) Advanced dementia Status: Chronic (3) Dysphagia Status: Chronic (4) Poor prognosis Status: Acute Clinical Quality Measures DVT/VTE Risk/Contraindication: Risk Factor Score Per Nursin RFS Level Per Nursing on Admit: 4+=Very High FARA FARIA MD Aug 22, 2020 09:20
[2020-08-22] MEDS ORDERED: PARO20TA5 PO (09:35)
[2020-08-22] MEDS ORDERED: ACET650S15 RC (09:35)
--- NOTE | 2020-08-22 09:52 | NUR ---
THE MED REC WAS ENTERED USING THE MAR FROM [facility] AND [facility]
--- NOTE | 2020-08-22 09:55 | Speech Therapy Progress Note ---
Therapy Progress Note ST received orders for a speech evaluation. 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 The patient has dementia and has been nonverbal for as long as I have known him. ST is discharging the orders for speech evaluation due to patient's current status is at baseline and is not appropriate to complete. CRISTY THOMPSON Aug 22, 2020 09:55
[2020-08-22] MEDS: ENOXAPARIN 40 MG/0.4 ML (LOVENOX) SYR SC SCH (10:46)
--- NOTE | 2020-08-22 14:10 | NUR ---
"RD ASSESSMENT PMHx: Parkinson's disease; dementia; HTN; chronic constipation PT INTERACTION: Note pt is COVID-19 positive and has hx of dementia, per chart review. Note all diet information gathered for nutrition assessment is per chart review. Note PO intake of 0% x4meal. Note last BM was 08/21, and pt not currently on bowel regimen. Not recent 20# wt loss x2mon. This is significant wt loss at 12% x2mon. Given PO intake and wt hx, pt meets criteria for malnutrition, per ASPEN guidelines. ABNORMAL NUTRITION-RELATED LAB VALUES LOW: cr 0.53; Ca 8.3; alb 2.8 HIGH: BUN 24 Est. kcal needs: 2075 kcal | 30 kcal/kg Est. Pro needs: 83 g Pro | 1.2 g Pro/kg PES STATEMENT: Inadequate oral intake (NI-2.1) related to loss of appetite as evidenced by chart review | PO intake 0% x4meal INTERVENTION: Continue with current diet order of Regular diet. Add Ensure Enlive (vary) to meals TID, for increased kcal intake. Provides 350 kcal and 13 g Pro per serving. Will continue to follow and reassess as pt needs, intake, and status change. Braxton Lambert, MS RD LD"
[2020-08-22] MEDS: REMDESIVIR INJ (NON-FORMULARY) 100 MG in NS (IVPB) 230 ML IV SCH (14:49)
[2020-08-23] MEDS: LACTATED RINGERS 1,000 ML IV SCH ×4 (02:42→20:46)
[2020-08-23 07:27] VITALS: BP 154/88
[2020-08-23] MEDS ORDERED: BISACODYL 10 MG SUPP (DULCOLAX) PR PRN (07:45)
[2020-08-23] MEDS ORDERED: ONDANSETRON 4 MG (ZOFRAN) ORAL DISSOLVE TAB PO PRN (07:45)
[2020-08-23] MEDS ORDERED: ONDANSETRON 4 MG/2 ML (SDV) Z0FRAN IV PRN (07:45)
[2020-08-23] MEDS ORDERED: ANTACID SUSP 30 ML UDC (MYLANTA) PO PRN (07:45)
[2020-08-23] MEDS ORDERED: ACETAMINOPHEN 325 MG TABLET PO PRN (07:45)
[2020-08-23] MEDS ORDERED: polyethylene glycoL POWDER 17 GM (MIRALAX) PACK PO PRN (07:45)
[2020-08-23] MEDS: ENOXAPARIN 40 MG/0.4 ML (LOVENOX) SYR SC SCH (08:19)
[2020-08-23] MEDS: SENNOSIDES 8.6 MG (SENOKOT) TAB PO SCH ×2 (08:20→19:54)
[2020-08-23] MEDS: DOCUSATE SODIUM 100 MG (COLACE) CAP PO SCH ×2 (08:20→19:53)
[2020-08-23 08:50] LABS: ALANINE AMINOTRANSFERASE 24 U/L (0-55); ALBUMIN 2.6 GM/DL (3.2-4.5); ALKALINE PHOSPHATASE 85 U/L (40-136); BILIRUBIN,TOTAL 0.5 MG/DL (0.1-1.0); BUN/CREATININE RATIO 39; CALCIUM 8.1 MG/DL (8.5-10.1); CARBON DIOXIDE 24 MMOL/L (21-32); CHLORIDE 101 MMOL/L (98-107); CREATININE SERUM 0.49 MG/DL (0.60-1.30); GFR ESTIMATED > 60; GLUCOSE 84 MG/DL (70-105); POTASSIUM 3.9 MMOL/L (3.6-5.0); SODIUM 134 MMOL/L (135-145); TOTAL PROTEIN 6.4 GM/DL (6.4-8.2)
--- NOTE | 2020-08-23 09:28 | Progress Note - Hospitalist ---
Subjective HPI/CC On Admission Date Seen by Provider: Aug 23, 2020 Time Seen by Provider: 08:55 Derrick Dumont is a 59 year old male with advanced Parkinson's dementia who presented with worsening hypoxia due to COVID-19. He was recently admitted with COVID and discharged. He was not requiring oxygen at that time and did not receive Remdesivir, but did receive steroids and convalescent plasma. He was discharged to [facility] where he is a long-term resident. He recently completed an antibiotic for a possible bacterial pneumonia. His brother was concerned about him and wanted him brought in to see if there was anything else we could do for him. He has dementia and dysphagia at baseline. He is awake and responsive upon my examination. He is difficult to understand, but he is able to convey that he is not in any pain. He is moaning, but he otherwise appears comfortable. Subjective/Events-last exam He is lethargic but responsive. He mumbles incomprehensible sounds. He is unable to cooperate due to his dementia. Focused Exam Lactate Level 08/21/20 11:36: Lactic Acid Level 0.86 Objective Exam Vital Signs Vital Signs Date Time Temp Pulse Resp B/P (MAP) Pulse Ox O2 Delivery O2 Flow Rate FiO2 08/23/20 08:22 Nasal Cannula 3.00 08/23/20 07:27 36.5 80 19 154/88 (110) 93 Capillary Refill : Less Than 3 SecondsLess Than 3 Seconds General Appearance: No Apparent Distress, Chronically ill Respiratory: Lungs Clear, Normal Breath Sounds, No Respiratory Distress Cardiovascular: Regular Rate, Rhythm, No Edema, No Murmur Gastrointestinal: Normal Bowel Sounds, Non Tender, Soft Extremity: Normal Inspection, Non Tender, No Pedal Edema Neurologic/Psychiatric: Aphasia, Other (lethargic, uncooperative) Skin: Normal Color, Warm/Dry Results/Procedures Lab Laboratory Tests 08/23/20 08:25 Patient resulted labs reviewed. Imaging: Reviewed Imaging Report Assessment/Plan Assessment and Plan Assess & Plan/Chief Complaint Acute respiratory failure due to COVID-19 Severe Parkinson's dementia Dysphagia Poor prognosis Supplemental oxygen as needed, currently 3 L Decadron Remdesivir day 3/5 s/p 1 unit convalescent plasma on previous admission Lovenox Dysphagia diet, honey thick liquids Palliative care consult, appreciate assistance HTN Schizophrenia Continue home meds when able DVT Prophylaxis: Lovenox Diagnosis/Problems Diagnosis/Problems (1) Acute respiratory failure due to COVID-19 Status: Acute (2) Advanced dementia Status: Chronic (3) Dysphagia Status: Chronic (4) Poor prognosis Status: Acute Clinical Quality Measures DVT/VTE Risk/Contraindication: Risk Factor Score Per Nursin RFS Level Per Nursing on Admit: 4+=Very High ENA FARIA MD Aug 23, 2020 09:28
--- NOTE | 2020-08-23 15:41 | NUR ---
Palliative Care RN in to see patient earlier today. He is CV+ and getting Remdesavir and I think he has 2 doses left after today. Possible discharge on Friday with return to [facility]. Called and spoke with patient's brother SANDRINE Tidwell. He was viet ceci when I mentioned hospice. He didn't want to talk about it until he knew if the treatment for COVID worked first. I explained that even without COVID in the picture that his brother had severe dementia and would be appropriate. 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
[2020-08-23 16:00] VITALS: BP 124/68
[2020-08-23] MEDS: REMDESIVIR INJ (NON-FORMULARY) 100 MG in NS (IVPB) 230 ML IV SCH (16:16)
[2020-08-23 23:00] VITALS: BP 143/86
[2020-08-24] MEDS: LACTATED RINGERS 1,000 ML IV SCH (05:35)
[2020-08-24 07:32] LABS: ALANINE AMINOTRANSFERASE 20 U/L (0-55); ALBUMIN 2.4 GM/DL (3.2-4.5); ALKALINE PHOSPHATASE 78 U/L (40-136); BILIRUBIN,TOTAL 0.6 MG/DL (0.1-1.0); BUN/CREATININE RATIO 38; CALCIUM 7.9 MG/DL (8.5-10.1); CARBON DIOXIDE 24 MMOL/L (21-32); CHLORIDE 98 MMOL/L (98-107); CREATININE SERUM 0.47 MG/DL (0.60-1.30); GFR ESTIMATED > 60; GLUCOSE 83 MG/DL (70-105); POTASSIUM 3.8 MMOL/L (3.6-5.0); SODIUM 130 MMOL/L (135-145); TOTAL PROTEIN 6.1 GM/DL (6.4-8.2)
[2020-08-24 08:00] VITALS: BP 134/71
[2020-08-24] MEDS: NS IV 1000 ML 1,000 ML IV SCH ×3 (08:21→23:38)
[2020-08-24] MEDS: ENOXAPARIN 40 MG/0.4 ML (LOVENOX) SYR SC SCH (08:22)
[2020-08-24] MEDS: ASPIRIN 81 MG CHEW (CHILDREN'S ASA) PO SCH (08:22)
[2020-08-24] MEDS: DOCUSATE SODIUM 100 MG (COLACE) CAP PO SCH ×2 (08:22→22:48)
[2020-08-24] MEDS: dilTIAZem120 MG (CARDIZEM CD) CAP PO SCH (08:22)
[2020-08-24] MEDS: SENNOSIDES 8.6 MG (SENOKOT) TAB PO SCH ×2 (08:23→22:48)
[2020-08-24] MEDS: DIVALPROX SPRINKLE 125 MG (DEPAKOTE) CAP PO SCH ×2 (08:23→22:48)
[2020-08-24] MEDS: PARoxetine 20 MG (PAXIL) TAB PO SCH (08:23)
[2020-08-24] MEDS: polyethylene glycoL POWDER 17 GM (MIRALAX) PACK PO SCH ×2 (08:23→22:48)
[2020-08-24] MEDS: FAMOTIDINE 20 MG (PEPCID) TABLET PO SCH (08:23)
[2020-08-24] MEDS: risperiDONE 0.25 MG (RisperDAL) TAB PO SCH (08:23)
[2020-08-24] MEDS: SINEMET 25/100 (CARBIDOPA/LEVODOPA) TAB PO SCH ×3 (08:24→22:49)
[2020-08-24] MEDS ORDERED: ENTACAPONE 200 MG PO SCH (09:00)
[2020-08-24] MEDS ORDERED: NON-FORMULARY MEDICATION 1 EA EA (Risperidone 0.5 MG) PO SCH (09:00)
[2020-08-24] MEDS ORDERED: NON-FORMULARY MEDICATION 1 EA EA (Diltiazem HCl 120 MG) PO SCH (09:00)
--- NOTE | 2020-08-24 09:47 | Progress Note - Hospitalist ---
Subjective HPI/CC On Admission Date Seen by Provider: Aug 24, 2020 Time Seen by Provider: 09:20 Derrick Dumont is a 59 year old male with advanced Parkinson's dementia who presented with worsening hypoxia due to COVID-19. He was recently admitted with COVID and discharged. He was not requiring oxygen at that time and did not receive Remdesivir, but did receive steroids and convalescent plasma. He was discharged to [facility] where he is a long-term resident. He recently completed an antibiotic for a possible bacterial pneumonia. His brother was concerned about him and wanted him brought in to see if there was anything else we could do for him. He has dementia and dysphagia at baseline. He is awake and responsive upon my examination. He is difficult to understand, but he is able to convey that he is not in any pain. He is moaning, but he otherwise appears comfortable. Subjective/Events-last exam He mumbles incomprehensible words. He is demented and unable to cooperate. Focused Exam Lactate Level 08/21/20 11:36: Lactic Acid Level 0.86 Objective Exam Vital Signs Vital Signs Date Time Temp Pulse Resp B/P (MAP) Pulse Ox O2 Delivery O2 Flow Rate FiO2 08/24/20 08:00 36.3 76 18 134/71 (92) 93 Nasal Cannula 3.00 Capillary Refill : Less Than 3 SecondsLess Than 3 Seconds General Appearance: No Apparent Distress, Chronically ill Respiratory: Lungs Clear, Normal Breath Sounds, No Respiratory Distress Cardiovascular: Regular Rate, Rhythm, No Edema, No Murmur Gastrointestinal: Normal Bowel Sounds, Soft Extremity: Normal Inspection, No Pedal Edema Neurologic/Psychiatric: Other (lethargic but responsive, uncooperative, mumbles incomprehensible sounds) Skin: Normal Color, Warm/Dry Results/Procedures Lab Laboratory Tests 08/24/20 06:55 Patient resulted labs reviewed. Imaging: Reviewed Imaging Report Assessment/Plan Assessment and Plan Assess & Plan/Chief Complaint Acute respiratory failure due to COVID-19 Severe Parkinson's dementia Dysphagia Poor prognosis Supplemental oxygen as needed, currently 2 L Decadron Remdesivir day 4/5 s/p 1 unit convalescent plasma on previous admission Lovenox Dysphagia diet, honey thick liquids Palliative care consult, appreciate assistance HTN Schizophrenia Continue home meds DVT Prophylaxis: Lovenox Diagnosis/Problems Diagnosis/Problems (1) Acute respiratory failure due to COVID-19 Status: Acute (2) Advanced dementia Status: Chronic (3) Dysphagia Status: Chronic (4) Poor prognosis Status: Acute Clinical Quality Measures DVT/VTE Risk/Contraindication: Risk Factor Score Per Nursin RFS Level Per Nursing on Admit: 4+=Very High ENA FARIA MD Aug 24, 2020 09:47
--- NOTE | 2020-08-24 10:07 | NUR ---
RT NOTIFIED OF HOME O2 EVAL
--- NOTE | 2020-08-24 13:13 | NUR ---
PT UNABLE TO SAFELY SWALLOW PO MEDS AT THIS TIME. DR FARIA AWARE. ORAL CARE PERFORMED, PT TOLERATED WELL, WILL CONTINUE TO MONITOR.
[2020-08-24] MEDS: REMDESIVIR INJ (NON-FORMULARY) 100 MG in NS (IVPB) 230 ML IV SCH (13:41)
--- NOTE | 2020-08-24 13:41 | NUR ---
PATIENT WAS 93% ON 2L/M OF OXYGEN PATIENT WAS PLACED ON ROOM AIR FOR 20 MIN SAT DROPPED TO 90% AND REMAINED THERE PATIENT REMAINS ON ROOM AIR PATIENT IS UNABLE TO WALK Addendum: 08/24/20 at 1343 by JIMENA THAPA RT Amended: Links added.
[2020-08-24] MEDS ORDERED: DIVALPROX SPRINKLE 125 MG (DEPAKOTE) CAP PO SCH (14:00)
[2020-08-24 16:00] VITALS: BP 123/75
[2020-08-25 00:07] VITALS: BP 130/79
[2020-08-25 06:04] LABS: ALBUMIN 2.7 GM/DL (3.2-4.5); CHLORIDE 100 MMOL/L (98-107); POTASSIUM 3.9 MMOL/L (3.6-5.0); SODIUM 131 MMOL/L (135-145)
[2020-08-25 06:06] LABS: CALCIUM 8.2 MG/DL (8.5-10.1)
[2020-08-25 06:07] LABS: GLUCOSE 90 MG/DL (70-105); TOTAL PROTEIN 6.7 GM/DL (6.4-8.2)
[2020-08-25 06:08] LABS: CARBON DIOXIDE 20 MMOL/L (21-32)
[2020-08-25 06:09] LABS: BILIRUBIN,TOTAL 0.6 MG/DL (0.1-1.0)
[2020-08-25 06:10] LABS: ALKALINE PHOSPHATASE 91 U/L (40-136); CREATININE SERUM 0.51 MG/DL (0.60-1.30); GFR ESTIMATED > 60
[2020-08-25 06:12] LABS: BUN/CREATININE RATIO 29
[2020-08-25 06:13] LABS: ALANINE AMINOTRANSFERASE 21 U/L (0-55)
[2020-08-25 08:09] VITALS: BP 117/66
[2020-08-25] MEDS: REMDESIVIR INJ (NON-FORMULARY) 100 MG in NS (IVPB) 230 ML IV SCH (08:47)
--- NOTE | 2020-08-25 08:49 | NUR ---
FINAL DISCHARGE PLAN: Patient will return to his previous placement at [facility] today.. He will be picked up by the facility at 1 pm. I have spoken with his brother, Yaw Dumont and answered his questions. He has no problem with his return to [facility] today.
[2020-08-25] MEDS: ASPIRIN 81 MG CHEW (CHILDREN'S ASA) PO SCH (09:14)
[2020-08-25] MEDS: DOCUSATE SODIUM 100 MG (COLACE) CAP PO SCH (09:15)
[2020-08-25] MEDS: SENNOSIDES 8.6 MG (SENOKOT) TAB PO SCH (09:15)
[2020-08-25] MEDS: dilTIAZem120 MG (CARDIZEM CD) CAP PO SCH (09:15)
[2020-08-25] MEDS: PARoxetine 20 MG (PAXIL) TAB PO SCH (09:15)
[2020-08-25] MEDS: risperiDONE 0.25 MG (RisperDAL) TAB PO SCH (09:15)
[2020-08-25] MEDS: DIVALPROX SPRINKLE 125 MG (DEPAKOTE) CAP PO SCH (09:15)
[2020-08-25] MEDS: polyethylene glycoL POWDER 17 GM (MIRALAX) PACK PO SCH (09:15)
[2020-08-25] MEDS: SINEMET 25/100 (CARBIDOPA/LEVODOPA) TAB PO SCH ×2 (09:15→12:14)
[2020-08-25] MEDS: FAMOTIDINE 20 MG (PEPCID) TABLET PO SCH (09:15)
--- NOTE | 2020-08-25 09:31 | Discharge Summary ---
Discharge Summary Hospital Course Was the Problem List Reviewed?: Yes Problems/Dx: (1) Acute respiratory failure due to COVID-19 Status: Acute (2) Advanced dementia Status: Chronic (3) Dysphagia Status: Chronic (4) Poor prognosis Status: Acute Hospital Course Date of Admission: Aug 21, 2020 at 14:50 Admission Diagnosis : Acute respiratory failure due to COVID-19 Family Physician/Provider: Yoly Faith DO Date of Discharge: 08/25/20 Discharge Diagnosis: Acute respiratory failure due to COVID-19 Hospital Course: Derrick Dumont is a 59-year-old male with advanced Parkinson's dementia who was admitted with acute respiratory failure due to COVID-19. He had recently been discharged after an admission due to COVID but had not been requiring oxygen at that time. During this hospital stay, he was given IV Decadron and Remdesivir. He had been given a unit of convalescent plasma on his previous stay. His oxygen requirement improved and he was not requiring any supplemental oxygen at the time of discharge. With his advanced dementia and poor prognosis, palliative care was consulted and discussed hospice care with his brother, Yaw, who is also his durable power of insurance defense attorney. He did not elect to pursue hospice at this time. The patient was discharged back to his [facility] in stable condition. In his chronically ill state, he has a high likelihood for readmission. He should follow-up with his primary care physician, Dr. Faith, in about 1-2 weeks. Labs and Pending Lab Test: Laboratory Tests 08/25/20 05:33: Sodium Level 131L, Potassium Level 3.9, Chloride Level 100, Carbon Dioxide Level 20L, Anion Gap 11, Blood Urea Nitrogen 15, Creatinine 0.51L, Estimat Glomerular Filtration Rate > 60, BUN/Creatinine Ratio 29, Glucose Level 90, Calcium Level 8.2L, Corrected Calcium 9.2, Total Bilirubin 0.6, Aspartate Amino Transf (AST/SGOT) 20, Alanine Aminotransferase (ALT/SGPT) 21, Alkaline Phosphatase 91, Total Protein 6.7, Albumin 2.7L Home Meds Active Cefdinir 300 Mg Capsule 300 Mg PO BID Reported Paroxetine HCl 20 Mg Tablet 40 Mg PO DAILY TAKES 2 (20MG) TABS Acetaminophen 650 Mg Supp.rect 650 Mg RC Q4H PRN Zinc Sulfate 220 Mg Capsule 220 Mg PO DAILY Miralax (Polyethylene Glycol 3350) 17 Gm Powd.pack 17 Gm PO DAILY Acid Freight Separator (FAMOTIDINE) (Famotidine) 20 Mg Tablet 20 Mg PO DAILY COVID PROTOCOL Dexamethasone 6 Mg Tablet 6 Mg PO DAILY 10 Days COVID PROTOCOL Aspirin 81 Mg Tab.chew 81 Mg PO DAILY GIVE 1 TABLET BY MOUTH ONE TIME A DAY FOR COVID FOR 14 DAYS LAST DOSE WILL BE ON 08/25/2020 Bisacodyl 10 Mg Supp.rect 10 Mg RC DAILY PRN USE IF NO BM IN 3 DAYS IF MOM NOT EFFECTIVE Docusate Sodium 100 Mg Capsule 100 Mg PO DAILY Depakote Sprinkle (Divalproex Sodium) 125 Mg Cap 125 Mg PO 1400 Divalproex Sodium 125 Mg Cap.sprink 250 Mg PO BID TAKES 2 (125MG) CAPS Risperidone 0.5 Mg Tablet 0.5 Mg PO DAILY Milk of Magnesia (Magnesium Hydroxide) 2,400 Mg/10 Ml Oral.susp 30 Ml PO DAILY PRN Loperamide (Loperamide HCl) 2 Mg Tablet 2-4 Mg PO TID PRN MDD 6 TABS GIVE 2 TABS NEEDED AFTER LOOSE STOOL, THEN 1 TAB AFTER EACH LOOSE STOOL Fleet Enema (Na Phos,M-B/Na Phos,Di-Ba) 133 Ml Enema 133 Ml RC DAILY PRN GIVE IF NO BM IN 5 DAYS Tylenol (Acetaminophen) 325 Mg Tablet 650 Mg PO Q4H PRN TAKES 2 (325 MG) TABLETS Sinemet 25-100 mg Tablet (Carbidopa/Levodopa) 1 Each Tablet 1 Tab PO TID Entacapone 200 Mg Tablet 200 Mg PO BID Diltiazem HCl 120 Mg Tablet 120 Mg PO DAILY HOLD FOR BLOOD PRESSURE LESS THAN 100/60 AND PULSE LESS THAN 60 Assessment/Pt Instructions Take medications as prescribed. Follow-up with your primary care physician in one to two weeks. Return with worsening shortness of breath or feel like you're getting worse. Discharge Planning: <30 minutes discharge planning Discharge Instructions Discharge Diet: Other Diet (Dysphagia diet with honey thick liquids) Activity as Tolerated: Yes Discharge Physical Examination Vital Signs Vital Signs Date Time Temp Pulse Resp B/P (MAP) Pulse Ox O2 Delivery O2 Flow Rate FiO2 08/25/20 08:09 36.8 74 18 117/66 (83) 94 Room Air 08/24/20 20:00 3.00 General Appearance: No Apparent Distress, Chronically ill Respiratory: Lungs Clear, Normal Breath Sounds, No Respiratory Distress Cardiovascular: Regular Rate, Rhythm, No Edema, No Murmur Gastrointestinal: Normal Bowel Sounds, Non Tender, Soft Extremity: Normal Inspection, Non Tender, No Pedal Edema Skin: Normal Color, Warm/Dry Neurologic/Psychiatric: Alert, Disoriented, Other (mumbles incomprehensible words) Allergies: Coded Allergies: No Known Drug Allergies (Unverified , 12/19/17) Copy Copies To 1: YOLY FAITH DO Discharge Summary Date of Admission Aug 21, 2020 at 14:50 Date of Discharge Discharge Date: Aug 25, 2020 Discharge Time: 11:00 Admission Diagnosis Acute respiratory failure due to COVID-19 Comfort Measures/ End of Life Care: Pallative Care Discharge Diagnosis Acute respiratory failure due to COVID-19 (1) Acute respiratory failure due to COVID-19 Status: Acute (2) Advanced dementia Status: Chronic (3) Dysphagia Status: Chronic (4) Poor prognosis Status: Acute Clinical Quality Measures DVT/VTE Risk/Contraindication: Risk Factor Score Per Nursin RFS Level Per Nursing on Admit: 4+=Very High ENA FARIA MD Aug 25, 2020 09:27
[2020-08-25] MEDS: ENOXAPARIN 40 MG/0.4 ML (LOVENOX) SYR SC SCH (12:13)
== END 2020-08-25 13:40 | DRG 177 ==
LOC: EDUNIT# 11:20 → ER 11:21 → 4TH 14:50
PROVIDERS: ADMIT Internal Medicine; ATTEND Internal Medicine
PROC: XW13325 Transfusion of Convalescent Plasma (Nonautologous) into Peripheral Vein, Percutaneous Approach, New Technology Group 5 (ICD-10-PCS; principal; 2020-08-22)
DX: U07.1 COVID-19 (principal); J12.89 Other viral pneumonia; J96.00 Acute respiratory failure, unspecified whether with hypoxia or hypercapnia; G20 Parkinson's disease; F02.80 Dementia in other diseases classified elsewhere, unspecified severity, without behavioral disturbance, psychotic disturbance, mood disturbance, and anxiety; R13.10 Dysphagia, unspecified; I10 Essential (primary) hypertension; F20.9 Schizophrenia, unspecified
CPT/HCPCS: 36415; 71045; 80048; 80053; 83605; 84145; 85025; 90686; 94761